=== PATIENT | female | born 1950 | race Caucasian/White ===

== ENCOUNTER 2024-05-22 08:20 | Outpatient (OUT) | payer MEDICARE, OTHER, SELFPAY ==
[2024-05-22 08:54] LABS: Basophils Absolute Auto 0.1 10^3/uL (0.0-0.1); Basophils Percent Auto 1.2 % (0.2-2.0); Eosinophils Absolute Auto 0.3 10^3/uL (0.0-0.7); Eosinophils Percent Auto 3.5 % (0.9-7.0); Hematocrit 37.9 % (36.0-48.0); Hemoglobin 12.6 g/dL (12.0-16.0); Immature Granulocytes Abs Auto 0.03 10^3/uL (0.00-0.03); Immature Granulocytes Pct Auto 0.3 % (0.0-0.5); Lymphocytes Absolute Auto 2.6 10^3/uL (1.2-3.8); Lymphocytes Percent Auto 30.2 % (20.5-60.0); Mean Corpuscular HGB Conc 33.2 g/dL (29.9-35.2); Mean Corpuscular Hemoglobin 30.5 pg (26.7-34.0); Mean Corpuscular Volume 91.8 fL (81.0-99.0); Mean Platelet Volume 9.9 fL (9.5-13.5); Monocytes Absolute Auto 0.7 10^3/uL (0.3-0.8); Monocytes Percent Auto 8.5 % (1.7-12.0); Neutrophils Absolute Auto 4.8 10^3/uL (1.4-6.5); Neutrophils Percent Auto 56.3 % (43.0-75.0); Platelet Count 380 10^3/uL (150-450); Red Blood Count 4.13 10^6/uL (4.20-5.40); Red Cell Distribution Width 12.8 % (11.0-15.0); White Blood Count 8.6 10^3/uL (4.0-11.0)
--- NOTE | 2024-05-22 08:59 | XR_ITS ---
The [address] [address] Patient Name: JEROD CONCEPCION MRN: [id number] date: 1950 Sex: F Assigned Patient Location: LAB Current Patient Location: CARD Accession/Order Number: [id number] Exam Date: 05/22/2024 09:05 Report Date: 05/23/2024 10:26 At the request of: LAUREN AYOUB Procedure: XR chest 2V PROCEDURE: XR chest 2V DATE: 05/22/2024 8:05 AM CDT COMPARISONS: None. CLINICAL INDICATION: 73 years Female Chronic Cough, Coronary Artery Disease FINDINGS: The cardiomediastinal silhouette and pulmonary vasculature are within normal limits. The lungs are clear. There is no evidence of pleural effusion or pneumothorax. XR/XR chest 2V IMPRESSION: Chest radiograph is within normal limits. Electronically authenticated by: WILLY HOUSE Date: 05/23/2024 10:26
[2024-05-22 09:39] LABS: Alanine Aminotransferase 20 U/L (14-59); Albumin Level 3.8 g/dL (3.4-5.0); Alkaline Phosphatase 109 U/L (46-116); Anion Gap 16.5; Aspartate Amino Transferase 15 U/L (15-37); BUN Creatinine Ratio 23.2; Bilirubin Total 0.7 mg/dL (0.2-1.0); Calcium 9.3 mg/dL (8.5-10.1); Carbon Dioxide 25.1 mmol/L (21.0-32.0); Chloride 101 mmol/L (98-107); Chol HDL Ratio 3.3; Cholesterol 187 mg/dL (<=200); Estimated GFR (African America 28 (>=60); Estimated GFR (Non-African Ame 23 (>=60); Globulin 3.7 g/dL; Glucose 198 mg/dL (74-106); HDL Cholesterol 57 mg/dL (40-60); Potassium 4.6 mmol/L (3.5-5.1); Sodium 138 mmol/L (136-145); Thyroid Stimulating Hormone 6.652 uIU/mL (0.358-3.740); Total Protein 7.5 g/dL (6.4-8.2); Triglycerides 366 mg/dL (<=150); VLDL CHOLESTEROL 73.2 mg/dL
[2024-05-22 10:03] LABS: Estimated Average Glucose 220 mg/dL; Glycohemoglobin A1C 9.3 % (4.5-6.2)
[2024-05-23 16:13] LABS: Microalbumin Urine Random 3.2 mg/dL (<=30.0)
== END 2024-05-22 08:21 | disposition home or self-care (01) ==
PROVIDERS: PCP Family Medicine; Visit Provider Family Medicine
DX: R05.3 Chronic cough (principal); E11.9 Type 2 diabetes mellitus without complications; I25.10 Atherosclerotic heart disease of native coronary artery without angina pectoris; D50.9 Iron deficiency anemia, unspecified
CPT/HCPCS: 36415; 71046; 80053; 80061; 82043; 83036; 84443; 85025

== ENCOUNTER 2024-05-23 07:53 | Outpatient (OUT) | payer MEDICARE, OTHER, SELFPAY ==
--- NOTE | 2024-05-23 07:57 | CA_ITS ---
Patient Name: JEROD CONCEPCION MR#: [id number] : 1950 Exam Date: 05/23/2024 Ordering Doctor: DR MASHA OBRIEN M.D. ECHOCARDIOGRAM REPORT PROCEDURE: CA ECHO DOPPLER COMPLETE INDICATIONS: PARSONS COMPARISON: None. DESCRIPTION: COMPLETE ECHOCARDIOGRAM Real-time transthoracic echocardiography with 2D, M-mode, spectral and color flow Doppler performed. QUALITY: Technical quality was good. LEFT VENTRICLE: Normal chamber size. Moderate concentric left ventricular hypertrophy. Global left ventricular systolic function is normal. LV EF: Estimated left ventricular ejection fraction is 60-65 % DIASTOLIC: Diastolic function is indeterminate. ATRIAL SEPTUM: LEFT ATRIUM: Mild chamber dilatation. RIGHT ATRIUM: Normal chamber size. RIGHT VENTRICLE: Normal chamber size. Normal right ventricular systolic function. TRICUSPID VALVE: Normal mobility and thickness. No stenosis with mild regurgitation. No evidence of pulmonary hypertension. RVSP 30 mmHg MITRAL VALVE: Anterior and posterior mitral valve leaflet prolapse. Mild mitral annular calcification. Moderate mitral regurgitation. AORTIC VALVE: Normal trileaflet appearance. No visible sclerosis. Normal leaflet mobility. No evidence of aortic valve stenosis. No aortic regurgitation. AORTIC ROOT: Normal diameter and appearance. PULMONIC VALVE: Normal thickness and mobility. No stenosis. Trivial regurgitation. PERICARDIUM: No evidence of pericardial effusion. IVC: Collapses with inspirations. Normal size PLEURA: CONCLUSION: 1. Moderate concentric hypertrophy with normal systolic function. Estimated LVEF is left ventricular 60 to 65%. 2. Normal right ventricular size and systolic function. 3. Mild left atrial dilatation. 4. No significant valvular dysfunction. 5. Normal right-sided pressures. 6. No pericardial effusion. Adult Echocardiography Procedure Report Left Ventricle LVEDD (3.7 - 5.6 cm): 3.49 cm LVESD (2.2 - 4.0 cm): 2.36 cm LVIVS thickness (0.6 - 1.2 cm): 1.17 cm LVPW thickness (0.5 - 1.0 cm): 1.38 cm e': 0.07 m/s E - e': 11.20 LVOT Max Gradient: 2.48 mm[Hg] LVOT Area (cm2): 0.79 m/s Peak Velocity (LVOT): 0.79 m/s Mean Velocity (LVOT): 0.61 m/s LVOT Diameter 1.94 cm Left Ventricular Ejection Fraction: 60-65 % Left Atrium LA Volume Index (2D A2C): 26.97 ml/m2 Left Atrium Systolic Dimension: 3.20 cm Mitral Valve MV E to A Ratio: 0.78 Mitral Valve A-Wave Peak Velocity: 1.04 m/s Mitral Valve E-Wave Peak Velocity: 0.81 m/s Right Ventricle RV Internal Diastolic Dimension: 3.05 cm Aorta AO Root Diam: 3.11 cm Ascending Ao Diam: 2.74 cm Aortic Valve AoV Area (Peak Jean): 2.02 cm2, 2.02 cm2 AoV Area (VTI): 1.28 cm2, 1.28 cm2 Peak Velocity(Antegrade Flow): 1.15 m/s Peak Gradient(Antegrade Flow): 5.30 mm[Hg] Mean Velocity(Antegrade Flow): 0.87 m/s Mean Gradient(Antegrade Flow): 3.29 mm[Hg] Velocity Time Integral: 28.56 cm Tricuspid Valve Peak Velocity (Regurgitant Flow): 2.59 m/s, 2.43 m/s, 2.54 m/s Pulmonic Valve Mean Gradient: 3.34 mm[Hg], 2.32 mm[Hg] Mean Velocity: 0.87 m/s, 0.69 m/s Peak Velocity: 1.36 m/s Peak Gradient: 8.20 mm[Hg], 6.73 mm[Hg] Right Atrium Right Atrium Systolic Pressure: 37.97 ml, 37.97 ml Dictated by: Dav Fagan M.D. on 05/23/2024 at 20:32 Approved by: Dav Fagan M.D. on 05/23/2024 at 20:36
--- OUTSIDE RECORDS SUMMARY | 2024-05-23 07:58 | XMS_ITS | CCD ---
Author Organization [facility] Care Team Providers Care Horseback Riding Instructor Name Role Phone ANA LAURA BROCK Referring Unavailable AYOUB, TANIA Primary Care Unavailable LONNY FELTON Attending Unavailable NARENDRA SANCHEZ Admitting Unavailable Ayoub, Tania Unavailable AYOUB, TANIA E Primary Care Unavailable DELFINO CARVAJAL Attending Unavailable DELFINO CARVAJAL Consulting Unavailable WEI, DELFINO Admitting Unavailable AYOUB, TANIA E Primary Care Unavailable STEPANIC, DR MILLAN Admitting Unavailable STEPANIC, DR MILLAN Attending Unavailable MISC, DR LYONS Consulting Unavailable AYOUB, TANIA E Primary Care Unavailable MISC, DR LYONS Admitting Unavailable MISC, DR LYONS Attending Unavailable AYOUB, TANIA E Primary Care Unavailable WEICHARDELFINO Admitting Unavailable WEIBETSYA Attending Unavailable AYOUB, TANIA E Primary Care Unavailable MISC, DR LYONS Admitting Unavailable MISC, DR LYONS Attending Unavailable MISC, DR LYONS Consulting Unavailable AYOUB, TANIA E Attending Unavailable AYOUB, TANIA E Consulting Unavailable AYOUB, TANIA E Primary Care Unavailable AYOUB, TANIA E Admitting Unavailable MASAH OBRIEN Attending Unavailable FREIDA GRIFFIN Attending Unavailable GIANNI BOYKIN Attending Unavailable Allergies Allergy Classification Reported Allergen(s) Allergy Type Date of Onset Reaction(s) Facility (8 sources) Penicillin Drug Allergy 02-01-20 20 Unknown [facility] Repository (8 sources) Ciprofloxacin Drug Allergy 05-19-20 24 Unknown, [facility] (5 sources) Eggs/Apples/Oats Drug allergy Unknown [facility] Other (3 sources) atorvastatin Drug Allergy Unknown [facility] Other (3 sources) Substance with penicillin structure and antibacterial mechanism of action (substance) Drug allergy Unknown [facility] Other (1 source) patient allergy list reviewed by nurse or physicia Propensity to adverse reactions 01-11-20 14 Comment:Done [facility] Other (3 sources) Eggs/Apples/Oats *DIETARY PRODUCTS/DIETARY MANAGEM Propensity to adverse reactions Unknown [facility] Other (1 source) Allergies Reconciled Propensity to adverse reactions Unknown [facility] Other (1 source) egg extract; Translations: [EGG] Drug Allergy 06-30-20 23 [facility] Repository (2 sources) Penicillins; Translations: [PENICILLINS] Propensity to adverse reactions to drug (disorder) 01-05-20 [facility] Repository (1 source) Eggs/Apples/Oats *DIETARY PROD Allergy to substance 05-12-20 [facility] Medications Current Medications Medication Drug Class(es) Dates Sig (Normalized) Sig (Original) aspirin 81 mg delayed release oral tablet (7 sources) Platelet Aggregation Inhibitor, Nonsteroidal Anti-inflammatory Drug take 1 tablet by mouth every twenty-four hours Aspirin 81 81 MG 1 tablet Orally Once a day Active azithromycin 250 mg oral tablet (4 sources) Macrolide Antimicrobial Start: 07-01-2023 Azithromycin 250 MG as directed Orally 2 tabs po today, then 1 tab daily x 4 more days for 5 Jun, Active Start: 01-04-2023 Azithromycin 2 50 MG as directed Orally daily for 5 days Dec, Active bumetanide 1 mg oral tablet (7 sources) Loop Diuretic take 1 tablet by mouth every twenty-four hours Bumetanide 1 MG 1 tablet Orally Once a day Active clopidogrel 75 mg oral tablet (7 sources) P2Y12 Platelet Inhibitor take 1 tablet by mouth every twenty-four hours Plavix 75 MG 1 tablet Orally Once a day Active famotidine 20 mg oral tablet (7 sources) Histamine-2 Receptor Antagonist take 1 tablet by mouth once daily at bedtime as needed Famotidine 20 mg TAKE 1 TABLET BY MOUTH ONCE DAILY AT BEDTIME NEEDED for 30 Active FreeStyle Sheree 14 Day [place] - (7 sources) FreeStyle Sheree 14 Day [place] - as directed for 30 days Active FreeStyle Sheree 14 Day [place] - as directed Active FreeStyle Sheree 14 Day Senso r - (7 sources) FreeStyle Sheree 14 Day Sensor - USE DIRECTED EVERY 14 DAYS for 308 Active FreeStyle Sheree 14 Day Sensor - as directed for 14 days Active FreeStyle Sheree 14 Day Sensor - as directed Active glipiZIDE er 5 mg 24 hr extended release oral tablet (9 sources) Sulfonylurea Start: 05-12-2024 End: 05-12-2024 take 5 mg by mouth once daily Glipizide Active 5 MG PO Daily May 12, 2024 12:48pm take 1 tablet by mouth once starla y glipiZIDE ER 5 mg TAKE 1 TABLET BY MOUTH DAILY Active take 1 tablet by elyssa th every twenty-four hours glipiZIDE 5 MG 1 tablet Orally daily for 90 days Active linagliptin 5 mg oral tablet (10 sources) Dipeptidyl Peptidase 4 Inhibitor Start: 05-12-2024 take 1 tablet by mouth once daily Linagliptin (Tradjenta) 5 mg tablet Active 5 MG PO Daily May 12, 2024 12:00am Start: 02-10-2024 End: 05-11-2024 take 1 tablet by mouth once daily Linagliptin (Tradjenta) 5 mg tablet Discontinued 0 .ROUTE .COMPLEX February 10, 2024 12:59pm May 11, 2024 8:28am TAKE 1 TABLET BY MOUTH DAILY Start: 02-09-2024 End: 02-10-2024 take 5 mg by mouth once daily Linagliptin Discontinued 5 MG PO Daily February 09, 2024 12:00am February 10, 2024 12:59pm take 1 tablet by elyssa th once daily Tradjenta 5 mg TAKE 1 TABLET BY MOUTH DAILY for 90 Active lisinopril 10 mg oral tablet (7 sources) Angiotensin Converting Enzyme Inhibitor take 1 tablet by mouth every twenty-four hours Lisinopril 10 MG 1 tablet Orally Once a day Active magnesium citrate 100 mg oral tablet (7 sources) Magnesium Citrat e 100 MG as directed Orally Active Magnesium Citrat e 100 MG as directed Orally Active metFORMIN hydrochloride 850 mg oral tablet (10 sources) Biguanide Start: 02-10-2024 End: 05-11-2024 take 1 tablet by mouth once daily Metformin Active 0 .ROUTE .COMPLEX May 11, 2024 8:28am TAKE 1 TABLET BY MOUTH DAILY Start: 02-09-2024 End: 02-10-2024 take 850 mg by mouth once daily Metformin Discontinued 850 MG PO Daily February 09, 2024 12:00am February 10, 2024 12:59pm metFORMIN HCl 85 0 mg TAKE 1 TABLET BY MOUTH DAILY Orally Once a day for 90 days Active 24 hr metoprolol succinate 50 mg extended release oral tablet (9 sources) beta-Adrenergic Latrell take 1 tablet by mouth every twenty-four hours Toprol XL 50 MG 1 tablet Orally Once a day Active take 1 tablet by elyssa th every twenty-four hours Metoprolol Tartrate 100 MG 1 tablet once a day Active potassium chloride 10 meq extended release oral tablet (7 sources) take 1 tablet by mouth every twelve hours Potassium Chloride ER 10 MEQ 1 tablet with food Orally Twice a day Active rOPINIRole 2 mg oral tablet (10 sources) Nonergot Dopamine Agonist Start: 05-19-2024 take 2 mg by mouth once daily at bedtime Ropinirole Active 2 MG PO Daily at bedtime May 19, 2024 11:37am Start: 05-11-2024 End: 05-12-2024 take 1 tablet by mouth at bedtime Ropinirole Discontinued 0 .ROUTE .COMPLEX May 11, 2024 8:28am May 12, 2024 11:14am TAKE 1 TABLET BY MOUTH AT BEDTIME Start: 05-11-2024 End: 05-19-2024 take 1 mg by mouth once daily at bedtime Ropinirole Discontinued 1 MG PO Daily at bedtime May 11, 2024 12:00am May 19, 2024 11:37am take 1 tablet by elyssa th at bedtime rOPINIRole HCl 1 mg TAKE 1 TABLET BY MOUTH AT BEDTIME for 90 Active Problems Active Problems Problem Classification Problem Date Documented Date Episodic/Chronic Congestive heart failure; nonhypertensive (8 sources) Chronic systolic (congestive) heart failure; Translations: [Heart failure] Onset: 01-04-2023 Chronic Coronary atherosclerosis and other heart disease (10 sources) 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; Translations: [Atherosclerosis of coronary artery without angina pectoris] Onset: 02-12-2020 Chronic Deficiency and other anemia (2 sources) Iron deficiency anemia; Translations: [Iron deficiency anemia, unspecified] 05-19-2024 Episodic Deficiency and other anemia (1 source) Iron deficiency anemia, unspecified; Translations: [Iron deficiency anemia, unspecified] 05-19-2024 Episodic Diabetes mellitus with complications (12 sources) Type 2 diabetes mellitus with hyperglycemia; Translations: [Hyperglycemia due to type 2 diabetes mellitus] Onset: 12-07-2013 Chronic Diabetes mellitus without complication (5 sources) Type 2 diabetes mellitus without complication; Translations: [Type 2 diabetes mellitus without complications] Onset: 12-07-2013 Chronic Heart valve disorders (1 source) Nonrheumatic mitral (valve) insufficiency; Translations: [NONRHEUMATIC MITRAL INSUFFICIENCY] Onset: 01-16-2023 Chronic Other ear and sense organ disorders (2 sources) Hearing loss of right ear; Translations: [Unspecified hearing loss, right ear] Chronic Other ear and sense organ disorders (1 source) Unspecified hearing loss, right ear Chronic Other hereditary and degenerative nervous system conditions (1 source) Restless legs; Translations: [Restless legs syndrome] Chronic Other lower respiratory disease (2 sources) Other forms of dyspnea; Translations: [Other forms of dyspnea] Onset: 05-15-2024 Episodic Other lower respiratory disease (2 sources) Chronic cough; Translations: [Chronic cough] 05-19-2024 Episodic Other nervous system disorders (1 source) Carpal tunnel syndrome; Translations: [Carpal tunnel syndrome, right upper limb] Chronic Other non-traumatic joint disorders (1 source) Pain in right knee Episodic Other nutritional; endocrine; and metabolic disorders (1 source) Simple obesity ; Translations: [Other obesity due to excess calories] Onset: 12-30-2016 Chronic Other nutritional; endocrine; and metabolic disorders (1 source) Body mass index 30+ - obesity; Translations: [Body mass index 30.0-30.9, adult] Onset: 12-30-2016 Chronic Other nutritional; endocrine; and metabolic disorders (1 source) Body mass index 25-29 - overweight; Translations: [Body mass index (BMI) 29.0-29.9, adult] Episodic Other upper respiratory infections (2 sources) Chronic sinusitis; Translations: [Chronic sinusitis, unspecified] Onset: 10-01-2016 Chronic Other upper respiratory infections (3 sources) Acute maxillary sinusitis; Translations: [Acute maxillary sinusitis, unspecified] Onset: 04-10-2015 Episodic Unclassified (1 source) Other ventricular tachycardia; Translations: [Other ventricular tachycardia] Onset: 06-30-2023 Past or Other Problems Problem Classification Problem Date Documented Da te Episodic/Chronic Bacterial infection; unspecified site (1 source) Bacterial infectious disease; Translations: [Bacterial infection, unspecified, in conditions classified elsewhere and of unspecified site] Onset: 12-30-2016 Episodic Residual codes; unclassified (1 source) Family history of breast cancer; Translations: [Family history of malignant neoplasm of breast] Onset: 01-10-2014 Episodic Unclassified (1 source) Other ventricular tachycardia; Translations: [Other ventricular tachycardia] Onset: 06-30-2023 Results Test Name Value Interpretation Reference Range Facility Office Visiton 05-15-2024 Follow-up visit [id number] Gabbi Austin 1950 F Date Provider Department Center 05/15/2024 Jhonatan-MASHA OBRIEN CARD [facility] Family History Problem Relation Age of Onset Mitral valve prolapse Mother Family Status - Relation Status Age at Mother Level of Service:84279 [place] OFFICE/OUTPATIENT ESTABLISHED MOD MDM 30 MIN Normal [facility] Office Visiton 12-01-2023 Follow-up visit [id number] aGbbi Austin 1950 F Date Provider Department Center 12/01/2023 Chica6-FREIDA GRIFFIN CARD [facility] Family History Problem Relation Age of Onset Mitral valve prolapse Mother Family Status - Relation Status Age at Mother Level of Service:87771 [place] OFFICE/OUTPATIENT ESTABLISHED MOD MDM 30 MIN Normal [facility] Office Visiton 06-30-2023 Follow-up visit [id number] Gabbi Austin 1950 F Date Provider Department Center 06/30/2023 Darline-GIANNI BOYKIN CARD [facility] Family History Problem Relation Age of Onset Mitral valve prolapse Mother Family Status - Relation Status Age at Mother Level of Service:07812 [place] OFFICE/OUTPATIENT ESTABLISHED MOD MDM 30-39 MIN Reason for Visit and Comments: Follow-up [614006] - 6 month Normal [facility] ECHOCARDIO M/2D COMPLETEon 0 01-12-2023 ECHOCARDIO M/2D COMPLETE Patient: GABBI AUSTIN Exam Date: 01/12/2023 : 1950 Gender:F Ordering : MRS. MILIAN CURTISDAIANAGONZÁLEZ DEXIGRAPH OPERATOR Admission #: [id number] Family : Order #: [id number] CLICK HERE TO VIEW EXAM ECHOCARDIOGRAM REPORT PROCEDURE: CARDIO PULMONARY ECHOCARDIO M/2D COMP INDICATIONS: Chronic systolic heart failure COMPARISON: None. DESCRIPTION: COMPLETE ECHOCARDIOGRAM Real-time transthoracic echocardiography with 2D, M-mode, spectral and color flow Doppler performed. QUALITY: Technical quality was good. LEFT VENTRICLE: Normal chamber size. Moderate concentric left ventricular hypertrophy. Global left ventricular systolic function is normal. LV EF: Visual estimation of left ventricular ejection fraction is 60%. DIASTOLIC: Grade I diastolic dysfunction. ATRIAL SEPTUM: LEFT ATRIUM: Mildly dilated. RIGHT ATRIUM: Normal chamber size. RIGHT VENTRICLE: Normal chamber size. Normal right ventricular systolic function. TRICUSPID VALVE: Normal mobility and thickness. No stenosis with trivial regurgitation. Mild pulmonary hypertension. RVSP 44 mmHg MITRAL VALVE: Normal mobility and thickness. No mitral valve prolapse. No evidence of mitral valve stenosis. There is no mitral annular calcification. Mild to moderate mitral regurgitation. AORTIC VALVE: Normal trileaflet appearance. Thickened aortic valve. Normal leaflet mobility. No evidence of aortic valve stenosis. No aortic regurgitation. AORTIC ROOT: Normal diameter and appearance. PULMONIC VALVE: Normal thickness and mobility. No stenosis. Trivial regurgitation. PERICARDIUM: No evidence of pericardial effusion. IVC: Collapses with inspirations. Normal size. PLEURA: CONCLUSION: 1. Moderate concentric left ventricular hypertrophy with normal systolic function. LVEF is 60%. 2. Normal right ventricular size and systolic function. 3. Mild diastolic dysfunction. 4. Mild to moderate mitral regurgitation. 5. Mildly elevated right-sided pressures. Adult Echocardiography Procedure Report Left Ventricle LVEDD (3.7 - 5.6 cm): 4.08 cm LVESD (2.2 - 4.0 cm): 2.68 cm LVIVS thickness (0.6 - 1.2 cm): 1.44 cm LVPW thickness (0.5 - 1.0 cm): 1.34 cm e': 0.10 m/s E - e': 8.72 LVOT Max Gradient: 2.26 mm[Hg] Peak Velocity (LVOT): 0.75 m/s Mean Velocity (LVOT): 0.53 m/s LVOT Diameter 1.92 cm Left Ventricular Ejection Fraction: 60% Left Atrium LA Volume Index (2D A2C): 51.76 ml, 51.76 ml Left Atrium Systolic Dimension: 3.18 cm Mitral Valve MV E to A Ratio: 0.78 Mitral Valve A-Wave Peak Velocity: 1.11 m/s Mitral Valve E-Wave Peak Velocity: 0.86 m/s Right Ventricle RV Internal Diastolic Dimension: 2.80 cm Aorta AO Root Diam: 3.04 cm Ascending Ao Diam: 2.93 cm Aortic Valve AoV Area (Peak Jean): 2.07 cm2, 2.07 cm2 AoV Area (VTI): 1.96 cm2, 1.96 cm2 Peak Velocity(Antegrade Flow): 1.05 m/s, 1.05 m/s Peak Gradient(Antegrade Flow): 4.39 mm[Hg], 4.39 mm[Hg] Mean Velocity(Antegrade Flow): 0.78 m/s, 0.78 m/s Mean Gradient(Antegrade Flow): 2.72 mm[Hg], 2.72 mm[Hg] Velocity Time Integral: 26.59 cm, 26.59 cm Tricuspid Valve Peak Velocity (Regurgitant Flow): 1.96 m/s, 1.55 m/s, 3.20 m/s Pulmonic Valve Mean Gradient: 3.22 mm[Hg], 2.09 mm[Hg] Mean Velocity: 0.84 m/s, 0.69 m/s Peak Velocity: 1.34 m/s, 1.09 m/s Peak Gradient: 7.18 mm[Hg], 4.74 mm[Hg] Right Atrium Right Atrium Systolic Pressure: 21.79 ml, 21.79 ml Dictated by: Dav Fagan M.D. on 01/14/2023 at 18:06 Approved by: Dav Fagan M.D. on 01/14/2023 at 18:11 Normal [facility] CBC AUTO DIFFon 01-08-2023 BASO # 0.1 103/ul Normal 0.0-0.1 [facility] Comment on above: Performed By: #### C BC #### [facility] [address] [place] [address] Dr. Jassi Howard Basophils/100 WBC (Bld) 1.2 % Normal 0.2-2.0 [facility] Comment on above: Performed By: #### C BC #### [facility] [address] [place] [address] Dr. Jassi Howard EO # 0.5 103/ul Normal 0.0-0.7 [facility] Comment on above: Performed By: #### C BC #### [facility] [address] [place] [address] Dr. Jassi Howard Eosinophils/100 WBC (Bld) 5.7 % Normal 0.9-7.0 [facility] Comment on above: Performed By: #### C BC #### [facility] [address] [place] [address] Dr. Jassi oHward Erythrocyte distribution width (RBC) [Ratio] 12.7 % Normal 11.0-15.0 [facility] Comment on above: Performed By: #### C BC #### [facility] [address] [place] [address] Dr. Jassi Howard Hematocrit (Bld) [Volume fraction] 34.8 % Critically low 36.0-48.0 [facility] Comment on above: Performed By: #### C BC #### [facility] [address] [place] [address] Dr. Jassi Howard Hemoglobin (Bld) [Mass/Vol] 11.4 g/dL Critically low 12.0-16.0 [facility] Comment on above: Performed By: #### C BC #### [facility] [address] [place] [address] Dr. Jassi Howard IG # 0.05 10e3/ul Critically high 0.00-0.03 [facility] Comment on above: Performed By: #### C BC #### [facility] [address] [place] [address] Dr. Jassi Howard IG % 0.6 % Critically high 0.0-0.5 [facility] Comment on above: Performed By: #### C BC #### [facility] [address] [place] [address] Dr. Jassi Howard LYMPH # 2.7 103/ul Normal 1.2-3.8 [facility] Comment on above: Performed By: #### C BC #### [facility] [address] [place] [address] Dr. Jassi Howard Lymphocytes/100 WBC (Bld) 29.5 % Normal 20.5-60.0 [facility] Comment on above: Performed By: #### C BC #### [facility] [address] [place] [address] Dr. Jassi Howard MANUAL DIFF REQ NO Normal [facility] Comment on above: Performed By: #### C BC #### [facility] [address] [place] [address] Dr. Jassi Howard MCH (RBC) [Entitic mass] 29.1 pg Normal 26.7-34.0 [facility] Comment on above: Performed By: #### C BC #### [facility] [address] [place] [address] Dr. Jassi Howard MCHC (RBC) [Mass/Vol] 32.8 g/dL Normal 29.9-35.2 [facility] Comment on above: Performed By: #### C BC #### [facility] [address] [place] [address] Dr. Jassi Howard MCV (RBC) [Entitic vol] 88.8 fL Normal 81.0-99.0 [facility] Comment on above: Performed By: #### C BC #### [facility] [address] [place] [address] Dr. Jassi Howard MONO # 0.7 103/ul Normal 0.3-0.8 [facility] Comment on above: Performed By: #### C BC #### [facility] [address] [place] [address] Dr. Jassi Howard Monocytes/100 WBC (Bld) 7.2 % Normal 1.7-12.0 [facility] Comment on above: Performed By: #### C BC #### [facility] [address] [place] [address] Dr. Jassi Howard NEUT # 5.0 103/ul Normal 1.4-6.5 [facility] Comment on above: Performed By: #### C BC #### [facility] [address] [place] [address] Dr. Jassi Howard Neutrophils/100 WBC (Bld) 55.8 % Normal 43.0-75.0 [facility] Comment on above: Performed By: #### C BC #### [facility] [address] [place] [address] Dr. Jassi Howard Platelet mean volume (Bld) [Entitic vol] 10.0 fL Normal 9.5-13.5 [facility] Comment on above: Performed By: #### C BC #### [facility] [address] [place] [address] Dr. Jassi Howard PLT 410 103/ul Normal 150-450 [facility] Comment on above: Performed By: #### C BC #### [facility] [address] [place] [address] Dr. Jassi Howard RBC 3.92 106/ul Critically low 4.20-5.40 [facility] Comment on above: Performed By: #### C BC #### [facility] [address] [place] [address] Dr. Jassi Howard WBC 9.0 103/ul Normal 4.0-11.0 [facility] Comment on above: Performed By: #### C BC #### [facility] [address] [place] [address] Dr. Jassi Howard LIPID PROFILEon 01-08-2023 CHOL-HDL RATIO NORM SEE BELOW Normal [facility] Comment on above: Result Comment: 3.3 - 4.4 LOW RISK 4.4 - 7.1 AVERAGE RISK 7.1 - 11.0 MODERATE RISK >11.0 HIGH RISK Performed By: #### C MP, LIPID #### [facility] [address] [place] [address] Dr. Jassi Howard Cholesterol [Mass/Vol] 162 mg/dL Normal <=200 [facility] Comment on above: Performed By: #### C MP, LIPID #### [facility] [address] [place] [address] Dr. Jassi Howard Cholesterol in HDL [Mass/Vol] 49 mg/dL Normal 40-60 [facility] Comment on above: Performed By: #### C MP, LIPID #### [facility] [address] [place], [place] [id number] Dr. Jassi Howard Cholesterol in LDL [Mass/Vol] 61.6 mg/dL Normal [facility] Comment on above: Performed By: #### C MP, LIPID #### [facility] [address] [place] [address] Dr. Jassi Howard Cholesterol.total/Ch olesterol in HDL [Mass ratio] 3.3 {ratio} Normal [facility] Comment on above: Performed By: #### C MP, LIPID #### [facility] [address] [place] [address] Dr. Jassi Howard HDL NORMAL > or = 60 mg/dl - LO W CARDIOVASCULAR RISK <40 mg/dl - HIGH CARDIOVASCULAR RISK Normal [facility] Comment on above: Performed By: #### C MP, LIPID #### [facility] [address] [place] [address] Dr. Jassi Howard LDL CALC NORMAL SEE BELOW Normal [facility] Comment on above: Result Comment: <100 mg/dl OPTIMAL 100 - 129 mg/dl NEAR OR ABOVE OPTIMAL 130 - 159 mg/dl BORDERLINE HIGH 160 - 189 mg/dl HIGH >190 mg/dl VERY HIGH Performed By: #### C MP, LIPID #### [facility] [address] [place] [address] Dr. Jassi Howard Triglyceride [Mass/Vol] 257 mg/dL Critically high <=150 [facility] Comment on above: Performed By: #### C MP, LIPID #### [facility] [address] [place] [address] Dr. Jassi Howard VLDL CALC 51.4 mg/dL Normal [facility] Comment on above: Performed By: #### C MP, LIPID #### [facility] [address] [address] [address] Jassi Howard PROF 14(COMP METB)on 023 Albumin [Mass/Vol] 3.6 g/dL Normal 3.4-5.0 [facility] Comment on above: Performed By: #### C MP, LIPID #### [facility] [address] [place] [address] Dr. Jassi Howard Albumin/Globulin [Mass ratio] 1.1 {ratio} Normal [facility] Comment on above: Performed By: #### C MP, LIPID #### [facility] [address] [place] [address] Dr. Jassi Howard ALP [Catalytic activity/Vol] 93 U/L Normal 46-116 [facility] Comment on above: Performed By: #### C MP, LIPID #### [facility] [address] [address] [address] Jassi Howard ALT [Catalytic activity/Vol] 14 U/L Normal 14-59 [facility] Comment on above: Performed By: #### C MP, LIPID #### [facility] [address] [address] [address] Jassi Howard Anion gap [Moles/Vol] 15.2 mmol/L Normal [facility] Comment on above: Performed By: #### C MP, LIPID #### [facility] [address] [place] [address] Dr. Jassi Howard AST [Catalytic activity/Vol] 10 U/L Critically low 15-37 [facility] Comment on above: Performed By: #### C MP, LIPID #### [facility] [address] [address] [address] Jassi Howard Bilirubin [Mass/Vol] 0.5 mg/dL Normal 0.2-1.0 [facility] Comment on above: Performed By: #### C MP, LIPID #### [facility] [address] [address] [address] Jassi Howard Calcium [Mass/Vol] 9.2 mg/dL Normal 8.5-10.1 [facility] Comment on above: Performed By: #### C MP, LIPID #### [facility] [address] [address] [address] Jassi Howard Chloride [Moles/Vol] 106 mmol/L Normal 98-107 [facility] Comment on above: Performed By: #### C MP, LIPID #### [facility] [address] [address] [address] Jassi Howard CO2 [Moles/Vol] 25.2 mmol/L Normal 21.0-32.0 [facility] Comment on above: Performed By: #### C MP, LIPID #### [facility] [address] [place] [address] Dr. Jassi Howard Creatinine [Mass/Vol] 1.36 mg/dL Critically high 0.55-1.02 [facility] Comment on above: Performed By: #### C MP, LIPID #### [facility] [address] [place] [address] Dr. Jassi Howard EGFR-AF [facility] LUCIAN 47 mL/min/1.73m2 Critically low >=60 [facility] Comment on above: Performed By: #### C MP, LIPID #### [facility] [address] [place] [address] Dr. Jassi Howard EGFR-NON AF [facility] LUCIAN 38 mL/min/1.73m2 Critically low >=60 [facility] Comment on above: Performed By: #### C MP, LIPID #### [facility] [address] [place] [address] Dr. Jassi Howard Globulin (S) [Mass/Vol] 3.3 g/dL Normal [facility] Comment on above: Performed By: #### C MP, LIPID #### [facility] [address] [place] [address] Dr. Jassi Howard Glucose [Mass/Vol] 162 mg/dL Critically high 74-106 [facility] Comment on above: Performed By: #### C MP, LIPID #### [facility] [address] [place] [address] Dr. Jassi Howard Potassium [Moles/Vol] 4.4 mmol/L Normal 3.5-5.1 [facility] Comment on above: Performed By: #### C MP, LIPID #### [facility] [address] [place] [address] Dr. Jassi Howard Protein [Mass/Vol] 6.9 g/dL Normal 6.4-8.2 [facility] Comment on above: Performed By: #### C MP, LIPID #### [facility] [address] [place] [address] Dr. Jassi Howard Sodium [Moles/Vol] 142 mmol/L Normal 136-145 [facility] Comment on above: Performed By: #### C MP, LIPID #### [facility] [address] [place], [place] [address] Dr. Jassi Howard Urea nitrogen [Mass/Vol] 27.0 mg/dL Critically high 7.0-18.0 [facility] Comment on above: Performed By: #### C MP, LIPID #### [facility] [address] [place], [place] [address] Dr. Jassi Howard Urea nitrogen/Creatinine [Mass ratio] 19.9 mg/mg Normal [facility] Comment on above: Performed By: #### C MP, LIPID #### [facility] [address] [place], [place] [address] Dr. Jassi Howard MRI Knee w/o Righton 023 MRI Knee w/o Right History: Knee pain. Internal derangement. Possible twisting injury. Technique: Multiplanar multisequence MRI of the knee was performed without contrast. Comparison: Radiograph since the knee 11/02/2022 Findings: Quadriceps and patellar tendons are intact. Small joint effusion. Anterior and posterior cruciate ligaments are intact. The medial collateral ligament, lateral collateral ligament, and popliteus are intact. Complete radial tear of the posterior horn/root of the lateral meniscus. Complex tear of the body of the medial meniscus. There are several tiny partial thickness cartilage defects of the weightbearing medial femoral condyle. Full-thickness cartilage loss of the medial two thirds of the medial patellar facet with a few tiny foci of subcortical bone marrow edema. Popliteal fossa structures are intact. Thin Bonner 6 measures approximately 6 in meters in craniocaudal length. Heterogenous hypointense T1/slightly hyperintense T2 signal is present along the posterior margin of the posterior medial femoral condyle is nonspecific. This area of signal abnormality measures approximately 1.5 cm in AP dimension by 2.5 cm in transverse dimension by 3 cm in craniocaudal dimension. IMPRESSION: Complete radial tear of the posterior horn/root of the lateral meniscus. Complex tear of the body of the medial meniscus. Area of signal nonspecific abnormality along the posterior margin of the posterior medial femoral condyle may represent localized nodular synovitis/pigmented villonodular synovitis or area of synovial chondromatosis with other etiologies such as gout and amyloidosis felt less likely. Report reported and signed by Terry Sims on 12/05/2022 1151 Normal [facility] CBC AUTO DIFFon 02-26-2022 BASO # 0.1 103/ul Normal 0.0-0.1 [facility] Comment on above: Performed By: #### C BC #### [facility] [id number] Jassi Howard Basophils/100 WBC (Bld) 0.9 % Normal 0.2-2.0 [facility] Comment on above: Performed By: #### C BC #### [facility] [address] [address] [address] Jassi Howard EO # 0.4 103/ul Normal 0.0-0.7 [facility] Comment on above: Performed By: #### C BC #### [facility] [address] [address] [address] Jassi Howard Eosinophils/100 WBC (Bld) 6.4 % Normal 0.9-7.0 [facility] Comment on above: Performed By: #### C BC #### [facility] [address] [address] [address] Jassi Howard Erythrocyte distribution width (RBC) [Ratio] 12.8 % Normal 11.0-15.0 [facility] Comment on above: Performed By: #### C BC #### [facility] [address] [address] [address] Jassi Howard Hematocrit (Bld) [Volume fraction] 38.8 % Normal 36.0-48.0 [facility] Comment on above: Performed By: #### C BC #### [facility] [id number] Jassi Howard Hemoglobin (Bld) [Mass/Vol] 12.3 g/dL Normal 12.0-16.0 [facility] Comment on above: Performed By: #### C BC #### [facility] [address] [address] [address] Jassi Howard IG # 0.03 10e3/ul Normal 0.00-0.03 [facility] Comment on above: Performed By: #### C BC #### [facility] [address] [place] [address] Dr. Jassi Howard IG % 0.4 % Normal 0.0-0.5 [facility] Comment on above: Performed By: #### C BC #### [facility] [address] [place] [address] Dr. Jassi Howard LYMPH # 1.8 103/ul Normal 1.2-3.8 [facility] Comment on above: Performed By: #### C BC #### [facility] [address] [place] [address] Dr. Jassi Howard Lymphocytes/100 WBC (Bld) 26.2 % Normal 20.5-60.0 [facility] Comment on above: Performed By: #### C BC #### [facility] [address] [place] [address] Dr. Jassi Howard MANUAL DIFF REQ NO Normal [facility] Comment on above: Performed By: #### C BC #### [facility] [address] [place] [address] Dr. Jassi Howard MCH (RBC) [Entitic mass] 28.6 pg Normal 26.7-34.0 [facility] Comment on above: Performed By: #### C BC #### [facility] [address] [place] [address] Dr. Jassi Howard MCHC (RBC) [Mass/Vol] 31.7 g/dL Normal 29.9-35.2 [facility] Comment on above: Performed By: #### C BC #### [facility] [address] [place] [address] Dr. Jassi Howard MCV (RBC) [Entitic vol] 90.2 fL Normal 81.0-99.0 [facility] Comment on above: Performed By: #### C BC #### [facility] [address] [place] [address] Dr. Jassi Howard MONO # 0.6 103/ul Normal 0.3-0.8 [facility] Comment on above: Performed By: #### C BC #### [facility] [address] [place] [address] Dr. Jassi Howard Monocytes/100 WBC (Bld) 9.0 % Normal 1.7-12.0 [facility] Comment on above: Performed By: #### C BC #### [facility] [address] [place] [address] Dr. Jassi Howard NEUT # 4.0 103/ul Normal 1.4-6.5 [facility] Comment on above: Performed By: #### C BC #### [facility] [address] [place] [address] Dr. Jassi Howard Neutrophils/100 WBC (Bld) 57.1 % Normal 43.0-75.0 [facility] Comment on above: Performed By: #### C BC #### [facility] [address] [place] [address] Dr. Jassi Howard Platelet mean volume (Bld) [Entitic vol] 10.3 fL Normal 9.5-13.5 [facility] Comment on above: Performed By: #### C BC #### [facility] [address] [place] [address] Dr. Jassi Howard PLT 372 103/ul Normal 150-450 [facility] Comment on above: Performed By: #### C BC #### [facility] [address] [place] [address] Dr. Jassi Howard RBC 4.30 106/ul Normal 4.20-5.40 [facility] Comment on above: Performed By: #### C BC #### [facility] [address] [place] [address] Dr. Jassi Howard WBC 6.9 103/ul Normal 4.0-11.0 [facility] Comment on above: Performed By: #### C BC #### [facility] [address] [place] [address] Dr. Jassi Howard GLYCOHEMOGLOBIN A1Con 2021 ADA RECOMMENDATION SEE BELOW Normal [facility] Comment on above: Result Comment: ADA RECOMMENDED LIMIT 4.0 - 6.0 ADA THERAPEUTIC TARGET < 7.0 ACTION SUGGESTED > 7.0 Performed By: #### A 1C #### [facility] [address] [address] [address] Jassi Howard Glucose [Mass/Vol] 186 mg/dL Normal [facility] Comment on above: Performed By: #### A 1C #### [facility] [address] [address] [address] Jassi Howard HbA1c (Bld) [Mass fraction] 8.1 % Critically high 4.5-6.2 [facility] Comment on above: Performed By: #### A 1C #### [facility] [address] [address] [address] Jassi Howard LIPID PROFILEon 02-26-2022 CHOL-HDL RATIO NORM SEE BELOW Normal [facility] Comment on above: Result Comment: 3.3 - 4.4 LOW RISK 4.4 - 7.1 AVERAGE RISK 7.1 - 11.0 MODERATE RISK >11.0 HIGH RISK Performed By: #### L IPID, CMP #### [facility] [address] [place] [address] Dr. Jassi Howard Cholesterol [Mass/Vol] 136 mg/dL Normal <=200 [facility] Comment on above: Performed By: #### L IPID, CMP #### [facility] [address] [place] [address] Dr. Jassi Howard Cholesterol in HDL [Mass/Vol] 47 mg/dL Normal 40-60 [facility] Comment on above: Performed By: #### L IPID, CMP #### [facility] [address] [place] [address] Dr. Jassi Howard Cholesterol in LDL [Mass/Vol] 45.0 mg/dL Normal [facility] Comment on above: Performed By: #### L IPID, CMP #### [facility] [address] [place] [address] Dr. Jassi Howard Cholesterol.total/Ch olesterol in HDL [Mass ratio] 2.9 {ratio} Normal [facility] Comment on above: Performed By: #### L IPID, CMP #### [facility] [address] [place] [address] Dr. Jassi Howard HDL NORMAL > or = 60 mg/dl - LO W CARDIOVASCULAR RISK <40 mg/dl - HIGH CARDIOVASCULAR RISK Normal [facility] Comment on above: Performed By: #### L IPID, CMP #### [facility] [address] [address] [address] Jassi Howard LDL CALC NORMAL SEE BELOW Normal [facility] Comment on above: Result Comment: <100 mg/dl OPTIMAL 100 - 129 mg/dl NEAR OR ABOVE OPTIMAL 130 - 159 mg/dl BORDERLINE HIGH 160 - 189 mg/dl HIGH >190 mg/dl VERY HIGH Performed By: #### L IPID, CMP #### [facility] [address] [address] [address] Jassi Howard Triglyceride [Mass/Vol] 220 mg/dL Critically high <=150 [facility] Comment on above: Performed By: #### L IPID, CMP #### [facility] [address] [address] [address] Jassi Howard VLDL CALC 44.0 mg/dL Normal [facility] Comment on above: Performed By: #### L IPID, CMP #### [facility] [address] [address] [address] Jassi Howard MICROALBUMIN, RAND URon 02-08 mALB 6.5 mg/L Normal <=30.0 [facility] Comment on above: Performed By: #### M ALBR #### [facility] [address] [address] [address] Jassi Howard PROF 14(COMP METB)on 022 Albumin [Mass/Vol] 3.7 g/dL Normal 3.4-5.0 [facility] Comment on above: Performed By: #### L IPID, CMP #### [facility] [address] [place] [address] Dr. Jassi Howard Albumin/Globulin [Mass ratio] 0.9 {ratio} Normal [facility] Comment on above: Performed By: #### L IPID, CMP #### [facility] [address] [address] [address] Jassi Howard ALP [Catalytic activity/Vol] 115 U/L Normal 46-116 [facility] Comment on above: Performed By: #### L IPID, CMP #### [facility] [address] [place] [address] Dr. Jassi Howard ALT [Catalytic activity/Vol] 17 U/L Normal 14-59 [facility] Comment on above: Performed By: #### L IPID, CMP #### [facility] [address] [place] [address] Dr. Jassi Howard Anion gap [Moles/Vol] 13.2 mmol/L Normal [facility] Comment on above: Performed By: #### L IPID, CMP #### [facility] [address] [place] [address] Dr. Jassi Howard AST [Catalytic activity/Vol] 12 U/L Critically low 15-37 [facility] Comment on above: Performed By: #### L IPID, CMP #### [facility] [address] [place] [address] Dr. Jassi Howard Bilirubin [Mass/Vol] 0.6 mg/dL Normal 0.2-1.0 [facility] Comment on above: Performed By: #### L IPID, CMP #### [facility] [address] [place] [address] Dr. Jassi Howard Calcium [Mass/Vol] 9.4 mg/dL Normal 8.5-10.1 [facility] Comment on above: Performed By: #### L IPID, CMP #### [facility] [address] [place] [address] Dr. Jassi Howard Chloride [Moles/Vol] 101 mmol/L Normal 98-107 [facility] Comment on above: Performed By: #### L IPID, CMP #### [facility] [address] [place] [address] Dr. Jassi Howard CO2 [Moles/Vol] 27.2 mmol/L Normal 21.0-32.0 [facility] Comment on above: Performed By: #### L IPID, CMP #### [facility] [address] [place] [address] Dr. Jassi Howard Creatinine [Mass/Vol] 1.47 mg/dL Critically high 0.55-1.02 [facility] Comment on above: Performed By: #### L IPID, CMP #### [facility] [address] [address] [address] Jassi Howard EGFR-AF [facility] LUCIAN 43 mL/min/1.73m2 Critically low >=60 [facility] Comment on above: Performed By: #### L IPID, CMP #### [facility] [address] [address] [address] Jassi Howard EGFR-NON AF [facility] LUCIAN 35 mL/min/1.73m2 Critically low >=60 [facility] Comment on above: Performed By: #### L IPID, CMP #### [facility] [address] [place] [address] Dr. Jassi Howard Globulin (S) [Mass/Vol] 3.9 g/dL Normal [facility] Comment on above: Performed By: #### L IPID, CMP #### [facility] [address] [place] [address] Dr. Jassi Howard Glucose [Mass/Vol] 178 mg/dL Critically high 74-106 [facility] Comment on above: Performed By: #### L IPID, CMP #### [facility] [address] [place] [address] Dr. Jassi Howard Potassium [Moles/Vol] 4.4 mmol/L Normal 3.5-5.1 [facility] Comment on above: Performed By: #### L IPID, CMP #### [facility] [address] [place] [address] Dr. Jassi Howard Protein [Mass/Vol] 7.6 g/dL Normal 6.4-8.2 [facility] Comment on above: Performed By: #### L IPID, CMP #### [facility] [address] [place] [address] Dr. Jassi Howard Sodium [Moles/Vol] 137 mmol/L Normal 136-145 [facility] Comment on above: Performed By: #### L IPID, CMP #### [facility] [address] [place], [place] [address] Dr. Jassi Howard Urea nitrogen [Mass/Vol] 26.0 mg/dL Critically high 7.0-18.0 [facility] Comment on above: Performed By: #### L IPID, CMP #### [facility] [address] [place], [place] [address] Dr. Jassi Howard Urea nitrogen/Creatinine [Mass ratio] 17.7 mg/mg Normal [facility] Comment on above: Performed By: #### L IPID, CMP #### [facility] [address] [place], [place] [address] Dr. Jassi Howard Cardiovascular Lab Reporton 02-12-2020 Cardiovascular Lab Report [facility] #: [id number] Physician: Ra Tariq Abd Department of MD [facility] Medicine Service Date: 02/12/2020 Division of Birthdate: 1950 Cardiology Room #: [facility] Cardiovascular Services [address] [address] Cardiovascular Laboratory Report SERVICE ORDER EXPEDITER: Anthony Chambers MD, deputy register of deeds. INDICATION: This is a 69-year-old female with past medical history of diabetes and dyslipidemia, who presented recently to [facility] with complaints of shortness of breath for 1 week. The patient had echocardiogram, showed ejection fraction of 25%. She also was found to have hypoxic respiratory failure, which required high-flow nasal cannula. There was an initial concern for apical thrombus and the patient was placed on anticoagulation; however, this was not confirmed by followup echocardiogram. Contrast and anticoagulation were discontinued. The patient has been ruled out for COVID-19. She is brought today for cardiac catheterization lab for bilateral heart catheterization. PROCEDURE IN DETAIL: Informed consent was obtained from the patient after explaining the benefits and risks of the procedure, which included, but not limited to , myocardial infarction, stroke, aortic dissection, infection, bleeding, contrast allergy, temporary or permanent hemodialysis, temporary or permanent pacemaker, and cardiac tamponade. The patient was also notified that a human resources district manager will be assisting during the course of the procedure. Next, the patient was brought to the cardiac catheterization suite. Her bilateral groins as well as the left wrist was prepped and draped in the usual sterile fashion. The right side of the neck was well prepped and draped as well. Then, she had normal Santos's test on the left side. A time-out was obtained to verify the patient as well as the time and site of the procedure. We used Versed and fentanyl for sedation. Using the ultrasound guidance, we visualized the right internal jugular vein. Then, we proceeded by using 10 mL of lidocaine to anesthetize the area over the right internal jugular vein. Using modified Seldinger technique, we obtained an access into the right internal jugular vein using the micropuncture kit. Then, we exchanged using the 0.035 exchange wire and we put 6-Bolivian x 11 cm Glidesheath into the right anterior jugular vein and advanced it. That was followed by advancing the Weinberg catheter under fluoroscopic guidance into the wedge position and we calculated the pulmonary capillary wedge pressure, right atrial pressure, right ventricular pressure, and pulmonary artery pressure. We also obtained a blood sample from the pulmonary artery to calculate the cardiac output and cardiac index by Oscar. After we finalized right heart catheterization, we moved to the left side and started left heart catheterization. We gave 1 mL of lidocaine to anesthetize the area over the left wrist. We were unsuccessful in obtaining an access through the left radial artery, probably due to spasm. After multiple unsuccessful attempts, we decided to abort the left radial access and switch to the left groin access. We used fluoroscopy to identify bony landmarks and landing zone. Then, using the micropuncture kit, we obtained an access into the left common femoral artery and the left femoral angiogram showed good localization of the stick. That was followed by using JL4 and JR4 5-Bolivian catheters and we performed selective bilateral coronary angiography. After reviewing the images, we decided that the patient has high-grade stenosis of the mid left anterior descending artery and therefore, we consulted our interventional team who took over. When I finished the diagnostic part, the patient was well sedated and hemodynamically stable. Please refer to Dr. Cao's dictation for further details about the intervention. RIGHT HEART CATHETERIZATION FINDINGS: Pulmonary capillary wedge pressure 3 mmHg, pulmonary artery pressure 22/4 with mean PA pressure of 11 mmHg, right ventricular pressure 29/0, right atrial pressure 0 mmHg. Aortic pressure 136/65 with AO2 sat of 95% and PaO2 sat 56%. Cardiac output is 4.23 L/minute with cardiac index of 2.43 L/minute per meter squared. Pulmonary vascular resistance 151 dynes. LEFT HEART CATHETERIZATION FINDINGS: 1. Left main coronary artery. Small to moderate size vessel arising from the left coronary cusp giving rise to the left anterior descending artery and left circumflex artery. There was no evidence of atherosclerotic disease in the left main artery. 2. Left anterior descending artery. Moderate size vessel that gave rise to small 1st, 2nd, and 3rd diagonal branches. There was 80% stenosis in the mid left anterior descending artery after the 2nd diagonal branch. 3. Left circumflex artery. Moderate size vessel that gives rise to 1st, 2nd, and 3rd small obtuse marginal branches. There was no evidence of significant vascular disease in the left circumflex artery or its branches. 4. Right coronary artery. Large voluminous dominant vessel giving rise to the right PDA and right PLV branch. There was mild atherosclerotic disease of the right coronary artery. CONCLUSIONS AND RECOMMENDATIONS: After reviewing the angiographic findings on consultation with our interventional team, we concluded that the patient has high-grade stenosis of the mid left anterior descending artery in the range of 80% to 90%. Therefore, a decision was made to proceed with PCI of the left anterior descending artery. Please refer to Dr. Cao's dictation for further details about the intervention. The patient will need to be on dual antiplatelet therapy as well as statins, beta blockers, LETTY inhibitors, and spironolactone as tolerated. Based on right heart cath findings she seems to be volume depleted, therofre, recommend to hold oral diuretics for now. She is currently wearing a LifeVest. She will need followup echocardiogram to reassess her ejection fraction in the future. She will also need a referral for cardiac rehabilitation. She will follow up in the Cardiology Clinic in 2 3 weeks. Electronically Signed by: Ra Fine MD 02/13/2020 01:14 P Ra Fine MD Date Dict: 02/12/2020/05:22 P/Ra Fine MD Date Trans: 02/12/2020 06:06 P/kelsey [id number] Normal [facility] Cardiovascular Lab Report [facility] Patient Name: Gabbi [facility] David MR #: [id number] Physician: Emir Cao, Department of M.D. Medicine Service Date: 02/12/2020 Division of Birthdate: 1950 Cardiology Room #: [facility] Cardiovascular Services [place] [address] Cardiovascular Laboratory Report CLINICAL PRESENTATION: The patient is a 69-year-old female with past medical history significant for type 2 diabetes mellitus and recently diagnosed acute systolic congestive heart failure with EF of 25%. She was recently hospitalized at [facility] [facility] She now returns for cardiac catheterization. Please see the separate report by Dr. Fine for details of diagnostic coronary angiogram. In summary, there was a mid LAD 80% stenosis and I was consulted for further treatment. We proceeded with PCI of the mid LAD. FINAL IMPRESSION: Successful PCI of the mid LAD with a Synergy 2.75 x 16 mm drug-eluting stent, which was post-dilated with an Nubleer Media Odon 3.0 x 8 mm noncompliant balloon. PLAN: 1. Optimal medical therapy for CAD and systolic CHF. 2. Aspirin 81 mg daily long-term. 3. Plavix 75 mg daily for 6-12 months. 4. High-intensity statin therapy. 5. High optimal medical therapy for systolic congestive heart failure. The patient is on metoprolol-XL and Entresto. 6. Consider addition of spironolactone in the outpatient setting. 7. Consider addition of SGLT2 inhibitor such as Jardiance (empagliflozin) given the strong heart failure benefit noted with this class of diabetic drugs. PROCEDURES: PCI LAD, conscious sedation 170 minutes. INDICATION: Acute systolic congestive heart failure. DESCRIPTION OF PROCEDURE: Please see separate report by Dr. Fine for details of the diagnostic coronary angiogram. In summary, there was an 80% mid LAD stenosis and I agreed to proceed with PCI. Heparin anticoagulation was administered for this procedure. The ACT was maintained greater than 200 seconds. A Cordis 5-Bolivian XB 3.0 LAD was engaged to the left main coronary artery. A Runthrough wire was manipulated to the distal LAD beyond the area of stenosis. The lesion was predilated with an Emerge 2.0 x 12 mm balloon at 10 atmospheres. Next, a Synergy 2.75 x 16 mm drug-eluting stent was deployed in the mid LAD at 12 atmospheres. Next, the stent was postdilated with an NC Quantum Odon 3.0 x 8 mm noncompliant balloon at 16 to 18 atmospheres throughout the stented segments. At this point, the procedure was finished and the final result was very good. Intracoronary nitroglycerin was administered. The final angiograms were performed. There was 0% residual stenosis of the LAD and normal MACO-3 flow throughout the LAD and its branches. At this point, all catheters and wires removed from the body. The left femoral sheath was removed. An Angio-Seal closure device was used to obtain hemostasis. There were no apparent complications. TOTAL CONSCIOUS SEDATION TIME: 170 minutes. TOTAL CONTRAST FOR BOTH THE DIAGNOSTIC AND INTERVENTIONAL PROCEDURES: 130 mL. TOTAL FLUOROSCOPY TIME: 22 minutes and 2 seconds, 1.2 Gy. FINDINGS: LAD: The LAD is a large vessel and gives rise to multiple diagonal branches. At the beginning of the procedure, there is a mid LAD 80% discrete stenosis right after the origin of the 3rd diagonal branch. At the end of stent procedure, there was 0% residual stenosis and normal MACO-3 flow throughout the LAD and its branches. The left main is patent. The circumflex is patent. The RCA has only 30% stenosis in its mid segment. Electronically Signed by: Emir Cao M.D. 02/21/2020 06:45 P Emir Cao M.D. Date Dict: 02/12/2020/11:34 A/Emir Cao M.D. Date Trans: 02/12/2020 12:40 P/kelsey [id number] cc: Ra Fine MD [address] [place] [address]. Mailstop 2577 [facility] [address] Tania Ayoub M.D. [address] [place] [address] [place] [facility] *SARS-CoV-2 COVID-19on 02-06 [id number] Not Detected Normal Not Detected [facility] Comment on above: Order Comment: No: D o not add to previous draw Performed By: #### 5 0608 #### [facility] [address] [place] [address], [place] BASIC METABOLIC PANELon 04-2 Calcium [Mass/Vol] 9.7 mg/dL Normal 8.6-10.3 [facility] Comment on above: Order Comment: No: D o not add to previous draw Performed By: #### 3 5199, 42850 #### [facility] [address] [place] [address], [place] Chloride [Moles/Vol] 95 mmol/L Low 98-107 [facility] Comment on above: Order Comment: No: D o not add to previous draw Performed By: #### 3 5199, 74442 #### [facility] [address] [place] [address], [place] CO2 [Moles/Vol] 27 mmol/L Normal 21-31 [facility] Comment on above: Order Comment: No: D o not add to previous draw Performed By: #### 3 5199, 53366 #### [facility] [address] [place] [address], [place] Creatinine [Mass/Vol] 0.91 mg/dL Normal 0.60-1.20 [facility] Comment on above: Order Comment: No: D o not add to previous draw Performed By: #### 3 5199, 98252 #### [facility] [address] [place] [address], [place] GFR/1.73 sq M predicted among blacks MDRD (S/P/Bld) [Vol rate/Area] mL/min/{1.73_m2} Normal >60 [facility] Comment on above: Order Comment: No: D o not add to previous draw Performed By: #### 3 5199, 93741 #### [facility] [address] [place] [address], [facility] GFR/1.73 sq M predicted among non-blacks MDRD (S/P/Bld) [Vol rate/Area] mL/min/{1.73_m2} Normal >60 [facility] Comment on above: Order Comment: No: D o not add to previous draw Performed By: #### 3 5199, 26431 #### [facility] [address] [place] [address], [place] Glucose [Mass/Vol] 220 mg/dL High 70-100 [facility] Comment on above: Order Comment: No: D o not add to previous draw Performed By: #### 3 5199, 84388 #### [facility] [address] [place] [address], [place] Potassium [Moles/Vol] 3.9 mmol/L Normal 3.5-5.1 [facility] Comment on above: Order Comment: No: D o not add to previous draw Performed By: #### 3 5199, 54512 #### [facility] [address] [place] [address], [place] Sodium [Moles/Vol] 133 mmol/L Low 136-145 [facility] Comment on above: Order Comment: No: D o not add to previous draw Performed By: #### 3 5199, 91035 #### [facility] [address] [place] [address], [place] Urea nitrogen [Mass/Vol] 29 mg/dL High 7-25 [facility] Comment on above: Order Comment: No: D o not add to previous draw Performed By: #### 3 5199, 93164 #### [facility] [address] [place] [address], [place] CBC COMPLETE BLOOD COUNTon 0 4- Erythrocyte distribution width (RBC) [Ratio] 16.5 % High 11.5-15.0 [facility] Comment on above: Order Comment: No: D o not add to previous draw Performed By: #### 3 5199, 41152 #### [facility] [address] [place] [address], [facility] Hematocrit (Bld) [Volume fraction] 35.5 % Low 36.0-45.0 [facility] Comment on above: Order Comment: No: D o not add to previous draw Performed By: #### 3 5199, 15204 #### [facility] [address] [place] [address], [facility] Hemoglobin (Bld) [Mass/Vol] 10.3 g/dL Low 12.0-15.0 [facility] Comment on above: Order Comment: No: D o not add to previous draw Performed By: #### 3 5199, 36156 #### [facility] [address] [place] [address], [facility] MCH (RBC) [Entitic mass] 20.5 pg Low 27.0-33.0 [facility] Comment on above: Order Comment: No: D o not add to previous draw Performed By: #### 3 5199, 35124 #### [facility] [address] [facility] [place] [address], [facility] MCHC (RBC) [Mass/Vol] 29.0 g/dL Low 32.0-35.0 [facility] Comment on above: Order Comment: No: D o not add to previous draw Performed By: #### 3 5199, 71798 #### [facility] [address] [place] [id number], [facility] MCV (RBC) [Entitic vol] 70.6 fL Low 82.0-98.0 [facility] Comment on above: Order Comment: No: D o not add to previous draw Performed By: #### 3 5199, 14577 #### [facility] [address] [place] [id number], [facility] Nucleated RBC/100 WBC (Bld) [Ratio] 0 % Normal 0-0 [facility] Comment on above: Order Comment: No: D o not add to previous draw Performed By: #### 3 5200, 42255 #### [facility] [address] [place] [address], [facility] PLAT CNT 564 10*3/uL High 150-400 [facility] Comment on above: Order Comment: No: D o not add to previous draw Performed By: #### 3 5200, 14925 #### [facility] [address] [place] [address], [facility] RBC (Bld) [#/Vol] 5.03 10*6/uL High 3.80-5.00 The [facility] Comment on above: Order Comment: No: D o not add to previous draw Performed By: #### 3 0, 11155 #### [facility] [address] [place] [address], [facility] WBC (Bld) [#/Vol] 16.42 10*3/uL High 4.00-10.60 [facility] Comment on above: Order Comment: No: D o not add to previous draw Performed By: #### 3 0, 84395 #### [facility] [address] [place] [address], [facility] MAGNESIUM BLOODon 02-07-2020 Magnesium [Mass/Vol] 1.8 mg/dL Low 1.9-2.7 [facility] Comment on above: Performed By: #### 5 0608 #### [facility] [address] PROCALCITONINon 02-07-2020 PROCALCITONIN 0.14 ng/mL High 0.00-0.10 [facility] Comment on above: Order Comment: No: D o not add to previous draw Result Comment: Susp ected Lower Respiratory Tract Infection: 0.1-0.25ng/mL- Low likelihood for bacterial infection;Antibiotics discouraged.* >0.25ng/mL- Increased likelihood bacterial infection;Antibiotics encouraged. Suspected Sepsis: Strongly consider initiating antibiotics in all unstable patients. 0.1-0.5ng/mL- Low likelihood for sepsis; Antibiotics discouraged.* >0.5ng/mL- Increased likelihood sepsis; Antibiotics encouraged. >2.0ng/mL- High risk of sepsis/septic shock; Antibiotics strongly encouraged. *Recommend retesting PCT within 6-12hours if clinically indicated and initial PCT<0.5ng/mL Performed By: #### 5 0608 #### [facility] [address] PROTHROMBIN TIMEon 0 INR Coag (PPP) [Relative time] 1.01 {INR} Normal 0.91-1.16 [facility] Comment on above: Order Comment: No: D o not add to previous draw Result Comment: ACCC P RECOMMENDED INR FOR WARFARIN THERAPY ------- ------- CONDITION INR PROPHYLAXIS OF VENOUS THROMBOSIS 2-3 (HIGH-RISK SURGERY) TREATMENT OF VENOUS THROMBOSIS 2-3 TREATMENT OF PULMONARY EMBOLISM 2-3 PREVENTION OF SYSTEMIC EMBOLISM: 2-3 ACUTE MYOCARDIAL INFARCTION TISSUE HEART VALVES VALVULAR HEART DISEASE ATRIAL FIBRILLATION RECURRENT SYSTEMIC EMBOLISM MECHANICAL HEART VALVE 2.5-3.5 FROM: ORAL ANTICOAGULANTS. MECHANISM OF ACTION, CLINICAL EFFECTIVENESS, AND OPTIMAL THERAPEUTIC RANGE. CHEST 1995;108:231S-246S. Performed By: #### 5 0608 #### [facility] 3000 [facility]. [address] PT Coag (PPP) [Time] 13.3 s Normal 12.3-14.8 [facility] Comment on above: Order Comment: No: D o not add to previous draw Result Comment: ALL RESULTS MUST BE INTERPRETED WITH RESPECT TO BLOOD DRAWING ARTIFACT OR DILUTION ERROR OF ANTICOAGULANT AT THE TIME OF SAMPLING. Performed By: #### 5 0608 #### [facility] [address] UFH HEPARIN ASSAYon 02-07-20 20 UNFRACTIONATED HEPARIN >1.00 Critically high 0.30-0.70 [facility] Comment on above: Result Comment: Delphos roxaban and Apixaban will interfere with the anti Xa assay used to monitor UFH and LMWH. Results called. Accurately read back by Sangeetha Villareal RN at 1026 Performed By: #### 5 0608 #### [facility] [address] APTTon 02-06-2020 aPTT Coag (Bld) [Time] 66.0 s High 25.0-35.0 [facility] Comment on above: Order Comment: No: D o not add to previous draw Result Comment: ALL RESULTS MUST BE INTERPRETED WITH RESPECT TO BLOOD DRAWING ARTIFACT OR DILUTION ERROR OF ANTICOAGULANT AT THE TIME OF SAMPLING. THE APTT SHOULD NOT BE USED TO MONITOR UNFRACTIONATED HEPARIN THERAPY, THIS LABORATORY NO LONGER HAS AN ESTABLISHED THERAPEUTIC RANGE BASED ON THE APTT. IT IS RECOMMENDED THAT THE UFH - HEPARIN ASSAY (ANTI-XA ACTIVITY) BE USED FOR THIS PURPOSE. CLINICAL SIGNIFICANCE OF THE PTT RESULT IS QUESTIONABLE IN THE PRESENCE OF HEPARIN. Performed By: #### 3 5200, 61251 #### [facility] [address] [place] [address], [place] BASIC METABOLIC PANELon 04-2 Calcium [Mass/Vol] 9.3 mg/dL Normal 8.6-10.3 [facility] Comment on above: Order Comment: No: D o not add to previous draw Performed By: #### 3 5199, 96807 #### [facility] [address] [place] [address], [place] Chloride [Moles/Vol] 94 mmol/L Low 98-107 [facility] Comment on above: Order Comment: No: D o not add to previous draw Performed By: #### 3 5199, 72390 #### [facility] [address] [place] [address], [place] CO2 [Moles/Vol] 27 mmol/L Normal 21-31 [facility] Comment on above: Order Comment: No: D o not add to previous draw Performed By: #### 3 5199, 68138 #### [facility] [address] [place] [address], [place] Creatinine [Mass/Vol] 0.89 mg/dL Normal 0.60-1.20 [facility] Comment on above: Order Comment: No: D o not add to previous draw Performed By: #### 3 5199, 87176 #### [facility] [address] [place] [address], [place] GFR/1.73 sq M predicted among blacks MDRD (S/P/Bld) [Vol rate/Area] mL/min/{1.73_m2} Normal >60 [facility] Comment on above: Order Comment: No: D o not add to previous draw Performed By: #### 3 5199, 83891 #### [facility] [address] [place] [address], [place] GFR/1.73 sq M predicted among non-blacks MDRD (S/P/Bld) [Vol rate/Area] mL/min/{1.73_m2} Normal >60 [facility] Comment on above: Order Comment: No: D o not add to previous draw Performed By: #### 3 5199, 11405 #### [facility] [address] [facility] [place] [place] [address], [facility] Glucose [Mass/Vol] 191 mg/dL High 70-100 [facility] Comment on above: Order Comment: No: D o not add to previous draw Performed By: #### 3 5199, 94629 #### [facility] [address] [place] [address], [facility] Potassium [Moles/Vol] 3.6 mmol/L Normal 3.5-5.1 [facility] Comment on above: Order Comment: No: D o not add to previous draw Performed By: #### 3 5199, 08990 #### [facility] [address] [facility] [place] [address], [facility] Sodium [Moles/Vol] 132 mmol/L Low 136-145 [facility] Comment on above: Order Comment: No: D o not add to previous draw Performed By: #### 3 5199, 24173 #### [facility] [address] [facility] [place] [address], [facility] Urea nitrogen [Mass/Vol] 25 mg/dL Normal 7-25 [facility] Comment on above: Order Comment: No: D o not add to previous draw Performed By: #### 3 5199, 60315 #### [facility] [address] [facility] [place] [address], [facility] CBC W/DIFFon 02-06-2020 ABS BASOPHILS 0.1 10*3/uL Normal 0.0-0.2 [facility] Comment on above: Order Comment: No: D o not add to previous draw Performed By: #### 3 5199, 49092 #### [facility] [address] [place] [id number], [facility] ABS IMM GRANS 0.2 10*3/uL Normal 0.0-0.2 [facility] Comment on above: Order Comment: No: D o not add to previous draw Performed By: #### 3 5199, 79192 #### [facility] [address] [place] [address], [place] ABS NEUTROPHILS 8.9 10*3/uL High 1.6-7.6 [facility] Comment on above: Order Comment: No: D o not add to previous draw Performed By: #### 3 5199, 22898 #### [facility] [address] [place] [address], [place] Basophils/100 WBC (Bld) 0.8 % Normal 0.0-1.0 [facility] Comment on above: Order Comment: No: D o not add to previous draw Performed By: #### 3 5199, 70528 #### [facility] [address] [place] [address], [place] Eosinophils (Bld) [#/Vol] 0.4 10*3/uL Normal 0.0-0.5 [facility] Comment on above: Order Comment: No: D o not add to previous draw Performed By: #### 3 5199, 47346 #### [facility] [address] [place] [address], [place] Eosinophils/100 WBC (Bld) 2.6 % Normal 0.0-6.0 [facility] Comment on above: Order Comment: No: D o not add to previous draw Performed By: #### 3 5199, 53525 #### [facility] [address] [place] [address], [place] Erythrocyte distribution width (RBC) [Ratio] 16.3 % High 11.5-15.0 [facility] Comment on above: Order Comment: No: D o not add to previous draw Performed By: #### 3 5199, 34085 #### [facility] [address] [place] [address], [place] Hematocrit (Bld) [Volume fraction] 32.8 % Low 36.0-45.0 [facility] Comment on above: Order Comment: No: D o not add to previous draw Performed By: #### 3 5199, 39641 #### [facility] [address] [place] [address], [facility] Hemoglobin (Bld) [Mass/Vol] 9.6 g/dL Low 12.0-15.0 [facility] Comment on above: Order Comment: No: D o not add to previous draw Performed By: #### 3 5199, 65663 #### [facility] [address] [place] [address], [facility] IMMATURE GRANS 1.1 % High 0.0-1.0 [facility] Comment on above: Order Comment: No: D o not add to previous draw Performed By: #### 3 5199, 21848 #### [facility] [address] [facility] [place] [place] [address], [facility] Lymphocytes (Bld) [#/Vol] 3.3 10*3/uL Normal 1.2-4.0 [facility] Comment on above: Order Comment: No: D o not add to previous draw Performed By: #### 3 5199, 16035 #### [facility] [address] [facility] [place] [address], [facility] Lymphocytes/100 WBC (Bld) 23.2 % Normal 20.0-45.0 [facility] Comment on above: Order Comment: No: D o not add to previous draw Performed By: #### 3 5199, 17624 #### [facility] [address] [place] [id number], [facility] MCH (RBC) [Entitic mass] 20.6 pg Low 27.0-33.0 [facility] Comment on above: Order Comment: No: D o not add to previous draw Performed By: #### 3 5199, 64256 #### [facility] [address] [place] [address], [facility] MCHC (RBC) [Mass/Vol] 29.3 g/dL Low 32.0-35.0 [facility] Comment on above: Order Comment: No: D o not add to previous draw Performed By: #### 3 5199, 42095 #### [facility] [address] [place] [address], [facility] MCV (RBC) [Entitic vol] 70.4 fL Low 82.0-98.0 [facility] Comment on above: Order Comment: No: D o not add to previous draw Performed By: #### 3 5199, 67259 #### [facility] [address] [facility] [place] [address], [facility] Monocytes (Bld) [#/Vol] 1.4 10*3/uL High 0.1-1.0 [facility] Comment on above: Order Comment: No: D o not add to previous draw Performed By: #### 3 5199, 79529 #### [facility] [address] [facility] [place] [id number], [facility] MONOS 9.7 % Normal 5.0-12.0 [facility] Comment on above: Order Comment: No: D o not add to previous draw Performed By: #### 3 5199, 43493 #### [facility] [address] [place] [id number], [facility] Neutrophils/100 WBC (Bld) 62.6 % Normal 40.0-72.0 [facility] Comment on above: Order Comment: No: D o not add to previous draw Performed By: #### 3 5199, 03256 #### [facility] [address] [facility] [place] [id number], [place] Nucleated RBC/100 WBC (Bld) [Ratio] 0 % Normal 0-0 [facility] Comment on above: Order Comment: No: D o not add to previous draw Performed By: #### 3 5199, 31345 #### [facility] PLAT CNT 486 10*3/uL High 150-400 [facility] Comment on above: Order Comment: No: D o not add to previous draw Performed By: #### 3 5200, 455[address] #### [place] [address], [facility] RBC (Bld) [#/Vol] 4.66 10*6/uL Normal 3.80-5.00 [facility] Comment on above: Order Comment: No: D o not add to previous draw Performed By: #### 3 0, 76996 #### [place] [address], [facility] WBC (Bld) [#/Vol] 14.19 10*3/uL High 4.00-10.60 [facility] Comment on above: Order Comment: No: D o not add to previous draw Performed By: #### 3 5199, 62653 #### [address] PORTABLE CHEST 1 VIEWon 01-10 PORTABLE CHEST 1 VIEW [facility] Department of Radiology [address] [place], [place] [id number] Patient Name: GABBI AUSTIN : 1950 Sex: F Age: Race: White Pt. Location: [id number] Patient Status: I Ordered Date: 02/06/2020 9:55:00 AM Completed Date: 02/06/2020 02:22 PM Requesting Provider: CARINE GURROLA Attending Provider: ANGELA BRAY Report Copy To: Signs & Symptoms: Elevated WBC History: Comments: evaluate for Aspiration Exam: PORTABLE CHEST 1 VIEW PORTABLE CHEST 1 VIEW 02/06/2020 2:22 PM CLINICAL INDICATIONS: Elevated WBC fever, aspiration TECHNOLOGIST COMMENTS: Elevated WBC QUESTION FOR THE RADIOLOGIST: evaluate for Aspiration PROTOCOL: AP(PA) view was obtained. COMPARISON: 02/03/2020 FINDINGS: Decreased small left and right pleural effusions with persistent albeit decreasing bilateral lower lung atelectasis versus pneumonia. IMPRESSION: Improving appearance of the chest with decreasing bilateral pleural effusions and lower lung atelectasis versus pneumonia. Electronically signed: Alie Soriano. Transcribed by: [id number], User Resident: Electronically Signed by: ALIE SORIANO @ 02/06/2020 02:27 PM Normal [facility] Comment on above: Order Comment: No: D o not add to previous draw PROTHROMBIN TIMEon 0 INR Coag (PPP) [Relative time] 0.98 {INR} Normal 0.91-1.16 [facility] Comment on above: Order Comment: No: D o not add to previous draw Result Comment: ACCC P RECOMMENDED INR FOR WARFARIN THERAPY ------- ------- CONDITION INR PROPHYLAXIS OF VENOUS THROMBOSIS 2-3 (HIGH-RISK SURGERY) TREATMENT OF VENOUS THROMBOSIS 2-3 TREATMENT OF PULMONARY EMBOLISM 2-3 PREVENTION OF SYSTEMIC EMBOLISM: 2-3 ACUTE MYOCARDIAL INFARCTION TISSUE HEART VALVES VALVULAR HEART DISEASE ATRIAL FIBRILLATION RECURRENT SYSTEMIC EMBOLISM MECHANICAL HEART VALVE 2.5-3.5 FROM: ORAL ANTICOAGULANTS. MECHANISM OF ACTION, CLINICAL EFFECTIVENESS, AND OPTIMAL THERAPEUTIC RANGE. CHEST 1995;108:231S-246S. Performed By: #### 3 5199, 12250 #### [facility] [address] PT Coag (PPP) [Time] 13.0 s Normal 12.3-14.8 [facility] Comment on above: Order Comment: No: D o not add to previous draw Result Comment: ALL RESULTS MUST BE INTERPRETED WITH RESPECT TO BLOOD DRAWING ARTIFACT OR DILUTION ERROR OF ANTICOAGULANT AT THE TIME OF SAMPLING. Performed By: #### 3 5199, 09106 #### [facility] [address] [facility] [address] UFH HEPARIN ASSAYon 02-06-20 20 UNFRACTIONATED HEPARIN 0.84 IU/mL High 0.30-0.70 [facility] Comment on above: Order Comment: No: D o not add to previous draw Result Comment: Delphos roxaban and Apixaban will interfere with the anti Xa assay used to monitor UFH and LMWH. Performed By: #### 3 5199, 25138 #### [facility] [address] [facility] [address] UNFRACTIONATED HEPARIN 0.70 IU/mL Normal 0.30-0.70 [facility] Comment on above: Result Comment: Malena roxaban and Apixaban will interfere with the anti Xa assay used to monitor UFH and LMWH. Performed By: #### 3 5199, 55856 #### [facility] [address] UNFRACTIONATED HEPARIN 0.25 IU/mL Low 0.30-0.70 [facility] Comment on above: Order Comment: No: D o not add to previous draw Result Comment: Delphos roxaban and Apixaban will interfere with the anti Xa assay used to monitor UFH and LMWH. Performed By: #### 3 5199, 00039 #### [facility] [address] [place] [address], [facility] BASIC METABOLIC PANELon 04- Calcium [Mass/Vol] 9.5 mg/dL Normal 8.6-10.3 [facility] Comment on above: Order Comment: No: D o not add to previous draw Performed By: #### 3 5199, 77174 #### [facility] [address] [place] [address], [place] Chloride [Moles/Vol] 95 mmol/L Low 98-107 [facility] Comment on above: Order Comment: No: D o not add to previous draw Performed By: #### 3 5199, 13506 #### [facility] [address] [place] [address], [place] CO2 [Moles/Vol] 27 mmol/L Normal 21-31 [facility] Comment on above: Order Comment: No: D o not add to previous draw Performed By: #### 3 5199, 47217 #### [facility] [address] [place] [address], [place] Creatinine [Mass/Vol] 0.96 mg/dL Normal 0.60-1.20 [facility] Comment on above: Order Comment: No: D o not add to previous draw Performed By: #### 3 5199, 16014 #### [facility] [address] [place] [address], [place] GFR/1.73 sq M predicted among blacks MDRD (S/P/Bld) [Vol rate/Area] mL/min/{1.73_m2} Normal >60 [facility] Comment on above: Order Comment: No: D o not add to previous draw Performed By: #### 3 5199, 37402 #### [facility] [address] [place] [address], [place] GFR/1.73 sq M predicted among non-blacks MDRD (S/P/Bld) [Vol rate/Area] 58 ml/min/1.73sq m Abnormal >60 [facility] Comment on above: Order Comment: No: D o not add to previous draw Performed By: #### 3 5199, 87838 #### [facility] [address] [place] [address], [facility] Glucose [Mass/Vol] 176 mg/dL High 70-100 [facility] Comment on above: Order Comment: No: D o not add to previous draw Performed By: #### 3 5199, 31233 #### [facility] [address] [place] [address], [facility] Potassium [Moles/Vol] 3.8 mmol/L Normal 3.5-5.1 [facility] Comment on above: Order Comment: No: D o not add to previous draw Performed By: #### 3 5199, 87449 #### [facility] [address] [facility] [place] [address], [facility] Sodium [Moles/Vol] 133 mmol/L Low 136-145 [facility] Comment on above: Order Comment: No: D o not add to previous draw Performed By: #### 3 5199, 02857 #### [facility] [address] [facility] [place] [address], [facility] Urea nitrogen [Mass/Vol] 26 mg/dL High 7-25 [facility] Comment on above: Order Comment: No: D o not add to previous draw Performed By: #### 3 5199, 72604 #### [facility] [address] [facility] [place] [address], [facility] CBC W/DIFFon 02-05-2020 ABS BASOPHILS 0.1 10*3/uL Normal 0.0-0.2 [facility] Comment on above: Order Comment: No: D o not add to previous draw Performed By: #### 3 5199, 59447 #### [facility] [address] [place] [address], [facility] ABS IMM GRANS 0.1 10*3/uL Normal 0.0-0.2 [facility] Comment on above: Order Comment: No: D o not add to previous draw Performed By: #### 3 5199, 08416 #### [facility] [address] [place] [address], [facility] ABS NEUTROPHILS 9.1 10*3/uL High 1.6-7.6 [facility] Comment on above: Order Comment: No: D o not add to previous draw Performed By: #### 3 5199, 20056 #### [facility] [address] [place] [address], [facility] Basophils/100 WBC (Bld) 0.9 % Normal 0.0-1.0 [facility] Comment on above: Order Comment: No: D o not add to previous draw Performed By: #### 3 5199, 44157 #### [facility] [address] [place] [address], [place] Eosinophils (Bld) [#/Vol] 0.4 10*3/uL Normal 0.0-0.5 [facility] Comment on above: Order Comment: No: D o not add to previous draw Performed By: #### 3 5199, 85650 #### [facility] [address] [place] [address], [facility] Eosinophils/100 WBC (Bld) 2.6 % Normal 0.0-6.0 [facility] Comment on above: Order Comment: No: D o not add to previous draw Performed By: #### 3 5199, 74757 #### [facility] [address] [place] [id number], [place] Erythrocyte distribution width (RBC) [Ratio] 16.1 % High 11.5-15.0 [facility] Comment on above: Order Comment: No: D o not add to previous draw Performed By: #### 3 5199, 71280 #### [facility] [address] Hematocrit (Bld) [Volume fraction] 31.9 % Low 36.0-45.0 [facility] Comment on above: Order Comment: No: D o not add to previous draw Performed By: #### 3 5199, 22797 #### [facility] [address] [place] [id number], [facility] Hemoglobin (Bld) [Mass/Vol] 9.6 g/dL Low 12.0-15.0 [facility] Comment on above: Order Comment: No: D o not add to previous draw Performed By: #### 3 5199, 61983 #### [facility] [address] [place] [address], [facility] IMMATURE GRANS 0.8 % Normal 0.0-1.0 [facility] Comment on above: Order Comment: No: D o not add to previous draw Performed By: #### 3 5199, 07468 #### [facility] [address] [place] [address], [facility] Lymphocytes (Bld) [#/Vol] 3.8 10*3/uL Normal 1.2-4.0 [facility] Comment on above: Order Comment: No: D o not add to previous draw Performed By: #### 3 5199, 24343 #### [facility] [address] [place] [address], [facility] Lymphocytes/100 WBC (Bld) 25.8 % Normal 20.0-45.0 [facility] Comment on above: Order Comment: No: D o not add to previous draw Performed By: #### 3 5199, 43668 #### [facility] [address] [place] [id number], [place] MCH (RBC) [Entitic mass] 20.9 pg Low 27.0-33.0 [facility] Comment on above: Order Comment: No: D o not add to previous draw Performed By: #### 3 5199, 29227 #### [facility] [address] [place] [address], [facility] MCHC (RBC) [Mass/Vol] 30.1 g/dL Low 32.0-35.0 [facility] Comment on above: Order Comment: No: D o not add to previous draw Performed By: #### 3 5199, 20643 #### [facility] [address] [place] [id number], [facility] MCV (RBC) [Entitic vol] 69.5 fL Low 82.0-98.0 [facility] Comment on above: Order Comment: No: D o not add to previous draw Performed By: #### 3 5199, 06570 #### [facility] [address] [facility] [place] [address], [facility] Monocytes (Bld) [#/Vol] 1.3 10*3/uL High 0.1-1.0 [facility] Comment on above: Order Comment: No: D o not add to previous draw Performed By: #### 3 5199, 88210 #### [facility] [address] [facility] [place] [address], [facility] MONOS 8.5 % Normal 5.0-12.0 [facility] Comment on above: Order Comment: No: D o not add to previous draw Performed By: #### 3 5199, 23826 #### [facility] [address] [facility] [place] [address], [facility] Neutrophils/100 WBC (Bld) 61.4 % Normal 40.0-72.0 [facility] Comment on above: Order Comment: No: D o not add to previous draw Performed By: #### 3 5199, 22842 #### [facility] [address] [facility] [place] [address], [facility] Nucleated RBC/100 WBC (Bld) [Ratio] 0 % Normal 0-0 [facility] Comment on above: Order Comment: No: D o not add to previous draw Performed By: #### 3 5199, 68365 #### [facility] [address] [place] [address], [facility] PLAT CNT 528 10*3/uL High 150-400 [facility] Comment on above: Order Comment: No: D o not add to previous draw Performed By: #### 3 5199, 33407 #### [facility] [address] [place] [address], [facility] RBC (Bld) [#/Vol] 4.59 10*6/uL Normal 3.80-5.00 [facility] Comment on above: Order Comment: No: D o not add to previous draw Performed By: #### 3 5199, 92941 #### [facility] [address] [place] [address], [facility] WBC (Bld) [#/Vol] 14.79 10*3/uL High 4.00-10.60 [facility] Comment on above: Order Comment: No: D o not add to previous draw Performed By: #### 3 5199, 26201 #### [facility] [address] [place] [address], [facility] MAGNESIUM BLOODon 02-05-2020 Magnesium [Mass/Vol] 2.0 mg/dL Normal 1.9-2.7 [facility] Comment on above: Order Comment: No: D o not add to previous draw Performed By: #### 3 5199, 66741 #### [facility] [address] UFH HEPARIN ASSAYon 02-05-20 20 UNFRACTIONATED HEPARIN 0.28 IU/mL Low 0.30-0.70 [facility] Comment on above: Order Comment: No: D o not add to previous draw Result Comment: Malena roxaban and Apixaban will interfere with the anti Xa assay used to monitor UFH and LMWH. Performed By: #### 3 5199, 29078 #### [facility] [address] [place] [address], [facility] UNFRACTIONATED HEPARIN 0.45 IU/mL Normal 0.30-0.70 [facility] Comment on above: Result Comment: Malena roxaban and Apixaban will interfere with the anti Xa assay used to monitor UFH and LMWH. Performed By: #### 3 5200, 91392 #### [facility] [address] [facility] [address] *SARS-CoV-2 COVID-19on 02-03 [id number] Not Detected Normal Not Detected [facility] Comment on above: Order Comment: No: D o not add to previous draw Performed By: #### 3 0, 65374 #### [facility] [address] [facility] [address] ANAon 02-04-2020 Nuclear Ab IF (S) [Titer] <1:40 Normal <1:40,1:40 [facility] Comment on above: Order Comment: No: D o not add to previous draw Performed By: #### 3 0, 22805 #### [facility] [address] [facility] [address] BASIC METABOLIC PANELon 01-10 Calcium [Mass/Vol] 9.6 mg/dL Normal 8.6-10.3 [facility] Comment on above: Order Comment: No: D o not add to previous draw Performed By: #### 1 0054 #### [facility] [address] [facility] [place] [address], [facility] Chloride [Moles/Vol] 93 mmol/L Low 98-107 [facility] Comment on above: Order Comment: No: D o not add to previous draw Performed By: #### 1 0054 #### [facility] [address] [facility] [place] [address], [facility] CO2 [Moles/Vol] 28 mmol/L Normal 21-31 [facility] Comment on above: Order Comment: No: D o not add to previous draw Performed By: #### 1 0054 #### [facility] [address] [place] [address], [place] Creatinine [Mass/Vol] 1.00 mg/dL Normal 0.60-1.20 [facility] Comment on above: Order Comment: No: D o not add to previous draw Performed By: #### 1 0054 #### [facility] [address] [place] [address], [place] GFR/1.73 sq M predicted among blacks MDRD (S/P/Bld) [Vol rate/Area] mL/min/{1.73_m2} Normal >60 [facility] Comment on above: Order Comment: No: D o not add to previous draw Performed By: #### 1 0054 #### [facility] [address] [place] [address], [place] GFR/1.73 sq M predicted among non-blacks MDRD (S/P/Bld) [Vol rate/Area] 56 ml/min/1.73sq m Abnormal >60 [facility] Comment on above: Order Comment: No: D o not add to previous draw Performed By: #### 1 0054 #### [facility] [address] [place] [address], [place] Glucose [Mass/Vol] 169 mg/dL High 70-100 [facility] Comment on above: Order Comment: No: D o not add to previous draw Performed By: #### 1 0054 #### [facility] [address] [place] [address], [place] Potassium [Moles/Vol] 3.6 mmol/L Normal 3.5-5.1 [facility] Comment on above: Order Comment: No: D o not add to previous draw Performed By: #### 1 0054 #### [facility] [address] [place] [address], [place] Sodium [Moles/Vol] 133 mmol/L Low 136-145 [facility] Comment on above: Order Comment: No: D o not add to previous draw Performed By: #### 1 0054 #### [facility] [address] [place] [address], [facility] Urea nitrogen [Mass/Vol] 24 mg/dL Normal 7-25 [facility] Comment on above: Order Comment: No: D o not add to previous draw Performed By: #### 1 0054 #### [facility] [address] [facility] [address] C REACTIVE PROTEINon 020 CRP [Mass/Vol] 71.2 mg/L High 0.0-7.0 [facility] Comment on above: Order Comment: No: D o not add to previous draw Performed By: #### 3 5200, 40520 #### [facility] [address] [facility]. [address] CBC W/DIFFon 02-04-2020 ABS BASOPHILS 0.1 10*3/uL Normal 0.0-0.2 [facility] Comment on above: Order Comment: No: D o not add to previous draw Performed By: #### 5 7307, 14595 #### [facility] [address] [facility] [place] [place] [address], [facility] ABS IMM GRANS 0.1 10*3/uL Normal 0.0-0.2 [facility] Comment on above: Order Comment: No: D o not add to previous draw Performed By: #### 5 7361, 15420 #### [facility] [address] [place] [address], [facility] ABS NEUTROPHILS 9.0 10*3/uL High 1.6-7.6 [facility] Comment on above: Order Comment: No: D o not add to previous draw Performed By: #### 5 7313, 86516 #### [facility] [address] [place] [address], [facility] Basophils/100 WBC (Bld) 0.7 % Normal 0.0-1.0 [facility] Comment on above: Order Comment: No: D o not add to previous draw Performed By: #### 5 7306, 35493 #### [facility] [address] [place] [address], [facility] Eosinophils (Bld) [#/Vol] 0.2 10*3/uL Normal 0.0-0.5 [facility] Comment on above: Order Comment: No: D o not add to previous draw Performed By: #### 5 7306, 94846 #### [facility] [address] [place] [address], [facility] Eosinophils/100 WBC (Bld) 1.3 % Normal 0.0-6.0 [facility] Comment on above: Order Comment: No: D o not add to previous draw Performed By: #### 5 7306, 66452 #### [facility] [address] [place] [address], [facility] Erythrocyte distribution width (RBC) [Ratio] 16.5 % High 11.5-15.0 [facility] Comment on above: Order Comment: No: D o not add to previous draw Performed By: #### 5 7306, 42855 #### [facility] [address] [place] [address], [facility] Hematocrit (Bld) [Volume fraction] 32.0 % Low 36.0-45.0 [facility] Comment on above: Order Comment: No: D o not add to previous draw Performed By: #### 5 7306, 65700 #### [facility] [address] [place] [address], [facility] Hemoglobin (Bld) [Mass/Vol] 9.5 g/dL Low 12.0-15.0 [facility] Comment on above: Order Comment: No: D o not add to previous draw Performed By: #### 5 7306, 38885 #### [facility] [address] [place] [address], [facility] IMMATURE GRANS 0.6 % Normal 0.0-1.0 [facility] Comment on above: Order Comment: No: D o not add to previous draw Performed By: #### 5 7307, 98016 #### [facility] [address] [place] [address], [facility] Lymphocytes (Bld) [#/Vol] 3.5 10*3/uL Normal 1.2-4.0 [facility] Comment on above: Order Comment: No: D o not add to previous draw Performed By: #### 5 7306, 14391 #### [facility] [address] [place] [address], [facility] Lymphocytes/100 WBC (Bld) 24.1 % Normal 20.0-45.0 [facility] Comment on above: Order Comment: No: D o not add to previous draw Performed By: #### 5 7306, 03726 #### [facility] [address] [place] [address], [facility] MCH (RBC) [Entitic mass] 20.7 pg Low 27.0-33.0 [facility] Comment on above: Order Comment: No: D o not add to previous draw Performed By: #### 5 7306, 48030 #### [facility] [address] [place] [address], [facility] MCHC (RBC) [Mass/Vol] 29.7 g/dL Low 32.0-35.0 [facility] Comment on above: Order Comment: No: D o not add to previous draw Performed By: #### 5 7307, 95229 #### [facility] [address] [facility] [place] [address], [facility] MCV (RBC) [Entitic vol] 69.6 fL Low 82.0-98.0 [facility] Comment on above: Order Comment: No: D o not add to previous draw Performed By: #### 5 73, 82741 #### [facility] [address] [place] [address], [facility] Monocytes (Bld) [#/Vol] 1.5 10*3/uL High 0.1-1.0 [facility] Comment on above: Order Comment: No: D o not add to previous draw Performed By: #### 5 7307, 28210 #### [facility] [address] [place] [address], [place] MONOS 10.3 % Normal 5.0-12.0 [facility] Comment on above: Order Comment: No: D o not add to previous draw Performed By: #### 5 73, 14227 #### [facility] [address] [place] [id number], [facility] Neutrophils/100 WBC (Bld) 63.0 % Normal 40.0-72.0 [facility] Comment on above: Order Comment: No: D o not add to previous draw Performed By: #### 5 73, 36245 #### [facility] [address] [place] [address], [facility] Nucleated RBC/100 WBC (Bld) [Ratio] 0 % Normal 0-0 [facility] Comment on above: Order Comment: No: D o not add to previous draw Performed By: #### 5 7307, 90643 #### [facility] [address] [place] [id number], [place] PLAT CNT 528 10*3/uL High 150-400 [facility] Comment on above: Order Comment: No: D o not add to previous draw Performed By: #### 5 73, 77899 #### [facility] [address] [place] [address], [facility] RBC (Bld) [#/Vol] 4.60 10*6/uL Normal 3.80-5.00 [facility] Comment on above: Order Comment: No: D o not add to previous draw Performed By: #### 5 73, 13996 #### [facility] [address] [place] [address], [facility] WBC (Bld) [#/Vol] 14.35 10*3/uL High 4.00-10.60 [facility] Comment on above: Order Comment: No: D o not add to previous draw Performed By: #### 5 7307, 70646 #### [facility] [address] [place] [address], [facility] CPKon 02-04-2020 CK [Catalytic activity/Vol] 151 U/L Normal 30-223 [facility] Comment on above: Order Comment: No: D o not add to previous draw Performed By: #### 1 0054 #### [facility] [address] D DIMER TESTon 02-04-2020 D-DIMER TEST 1.08 mcg/mL FEU High 0.01-0.49 [facility] Comment on above: Order Comment: No: D o not add to previous draw Result Comment: D-Di aftab values of less than 0.50 ug/ml (FEU) are considered to be a negative predictor of thrombosis. However, the D-Dimer result should be used in conjunction with pretest probability and should not be used alone to diagnose a thrombotic event. Performed By: #### 1 0054 #### [facility] [address] [facility] [place] [place] [address], [facility] FERRITINon 02-04-2020 Ferritin [Mass/Vol] 24 ng/mL Normal 11-307 [facility] Comment on above: Performed By: #### 1 0054 #### [facility] [address] [facility] [place] [address], [facility] LDH BLOODon 02-04-2020 LDH 183 Units/L Normal 140-271 [facility] Comment on above: Performed By: #### 1 0054 #### [facility] [address] [place] [address], [facility] LIVER BATTERYon 02-04-2020 Albumin [Mass/Vol] 3.9 g/dL Normal 3.5-5.7 [facility] Comment on above: Performed By: #### 1 0054 #### [facility] [address] [place] [address], [facility] ALKALINE PHOSPH 135 IU/L High 34-104 [facility] Comment on above: Performed By: #### 1 0054 #### [facility] [address] [place] [address], [facility] ALT [Catalytic activity/Vol] 34 U/L Normal 7-52 [facility] Comment on above: Performed By: #### 1 0054 #### [facility] [address] [place] [address], [facility] AST [Catalytic activity/Vol] 40 U/L High 13-39 [facility] Comment on above: Performed By: #### 1 0054 #### [facility] [address] [place] [address], [place] Bilirubin [Mass/Vol] 0.7 mg/dL Normal 0.3-1.0 [facility] Comment on above: Performed By: #### 1 0054 #### [facility] [address] [place] [address], [facility] Bilirubin.direct [Mass/Vol] 0.1 mg/dL Normal 0.0-0.2 [facility] Comment on above: Performed By: #### 1 0054 #### [facility] [address] [place] [address], [place] Protein [Mass/Vol] 7.5 g/dL Normal 6.0-8.3 [facility] Comment on above: Performed By: #### 1 0054 #### [facility] [address] [place] [address], [place] MAGNESIUM BLOODon 02-04-2020 Magnesium [Mass/Vol] 2.3 mg/dL Normal 1.9-2.7 [facility] Comment on above: Order Comment: No: D o not add to previous draw Performed By: #### 1 0054 #### [facility] [address] [place] [address], [facility] PHOSPHORUS BLOODon 0 Phosphate [Mass/Vol] 4.5 mg/dL Normal 2.5-5.0 [facility] Comment on above: Order Comment: No: D o not add to previous draw Performed By: #### 1 0054 #### [facility] [address] [place] [address], [facility] TSH3on 02-04-2020 TSH 3RD GENERATION 4.50 uIU/mL Normal 0.34-5.60 [facility] Comment on above: Order Comment: No: D o not add to previous draw Performed By: #### 1 0054 #### [facility] [address] UFH HEPARIN ASSAYon 02-04-20 20 UNFRACTIONATED HEPARIN 0.18 IU/mL Low 0.30-0.70 [facility] Comment on above: Result Comment: Delphos roxaban and Apixaban will interfere with the anti Xa assay used to monitor UFH and LMWH. Performed By: #### 3 8990, 30286 #### [facility] [address] UNFRACTIONATED HEPARIN 0.25 IU/mL Low 0.30-0.70 [facility] Comment on above: Result Comment: Malena roxaban and Apixaban will interfere with the anti Xa assay used to monitor UFH and LMWH. Performed By: #### 3 3470, 11177 #### [facility] [address] [facility] [address] UNFRACTIONATED HEPARIN 0.25 IU/mL Low 0.30-0.70 [facility] Comment on above: Result Comment: Malena roxaban and Apixaban will interfere with the anti Xa assay used to monitor UFH and LMWH. Performed By: #### 1 0054 #### [facility] [address] UNFRACTIONATED HEPARIN 0.35 IU/mL Normal 0.30-0.70 [facility] Comment on above: Result Comment: Delphos roxaban and Apixaban will interfere with the anti Xa assay used to monitor UFH and LMWH. Performed By: #### 5 7307, 33694 #### [facility] [address] APTTon 02-03-2020 aPTT Coag (Bld) [Time] 33.3 s Normal 25.0-35.0 [facility] Comment on above: Order Comment: No: D o not add to previous draw Result Comment: ALL RESULTS MUST BE INTERPRETED WITH RESPECT TO BLOOD DRAWING ARTIFACT OR DILUTION ERROR OF ANTICOAGULANT AT THE TIME OF SAMPLING. THE APTT SHOULD NOT BE USED TO MONITOR UNFRACTIONATED HEPARIN THERAPY, THIS LABORATORY NO LONGER HAS AN ESTABLISHED THERAPEUTIC RANGE BASED ON THE APTT. IT IS RECOMMENDED THAT THE UFH - HEPARIN ASSAY (ANTI-XA ACTIVITY) BE USED FOR THIS PURPOSE. Performed By: #### 5 7307, 37696 #### [facility] [address] [facility] [address] BASIC METABOLIC PANELon 01-10 Calcium [Mass/Vol] 9.7 mg/dL Normal 8.6-10.3 [facility] Comment on above: Order Comment: No: D o not add to previous draw Performed By: #### 0 0071, 96097, 99736, 24573, 97198 #### [facility] [address] [place] [address], [facility] Chloride [Moles/Vol] 93 mmol/L Low 98-107 [facility] Comment on above: Order Comment: No: D o not add to previous draw Performed By: #### 0 0071, 23809, 94556, 16665, 95554 #### [facility] [address] [place] [address], [facility] CO2 [Moles/Vol] 26 mmol/L Normal 21-31 [facility] Comment on above: Order Comment: No: D o not add to previous draw Performed By: #### 0 0071, 66215, 74583, 23865, 23192 #### [facility] [address] [place] [address], [place] Creatinine [Mass/Vol] 1.19 mg/dL Normal 0.60-1.20 [facility] Comment on above: Order Comment: No: D o not add to previous draw Performed By: #### 0 0071, 65793, 62620, 88383, 94186 #### [facility] [address] [place] [address], [facility] GFR/1.73 sq M predicted among blacks MDRD (S/P/Bld) [Vol rate/Area] 55 ml/min/1.73sq m Abnormal >60 [facility] Comment on above: Order Comment: No: D o not add to previous draw Performed By: #### 0 0071, 34143, 10347, 68142, 36080 #### [facility] [address] [place] [address], [facility] GFR/1.73 sq M predicted among non-blacks MDRD (S/P/Bld) [Vol rate/Area] 45 ml/min/1.73sq m Abnormal >60 [facility] Comment on above: Order Comment: No: D o not add to previous draw Performed By: #### 0 0071, 66331, 24850, 55279, 61177 #### [facility] [address] [place] [address], [place] Glucose [Mass/Vol] 181 mg/dL High 70-100 [facility] Comment on above: Order Comment: No: D o not add to previous draw Performed By: #### 0 0071, 28534, 56031, 28821, 74136 #### [facility] [address] [place] [address], [place] Potassium [Moles/Vol] 3.5 mmol/L Normal 3.5-5.1 [facility] Comment on above: Order Comment: No: D o not add to previous draw Performed By: #### 0 0071, 34923, 52666, 89315, 95467 #### [facility] [address] [place] [address], [place] Sodium [Moles/Vol] 132 mmol/L Low 136-145 [facility] Comment on above: Order Comment: No: D o not add to previous draw Performed By: #### 0 0071, 22847, 55666, 61741, 38144 #### [facility] [address] [place] [address], [place] Urea nitrogen [Mass/Vol] 23 mg/dL Normal 7-25 [facility] Comment on above: Order Comment: No: D o not add to previous draw Performed By: #### 0 0071, 71779, 42519, 58123, 67498 #### [facility] [address] [place] [address], [place] Calcium [Mass/Vol] 9.4 mg/dL Normal 8.6-10.3 [facility] Comment on above: Order Comment: No: D o not add to previous draw Performed By: #### 3 5199, 13849 #### [facility] [address] [place] [address], [place] Chloride [Moles/Vol] 95 mmol/L Low 98-107 [facility] Comment on above: Order Comment: No: D o not add to previous draw Performed By: #### 3 5199, 95493 #### [facility] [address] [place] [address], [place] CO2 [Moles/Vol] 23 mmol/L Normal 21-31 [facility] Comment on above: Order Comment: No: D o not add to previous draw Performed By: #### 3 5199, 28892 #### [facility] [address] [place] [address], [place] Creatinine [Mass/Vol] 1.18 mg/dL Normal 0.60-1.20 [facility] Comment on above: Order Comment: No: D o not add to previous draw Performed By: #### 3 5199, 35515 #### [facility] [address] [place] [address], [place] GFR/1.73 sq M predicted among blacks MDRD (S/P/Bld) [Vol rate/Area] 56 ml/min/1.73sq m Abnormal >60 [facility] Comment on above: Order Comment: No: D o not add to previous draw Performed By: #### 3 5199, 42445 #### [facility] [address] [place] [address], [place] GFR/1.73 sq M predicted among non-blacks MDRD (S/P/Bld) [Vol rate/Area] 46 ml/min/1.73sq m Abnormal >60 [facility] Comment on above: Order Comment: No: D o not add to previous draw Performed By: #### 3 5199, 44267 #### [facility] [address] [place] [address], [place] Glucose [Mass/Vol] 217 mg/dL High 70-100 [facility] Comment on above: Order Comment: No: D o not add to previous draw Performed By: #### 3 5199, 08090 #### [facility] [address] [place] [address], [place] Potassium [Moles/Vol] 3.5 mmol/L Normal 3.5-5.1 [facility] Comment on above: Order Comment: No: D o not add to previous draw Performed By: #### 3 5199, 18845 #### [facility] [address] [place] [address], [place] Sodium [Moles/Vol] 133 mmol/L Low 136-145 [facility] Comment on above: Order Comment: No: D o not add to previous draw Performed By: #### 3 5200, 93392 #### [facility] [address] [place] [id number], [facility] Urea nitrogen [Mass/Vol] 21 mg/dL Normal 7-25 [facility] Comment on above: Order Comment: No: D o not add to previous draw Performed By: #### 3 5200, 36527 #### [facility] [address] [place] [id number], [facility] CBC COMPLETE BLOOD COUNTon 02-03-2020 Erythrocyte distribution width (RBC) [Ratio] 16.6 % High 11.5-15.0 [facility] Comment on above: Order Comment: No: D o not add to previous draw Performed By: #### 5 0608 #### [facility] [address] [place] [id number], [facility] Hematocrit (Bld) [Volume fraction] 31.2 % Low 36.0-45.0 [facility] Comment on above: Order Comment: No: D o not add to previous draw Performed By: #### 5 0608 #### [facility] [address] [place] [id number], [facility] Hemoglobin (Bld) [Mass/Vol] 9.6 g/dL Low 12.0-15.0 [facility] Comment on above: Order Comment: No: D o not add to previous draw Performed By: #### 5 0608 #### [facility] [address] [place] [id number], [facility] MCH (RBC) [Entitic mass] 20.9 pg Low 27.0-33.0 [facility] Comment on above: Order Comment: No: D o not add to previous draw Performed By: #### 5 0608 #### [facility] [address] MCHC (RBC) [Mass/Vol] 30.8 g/dL Low 32.0-35.0 [facility] Comment on above: Order Comment: No: D o not add to previous draw Performed By: #### 5 0608 #### [facility] [address] [place] [address], [facility] MCV (RBC) [Entitic vol] 68.0 fL Low 82.0-98.0 [facility] Comment on above: Order Comment: No: D o not add to previous draw Performed By: #### 5 0608 #### [facility] [address] [place] [address], [facility] Nucleated RBC/100 WBC (Bld) [Ratio] 0 % Normal 0-0 [facility] Comment on above: Order Comment: No: D o not add to previous draw Performed By: #### 5 0608 #### [facility] [address] [place] [address], [facility] PLAT CNT 580 10*3/uL High 150-400 [facility] Comment on above: Order Comment: No: D o not add to previous draw Performed By: #### 5 0608 #### [facility] [address] [place] [address], [facility] RBC (Bld) [#/Vol] 4.59 10*6/uL Normal 3.80-5.00 [facility] Comment on above: Order Comment: No: D o not add to previous draw Performed By: #### 5 0608 #### [facility] [address] [place] [address], [facility] WBC (Bld) [#/Vol] 20.18 10*3/uL High 4.00-10.60 [facility] Comment on above: Order Comment: No: D o not add to previous draw Performed By: #### 5 0608 #### [facility] [address] CBC W/DIFFon 02-03-2020 ABS BASOPHILS 0.1 10*3/uL Normal 0.0-0.2 [facility] Comment on above: Order Comment: No: D o not add to previous draw Performed By: #### 5 0103 #### [facility] [address] [place] [address], [facility] ABS IMM GRANS 0.1 10*3/uL Normal 0.0-0.2 [facility] Comment on above: Order Comment: No: D o not add to previous draw Performed By: #### 5 0103 #### [facility] [address] [place] [address], [facility] ABS NEUTROPHILS 13.1 10*3/uL High 1.6-7.6 [facility] Comment on above: Order Comment: No: D o not add to previous draw Performed By: #### 5 0103 #### [facility] [address] [place] [address], [facility] ANISO MODERATE Normal [facility] Comment on above: Order Comment: No: D o not add to previous draw Performed By: #### 5 0103 #### [facility] [address] [place] [address], [facility] Basophils/100 WBC (Bld) 0.3 % Normal 0.0-1.0 [facility] Comment on above: Order Comment: No: D o not add to previous draw Performed By: #### 5 0103 #### [facility] [address] [place] [id number], [facility] Eosinophils (Bld) [#/Vol] 0.0 10*3/uL Normal 0.0-0.5 [facility] Comment on above: Order Comment: No: D o not add to previous draw Performed By: #### 5 0103 #### [facility] [address] [place] [id number], [facility] Eosinophils/100 WBC (Bld) 0.2 % Normal 0.0-6.0 [facility] Comment on above: Order Comment: No: D o not add to previous draw Performed By: #### 5 0103 #### [facility] [address] [place] [address], [facility] Erythrocyte distribution width (RBC) [Ratio] 16.6 % High 11.5-15.0 [facility] Comment on above: Order Comment: No: D o not add to previous draw Performed By: #### 5 0103 #### [facility] [address] [place] [id number], [facility] Hematocrit (Bld) [Volume fraction] 30.7 % Low 36.0-45.0 [facility] Comment on above: Order Comment: No: D o not add to previous draw Performed By: #### 5 0103 #### [facility] [address] [place] [id number], [facility] Hemoglobin (Bld) [Mass/Vol] 9.2 g/dL Low 12.0-15.0 [facility] Comment on above: Order Comment: No: D o not add to previous draw Performed By: #### 5 0103 #### [facility] [address] [place] [address], [facility] IMMATURE GRANS 0.6 % Normal 0.0-1.0 [facility] Comment on above: Order Comment: No: D o not add to previous draw Performed By: #### 5 0103 #### [facility] [address] [place] [address], [facility] Lymphocytes (Bld) [#/Vol] 2.3 10*3/uL Normal 1.2-4.0 [facility] Comment on above: Order Comment: No: D o not add to previous draw Performed By: #### 5 0103 #### [facility] [address] [place] [id number], [facility] Lymphocytes/100 WBC (Bld) 13.5 % Low 20.0-45.0 [facility] Comment on above: Order Comment: No: D o not add to previous draw Performed By: #### 5 0103 #### [facility] [address] [facility] [place] [address], [facility] MCH (RBC) [Entitic mass] 20.6 pg Low 27.0-33.0 [facility] Comment on above: Order Comment: No: D o not add to previous draw Performed By: #### 5 0103 #### [facility] [address] [facility] [place] [address], [facility] MCHC (RBC) [Mass/Vol] 30.0 g/dL Low 32.0-35.0 [facility] Comment on above: Order Comment: No: D o not add to previous draw Performed By: #### 5 0103 #### [facility] [address] [facility] [place] [address], [facility] MCV (RBC) [Entitic vol] 68.7 fL Low 82.0-98.0 [facility] Comment on above: Order Comment: No: D o not add to previous draw Performed By: #### 5 0103 #### [facility] [address] [facility] [place] [address], [facility] MICRO MARKED Normal [facility] Comment on above: Order Comment: No: D o not add to previous draw Performed By: #### 5 0103 #### [facility] [address] [facility] [place] [address], [facility] Monocytes (Bld) [#/Vol] 1.7 10*3/uL High 0.1-1.0 [facility] Comment on above: Order Comment: No: D o not add to previous draw Performed By: #### 5 0103 #### [facility] [address] [place] [address], [facility] MONOS 9.7 % Normal 5.0-12.0 [facility] Comment on above: Order Comment: No: D o not add to previous draw Performed By: #### 5 0103 #### [facility] [address] [place] [address], [facility] Neutrophils/100 WBC (Bld) 75.7 % High 40.0-72.0 [facility] Comment on above: Order Comment: No: D o not add to previous draw Performed By: #### 5 0103 #### [facility] [address] [place] [address], [place] Nucleated RBC/100 WBC (Bld) [Ratio] 0 % Normal 0-0 [facility] Comment on above: Order Comment: No: D o not add to previous draw Performed By: #### 5 0103 #### [facility] [address] [place] [address], [place] PLAT CNT 535 10*3/uL High 150-400 [facility] Comment on above: Order Comment: No: D o not add to previous draw Performed By: #### 5 0103 #### [facility] [address] [facility] [place] [address], [place] RBC (Bld) [#/Vol] 4.47 10*6/uL Normal 3.80-5.00 The [facility] Comment on above: Order Comment: No: D o not add to previous draw Performed By: #### 5 0103 #### [facility] [address] [facility] [place] [address], [place] WBC (Bld) [#/Vol] 17.37 10*3/uL High 4.00-10.60 [facility] Comment on above: Order Comment: No: D o not add to previous draw Performed By: #### 5 0103 #### [facility] [address] [place] [address], [place] CTA CHESTon 02-03-2020 CTA CHEST [facility] Department of Radiology [address] [place] [address] [id number] Patient Name: GABBI AUSTIN : 1950 Sex: F Age: Race: White Pt. Location: [id number] Patient Status: I Ordered Date: 02/03/2020 12:20:00 PM Completed Date: 02/03/2020 01:57 PM Requesting Provider: JÚNIOR LANGE Attending Provider: JÚNIOR LANGE Report Copy To: Signs & Symptoms: Shortness of Breath History: See Comments Comments: Pulmonary Embolism, hypoxia, tachy, elevated d dimer Exam: CTA CHEST CTA CHEST 02/03/2020 1:58 PM SIGNS AND SYMPTOMS: Shortness of Breath; d dimer 1.25 pt states she is very sob but it is impoving somewhat on high flow o2; Pulmonary Embolism, hypoxia, tachy, elevated d dimer CONTRAST: Contrast: OMNIPAQUE 350 (LOCM), 100 milliliter, Intravenous TECHNIQUE: Multidetector CT angiography axial slices of the chest were obtained with IV contrast. Multiplanar reformats, MIP, and volume rendered 3-D images were generated on a separate workstation and reviewed to further define anatomy and possible pathology. Appropriate CT dose lowering techniques were utilized. COMPARISON: Chest x-ray earlier today. FINDINGS: No central, lobar, or segmental pulmonary arterial filling defect. Subsegmental evaluation compromised by motion artifact, contrast bolus timing, and small caliber vessels. Heart size within normal limits. No pericardial effusion or thickening. Visualized abdominal aorta with mild atherosclerotic calcification without aneurysm. Pulmonary trunk and arteries are within normal limits. Numerous mediastinal lymph nodes largest measuring up to 1.1 cm. No perihilar lymphadenopathy. Noncontrast view of the abdominal viscera without acute process. Bilateral pleural effusions, left more than right with compressive atelectasis in addition to consolidation in the lower lobes. Mosaic attenuation in both lungs, can be seen with air trapping or small vascular disease. Bilateral upper lobe with groundglass opacifications and nodular opacifications measuring up to 5 mm as well as subpleural nodularity measuring up to 8 mm. No acute osseous abnormality. Degenerative changes noted in the thoracic spine. IMPRESSION: * No central or lobar pulmonary embolism. * Bilateral pleural effusions, left more than right with compressive atelectasis in addition to consolidation in the lower lobes. There is associated mosaic attenuation in both lungs as well as bilateral upper lobes with groundglass opacifications and nodular opacifications. In combination with mediastinal lymphadenopathy, findings concerning for multifocal pneumonia including atypical and viral etiology. Imaging findings would be atypical for Covid19 pneumonia. Approved by:Tonio Landaverde02/03/2020 2:10 PM. I, Solo Bonner,have reviewed the images and reports Electronically signed: Solo Bonner. Transcribed by: [email or web address], User Resident: TONIO HIGH Electronically Signed by: SOLO BONNER @ 02/03/2020 03:10 PM I personally read this/these film(s) with this resident Normal [facility] Comment on above: Order Comment: No: D o not add to previous draw D DIMER TESTon 02-03-2020 D-DIMER TEST 1.25 mcg/mL FEU High 0.01-0.49 The [facility] Comment on above: Result Comment: D-Di aftab values of less than 0.50 ug/ml (FEU) are considered to be a negative predictor of thrombosis. However, the D-Dimer result should be used in conjunction with pretest probability and should not be used alone to diagnose a thrombotic event. Performed By: #### 5 7314, 77688 #### [facility] [address] HEMOGLOBIN A1Con 02-03-2020 HbA1c (Bld) [Mass fraction] 177 mg/dL High 70-126 [facility] Comment on above: Order Comment: No: D o not add to previous draw Performed By: #### 5 7307, 06126 #### [facility] [address] [place] [address], [facility] HbA1c (Bld) [Mass fraction] 7.8 % High 4.0-6.0 [facility] Comment on above: Order Comment: No: D o not add to previous draw Performed By: #### 5 7307, 03962 #### [facility] [address] [place] [address], [facility] LACTATE BLOODon 02-03-2020 Lactate [Moles/Vol] 1.6 mmol/L Normal 0.5-2.2 The [facility] Comment on above: Order Comment: No: D o not add to previous draw Performed By: #### 1 0054 #### [facility] [address] LIPID PROFILEon 02-03-2020 Cholesterol [Mass/Vol] 206 mg/dL High 120-200 [facility] Comment on above: Result Comment: CHOL ESTEROL REFERENCE RANGE: 20 YEARS AND OLDER CARDIOVASCULAR RISK Less than 200 mg/dl Low Risk 200 to 239 mg/dl Borderline Risk 240 mg/dl and greater High Risk Performed By: #### 5 7307, 53325 #### [facility] [address] [facility] [address] Cholesterol in HDL [Mass/Vol] 55 mg/dL Normal 23-92 [facility] Comment on above: Result Comment: Slig ht variation in normal range could be due to gender and/or age. HDL CHOLESTEROL REFERENCE RANGE: 20 years and older Cardiovascular Risk > or =60 mg/dL Desirable 40 TO 59 mg/dL Low Risk <40 mg/dL High Risk Performed By: #### 5 7307, 38183 #### [facility] [address] [facility] [place] [address], [facility] Cholesterol in LDL [Mass/Vol] 93 mg/dL Normal 0-130 [facility] Comment on above: Result Comment: LDL IS A CALCULATION LDL IS ONLY VALID IF THE TRIG IS LESS THAN 400. Performed By: #### 5 7307, 50092 #### [facility] [address] [place] [address], [facility] Cholesterol.total/Ch olesterol in HDL [Mass ratio] 3.7 {ratio} Normal 0.0-4.5 [facility] Comment on above: Performed By: #### 5 7307, 08272 #### [facility] [address] [place] [address], [facility] NON-HDL CHOLESTEROL 151 mg/dL Normal [facility] Comment on above: Performed By: #### 5 7307, 76200 #### [facility] [address] Triglyceride [Mass/Vol] 292 mg/dL High 40-149 [facility] Comment on above: Result Comment: TRIG LYCERIDE REFERENCE RANGE: 20 YEARS AND OLDER CARDIOVASCULAR RISK LESS THAN 150 mg/dl LOW RISK 150 TO 199 mg/dl BORDERLINE RISK 200 mg/dl AND GREATER HIGH RISK Performed By: #### 5 7307, 47045 #### [facility] [address] VLDL CHOL 58 mg/dL High 0-40 [facility] Comment on above: Performed By: #### 5 7307, 24982 #### [facility] [address] [facility] [address] MAGNESIUM BLOODon 02-03-2020 Magnesium [Mass/Vol] 1.7 mg/dL Low 1.9-2.7 [facility] Comment on above: Order Comment: No: D o not add to previous draw Performed By: #### 0 0071, 47632, 92109, 89055, 24152 #### [facility] [address] [place] [address], [facility] PHOSPHORUS BLOODon 0 Phosphate [Mass/Vol] 5.4 mg/dL High 2.5-5.0 [facility] Comment on above: Order Comment: No: D o not add to previous draw Performed By: #### 0 0071, 76859, 34982, 30814, 35785 #### [place] [address], [facility] PORTABLE CHEST 1 VIEWon 01-10 PORTABLE CHEST 1 VIEW [facility] Department of Radiology [address] [place] [id number] Patient Name: GABBI AUSTIN : 1950 Sex: F Age: Race: White Pt. Location: [address] [place] [address] Patient Status: I Ordered Date: 02/03/2020 10:20:00 AM Completed Date: 02/03/2020 11:15 AM Requesting Provider: REHAN HORNE Attending Provider: JÚNIOR LANGE Report Copy To: Signs & Symptoms: O2 Desaturation History: Comments: evaluate for CHF Exam: PORTABLE CHEST 1 VIEW PORTABLE CHEST 1 VIEW 02/03/2020 11:15 AM CLINICAL INDICATIONS: O2 Desaturation TECHNOLOGIST COMMENTS: shortness of breath QUESTION FOR THE RADIOLOGIST: evaluate for CHF PROTOCOL: AP(PA) view was obtained. COMPARISON: None FINDINGS: Mediastinal silhouette unremarkable. Cardiac silhouette within normal limits accounting for magnification from imaging technique. Bilateral effusions, left more than right with compressive atelectasis. Opacification in the lower lobes. IMPRESSION: * Left greater than right lower lobe opacification consistent with combination of effusion and compressive atelectasis. Cannot exclude developing pneumonia in the opacified region. Approved by:Tonio Landaverde02/03/2020 11:27 AM. I, Solo Bonner,have reviewed the images and reports Electronically signed: Solo Bonner. Transcribed by: [email or web address], User Resident: TONIO HIGH Electronically Signed by: SOLO BONNER @ 02/03/2020 11:44 AM I personally read this/these film(s) with this resident Normal [facility] Comment on above: Order Comment: No: D o not add to previous draw PROTHROMBIN TIMEon 0 INR Coag (PPP) [Relative time] 1.06 {INR} Normal 0.91-1.16 [facility] Comment on above: Order Comment: No: D o not add to previous draw Result Comment: ACCC P RECOMMENDED INR FOR WARFARIN THERAPY ------- ------- CONDITION INR PROPHYLAXIS OF VENOUS THROMBOSIS 2-3 (HIGH-RISK SURGERY) TREATMENT OF VENOUS THROMBOSIS 2-3 TREATMENT OF PULMONARY EMBOLISM 2-3 PREVENTION OF SYSTEMIC EMBOLISM: 2-3 ACUTE MYOCARDIAL INFARCTION TISSUE HEART VALVES VALVULAR HEART DISEASE ATRIAL FIBRILLATION RECURRENT SYSTEMIC EMBOLISM MECHANICAL HEART VALVE 2.5-3.5 FROM: ORAL ANTICOAGULANTS. MECHANISM OF ACTION, CLINICAL EFFECTIVENESS, AND OPTIMAL THERAPEUTIC RANGE. CHEST 1995;108:231S-246S. Performed By: #### 5 [id number], [id number] #### [facility] [address] PT Coag (PPP) [Time] 13.8 s Normal 12.3-14.8 [facility] Comment on above: Order Comment: No: D o not add to previous draw Result Comment: ALL RESULTS MUST BE INTERPRETED WITH RESPECT TO BLOOD DRAWING ARTIFACT OR DILUTION ERROR OF ANTICOAGULANT AT THE TIME OF SAMPLING. Performed By: #### 5 [id number], [id number] #### [facility] [address] [place] [address], [facility] TROPONIN-Ion 02-03-2020 Troponin I.cardiac [Mass/Vol] 0.05 ng/mL High 0.00-0.04 [facility] Comment on above: Order Comment: No: D o not add to previous draw Result Comment: REFE RENCE RANGES: 0.00 - 0.04 ng/ml NORMAL 0.05 - 0.50 ng/ml INDETERMINATE > 0.50 ng/ml CONSISTENT WITH AN M.I. Performed By: #### 5 [id number], [id number] #### [facility] [address] Troponin I.cardiac [Mass/Vol] 0.06 ng/mL High 0.00-0.04 [facility] Comment on above: Order Comment: No: D o not add to previous draw Result Comment: REFE RENCE RANGES: 0.00 - 0.04 ng/ml NORMAL 0.05 - 0.50 ng/ml INDETERMINATE > 0.50 ng/ml CONSISTENT WITH AN M.I. Performed By: #### 5 [id number], [id number] #### [facility] [address] [place] [address], [facility] Troponin I.cardiac [Mass/Vol] 0.08 ng/mL High 0.00-0.04 [facility] Comment on above: Order Comment: No: D o not add to previous draw Result Comment: REFE RENCE RANGES: 0.00 - 0.04 ng/ml NORMAL 0.05 - 0.50 ng/ml INDETERMINATE > 0.50 ng/ml CONSISTENT WITH AN M.I. Performed By: #### 3 [id number], [id number] #### [facility] [address] UFH HEPARIN ASSAYon 02-03-20 20 UNFRACTIONATED HEPARIN 0.47 IU/mL Normal 0.30-0.70 [facility] Comment on above: Result Comment: Delphos roxaban and Apixaban will interfere with the anti Xa assay used to monitor UFH and LMWH. Performed By: #### 5 [id number], [id number] #### [facility] [address] Vital Signs Date Time Vital Sign Value Performing Clinician Facility 05-19-2024 10:55-0400 Body height 149.86 cm [facility] 05-19-2024 10:55-0400 Body mass index (BMI) [Ratio] 29.9 kg/m2 [facility] 05-19-2024 10:55-0400 Body weight 67.13 kg [facility] 05-19-2024 10:55-0400 Diastolic blood pressure 73 mm[Hg] [facility] 05-19-2024 10:55-0400 Heart rate 84 /min [facility] 05-19-2024 10:55-0400 Systolic blood pressure 109 mm[Hg] [facility] 07-01-2023 13:45-0400 Body height 149.86 cm Tania Ayoub Other [facility] Other 07-01-2023 13:45-0400 Body mass index (BMI) [Ratio] 31.5 kg/m2 Tania Ayoub Other [facility] Other 07-01-2023 13:45-0400 Body temperature 97.6 [degF] Tania Ayoub Other [facility] Other 07-01-2023 13:45-0400 Body weight 70.76 kg Tania Ayoub Other [facility] Other 07-01-2023 13:45-0400 Diastolic blood pressure 64 mm[Hg] Tania Ayoub Other [facility] Other 07-01-2023 13:45-0400 Systolic blood pressure 112 mm[Hg] Tania Ayoub Other [facility] Other 10-19-2022 11:45-0500 Body height 149.86 cm Tania Ayoub Other [facility] Other 10-19-2022 11:45-0500 Body mass index (BMI) [Ratio] 30.9 kg/m2 Tania Ayoub Other [facility] Other 10-19-2022 11:45-0500 Body weight 69.4 kg Tania Ayoub Other [facility] Other 10-19-2022 11:45-0500 Diastolic blood pressure 64 mm[Hg] Tania Ayoub Other [facility] Other 10-19-2022 11:45-0500 Systolic blood pressure 140 mm[Hg] Tania Ayoub Other [facility] Other Encounters Encounter Date Encounter Type Care Provider Facility Start: 05-19-2024 End: 05-19-2024 ambulatory [facility] Work Phone: Start: 05-19-2024 End: 05-19-2024 Patient encounter procedure [facility] Work Phone: Start: 05-15-2024 End: 05-15-2024 ambulatory AB [facility] Start: 12-01-2023 End: 12-01-2023 ambulatory FREIDA [facility] Start: 11-10-2023 End: 11-10-2023 ambulatory Tania Ayoub Other [facility] Other Start: 11-10-2023 Telephone encounter Tania Ayoub [facility] Start: 07-01-2023 End: 07-01-2023 ambulatory Tania Ayoub Other [facility] Other Start: 07-01-2023 Office outpatient vi sit 15 minutes Tania Ayoub [facility] Start: 06-30-2023 End: 06-30-2023 ambulatory GIANNI LUCRETIA [facility] Start: 05-19-2023 End: 05-19-2023 ambulatory Tania Ayoub Other [facility] Other Start: 05-19-2023 Telephone encounter Tania Ayoub [facility] Start: 02-19-2023 End: 02-19-2023 ambulatory Tania Ayoub Other [facility] Other Start: 02-19-2023 Telephone encounter Tania Ayoub [facility] Start: 02-18-2023 End: 02-18-2023 ambulatory Tania Ayoub Other [facility] Other Start: 02-18-2023 Telephone encounter Tania Ayoub [facility] Start: 01-15-2023 Encounter for other preprocedural examination DR DOCTOR BURROUGHS [facility] Start: 01-12-2023 End: 01-13-2023 ambulatory TANIA AYOUB Facility:[facility] Start: 01-08-2023 End: 01-09-[address] DOCTOR BURROUGHS Facility:[facility] Start: 01-08-2023 End: 01-09-2023 Encounter for other preprocedural examination DR DOCTOR BURROUGHS Facility:[facility] Start: 10-28-2022 End: 10-28-2022 ambulatory Tania Ayoub Other [facility] Other Start: 10-28-2022 Encounter by estella Ayoub [facility] Start: 10-19-2022 End: 10-19-2022 ambulatory Tania Ayoub Other [facility] Other Start: 10-19-2022 Office outpatient vi sit 15 minutes Tania Ayoub [facility] Start: 04-03-2022 ambulatory TANIA AYOUB Facility :[facility] Start: 02-26-2022 End: 02-27-2022 ambulatory TANIA AYOUB Facility:[facility] Start: 02-02-2020 End: 02-07-2020 Evaluation and management of inpatient ANA LAURA HOY Facility:[facility] Start: 11-30-2019 Adult health examination Charlee Ayoub Other [facility] Other Procedures Date Procedure Procedure Detail Performing Clinician Start: 07-25-2015 Screening for malign ant neoplasm of breast Tania Ayoub Other Plan of Treatment Date Care Activity Detail Author Comprehensive metabo lic 2000 panel - Serum or Plasma [facility] enter Microalbumin [Mass/volume] in Urine [facility] XR Chest 2 Views [facility] Immunizations Immunization Date Immunization Notes Care Provider Fa cility 08-13-2022 COVID-19 Pfizer (Pediatric) Tania Ayoub Other [facility] 08-12-2022 influenza virus vaccine, split virus (incl. purified surface antigen) Tania Ayoub Other [facility] Other 08-12-2022 influenza virus vaccine, unspecified formulation [facility] 09-25-2021 COVID-19 Vaccine Pfi zer - Documentation Purposes Only Tania Ayoub Other [facility] 09-25-2021 influenza virus vaccine, split virus (incl. purified surface antigen) Tania Ayoub Other [facility] Other 09-25-2021 influenza virus vaccine, unspecified formulation [facility] 08-08-2020 influenza virus vaccine, split virus (incl. purified surface antigen) Tania Ayoub Other [facility] Other 08-08-2020 influenza virus vaccine, unspecified formulation [facility] 08-08-2020 pneumococcal conjuga te vaccine, 13 valent Tania Ayoub Other [facility] 05-12-2020 zoster vaccine, live Tania Ayoub Other [facility] Payers Date Payer Category Payer Medicare [id number] 1957 Self-pay 1957 Unknown [id number] 1950 Unknown [id number] 2.16.8 [id number] 1950 Unknown [id number] 2.16.84 [id number] 1950 Unknown [id number] 2.16.84 [id number] 1950 Unknown [id number] 2.16.84 [id number] 1950 Unknown [id number] 2.16.84 [id number] 1950 Unknown [id number] 2.16.84 [id number] 1950 Unknown [id number] 2.16.84 [id number] Unknown Regular Insurance [id number] Social History Date Type Detail Facility Unknown if ever smoked [facility] Other Sex Assigned At Sex Assigned At Bir th [facility] Other Start: 1950 Sex Assigned At Female F [facility] Clinical Notes 10-19-2022 to 05-15-2024 Note Date & Type Note Facility 05-15-2024 Note [facility] Cardiology Clinic Note Chief Complaint: Patient here for 6 mo follow up CAD, chronic systolic heart failure, and hypertension. C/o worsening PARSONS. Denies chest pain and palpitations. Wonders if she has pneumonia, and sees Dr. Ayoub this Wednesday for wellness visit. No recent labs/imaging. HPI: Gabbi Austin is a 73 y.o. female with past medical history of CAD s/p PCI to LAD 02/2020, ICM HFrEF 30%, with subsequent MUGA scan showing LVEF 58% in 04/2020. She had event monitor 06/2023 and states it was not reviewed with her - monitor was done due to previous Holter monitor showing concerns of NSVT; at that time her beta-latrell was increased and then monitor was placed, and no more recurring NSVT. patient no longer has any palpitations. UPDATE 05/15/2024 Doing okay overall; she is however concerned about worsening shortness of breath. This has been worsening over the past several months. She denies chest pain. She states that her symptoms prior to stent placement was leg swelling . She denies orthopnea or paroxysmal internal dyspnea. She denies lower extremity edema. Cardiology ROS: Review of Systems Cardiovascular: Positive for dyspnea on exertion (worsening). Respiratory: Positive for cough and sputum production. Musculoskeletal: Positive for joint pain. Neurological: Positive for headaches and light-headedness (upon standing up too quickly). All other systems reviewed and are negative. Past Medical History She has a past medical history of CHF (congestive heart failure) (CMS/HCC), Coronary artery disease, Diabetes mellitus (CMS/HCC), and RLS (restless legs syndrome). Surgical History She has a past surgical history that includes CTA Chest W IV Contrast (02/03/2020) and Cardiac catheterization. Social History She reports that she has never smoked. She has never used smokeless tobacco. She reports that she does not currently use alcohol. No history on file for drug use. Family History Family History Problem Relation Name Age of Onset Mitral valve prolapse Mother Allergies Egg and Penicillins Medications Current Outpatient Medications: aspirin 81 mg chewable tablet, Chew 1 tablet (81 mg) once daily as directed., Disp: 90 tablet, Rfl: 3 atorvastatin (Lipitor) 40 mg tablet, Take 1 tablet (40 mg) by mouth at bedtime., Disp: 90 tablet, Rfl: 3 bumetanide (Bumex) 1 mg tablet, Take 1 tablet (1 mg) by mouth once daily as directed., Disp: 90 tablet, Rfl: 3 clopidogrel (Plavix) 75 mg tablet, Take 1 tablet (75 mg) by mouth once daily as directed., Disp: 90 tablet, Rfl: 3 ferrous sulfate 325 (65 Fe) MG tablet, in the morning., Disp: , Rfl: glipiZIDE XL (Glucotrol XL) 5 mg 24 hr tablet, Take 5 mg by mouth in the morning., Disp: , Rfl: linaGLIPtin (Tradjenta) 5 mg tablet, Tradjenta 5 mg tablet TAKE 1 TABLET BY MOUTH ONCE DAILY, Disp: , Rfl: lisinopril 10 mg tablet, Take 1 tablet (10 mg) by mouth once daily as directed., Disp: 90 tablet, Rfl: 3 metFORMIN (Glucophage) 850 mg tablet, metformin 850 mg tablet TAKE 1 TABLET BY MOUTH DAILY, Disp: , Rfl: metoprolol succinate XL (Toprol-XL) 100 mg 24 hr tablet, Take 1 tablet (100 mg) by mouth once daily as directed. Do not crush or chew., Disp: 90 tablet, Rfl: 3 potassium chloride CR (Klor-Con) 10 mEq ER tablet, potassium chloride ER 10 mEq tablet,extended release TAKE 1 TABLET BY MOUTH EVERY DAY, Disp: 90 tablet, Rfl: 3 rOPINIRole (Requip) 1 mg tablet, ropinirole 1 mg tablet TAKE 1 TABLET BY MOUTH AT BEDTIME, Disp: , Rfl: Last Recorded Vitals BP 114/66 (BP Location: Right arm, Patient Position: Sitting) Pulse 87 Ht 1.549 m (5' 1 ) Wt 66.7 kg (147 lb) SpO2 96% BMI 27.78 kg/m??? Physical Examination: GENERAL: alert and oriented x3, well developed, in no acute distress. HEAD: atraumatic, normocephalic. EYES: YANA, EOMI. NECK: trachea midline, no JVD present, no carotid bruits present. CARDIAC: S1, S2 present. RRR. No murmur, rubs, or gallops. RESPIRATORY: CTAB, no increased effort of breathing, no rales, rhonchi, or wheezing. ABDOMEN: soft, nontender, nondistended. EXTREMITIES: no lower extremity edema, peripheral pulses are 2+ bilaterally. No rash/skin discoloration present. NEURO: strength/sensation equal and symmetric in bilateral upper and lower extremities. PSYCH: appropriate mood, affect, and judgement. Labs: 01/08/23 CBC stable BUN 27, CR 1.36, K+ 4.4- stable renal function Liver function normal Chol 162, HDL 49, Trig 257, LDL 61.6- well controlled lipid level EKG: No results found for this or any previous visit (from the past 4464 hour(s)). Echo: TTE 01/12/23 RVSP =44 MUGA scan 04/10/2020: EF 58% Stress test: Coronary angiogram: Cath 02/2020 FINAL IMPRESSION: Successful PCI of the mid LAD with a Synergy 2.75 x 16 mm drug-eluting stent, which was post-dilated with an NC Quantum Odon 3.0 x 8 mm noncompliant balloon. Diagnostic Imagin01/04/23 Holter santiago (more content not included)... [facility] 12-01-2023 Note [facility] Consult Note Reason for visit: follow up, 6 month HPI: Gabbi Austin is a 73 y.o. year old with past medical history of CAD s/p PCI to LAD 02/2020, ICM HFrEF 30%, with subsequent MUGA scan showing LVEF 58% in 04/2020. she is here for 6-month follow-up She had event monitor 06/2023 and states it was not reviewed with her monitor was done due to previous Holter monitor showing concerns of NSVT; at that time her beta-latrell was increased and then monitor was placed, and no more recurring NSVT. patient no longer has any palpitations. she denies any recent chest pain, shortness of breath, palpitations, lightness, dizziness PMH: Past Medical History: Diagnosis Date CHF (congestive heart failure) ([facility]/HCC) Coronary artery disease Diabetes mellitus ([facility]) RLS (restless legs syndrome) PSH: Past Surgical History: Procedure Laterality Date CARDIAC CATHETERIZATION CTA CHEST W AND/OR WO IV CONTRAST 02/03/2020 CT CHEST ANGIOGRAM W AND/OR WO IV CONTRAST PERALTA CONVERSION SH: Social Determinants of Health Tobacco Use: Low Risk (01/04/2023) Patient History Smoking Tobacco Use: Never Smokeless Tobacco Use: Never Passive Exposure: Not on file Alcohol Use: Not on file Financial Resource Strain: Not on file Food Insecurity: Not on file Transportation Needs: Not on file Physical Activity: Not on file Stress: Not on file Social Connections: Not on file Intimate Partner Violence: Not on file Depression: Not on file Housing Stability: Not on file Utilities: Not on file Allergies: Allergies Allergen Reactions Egg Hives Penicillins Hives and Unknown Weight: 68.9kg Visit Vitals BP 106/67 (BP Location: Right arm, Patient Position: Sitting) Pulse 88 Ht 1.549 m (5' 1 ) Wt 68.9 kg (152 lb) SpO2 100% BMI 28.72 kg/m??? Smoking Status Never BSA 1.72 m??? Meds: Current Outpatient Medications on File Prior to Visit Medication Sig Dispense Refill aspirin 81 mg chewable tablet Chew 1 tablet (81 mg) once daily as directed. 90 tablet 3 bumetanide (Bumex) 1 mg tablet Take 1 tablet (1 mg) by mouth once daily as directed. 90 tablet 3 clopidogrel (Plavix) 75 mg tablet Take 1 tablet (75 mg) by mouth once daily as directed. 90 tablet 3 glipiZIDE XL (Glucotrol XL) 5 mg 24 hr tablet Take 5 mg by mouth in the morning. linaGLIPtin (Tradjenta) 5 mg tablet Tradjenta 5 mg tablet TAKE 1 TABLET BY MOUTH ONCE DAILY lisinopril 10 mg tablet Take 1 tablet (10 mg) by mouth once daily as directed. 90 tablet 3 metFORMIN (Glucophage) 850 mg tablet metformin 850 mg tablet TAKE 1 TABLET BY MOUTH DAILY metoprolol succinate XL (Toprol-XL) 100 mg 24 hr tablet Take 1 tablet (100 mg) by mouth in the morning. Do not crush or chew. 90 tablet 3 potassium chloride CR (Klor-Con) 10 mEq ER tablet potassium chloride ER 10 mEq tablet,extended release TAKE 1 TABLET BY MOUTH EVERY DAY 90 tablet 3 rOPINIRole (Requip) 1 mg tablet ropinirole 1 mg tablet TAKE 1 TABLET BY MOUTH AT BEDTIME [DISCONTINUED] atorvastatin (Lipitor) 40 mg tablet Take 1 tablet (40 mg) by mouth in the morning. 90 tablet 3 ferrous sulfate 325 (65 Fe) MG tablet in the morning. No current facility-administered medications on file prior to visit. ROS: Cardio Basic Cardiovascular Symptoms: no lightheadedness, no leg edema, no syncope, no orthopnea, no PND, no claudication, Constitutional Constitutional: no fever, no night sweats, no significant weight gain, no significant weight loss, no exercise intolerance Eyes Eyes: no dry eyes, no irritation, no vision change ENMT Ears: no difficulty hearing, no ear pain Nose: no frequent nosebleeds, Mouth/Throat: no sore throat, no bleeding gums, no snoring, no dry mouth, no mouth ulcers, no oral abnormalities, no teeth problems Respiratory Respiratory: no cough, no wheezing, no coughing up blood, no sleep apnea Musculoskeletal Musculoskeletal: no muscle aches, no muscle weakness, joint pain+, no back pain, no swelling in the extremities Integumentary Skin no rash, no ulcer, no varicosities, no discoloration, no pruritus Neurologic Neurologic: no loss of consciousness, no weakness, no numbness, no seizures, no dizziness, no headaches Psychiatric Psych: no depression, feeling safe in relationship, no alcohol abuse, Hematologic/Lymphatic Hematologic/Lymphatic no swollen glands, no bruising Physical Exam: Constitutional General Appearance: well-nourished, well-developed, appears stated age Level of Distress: comfortable Psychiatric Mental Status: alert, normal affect Orientation: oriented to time, place, and person Insight: good judgement Eyes Lids and Conjunctivae: non-injected, no xanthelasma ENMT Ears: no lesions on external ear Nose: no lesions on external nose Oropharynx: no cyanosis, no pallor Neck Neck: supple, trachea midline Carotid Arteries: bilateral normal upstroke, no bruits Jugular Veins: normal j (more content not included)... [facility] 12-01-2023 Note Patient here for 6 m o follow up CAD, chronic systolic heart failure, and NSVT. She wore event monitor in Jun 2023 after her last apt. Denies chest pain and palpitations. Gets SOB w/ exertion, which she says is no different than usual for her. No recent labs/testing. Review of Systems Cardiovascular: Positive for dyspnea on exertion. Musculoskeletal: Positive for joint pain. Neurological: Positive for headaches and light-headedness (upon standing up too quickly). All other systems reviewed and are negative. [facility] 11-10-2023 Evaluation note Encounter Date Diagnosis Assessment Notes Oct, Controlled type 2 diabetes mellitus with hyperglycemia, without long-term current use of insulin (ICD-10 - E11.65) [facility] Other 09-21-2023 Evaluation note* Encounter Date Diagnosis Assessment Notes Treatment Notes Treatment Clinical Notes Jun, Acute recurrent maxillary sinusitis (ICD-10 - J01.01) Sinus infections can be triggered by a secondary infection from a viral URI or even seasonal allergies. Take medications as directed. Use saline nasal spray prior to presciption nasal spray. Take medications as directed, and complete all doses of medication even if you start to feel better. Patient advised to follow up with PCP if symptoms persist or worsen. Patient verbalized understanding and agreement with treatment plan. Jun, Hearing loss of right ear, unspecified hearing loss type (ICD-10 - H91.91) Offered immediate referral to ENT. Pt would like to take the antibiotic first and monitor her symptoms and call if ENT/audiology appt is necessary. Jun, Controlled type 2 diabetes mellitus with hyperglycemia, without long-term current use of insulin (ICD-10 - E11.65) Patients A1C is well controlled at this time. Educated patient on the importance of meal content and meal timing. Patient is to have a snack at bedtime to avoid Hypoglycemic episodes. Increase daily exercise routine and watch diet. Continue with above medication and we will continue to monitor every 3 months. [facility] Other 09-20-2023 NoteIncreased toprol to 100 mg daily for noted NSVT on holter. 30 day event monitor to assess for PVC burden and reoccurance of VT Holter reviewed with Dr Hills and no futher testing or invasive testing required being that pt without any concerning symptomsUnTrumbull [facility]09-20-2023 NoteContinue lipitorUnTrumbull Memorial Hospital 06-30-2023 NoteHTN currently well controlled 128/66 Continue all medsUniversMer[facility]09-20-2023 NoteNYHC II Continue GDMT- ASA, lipitor, toprol, lisinopril and Bumex-Diuretic therapy Monitor daily weights, I&O, fluid restriction 1.5-2L/day, renal function and electrolyteUnTrumbull Memorial Hospital09-20-2023 NoteCoronary artery disease is stable Continue GDMT- ASA, lipitor, plavix, toprol continue risk factor modifications- heart healthy diet, regular exercise as tolerated and continue all medications.[facility] 06-30-2023 NoteUTP CARDIOLOGY PROGRESS NOTE HPI: Gabbi Austin is a 72 y.o. female here for history of CAD s/p PCI to LAD 02/2020, ICM HFrEF 30%, with subsequent MUGA scan showing LVEF 58% in 04/2020. HPI Review of Systems Constitutional: Negative. Respiratory: Negative. Cardiovascular: Negative. Neurological: Negative. All other systems reviewed and are negative. Visit Vitals BP 128/66 (BP Location: Right arm, Patient Position: Sitting) Pulse 83 Wt 68.9 kg (152 lb) SpO2 98% BMI 28.72 kg/m??? Smoking Status Never BSA 1.72 m??? Allergies Allergen Reactions Egg Hives Penicillins Hives and Unknown Medications: Current Outpatient Medications on File Prior to Visit Medication Sig Dispense Refill aspirin 81 mg chewable tablet Chew 1 tablet (81 mg) once daily as directed. 90 tablet 3 atorvastatin (Lipitor) 40 mg tablet Take 1 tablet (40 mg) by mouth in the morning. 90 tablet 3 bumetanide (Bumex) 1 mg tablet Take 1 tablet (1 mg) by mouth once daily as directed. 90 tablet 3 clopidogrel (Plavix) 75 mg tablet Take 1 tablet (75 mg) by mouth once daily as directed. 90 tablet 3 ferrous sulfate 325 (65 Fe) MG tablet in the morning. glipiZIDE XL (Glucotrol XL) 5 mg 24 hr tablet Take 5 mg by mouth in the morning. linaGLIPtin (Tradjenta) 5 mg tablet Tradjenta 5 mg tablet TAKE 1 TABLET BY MOUTH ONCE DAILY lisinopril 10 mg tablet Take 1 tablet (10 mg) by mouth once daily as directed. 90 tablet 3 metFORMIN (Glucophage) 850 mg tablet metformin 850 mg tablet TAKE 1 TABLET BY MOUTH DAILY potassium chloride CR (Klor-Con) 10 mEq ER tablet potassium chloride ER 10 mEq tablet,extended release TAKE 1 TABLET BY MOUTH EVERY DAY 90 tablet 3 rOPINIRole (Requip) 1 mg tablet ropinirole 1 mg tablet TAKE 1 TABLET BY MOUTH AT BEDTIME [DISCONTINUED] metoprolol succinate XL (Toprol-XL) 50 mg 24 hr tablet TAKE 1 & 1/2 (ONE AND ONE-HALF) TABLETS BY MOUTH DAILY 135 tablet 3 No current facility-administered medications on file prior to visit. Physical Exam: Constitutional: Appearance: Normal appearance. Without apparent distress HENT: Head: Normocephalic and atraumatic. Nose: Nose normal. Mouth/Throat: Mouth: Mucous membranes are moist. Eyes: Extraocular Movements: Extraocular movements intact. Conjunctiva/sclera: Conjunctivae normal. Neck: Vascular: No JVD. Cardiovascular: Rate and Rhythm: Normal rate and regular rhythm. Pulses: Dorsalis pedis pulses are 3 on the right side and 3on the left side. Posterior tibial pulses are 3 on the right side and 3 on the left side. Heart sounds: Normal heart sounds, S1 normal and S2 normal. Pulmonary: Effort: Pulmonary effort is normal. Breath sounds: Normal breath sounds. Abdominal: General: Bowel sounds are normal. Palpations: Abdomen is soft. Musculoskeletal: General: Normal range of motion. Cervical back: Normal range of motion. Right lower leg: No edema. Left lower leg: No edema. Skin: General: Skin is warm and dry. Capillary Refill: Capillary refill takes less than 2 seconds. Neurological: General: No focal deficit present. Mental Status: She is alert and oriented to person, place, and time. Psychiatric: Mood and Affect: Mood normal. Behavior: Behavior normal. Thought Content: Thought content normal. Judgment: Judgment normal. Labs: 01/08/23 CBC stable BUN 27, CR 1.36, K+ 4.4- stable renal function Liver function normal Chol 162, HDL 49, Trig 257, LDL 61.6- well controlled lipid level Last lab values have been reviewed CV Testing: TTE 01/12/23 RVSP =44 01/04/23 Holter monitor Carotid US 12/12/2021: 0-49% flow stenosis in the internal carotid arteries MUGA scan 04/10/2020: EF 58% ECHO (03/19/2020) Left Ventricle: The left ventricle is normal size. Global left ventricular systolic function is mildly reduced. The EF is 30 % visually. Left ventricular wall thickness is normal. Regional wall motion abnormalities (see diagram). Grade 1, mild diastolic dysfunction (abnormal relaxation). Right Ventricle: The right ventricle is normal in size. Normal right ventricular systolic function. Doppler studies suggest normal right sided pressures. Left Atrium: The left atrium is normal in size. Mitral Valve: There is nonspecific thickening of the mitral valve leaflet. Aortic Valve: Focal aortic cusp thickening is noted. Pericardium: No pericardial effusion. Overall Conclusions: No significant valvular abnormalities Cath 02/2020 FINAL IMPRESSION: Successful PCI of the mid LAD with a Synergy 2.75 x 16 mm drug-eluting stent, which was post-dilated with an [employer] Quantum Odon 3.0 x 8 mm noncompliant balloon. No echocardiogram results found for the past 12 months Assessment/Plan: Coronary atherosclerosis Coronary artery disease is stable Continue GDMT- ASA, lipitor, plavix, toprol continue risk factor modifications- heart healthy diet, regular exercise as tolerated and continue all medications. Chr (more content not included)...[facility]01-09-2023 Evaluation note* Encounter Date Diagnosis Assessment Notes Treatment Notes Treatment Clinical Notes Oct, Posterior right knee pain (ICD-10 - M25.561) [facility] Other Evaluation noteNo InformationNort [place]tar Other Evaluation note* Diagnosis Onset Date Resolution Status CAD (coronary artery disease) acute Chronic cough acute Iron deficiency anemia acute Type II diabetes mellitus [facility] Work Phone: Hisqrpm general Narrative - Reported* Type Description Date Medical History stenosis of left anterior descen ding artery Medical History type 2 diabetes Medical History CHF Medical History iron deficiency anemia Medical History secondary restless leg syndrome Medical History right carpal tunnel syndrome Surgical History PCI of mid LAD- drug eluting [facility] Dr. Cao Surgical History left rotator cuff repair 2010 Surgical History left carpal tunnel release 2004 Surgical History tonsillectomy Surgical History section [facility] Other Hiswjdc general Narrative - Reported* Type Description Date Medical History stenosis of left anterior descen ding artery Medical History type 2 diabetes Medical History CHF Medical History iron deficiency anemia Medical History secondary restless leg syndrome Medical History right carpal tunnel syndrome Medical History Controlled type 2 di abetes mellitus with hyperglycemia, without long-term current use of insulin Surgical History PCI of mid LAD- drug eluting [facility] Dr. Cao Surgical History left rotator cuff repair 2010 Surgical History left carpal tunnel release 2004 Surgical History tonsillectomy Surgical History section Hospitalization History SEE SURGICAL HX [facility] Other Hisaomm general Narrative - Reported* Type Description Date Medical History stenosis of left anterior descen ding artery Medical History type 2 diabetes Medical History CHF Medical History iron deficiency anemia Medical History secondary restless leg syndrome Medical History right carpal tunnel syndrome Medical History Controlled type 2 di abetes mellitus with hyperglycemia, without long-term current use of insulin Surgical History PCI of mid LAD- drug eluting [facility] Dr. Cao Surgical History left rotator cuff repair 2010 Surgical History left carpal tunnel release 2004 Surgical History tonsillectomy Surgical History section Surgical History Right knee surgery 02/2023 Surgical History Right CTR 02/2022 Hospitalization History SEE SURGICAL HX [facility] Other Summary Purpose Family History Relationship Condition Age at Onset Recorded Date/T marya father Heart disease Unknown Unknown mother Unknown Advance Directives Advance Directive Response Recorded Date/ Time Advance Directives No May 19 10:49am Hospital Course Note MR#: [id number] [facility] Pt. Name: Gabbi Austin Admitted: 02/02/2020 Discharged: 02/07/2020 Date of : 1950 Physician: Lonny Felton MD DISCHARGE SUMMARY PRINCIPAL DISCHARGE DIAGNOSIS: Acute heart failure with reduced ejection fraction (25%). SECONDARY DISCHARGE DIAGNOSES: 1. Pneumonia/sinusitis. 2. Suboptimally controlled type 2 diabetes. 3. Restless legs syndrome. HOSPITAL COURSE: The patient is a 69-year-old woman, who was transferred from outside facility with complaints of shortness of breath over the last week. The patient denies any fever, but was having some sinus congestion. The patient had been prescribed a Z-Rush by her primary care physician without significant improvement. The patient related she was having occasional productive cough with green-colored phlegm and related an episode of substernal chest pressure. The patient was evaluated in the emergency room and was found to have acute hypoxic respiratory failure, requiring high-fl (more content not included)... Reason for Referral Reason 11/02/22 Dr. Nuvia hanna at [facility] ([facility]) Diagnosis 1 Posterior right knee pain (M25.561) Referral Organization [facility] yovana Referring Provider First Name Tania Referring Provider Last Name Natalya Referring Provider Specialty [facility] Referred Organization [facility] Referred Provider Dav García Jr Referred Address ,[place], [place],[address] Referred Provider Specialty Orthopedic S urgery Referral Priority Routine Referral Appointment Date 2022-11-02 General Notes Neida Knapp 11:27:26 AM >received today, notes locked, referral faxed P2P Neida Knapp 10/26/2022 07:58:56 AM >faxed first attempt letter Neida Knapp 10/29/2022 02:25:20 PM >received fax with appt date Neida Knapp 11/03/2022 02:20:29 PM >faxed first request for consult notes Neida Knapp 11/10/2022 04:29:28 PM >faxed second request for consult notes Neida Knapp 11/16/2022 12:37:24 PM >received notes from DEXIGRAPH OPERATOR Christinao Luevano Clinical Notes Bryan: P: [id number] F: [id number] Chief Complaint and Reason for Visit Chief Complaint Wellness Reason for Visit CAD (coronary artery disease) Chronic cough Iron deficiency anemia Type II diabetes mellitus Additional Source Comments INFORMATION SOURCE (unrecogn ized section and content) DATE CREATED AUTHOR 05/02/2020 [facility] DATE CREATED AUTHOR AUTHOR'S ORGANIZ ATION 12/06/2022 [facility] dical Specialist DATE CREATED AUTHOR AUTHOR'S ORGANIZ ATION 01/16/2023 [facility] pital DATE CREATED AUTHOR AUTHOR'S ORGANIZ ATION 05/17/2024 [facility] REASON FOR VISIT (unrecogniz ed section and content) Wants a referralmedicationRE FILLmessagerefillStuffy Nose, Congestionrefills Care Teams (unrecognized sec tion and content) Team Status: Active Member Role Status Dates Tania Ayoub MD Primary Care Provider Active Team Status: Inactive Member Role Status Dates Tania Ayoub MD Primary Care Provide r, Attending Provider Active Start: May 19, 2024 End: May 19, 2024 Goals (unrecognized section and content) Goals may be documented in a n alternate section FOR RECORDS PERTAINING TO PATIENTS WHO ARE OR HAVE BEEN ENROLLED IN A CHEMICAL DEPENDENCY/SUBSTANCEABUSE PROGRAM, SOME INFORMATION MAY BE OMITTED. This clinical summary was aggregated from multiple sources. Caution should be exercised in using it in the provision of clinical care. This summary normalizes information from multiple sources, and as a consequence, information in this document may materially change the coding, format and clinical context of patient data. In addition, data may be omitted in some cases. CLINICAL DECISIONS SHOULD BE BASED ON THE PRIMARY CLINICAL RECORDS. [employer] provides no warranty or guarantee of the accuracy or completeness of information in this document.
== END 2024-05-23 07:54 | disposition home or self-care (01) ==
LOC: CARD 07:54
PROVIDERS: PCP Family Medicine; Visit Provider Internal Medicine Interventional Cardiology
DX: R06.09 Other forms of dyspnea (principal)
CPT/HCPCS: 93306

== ENCOUNTER 2024-05-29 08:39 | Outpatient (OUT) | payer MEDICARE, OTHER, SELFPAY ==
--- NOTE | 2024-05-29 | NM_ITS ---
Patient Name: JEROD CONCEPCION MR#: [id number] : 1950 Exam Date: 05/29/2024 Ordering Doctor: DR MASHA OBRIEN M.D. RADIOLOGY REPORT PROCEDURE: NM URIAH PERF SPECT REST STR COMPARISON: None. INDICATIONS: other forms of dyspnea, or shortness of breath on exertion TECHNIQUE: Exam Description: Stress/Rest one day protocol gated SPECT Rest Imagin.7 mCi Tc-99m Cardiolite IV on 05/29/2024 Stress Imaging 30.5 mCi Tc-99m Cardiolite IV on 05/29/2024 Exercise Protocol: 0.4 mg Lexiscan given IV Heart Rate (bpm): Rest: 71 Max: 101 PMHR: 67 Blood Pressure: Rest: 112/60 Max: 120/72 Symptoms: Rest and peak stress ECG findings were pending and the exercise portion of the study was pending per attending physician Dr. LAMBERT . For more details please see separate cardiac stress test report. FINDINGS: QUALITY OF STUDY: Good. PERFUSION DEFECT: None. LOCATION: N/A SIZE: N/A. SEVERITY: N/A. TYPE: N/A. WALL MOTION: Normal. LV SIZE: Normal. 45 mL. TID / TCD: None; 1.0 LVEF: Normal. Calculated EF 95%. SUMMARY: Myocardial perfusion imaging study is NORMAL. CONCLUSION: 1. Normal myocardial profusion scan 2. Pending exercise test Dictated by: Yanick King MD on 05/30/2024 at 12:11 Approved by: Yanick King MD on 05/30/2024 at 12:12
--- NOTE | 2024-05-29 | PCN_ITS ---
CARDIAC STRESS TEST Requesting Physician: Procedure Date: 05/29/2024 LEXISCAN NUCLEAR STRESS TEST INDICATION: Dyspnea on exertion. Patient?s baseline heart rate 71 beats per minute and blood pressure 112/60 mm/Hg. Lexiscan 0.4 mg IV was injected and the patient was monitored. Max heart rate during stress test was 101 beats per minute, representing 67% of age predicted maximum heart rate, and max blood pressure 120/72 mm/Hg. Patient did not have any chest pain or any other symptoms during the test. Baseline EKG showed normal sinus rhythm, heart rate 71 beats per minute, normal EKG. There were no significant T or ST changes during the stress test. Atypical T-wave changes noted in leads 3 and AVF. CONCLUSION: 1. Negative EKG Lexiscan stress test. 2. Nuclear images will be reported separately. [facility]
[2024-05-29] MEDS: REGADENOSON 0.4 MG/5 ML SYRINGE IV (10:25)
--- NOTE | 2024-05-29 10:40 | PC.NURSE ---
Nursing Note Cardiac Stress Test Reviewed: Medication, allergies and patient history reviewed. Stress Test: [ x] Patient tolerated stress test well. [ ] Patient unable to tolerate walking on treadmill. Switched to Lexiscan stress test. [x ] No chest pain noted per patient [ ] Chest pain that resolved prior to leaving stress lab. [x ] No dyspnea noted. [ ] Dyspnea that resolved prior to leaving stress lab. [ x] Patient left stress lab asymptomatic and hemodynamically stable. [ ] Patient taken to the Emergency Room due to non-resolving symptoms following stress test. [ ] Patient achieved target heart rate. [ ] Patient unable to achieve target heart rate. [ ] Aminophylline administered as reversal agent to Lexiscan (Regadenoson). [ ] Nitro administered. Nursing Comments:Pt had lexiscan test done. Tolerated well with no chest pain or dyspnea. Pt had no symptoms at end of stress test and was taken to cafeteria for breakfast following test.
== END 2024-05-29 08:40 | disposition home or self-care (01) ==
LOC: NM 08:40
PROVIDERS: PCP Family Medicine; Visit Provider Internal Medicine Interventional Cardiology
DX: R06.09 Other forms of dyspnea (principal)
CPT/HCPCS: 78452; 93017; A9500; J2785

== ENCOUNTER 2024-06-19 08:50 | Outpatient (OUT) | payer MEDICARE, OTHER, SELFPAY ==
--- OUTSIDE RECORDS SUMMARY | 2024-06-19 09:14 | XMS_ITS | CCD ---
Author Organization [facility] Care Team Providers Care Cross Tie Maker Name Role Phone ANA LAURA BROCK Referring [...] Care Unavailable AYOUB, TANIA E Admitting Unavailable MASHA OBRIEN Attending Unavailable FREIDA GRIFFIN Attending Unavailable GIANNI BOYKIN Attending Unavailable Allergies Allergy Classification Reported Allergen(s) Allergy Type Date of Onset Reaction(s) Facility (8 sources) Penicillin Drug Allergy 02-01-20 20 Unknown [facility]ository (9 sources) Ciprofloxacin Drug Allergy 05-19-20 24 Unknown, [facility] (5 sources) Eggs/Apples/Oats Drug allergy Unknown [facility] Other (3 sources) atorvastatin Drug Allergy Unknown [facility] Other (3 sources) Substance with penicillin structure and antibacterial mechanism of action (substance) Drug allergy Unknown [facility] Other (1 source) patient allergy list reviewed by nurse or physicia Propensity to adverse reactions 01-11-20 14 Comment:Done [facility] Other (3 sources) Eggs/Apples/Oats *DIETARY PRODUCTS/DIETARY MANAGEM Propensity to adverse reactions Unknown [facility] Other (1 source) Allergies Reconciled Propensity to adverse reactions Unknown [facility] Other (3 sources) Penicillins; Translations: [PENICILLINS] Allergy to substance 01-05-20 [facility] (2 sources) Eggs/Apples/Oats *DIETARY PROD Allergy to substance 05-12-20 [facility] (1 source) egg extract; Translations: [EGG] Drug Allergy 06-30-20 [facility] Repository Medications Current Medications Medication Drug Class(es) Dates Sig (Normalized) Sig (Original) aspirin 81 mg delayed release oral tablet (8 sources) Platelet Aggregation Inhibitor, Nonsteroidal Anti-inflammatory Drug Start: 06-15-2024 take 81 mg by mouth once daily Aspirin Active 81 MG PO Daily June 15, 2024 12:00am take 1 tablet by elyssa th every twenty-four hours Aspirin 81 81 MG 1 tablet Orally Once a day Active azithromycin 250 mg oral tablet (4 sources) Macrolide Antimicrobial Start: 07-01-2023 Azithromycin 250 MG as directed Orally 2 tabs po today, then 1 tab daily x 4 more days for 5 Jun, Active Start: 01-04-2023 Azithromycin 2 50 MG as directed Orally daily for 5 days Dec, Active Berberine Chloride (1 source) Start: 06-15-2024 take 1000 mg by mouth once daily Berberine Chloride Active 1000 MG PO Daily June 15, 2024 12:00am bumetanide 1 mg oral tablet (8 sources) Loop Diuretic Start: 06-15-2024 take 1 mg by mouth once daily Bumetanide Active 1 MG PO Daily June 15, 2024 12:00am take 1 tablet by elyssa th every twenty-four hours Bumetanide 1 MG 1 tablet Orally Once a day Active clopidogrel 75 mg oral tablet (8 sources) P2Y12 Platelet Inhibitor Start: 06-15-2024 take 75 mg by mouth once daily Clopidogrel Active 75 MG PO Daily June 15, 2024 12:00am take 1 tablet by elyssa th every twenty-four hours Plavix 75 MG 1 tablet Orally Once a day Active famotidine 20 mg oral tablet (7 sources) Histamine-2 Receptor Antagonist take 1 tablet by mouth once daily at bedtime as needed Famotidine 20 mg TAKE 1 TABLET BY MOUTH ONCE DAILY AT BEDTIME NEEDED for 30 Active fluticasone propionate 0.05 mg/actuat metered dose nasal spray (1 source) Corticosteroid Start: 06-15-20 take 1 spray(s) nasal route once daily Fluticasone Propionate Active 1 SPRAY INTRANASAL Daily June 15, 2024 12:00am administer into each nostril FreeStyle Sheree 14 Day [place] - (7 sources) FreeStyle Sheree 14 Day [place] - as directed for 30 days Active FreeStyle Sheree 14 Day [place] - as directed Active FreeStyle Sheree 14 Day Senso r - (7 sources) FreeStyle Sheree 14 Day Sensor - USE DIRECTED EVERY 14 DAYS for 308 Active FreeStyle Sheree 14 Day Sensor - as directed for 14 days Active FreeStyle Sheree 14 Day Sensor - as directed Active glipiZIDE er 5 mg 24 hr extended release oral tablet (11 sources) Sulfonylurea Start: 05-12-2024 End: 05-12-2024 take 5 mg by mouth once daily Glipizide Active 5 MG PO Daily May 12, 2024 12:48pm take 1 tablet by mouth once starla y glipiZIDE ER 5 mg TAKE 1 TABLET BY MOUTH DAILY Active take 1 tablet by elyssa th every twenty-four hours glipiZIDE 5 MG 1 tablet Orally daily for 90 days Active latanoprost 0.05 mg/ml ophthalmic solution (1 source) Prostaglandin Analog Start: 06-15-2024 take 1 drop(s) into the eye(s) once daily Latanoprost Active 1 DROPS EYE-BOTH Daily June 15, 2024 12:00am linagliptin 5 mg oral tablet (13 sources) Dipeptidyl Peptidase 4 Inhibitor Start: 05-12-2024 [...] 90 Active lisinopril 10 mg oral tablet (8 sources) Angiotensin Converting Enzyme Inhibitor Start: 06-15-2024 take 10 mg by mouth once daily Lisinopril Active 10 MG PO Daily June 15, 2024 12:00am take 1 tablet by elyssa th every twenty-four hours Lisinopril 10 MG 1 tablet Orally Once a day Active magnesium citrate 100 mg ora l tablet (7 sources) Magnesium Citrat e 100 MG as directed Orally Active Magnesium Citrat e 100 MG as directed Orally Active metFORMIN hydrochloride 850 mg oral tablet (13 sources) Biguanide Start: 02-10-2024 End: 05-11-2024 take [...] MG 1 tablet once a day Active Eaxkggtj-Dgf-Nfsrjgw-K-Herb2 89 (Alive Women's 50 Plus Ultra) 800 mcg DFE- 150 mcg tablet (1 source) Start: 06-15-2024 take 1 tablet by mouth once Zqpomkrt-Jzt-Vfknihu-K-Qvnf670 (Alive Women's 50 Plus Ultra) 800 mcg DFE- 150 mcg tablet Active TAB PO June 15, 2024 12:00am Omeprazole Magnesium (Prilos ec Otc) 20 mg tablet,delayed release (DR/EC) (1 source) Start: 06-15-2024 take 1 tablet by mouth once daily Omeprazole Magnesium (Prilosec Otc) 20 mg tablet,delayed release (DR/EC) Active 20 MG PO Daily June 15, 2024 12:00am Potassium Chloride (8 sources) Start: 06-15-2024 Potassium Chloride Active ME Q PO June 15, 2024 12:00am take 1 tablet by elyssa th every twelve hours Potassium Chloride ER 10 MEQ 1 tablet wi th food Orally Twice a day Active rOPINIRole 1 mg oral tablet (14 sources) Nonergot Dopamine Agonist Start: 06-15-2024 take 1 mg by mouth once daily Ropinirole Active 1 MG PO Daily June 15, 2024 12:00am Start: 05-19-2024 End: 06-15-2024 take 2 mg by mouth once daily at bedtime Ropinirole Discontinued 2 MG PO Daily at bedtime May 19, 2024 11:37am June 15, 2024 1:53pm Start: 05-11-2024 End: 05-12-2024 take 1 tablet [...] BY MOUTH AT BEDTIME for 90 Active Vitamins A,C,F-Gygb-Imgwpe (Preservision Areds) 4,296 mcg-226 mg-90 mg capsule (1 source) Start: 06-15-2024 take 1 capsule by mouth twice daily Vitamins A,C,G-Jdxb-Qqrcix (Preservision Areds) 4,296 mcg-226 mg-90 mg capsule Active 1 CAP PO Twice daily June 15, 2024 12:00am Problems Active Problems Problem Classification Problem Date Documented Date Episodic/Chronic Chronic kidney disease (2 sources) Chronic kidney disease; Translations: [Chronic kidney disease, unspecified] 06-15-2024 Chronic Congestive heart failure; nonhypertensive (8 sources) Chronic systolic (congestive) heart failure; Translations: [Heart failure] Onset: 3 Chronic Coronary atherosclerosis and other heart disease (13 sources) Atherosclerotic heart disease of [place] coronary artery without angina pectoris; Translations: [Atherosclerosis of coronary artery without angina pectoris] Onset: 0 05-19-2024 Chronic Deficiency and other anemia (3 sources) Iron deficiency anemia; Translations: [Iron deficiency anemia, unspecified] 05-19-2024 Episodic Deficiency and other anemia (2 sources) Iron deficiency anemia, unspecified; Translations: [Iron deficiency anemia, unspecified] 05-19-2024 Episodic Diabetes mellitus with complications (14 sources) Type 2 diabetes mellitus with hyperglycemia; Translations: [Hyperglycemia due to type 2 diabetes mellitus] Onset: 4 Chronic Diabetes mellitus without complication (7 sources) Type 2 diabetes mellitus without complication; Translations: [Type 2 diabetes mellitus without complications] Onset: 4 05-19-2024 Chronic Heart valve disorders (1 source) Nonrheumatic mitral (valve) insufficiency; Translations: [NONRHEUMATIC MITRAL INSUFFICIENCY] Onset: 3 Chronic Hypertension with complications and secondary hypertension (2 sources) Chronic kidney disease due to hypertension; Translations: [Hypertensive chronic kidney disease with stage 1 through stage 4 chronic kidney disease, or unspecified chronic kidney disease] 06-15-2024 Chronic Other diseases of kidney and ureters (1 source) Secondary hyperparathyroidism; Translations: [Secondary hyperparathyroidism of renal origin] 06-15-2024 Chronic Other diseases of kidney and ureters (1 source) Secondary hyperparathyroidism of renal origin; Translations: [Secondary hyperparathyroidism (of renal origin)] 06-15-2024 Chronic Other ear and sense organ disorders (2 sources) Hearing loss of right ear; Translations: [Unspecified hearing loss, right ear] Chronic Other ear and sense organ disorders (1 source) Unspecified hearing loss, right ear Chronic Other hereditary and degenerative nervous system conditions (2 sources) Restless legs; Translations: [Restless legs syndrome] 05-19-2024 Chronic Other hereditary and degenerative nervous system conditions (1 source) Restless legs syndrome; Translations: [Restless legs syndrome (RLS)] 05-19-2024 Chronic Other lower respiratory disease (4 sources) Chronic cough; Translations: [Chronic cough] 05-19-2024 Episodic Other lower respiratory disease (2 sources) Other forms of dyspnea; Translations: [Other forms of dyspnea] Onset: 4 Episodic Other nervous system disorders (1 source) Carpal tunnel syndrome; Translations: [Carpal tunnel syndrome, right upper limb] Chronic Other non-traumatic joint disorders (1 source) Pain in right knee Episodic Other nutritional; endocrine; and metabolic disorders (1 source) Simple obesity ; Translations: [Other obesity due to excess calories] Onset: 7 Chronic Other nutritional; endocrine; and metabolic disorders (1 source) Body mass index 30+ - obesity; Translations: [Body mass index 30.0-30.9, adult] Onset: 7 Chronic Other nutritional; endocrine; and metabolic disorders (1 source) Body mass index 25-29 - overweight; Translations: [Body mass index (BMI) 29.0-29.9, adult] Episodic Other upper respiratory infections (2 sources) Chronic sinusitis; Translations: [Chronic sinusitis, unspecified] Onset: 6 Chronic Other upper respiratory infections (3 sources) Acute maxillary sinusitis; Translations: [Acute maxillary sinusitis, unspecified] Onset: 5 Episodic Unclassified (1 source) Other ventricular tachycardia; Translations: [Other ventricular tachycardia] Onset: 3 Past or Other Problems Problem Classification Problem [...] Test Name Value Interpretation Reference Range Facility 36on 05-31-2024 36 I just scanned in patient's recent stress test. She had echo and labs last week too. Thanks. [facility] Basophils Auto (Bld) [#/Vol] on 05-22-2024 Basophils (Bld) [#/Vol] 0.1 10 3/uL 0.0-0.1 [facility] Basophils/100 WBC Auto (Bld) on 05-22-2024 Basophils/100 WBC (Bld) 1.2 % 0.2-2.0 [facility] Cholesterol in LDL Calc [Mas s/Vol]on 05-22-2024 Cholesterol in LDL [Mass/Vol] 57.0 mg/dL [facility] Comment on above: <100 mg/dl [id number] 0-129 mg/dl NEAR OR ABOVE [id number] mg/dl BORDERLINE [id number] mg/dl HIGH>190 mg/dl VERY HIGH Cholesterol in VLDL Calc [Ma ss/Vol]on 05-22-2024 Cholesterol in VLDL [Mass/Vol] 73.2 mg/dL [facility] Eosinophils/100 WBC Auto (Bl d)on 05-22-2024 Eosinophils/100 WBC (Bld) 3.5 % 0.9-7.0 [facility] Erythrocyte distribution wid th Auto (RBC) [Ratio]on 05-22-2024 Erythrocyte distribution width (RBC) [Ratio] 12.8 % 11.0-15.0 [facility] Estimated glomerular filtrat ion rate (GFR) non- Americanon 05-22-2024 GFR/1.73 sq M.predicted among non-blacks MDRD (S/P/Bld) [Vol rate/Area] 23 mL/min/{1.73_m2} Low >=60 [facility] Globulin Calc (S) [Mass/Vol] on 05-22-2024 Globulin (S) [Mass/Vol] 3.7 g/dL [facility] Glucose mean value [Mass/vol ume] in Blood Estimated from glycated hemoglobinon 05-22-2024 Average glucose Estimated from glycated hemoglobin (Bld) [Mass/Vol] 220 mg/dL [facility] Hematocrit Auto (Bld) [Volum e fraction]on 05-22-2024 Hematocrit (Bld) [Volume fraction] 37.9 % 36.0-48.0 [facility] Hemoglobin [Mass/volume] in Bloodon 05-22-2024 Hemoglobin (Bld) [Mass/Vol] 12.6 g/dL 12.0-16.0 [facility] Laboratory - Chemistry and C hemistry - challengeon 05-22-2024 Albumin [Mass/Vol] 3.8 g/dL 3.4-5.0 [facility] ALP [Catalytic activity/Vol] 109 U/L 46-116 [facility] ALT [Catalytic activity/Vol] 20 U/L 14-59 [facility] AST [Catalytic activity/Vol] 15 U/L 15-37 [facility] Bilirubin [Mass/Vol] 0.7 mg/dL 0.2-1.0 [facility] Calcium [Mass/Vol] 9.3 mg/dL 8.5-10.1 [facility] Chloride [Moles/Vol] 101 mmol/L 98-107 [facility] Cholesterol [Mass/Vol] 187 mg/dL <=200 [facility] Cholesterol in HDL [Mass/Vol] 57 mg/dL 40-60 [facility] Comment on above: > or =60 mg/dl - LOW CARDIOVASCULAR RISK<40 mg/dl - HIGH CARDIOVASCULAR RISK CO2 [Moles/Vol] 25.1 mmol/L 21.0-32.0 [facility] Creatinine [Mass/Vol] 2.11 mg/dL High 0.55-1.02 [facility] GFR/1.73 sq M.predicted MDRD (S/P/Bld) [Vol rate/Area] 28 mL/min/{1.73_m2} Low >=60 [facility] Glucose [Mass/Vol] 198 mg/dL High 74-106 [facility] Potassium [Moles/Vol] 4.6 mmol/L 3.5-5.1 [facility] Protein [Mass/Vol] 7.5 g/dL 6.4-8.2 [facility] Sodium [Moles/Vol] 138 mmol/L 136-145 [facility] Triglyceride [Mass/Vol] 366 mg/dL High <=150 [facility] TSH Qn 6.652 m[IU]/L High 0.358-3.740 [facility] Urea nitrogen [Mass/Vol] 49.0 mg/dL High 7.0-18.0 [facility] Urea nitrogen/Creatinine [Mass ratio] 23.2 mg/mg [facility] Laboratory - Hematology and Cell countson 05-22-2024 HbA1c (Bld) [Mass fraction] 9.3 % High 4.5-6.2 [facility] Comment on above: ADA RECOMMENDED LIMI T 4.0 - 6.0ADA THERAPEUTIC TARGET < 7.0ACTION SUGGESTED> 7.0 Immature granulocytes/100 WBC (Bld) 0.3 % 0.0-0.5 [facility] Leukocytes [#/volume] correc bebe for nucleated erythrocytes in Blood by Automated counon 05-22-2024 WBC corrected for nucl RBC Auto (Bld) [#/Vol] 8.6 10 3/uL 4.0-11.0 [facility] Lymphocytes Auto (Bld) [#/Vo l]on 05-22-2024 Lymphocytes (Bld) [#/Vol] 2.6 10 3/uL 1.2-3.8 [facility] Lymphocytes/100 WBC Auto (Bl d)on 05-22-2024 Lymphocytes/100 WBC (Bld) 30.2 % 20.5-60.0 [facility] MCH Auto (RBC) [Entitic mass ]on 05-22-2024 MCH (RBC) [Entitic mass] 30.5 pg 26.7-34.0 [facility] MCHC Auto (RBC) [Mass/Vol]on 05-22-2024 MCHC (RBC) [Mass/Vol] 33.2 g/dL 29.9-35.2 [facility] MCV Auto (RBC) [Entitic vol] on 05-22-2024 MCV (RBC) [Entitic vol] 91.8 fL 81.0-99.0 [facility] Microalbumin [Mass/volume] i n Urineon 05-22-2024 Albumin DL <= 20 mg/L (U) [Mass/Vol] 3.2 mg/dL <=30.0 [facility] Monocytes Auto (Bld) [#/Vol] on 05-22-2024 Monocytes (Bld) [#/Vol] 0.7 10 3/uL 0.3-0.8 [facility] Monocytes/100 WBC Auto (Bld) on 08-12-2024 Monocytes/100 WBC (Bld) 8.5 % 1.7-12.0 [facility] Neutrophils Auto (Bld) [#/Vo l]on 05-22-2024 Neutrophils (Bld) [#/Vol] 4.8 10 3/uL 1.4-6.5 [facility] Neutrophils/100 WBC Auto (Bl d)on 05-22-2024 Neutrophils/100 WBC (Bld) 56.3 % 43.0-75.0 [facility] No Panel Informationon 05-22 Eosinophils # (Auto) 0.3 10 3/uL 0.0-0.7 [facility] Immature Granulocyte # (Auto) 0.03 10 3/uL 0.00-0.03 [facility] Platelet mean volume Auto (B ld) [Entitic vol]on 05-22-2024 Platelet mean volume (Bld) [Entitic vol] 9.9 fL 9.5-13.5 [facility] Platelets Auto (Bld) [#/Vol] on 05-22-2024 Platelets (Bld) [#/Vol] 380 10 3/uL 150-450 [facility] RBC Auto (Bld) [#/Vol]on RBC (Bld) [#/Vol] 4.13 10 6/uL Low 4.20-5.40 [facility] Serum or plasma albumin/glob ulin mass ratioon 05-22-2024 Albumin/Globulin [Mass ratio] 1.0 {ratio} [facility] Serum or plasma anion gap de terminationon 05-22-2024 Anion gap [Moles/Vol] 16.5 mmol/L [facility] Serum or plasma total choles terol/high density lipoprotein (HDL) cholesterol mass cristhian 05-22-2024 Cholesterol.total/Ch olesterol in HDL [Mass ratio] 3.3 {ratio} [facility] Comment on above: 3.3 - 4.4 LOW RISK4. 4 - 7.1 AVERAGE RISK7.1 - 11.0 MODERATE RISK>11.0 HIGH RISK Office Visiton 05-15-2024 Follow-up visit [id number] Gabbi Austin 1950 F Date Provider Department Center 05/15/2024 271-MASHA OBRIEN CARD [facility] Family History Problem Relation Age of Onset Mitral valve prolapse Mother Family Status - Relation Status Age at Mother Level of Service:05471 DE OFFICE/OUTPATIENT ESTABLISHED MOD MDM 30 MIN Normal [facility] Office Visiton 12-01-2023 Follow-up visit [id number] Gabbi Austin 1950 F Date Provider Department Center 12/01/2023 1596-ELIAS FREIDA CARD [facility] Family History Problem Relation Age of Onset Mitral valve prolapse Mother Family Status - Relation Status Age at Mother Level of Service:06504 DE OFFICE/OUTPATIENT ESTABLISHED MOD MDM 30 MIN Normal [facility] Office Visiton 06-30-2023 Follow-up visit [id number] Gabbi Austin 1950 F Date Provider Department Center 06/30/2023 Darline-GIANNI BOYKIN CARD [facility] Family History Problem Relation Age of Onset Mitral valve prolapse Mother Family Status - Relation Status Age at Mother Level of Service:29426 DE OFFICE/OUTPATIENT ESTABLISHED MOD MDM 30-39 MIN Reason for Visit and Comments: Follow-up [459795] - 6 month Normal [facility] ECHOCARDIO M/2D COMPLETEon 0 01-12-2023 ECHOCARDIO M/2D COMPLETE Patient: GABBI AUSTIN Exam Date: 01/12/2023 : 1950 Gender:F Ordering : [employer] Admission #: [id number] Family : Order #: [id number] CLICK HERE TO VIEW EXAM ECHOCARDIOGRAM REPORT [...] M.D. on 01/14/2023 at 18:11 Normal [facility] CBC AUTO DIFFon 01-08-2023 BASO # 0.1 103/ul Normal 0.0-0.1 [facility] Comment on above: Performed By: #### C BC #### [facility] [address] [address] [address] Jassi Howard Basophils/100 WBC (Bld) 1.2 % Normal 0.2-2.0 [facility] Comment on above: Performed By: #### C BC #### [facility] [address] [address] [address] Jassi Howard EO # 0.5 103/ul Normal 0.0-0.7 [facility] Comment on above: Performed By: #### C BC #### [facility] [address] [address] [address] Jassi Howard Eosinophils/100 WBC (Bld) 5.7 % Normal 0.9-7.0 [facility] Comment on above: Performed By: #### C BC #### [facility] [address] [address] [address] Jassi Howard Erythrocyte distribution width (RBC) [Ratio] 12.7 % Normal 11.0-15.0 [facility] Comment on above: Performed By: #### C BC #### [facility] [address] [address] [address] Jassi Howard Hematocrit (Bld) [Volume fraction] 34.8 % Critically low 36.0-48.0 [facility] Comment on above: Performed By: #### C BC #### [facility] [address] [address] [address] Jassi Howard Hemoglobin (Bld) [Mass/Vol] 11.4 g/dL Critically low 12.0-16.0 [facility] Comment on above: Performed By: #### C BC #### [facility] [address] [place] [address] Dr. Jassi Howard IG # 0.05 10e3/ul Critically high 0.00-0.03 [facility] Comment on above: Performed By: #### C BC #### [facility] [address] [place] [address] Dr. Jassi Howard IG % 0.6 % Critically high 0.0-0.5 [facility] Comment on above: Performed By: #### C BC #### [facility] [address] [address] [address] Jassi Howard LYMPH # 2.7 103/ul Normal 1.2-3.8 [facility] Comment on above: Performed By: #### C BC #### [facility] [address] [place] [address] Dr. Jassi Howard Lymphocytes/100 WBC (Bld) 29.5 % Normal 20.5-60.0 [facility] Comment on above: Performed By: #### C BC #### [facility] [address] [place] [address] Dr. Jassi Howard MANUAL DIFF REQ NO Normal [facility] Comment on above: Performed By: #### C BC #### [facility] [address] [place] [address] Dr. Jassi Howard MCH (RBC) [Entitic mass] 29.1 pg Normal 26.7-34.0 [facility] Comment on above: Performed By: #### C BC #### [facility] [address] [address] [address] Jassi Howard MCHC (RBC) [Mass/Vol] 32.8 g/dL Normal 29.9-35.2 [facility] Comment on above: Performed By: #### C BC #### [facility] [address] [address] [address] Jassi Howard MCV (RBC) [Entitic vol] 88.8 fL Normal 81.0-99.0 [facility] Comment on above: Performed By: #### C BC #### [facility] [address] [place] [address] Dr. Jassi Howard MONO # 0.7 103/ul Normal 0.3-0.8 [facility] Comment on above: Performed By: #### C BC #### [facility] [address] [place] [address] Dr. Jassi Howard Monocytes/100 WBC (Bld) 7.2 % Normal 1.7-12.0 [facility] Comment on above: Performed By: #### C BC #### [facility] [address] [place] [address] Dr. Jassi Howard NEUT # 5.0 103/ul Normal 1.4-6.5 [facility] Comment on above: Performed By: #### C BC #### [facility] [address] [place] [address] Dr. Jassi Howard Neutrophils/100 WBC (Bld) 55.8 % Normal 43.0-75.0 [facility] Comment on above: Performed By: #### C BC #### [facility] [address] [place] [address] Dr. Jassi Howard Platelet mean volume (Bld) [Entitic vol] 10.0 fL Normal 9.5-13.5 [facility] Comment on above: Performed By: #### C BC #### [facility] [address] [place] [address] Dr. Jassi Howard PLT 410 103/ul Normal 150-450 [facility] Comment on above: Performed By: #### C BC #### [facility] [address] [address] [address] Jassi Howard RBC 3.92 106/ul Critically low 4.20-5.40 [facility] Comment on above: Performed By: #### C BC #### [facility] [address] [address] [address] Jassi Howard WBC 9.0 103/ul Normal 4.0-11.0 [facility] Comment on above: Performed By: #### C BC #### [facility] [address] [address] [address] Jassi Howard LIPID PROFILEon 01-08-2023 CHOL-HDL RATIO NORM SEE BELOW Normal [facility] Comment on above: Result Comment: 3.3 - 4.4 LOW RISK 4.4 - 7.1 AVERAGE RISK 7.1 - 11.0 MODERATE RISK >11.0 HIGH RISK Performed By: #### C MP, LIPID #### [facility] [address] [place] [address] Dr. Jassi Howard Cholesterol [Mass/Vol] 162 mg/dL Normal <=200 [facility] Comment on above: Performed By: #### C MP, LIPID #### [facility] [address] [place] [address] Dr. Jassi Howard Cholesterol in HDL [Mass/Vol] 49 mg/dL Normal 40-60 [facility] Comment on above: Performed By: #### C MP, LIPID #### [facility] [address] [address] [address] Jassi Howard Cholesterol in LDL [Mass/Vol] 61.6 mg/dL Normal [facility] Comment on above: Performed By: #### C MP, LIPID #### [facility] [address] [address] [address] Jassi Howard Cholesterol.total/Ch olesterol in HDL [Mass ratio] 3.3 {ratio} Normal [facility] Comment on above: Performed By: #### C MP, LIPID #### [facility] [address] [address] [address] Jassi Howard HDL NORMAL > or = 60 mg/dl - LO W CARDIOVASCULAR RISK <40 mg/dl - HIGH CARDIOVASCULAR RISK Normal [facility] Comment on above: Performed By: #### C MP, LIPID #### [facility] [address] [address] [address] Jassi Howard LDL CALC NORMAL SEE BELOW Normal [facility] Comment on above: Result Comment: <100 mg/dl OPTIMAL 100 - 129 mg/dl NEAR OR ABOVE OPTIMAL 130 - 159 mg/dl BORDERLINE HIGH 160 - 189 mg/dl HIGH >190 mg/dl VERY HIGH Performed By: #### C MP, LIPID #### [facility] [address] [address] [address] Jassi Howard Triglyceride [Mass/Vol] 257 mg/dL Critically high <=150 [facility] Comment on above: Performed By: #### C MP, LIPID #### [facility] [address] [address] [address] Jassi Howard VLDL CALC 51.4 mg/dL Normal [facility] Comment on above: Performed By: #### C MP, LIPID #### [facility] [address] [address] [address] Jassi Howard PROF 14(COMP METB)on 023 Albumin [Mass/Vol] 3.6 g/dL Normal 3.4-5.0 [facility] Comment on above: Performed By: #### C MP, LIPID #### [facility] [address] [address] [address] Jassi Howadr Albumin/Globulin [Mass ratio] 1.1 {ratio} Normal [facility] Comment on above: Performed By: #### C MP, LIPID #### [facility] [address] [address] [address] Jassi Howard ALP [Catalytic activity/Vol] 93 U/L Normal 46-116 [facility] Comment on above: Performed By: #### C MP, LIPID #### [facility] [address] [address] [address] Jassi Howard ALT [Catalytic activity/Vol] 14 U/L Normal 14-59 [facility] Comment on above: Performed By: #### C MP, LIPID #### [facility] [address] [address] [address] Jassi Howard Anion gap [Moles/Vol] 15.2 mmol/L Normal [facility] Comment on above: Performed By: #### C MP, LIPID #### [facility] [address] [address] [address] Jassi Howard AST [Catalytic activity/Vol] 10 U/L Critically low 15-37 [facility] Comment on above: Performed By: #### C MP, LIPID #### [facility] [address] [address] [address] Jassi Howard Bilirubin [Mass/Vol] 0.5 mg/dL Normal 0.2-1.0 [facility] Comment on above: Performed By: #### C MP, LIPID #### [facility] [address] [place] [address] Dr. Jassi Howard Calcium [Mass/Vol] 9.2 mg/dL Normal 8.5-10.1 [facility] Comment on above: Performed By: #### C MP, LIPID #### [facility] [address] [address] [address] Jassi Howard Chloride [Moles/Vol] 106 mmol/L Normal 98-107 [facility] Comment on above: Performed By: #### C MP, LIPID #### [facility] [address] [address] [address] Jassi Howard CO2 [Moles/Vol] 25.2 mmol/L Normal 21.0-32.0 [facility] [place] Comment on above: Performed By: #### C MP, LIPID #### [facility] [address] [address] [address] Jassi Howard Creatinine [Mass/Vol] 1.36 mg/dL Critically high 0.55-1.02 [facility] Comment on above: Performed By: #### C MP, LIPID #### [facility] [address] [address] [address] Jassi Howard EGFR-AF MALDIVIAN 47 mL/min/1.73m2 Critically low >=60 [facility] Comment on above: Performed By: #### C MP, LIPID #### [facility] [address] [address] [address] Jassi Howard EGFR-NON AF MALDIVIAN 38 mL/min/1.73m2 Critically low >=60 [facility] Comment on above: Performed By: #### C MP, LIPID #### [facility] [address] [address] [address] Jassi Howard Globulin (S) [Mass/Vol] 3.3 g/dL Normal [facility] Comment on above: Performed By: #### C MP, LIPID #### [facility] [address] [address] [address] Jassi Howard Glucose [Mass/Vol] 162 mg/dL Critically high 74-106 [facility] Comment on above: Performed By: #### C MP, LIPID #### [facility] [address] [address] [address] Jassi Howard Potassium [Moles/Vol] 4.4 mmol/L Normal 3.5-5.1 [facility] Comment on above: Performed By: #### C MP, LIPID #### [facility] [address] [address] [address] Jassi Howard Protein [Mass/Vol] 6.9 g/dL Normal 6.4-8.2 [facility] Comment on above: Performed By: #### C MP, LIPID #### [facility] [address] [address] [address] Jassi Howard Sodium [Moles/Vol] 142 mmol/L Normal 136-145 [facility] Comment on above: Performed By: #### C MP, LIPID #### [facility] [address] [address] [address] Jassi Howard Urea nitrogen [Mass/Vol] 27.0 mg/dL Critically high 7.0-18.0 [facility] Comment on above: Performed By: #### C MP, LIPID #### [facility] [address] [address] [address] Jassi Howard Urea nitrogen/Creatinine [Mass ratio] 19.9 mg/mg Normal [facility] Comment on above: Performed By: #### C MP, LIPID #### [facility] [address], [place] [address] Dr. Jassi Howard MRI Knee w/o Righton [...] by Terry Sims on 12/05/2022 1151 Normal [facility] [employer] CBC AUTO DIFFon 02-26-2022 BASO # 0.1 103/ul Normal 0.0-0.1 [facility] Comment on above: Performed By: #### C BC #### [facility] [address], [place] [address] Dr. Jassi Howard Basophils/100 WBC (Bld) 0.9 % Normal 0.2-2.0 [facility] Comment on above: Performed By: #### C BC #### [facility] [address] [place] [address] Dr. Jassi Howard EO # 0.4 103/ul Normal 0.0-0.7 [facility] Comment on above: Performed By: #### C BC #### [facility] [address] [place] [address] Dr. Jassi Howard Eosinophils/100 WBC (Bld) 6.4 % Normal 0.9-7.0 [facility] Comment on above: Performed By: #### C BC #### [facility] [address] [place] [address] Dr. Jassi Howard Erythrocyte distribution width (RBC) [Ratio] 12.8 % Normal 11.0-15.0 [facility] Comment on above: Performed By: #### C BC #### [facility] [address] [place] [address] Dr. Jassi Howard Hematocrit (Bld) [Volume fraction] 38.8 % Normal 36.0-48.0 [facility] Comment on above: Performed By: #### C BC #### [facility] [address] [place] [address] Dr. Jassi Howard Hemoglobin (Bld) [Mass/Vol] 12.3 g/dL Normal 12.0-16.0 [facility] Comment on above: Performed By: #### C BC #### [facility] [address] [place] [address] Dr. Jassi Howard IG # 0.03 10e3/ul Normal 0.00-0.03 [facility] Comment on above: Performed By: #### C BC #### [facility] [address] [place] [address] Dr. Jassi Howard IG % 0.4 % Normal 0.0-0.5 [facility] Comment on above: Performed By: #### C BC #### [facility] [address] [place] [address] Dr. Jassi Howard LYMPH # 1.8 103/ul Normal 1.2-3.8 [facility] Comment on above: Performed By: #### C BC #### [facility] [address] [place] [address] Dr. Jassi Howard Lymphocytes/100 WBC (Bld) 26.2 % Normal 20.5-60.0 [facility] Comment on above: Performed By: #### C BC #### [facility] [address] [place] [address] Dr. Jassi Howard MANUAL DIFF REQ NO Normal [facility] Comment on above: Performed By: #### C BC #### [facility] [address] [place] [address] Dr. Jassi Howard MCH (RBC) [Entitic mass] 28.6 pg Normal 26.7-34.0 [facility] Comment on above: Performed By: #### C BC #### [facility] [address] [place] [address] Dr. Jassi Howard MCHC (RBC) [Mass/Vol] 31.7 g/dL Normal 29.9-35.2 [facility] Comment on above: Performed By: #### C BC #### [facility] [address] [place] [address] Dr. Jassi Howard MCV (RBC) [Entitic vol] 90.2 fL Normal 81.0-99.0 [facility] Comment on above: Performed By: #### C BC #### [facility] [address] [place] [address] Dr. Jassi Howard MONO # 0.6 103/ul Normal 0.3-0.8 [facility] Comment on above: Performed By: #### C BC #### [facility] [address] [place] [address] Dr. Jassi Howard Monocytes/100 WBC (Bld) 9.0 % Normal 1.7-12.0 [facility] Comment on above: Performed By: #### C BC #### [facility] [address] [place] [address] Dr. Jassi Howard NEUT # 4.0 103/ul Normal 1.4-6.5 [facility] Comment on above: Performed By: #### C BC #### [facility] [address] [place] [address] Dr. Jassi Howard Neutrophils/100 WBC (Bld) 57.1 % Normal 43.0-75.0 [facility] Comment on above: Performed By: #### C BC #### [facility] [address] [place] [address] Dr. Jassi Howard Platelet mean volume (Bld) [Entitic vol] 10.3 fL Normal 9.5-13.5 [facility] Comment on above: Performed By: #### C BC #### [facility] [address] [place] [address] Dr. Jassi Howard PLT 372 103/ul Normal 150-450 [facility] Comment on above: Performed By: #### C BC #### [facility] [address] [place] [address] Dr. Jassi Howard RBC 4.30 106/ul Normal 4.20-5.40 [facility] Comment on above: Performed By: #### C BC #### [facility] [address] [place] [address] Dr. Jassi Howard WBC 6.9 103/ul Normal 4.0-11.0 [facility] Comment on above: Performed By: #### C BC #### [facility] [address] [place] [address] Dr. Jassi Howard GLYCOHEMOGLOBIN A1Con 2021 ADA RECOMMENDATION SEE BELOW Normal [facility] Comment on above: Result Comment: ADA RECOMMENDED LIMIT 4.0 - 6.0 ADA THERAPEUTIC TARGET < 7.0 ACTION SUGGESTED > 7.0 Performed By: #### A 1C #### [facility] [address] [place] [address] Dr. Jassi Howard Glucose [Mass/Vol] 186 mg/dL Normal [facility] Comment on above: Performed By: #### A 1C #### [facility] [address] [place] [address] Dr. Jassi Howard HbA1c (Bld) [Mass fraction] 8.1 % Critically high 4.5-6.2 [facility] Comment on above: Performed By: #### A 1C #### [facility] [address] [place] [address] Dr. Jassi Howard LIPID PROFILEon 02-26-2022 CHOL-HDL RATIO NORM SEE BELOW Normal [facility] Comment on above: Result Comment: 3.3 - 4.4 LOW RISK 4.4 - 7.1 AVERAGE RISK 7.1 - 11.0 MODERATE RISK >11.0 HIGH RISK Performed By: #### L IPID, CMP #### [facility] [address] [address] [address] Jassi Howard Cholesterol [Mass/Vol] 136 mg/dL Normal <=200 [facility] Comment on above: Performed By: #### L IPID, CMP #### [facility] [address] [address] [address] Jassi Howard Cholesterol in HDL [Mass/Vol] 47 mg/dL Normal 40-60 [facility] Comment on above: Performed By: #### L IPID, CMP #### [facility] [address] [address] [address] Jassi Howard Cholesterol in LDL [Mass/Vol] 45.0 mg/dL Normal [facility] Comment on above: Performed By: #### L IPID, CMP #### [facility] [address] [address] [address] Jassi Howard Cholesterol.total/Ch olesterol in HDL [Mass ratio] 2.9 {ratio} Normal [facility] Comment on above: Performed By: #### L IPID, CMP #### [facility] [address] [address] [address] Jassi Howard HDL NORMAL > or = 60 mg/dl - LO W CARDIOVASCULAR RISK <40 mg/dl - HIGH CARDIOVASCULAR RISK Normal [facility] Comment on above: Performed By: #### L IPID, CMP #### [facility] [address] [address] [address] Jassi Howard LDL CALC NORMAL SEE BELOW Normal [facility] Comment on above: Result Comment: <100 mg/dl OPTIMAL 100 - 129 mg/dl NEAR OR ABOVE OPTIMAL 130 - 159 mg/dl BORDERLINE HIGH 160 - 189 mg/dl HIGH >190 mg/dl VERY HIGH Performed By: #### L IPID, CMP #### [facility] [address] [address] [address] Jassi Howard Triglyceride [Mass/Vol] 220 mg/dL Critically high <=150 [facility] Comment on above: Performed By: #### L IPID, CMP #### [facility] [address] [place] [address] Dr. Jassi Howard VLDL CALC 44.0 mg/dL Normal [facility] Comment on above: Performed By: #### L IPID, CMP #### [facility] [address] [address] [address] Jassi Howard MICROALBUMIN, RAND URon 05- mALB 6.5 mg/L Normal <=30.0 [facility] Comment on above: Performed By: #### M ALBR #### [facility] [address] [place] [address] Dr. Jassi Howard PROF 14(COMP METB)on 022 Albumin [Mass/Vol] 3.7 g/dL Normal 3.4-5.0 [facility] Comment on above: Performed By: #### L IPID, CMP #### [facility] [address] [place] [address] Dr. Jassi Howard Albumin/Globulin [Mass ratio] 0.9 {ratio} Normal [facility] Comment on above: Performed By: #### L IPID, CMP #### [facility] [address] [place] [address] Dr. Jassi Howard ALP [Catalytic activity/Vol] 115 U/L Normal 46-116 [facility] Comment on above: Performed By: #### L IPID, CMP #### [facility] [address] [place] [address] Dr. Jassi Howard ALT [Catalytic activity/Vol] 17 U/L Normal 14-59 [facility] Comment on above: Performed By: #### L IPID, CMP #### [facility] [address] [place] [address] Dr. Jassi Howard Anion gap [Moles/Vol] 13.2 mmol/L Normal [facility] Comment on above: Performed By: #### L IPID, CMP #### [facility] [address] [address] [address] Jassi Howard AST [Catalytic activity/Vol] 12 U/L Critically low 15-37 [facility] Comment on above: Performed By: #### L IPID, CMP #### [facility] [address] [address] [address] Jassi Howard Bilirubin [Mass/Vol] 0.6 mg/dL Normal 0.2-1.0 [facility] Comment on above: Performed By: #### L IPID, CMP #### [facility] [address] [address] [address] Jassi Howard Calcium [Mass/Vol] 9.4 mg/dL Normal 8.5-10.1 [facility] Comment on above: Performed By: #### L IPID, CMP #### [facility] [address] [address] [address] Jassi Howard Chloride [Moles/Vol] 101 mmol/L Normal 98-107 [facility] Comment on above: Performed By: #### L IPID, CMP #### [facility] [address] [address] [address] Jassi Howard CO2 [Moles/Vol] 27.2 mmol/L Normal 21.0-32.0 [facility] Comment on above: Performed By: #### L IPID, CMP #### [facility] [address] [address] [address] Jassi Howard Creatinine [Mass/Vol] 1.47 mg/dL Critically high 0.55-1.02 [facility] Comment on above: Performed By: #### L IPID, CMP #### [facility] [address] [address] [address] Jassi Howard EGFR-AF MALDIVIAN 43 mL/min/1.73m2 Critically low >=60 [facility] Comment on above: Performed By: #### L IPID, CMP #### [facility] [address] [address] [address] Jassi Howard EGFR-NON AF MALDIVIAN 35 mL/min/1.73m2 Critically low >=60 [facility] Comment on above: Performed By: #### L IPID, CMP #### [facility] [address] [place] [address] Dr. Jassi Howard Globulin (S) [Mass/Vol] 3.9 g/dL Normal [facility] Comment on above: Performed By: #### L IPID, CMP #### [facility] [address] [place] [address] Dr. Jassi Howard Glucose [Mass/Vol] 178 mg/dL Critically high 74-106 [facility] Comment on above: Performed By: #### L IPID, CMP #### [facility] [address] [place] [address] Dr. Jassi Howard Potassium [Moles/Vol] 4.4 mmol/L Normal 3.5-5.1 [facility] Comment on above: Performed By: #### L IPID, CMP #### [facility] [address] [place] [address] Dr. Jassi Howard Protein [Mass/Vol] 7.6 g/dL Normal 6.4-8.2 [facility] Comment on above: Performed By: #### L IPID, CMP #### [facility] [address] [place] [address] Dr. Jassi Howard Sodium [Moles/Vol] 137 mmol/L Normal 136-145 [facility] Comment on above: Performed By: #### L IPID, CMP #### [facility] [address] [place] [address] Dr. Jassi Howard Urea nitrogen [Mass/Vol] 26.0 mg/dL Critically high 7.0-18.0 [facility] Comment on above: Performed By: #### L IPID, CMP #### [facility] [address] [place] [address] Dr. Jassi Howard Urea nitrogen/Creatinine [Mass ratio] 17.7 mg/mg Normal [facility] Comment on above: Performed By: #### L IPID, CMP #### [facility] [address] [place] [address] Dr. Jassi Howard Cardiovascular Lab Reporton 02-12-2020 Cardiovascular Lab Report [facility] Patient Name: Gabbi Austin [facility] MR #: [id number] Physician: Ra Tariq Abd Department of MD [place] Medicine Service Date: 02/12/2020 Division of Birthdate: 1950 Cardiology Room #: [facility] Cardiovascular Services [facility] [address] [facility]. [place] [id number] Cardiovascular Laboratory Report SCHEDULING AGENT: Anthony Chambers MD, electric plater. INDICATION: This is a 69-year-old female with past medical history of diabetes and dyslipidemia, who presented recently to [facility] with complaints of shortness of breath for [...] The patient was also notified that a diesel engine specialist will be assisting during the course of [...] the 0.035 exchange wire and we put 6-Indonesian x 11 cm Glidesheath into the right [...] was followed by using JL4 and JR4 5-Indonesian catheters and we performed selective bilateral coronary [...] Fine MD Date Trans: 02/12/2020 06:06 P/kelsey [id number] Normal [facility] Cardiovascular Lab Report [facility] Patient Name: Norman [facility] MR #: [id number] Physician: Emir Cao, Department of M.D. Medicine Service Date: 02/12/2020 Division of Birthdate: 1950 Cardiology Room #: [facility] Cardiovascular Services [place] [address] Cardiovascular Laboratory Report CLINICAL PRESENTATION: The patient is a 69-year-old female with past medical history significant for type 2 diabetes mellitus and recently diagnosed acute systolic congestive heart failure with EF of 25%. She was recently hospitalized at the [facility]. She now returns for cardiac catheterization. Please [...] which was post-dilated with an NC Quantum Lester 3.0 x 8 mm noncompliant balloon. PLAN: [...] maintained greater than 200 seconds. A Cordis 5-Indonesian XB 3.0 LAD was engaged to the [...] stent was postdilated with an NC Quantum Lester 3.0 x 8 mm noncompliant balloon at [...] A/Emir Cao M.D. Date Trans: 02/12/2020 12:40 P/mmo [id number] cc: Ra Fine MD [address] [place] [address] Tania Ayoub M.D. [address] [place] [id number] Normal [facility] *SARS-CoV-2 COVID-19on 02-06 [id number] Not Detected Normal Not Detected [facility] Comment on above: Order Comment: No: D o not add to previous draw Performed By: #### 5 [id number] #### [facility] [address] BASIC METABOLIC PANELon 01-10 Calcium [Mass/Vol] 9.7 mg/dL Normal 8.6-10.3 [facility] Comment on above: Order Comment: No: D o not add to previous draw Performed By: #### 3 [id number], [id number] #### [facility] [address] [place] [address], [place] Chloride [Moles/Vol] 95 mmol/L Low 98-107 [facility] Comment on above: Order Comment: No: D o not add to previous draw Performed By: #### 3 [id number], [id number] #### [facility] [address] [place] [address], [place] CO2 [Moles/Vol] 27 mmol/L Normal 21-31 [facility] Comment on above: Order Comment: No: D o not add to previous draw Performed By: #### 3 5199, [id number] #### [facility] [address] [place] [address], [place] Creatinine [Mass/Vol] 0.91 mg/dL Normal 0.60-1.20 [facility] Comment on above: Order Comment: No: D o not add to previous draw Performed By: #### 3 [id number], [id number] #### [facility] [address] [place] [address], [place] GFR/1.73 sq M predicted among blacks MDRD (S/P/Bld) [Vol rate/Area] mL/min/{1.73_m2} Normal >60 [facility] Comment on above: Order Comment: No: D o not add to previous draw Performed By: #### 3 5199, [id number] #### [facility] [address] [place] [address], [place] GFR/1.73 sq M predicted among non-blacks MDRD (S/P/Bld) [Vol rate/Area] mL/min/{1.73_m2} Normal >60 [facility] Comment on above: Order Comment: No: D o not add to previous draw Performed By: #### 3 5199, 06800 #### [facility] [address] [place] [address], [place] Glucose [Mass/Vol] 220 mg/dL High 70-100 [facility] Comment on above: Order Comment: No: D o not add to previous draw Performed By: #### 3 5199, 07702 #### [facility] [address] [place] [address], [place] Potassium [Moles/Vol] 3.9 mmol/L Normal 3.5-5.1 [facility] Comment on above: Order Comment: No: D o not add to previous draw Performed By: #### 3 5199, 67572 #### [facility] [address] [place] [address], [place] Sodium [Moles/Vol] 133 mmol/L Low 136-145 [facility] Comment on above: Order Comment: No: D o not add to previous draw Performed By: #### 3 5199, 58187 #### [facility] [address] [place] [address], [place] Urea nitrogen [Mass/Vol] 29 mg/dL High 7-25 [facility] Comment on above: Order Comment: No: D o not add to previous draw Performed By: #### 3 5199, 47237 #### [facility] [address] [place] [address], [facility] CBC COMPLETE BLOOD COUNTon - Erythrocyte distribution width (RBC) [Ratio] 16.5 % High 11.5-15.0 [facility] Comment on above: Order Comment: No: D o not add to previous draw Performed By: #### 3 5199, 47427 #### [facility] [address] [place] [address], [place] Hematocrit (Bld) [Volume fraction] 35.5 % Low 36.0-45.0 [facility] Comment on above: Order Comment: No: D o not add to previous draw Performed By: #### 3 5199, 65293 #### [facility] [address] [place] [address], [place] Hemoglobin (Bld) [Mass/Vol] 10.3 g/dL Low 12.0-15.[address] [facility] Comment on above: Order Comment: No: D o not add to previous draw Performed By: #### 3 5199, 69352 #### [facility] [address] [facility] [place] [address], [facility] MCH (RBC) [Entitic mass] 20.5 pg Low 27.0-33.0 [facility] Comment on above: Order Comment: No: D o not add to previous draw Performed By: #### 3 5199, 37694 #### [facility] [address] [place] [address], [facility] MCHC (RBC) [Mass/Vol] 29.0 g/dL Low 32.0-35.0 [facility] Comment on above: Order Comment: No: D o not add to previous draw Performed By: #### 3 5199, 63846 #### [facility] [address] [facility] [place] [address], [facility] MCV (RBC) [Entitic vol] 70.6 fL Low 82.0-98.0 [facility] Comment on above: Order Comment: No: D o not add to previous draw Performed By: #### 3 5199, 95050 #### [facility] [address] [facility] [place] [address], [facility] Nucleated RBC/100 WBC (Bld) [Ratio] 0 % Normal 0-0 [facility] Comment on above: Order Comment: No: D o not add to previous draw Performed By: #### 3 5199, 20785 #### [facility] [address] [facility] [place] [address], [facility] PLAT CNT 564 10*3/uL High 150-400 [facility] Comment on above: Order Comment: No: D o not add to previous draw Performed By: #### 3 5199, 69914 #### [facility] [address] [place] [address], [facility] RBC (Bld) [#/Vol] 5.03 10*6/uL High 3.80-5.00 [facility] Comment on above: Order Comment: No: D o not add to previous draw Performed By: #### 3 5200, 43485 #### [facility] [address] WBC (Bld) [#/Vol] 16.42 10*3/uL High 4.00-10.60 [facility] Comment on above: Order Comment: No: D o not add to previous draw Performed By: #### 3 5200, 38701 #### [facility] [address] MAGNESIUM BLOODon 02-07-2020 Magnesium [Mass/Vol] 1.8 mg/dL Low 1.9-2.7 [facility] Comment on above: Performed By: #### 5 0608 #### [facility] [address] PROCALCITONINon 02-07-2020 PROCALCITONIN 0.14 ng/mL High 0.00-0.10 [facility] Comment on above: Order Comment: No: D [...] PCT<0.5ng/mL Performed By: #### 5 0608 #### [facility] [address] [facility] PROTHROMBIN TIMEon 0 INR Coag (PPP) [Relative time] 1.01 {INR} Normal 0.91-1.16 [facility] Comment on above: Order Comment: No: [...] 1995;108:231S-246S. Performed By: #### 5 0608 #### [facility] [address] [facility] [address], [facility] PT Coag (PPP) [Time] 13.3 s Normal 12.3-14.8 [facility] Comment on above: Order Comment: No: D o not add to previous draw Result Comment: ALL RESULTS MUST BE INTERPRETED WITH RESPECT TO BLOOD DRAWING ARTIFACT OR DILUTION ERROR OF ANTICOAGULANT AT THE TIME OF SAMPLING. Performed By: #### 5 0608 #### [facility] [address] [facility]. [address] UFH HEPARIN ASSAYon 02-07-20 20 UNFRACTIONATED HEPARIN >1.00 Critically high 0.30-0.70 [facility] Comment on above: Result Comment: Malena roxaban and Apixaban will interfere with the anti Xa assay used to monitor UFH and LMWH. Results called. Accurately read back by Sangeetha Villareal RN at 1026 Performed By: #### 5 0608 #### [facility] [address] [facility]. [address] APTTon 02-06-2020 aPTT Coag (Bld) [Time] 66.0 s High 25.0-35.0 [facility] Comment on above: Order Comment: No: [...] PRESENCE OF HEPARIN. Performed By: #### 3 5199, 22900 #### [facility] [address] [facility]. [address] BASIC METABOLIC PANELon 01-10 Calcium [Mass/Vol] 9.3 mg/dL Normal 8.6-10.3 [facility] Comment on above: Order Comment: No: D o not add to previous draw Performed By: #### 3 5199, 31087 #### [facility] [address] [facility]. [address] Chloride [Moles/Vol] 94 mmol/L Low 98-107 [facility] Comment on above: Order Comment: No: D o not add to previous draw Performed By: #### 3 5199, 15285 #### [facility] [address] [place] [address], [place] CO2 [Moles/Vol] 27 mmol/L Normal 21-31 [facility] Comment on above: Order Comment: No: D o not add to previous draw Performed By: #### 3 5199, 04541 #### [facility] [address] [place] [address], [place] Creatinine [Mass/Vol] 0.89 mg/dL Normal 0.60-1.20 [facility] Comment on above: Order Comment: No: D o not add to previous draw Performed By: #### 3 5199, 68400 #### [facility] [address] [place] [address], [place] GFR/1.73 sq M predicted among blacks MDRD (S/P/Bld) [Vol rate/Area] mL/min/{1.73_m2} Normal >60 [facility] Comment on above: Order Comment: No: D o not add to previous draw Performed By: #### 3 5199, 19552 #### [facility] [address] [place] [address], [place] GFR/1.73 sq M predicted among non-blacks MDRD (S/P/Bld) [Vol rate/Area] mL/min/{1.73_m2} Normal >60 [facility] Comment on above: Order Comment: No: D o not add to previous draw Performed By: #### 3 5199, 86921 #### [facility] [address] [place] [address], [place] Glucose [Mass/Vol] 191 mg/dL High 70-100 [facility] Comment on above: Order Comment: No: D o not add to previous draw Performed By: #### 3 5199, 64661 #### [facility] [address] [place] [address], [place] Potassium [Moles/Vol] 3.6 mmol/L Normal 3.5-5.1 [facility] Comment on above: Order Comment: No: D o not add to previous draw Performed By: #### 3 5199, 46885 #### [facility] [address] [place] [address], [facility] Sodium [Moles/Vol] 132 mmol/L Low 136-145 [facility] Comment on above: Order Comment: No: D o not add to previous draw Performed By: #### 3 5199, 34540 #### [facility] [address] [facility] [address] Urea nitrogen [Mass/Vol] 25 mg/dL Normal 7-25 [facility] Comment on above: Order Comment: No: D o not add to previous draw Performed By: #### 3 5199, 37429 #### [facility] [address] [facility] [place] [address], [facility] CBC W/DIFFon 02-06-2020 ABS BASOPHILS 0.1 10*3/uL Normal 0.0-0.2 [facility] Comment on above: Order Comment: No: D o not add to previous draw Performed By: #### 3 5199, 41268 #### [facility] [address] [facility] [place] [address], [facility] ABS IMM GRANS 0.2 10*3/uL Normal 0.0-0.2 [facility] Comment on above: Order Comment: No: D o not add to previous draw Performed By: #### 3 5199, 82904 #### [facility] [address] [facility] [place] [address], [facility] ABS NEUTROPHILS 8.9 10*3/uL High 1.6-7.6 [facility] Comment on above: Order Comment: No: D o not add to previous draw Performed By: #### 3 5199, 29086 #### [facility] [address] [place] [address], [facility] Basophils/100 WBC (Bld) 0.8 % Normal 0.0-1.0 [facility] Comment on above: Order Comment: No: D o not add to previous draw Performed By: #### 3 5199, 94783 #### [facility] [address] [place] [address], [facility] Eosinophils (Bld) [#/Vol] 0.4 10*3/uL Normal 0.0-0.5 [facility] Comment on above: Order Comment: No: D o not add to previous draw Performed By: #### 3 5199, 81689 #### [facility] [address] [place] [address], [facility] Eosinophils/100 WBC (Bld) 2.6 % Normal 0.0-6.0 [facility] Comment on above: Order Comment: No: D o not add to previous draw Performed By: #### 3 5199, 78739 #### [facility] [address] [place] [address], [facility] Erythrocyte distribution width (RBC) [Ratio] 16.3 % High 11.5-15.0 [facility] Comment on above: Order Comment: No: D o not add to previous draw Performed By: #### 3 5199, 13940 #### [facility] [address] [place] [address], [facility] Hematocrit (Bld) [Volume fraction] 32.8 % Low 36.0-45.0 [facility] Comment on above: Order Comment: No: D o not add to previous draw Performed By: #### 3 5199, 32805 #### [facility] [address] [place] [id number], [facility] Hemoglobin (Bld) [Mass/Vol] 9.6 g/dL Low 12.0-15.0 [facility] Comment on above: Order Comment: No: D o not add to previous draw Performed By: #### 3 5199, 36520 #### [facility] [address] [place] [address], [facility] IMMATURE GRANS 1.1 % High 0.0-1.0 [facility] Comment on above: Order Comment: No: D o not add to previous draw Performed By: #### 3 5199, 07119 #### [facility] [address] [place] [address], [facility] Lymphocytes (Bld) [#/Vol] 3.3 10*3/uL Normal 1.2-4.0 [facility] Comment on above: Order Comment: No: D o not add to previous draw Performed By: #### 3 5199, 13352 #### [facility] [address] [place] [address], [facility] Lymphocytes/100 WBC (Bld) 23.2 % Normal 20.0-45.0 [facility] Comment on above: Order Comment: No: D o not add to previous draw Performed By: #### 3 5199, 13719 #### [facility] [address] [place] [address], [facility] MCH (RBC) [Entitic mass] 20.6 pg Low 27.0-33.0 [facility] Comment on above: Order Comment: No: D o not add to previous draw Performed By: #### 3 5199, 57291 #### [facility] [address] [place] [address], [facility] MCHC (RBC) [Mass/Vol] 29.3 g/dL Low 32.0-35.0 [facility] Comment on above: Order Comment: No: D o not add to previous draw Performed By: #### 3 5199, 54026 #### [facility] [address] [place] [address], [facility] MCV (RBC) [Entitic vol] 70.4 fL Low 82.0-98.0 [facility] Comment on above: Order Comment: No: D o not add to previous draw Performed By: #### 3 5199, 09358 #### [facility] [address] [place] [address], [facility] Monocytes (Bld) [#/Vol] 1.4 10*3/uL High 0.1-1.0 [facility] Comment on above: Order Comment: No: D o not add to previous draw Performed By: #### 3 5199, 96235 #### [facility] [address] [place] [address], [place] MONOS 9.7 % Normal 5.0-12.0 [facility] Comment on above: Order Comment: No: D o not add to previous draw Performed By: #### 3 5199, 50401 #### [facility] [address] [place] [address], [place] Neutrophils/100 WBC (Bld) 62.6 % Normal 40.0-72.0 [facility] Comment on above: Order Comment: No: D o not add to previous draw Performed By: #### 3 5199, 39107 #### [facility] [address] [place] [address], [place] Nucleated RBC/100 WBC (Bld) [Ratio] 0 % Normal 0-0 [facility] Comment on above: Order Comment: No: D o not add to previous draw Performed By: #### 3 5199, 78334 #### [facility] [address] [place] [address], [place] PLAT CNT 486 10*3/uL High 150-400 [facility] Comment on above: Order Comment: No: D o not add to previous draw Performed By: #### 3 5199, 52934 #### [facility] [address] [place] [address], [place] RBC (Bld) [#/Vol] 4.66 10*6/uL Normal 3.80-5.00 [facility] Comment on above: Order Comment: No: D o not add to previous draw Performed By: #### 3 5199, 03885 #### [address] [address], [facility] WBC (Bld) [#/Vol] 14.19 10*3/uL High 4.00-10.60 [facility] Comment on above: Order Comment: No: D o not add to previous draw Performed By: #### 3 5200, 99672 #### [facility] [address] [place], [place] [id number] [place] [address] PORTABLE CHEST 1 VIEWon 01-10 PORTABLE CHEST 1 VIEW [facility] Department of Radiology [address] [place] [id number] Patient Name: GABBI AUSTIN : 1950 Sex: F Age: Race: White Pt. Location: [id number] Patient Status: I Ordered Date: 02/06/2020 9:55:00 [...] pneumonia. Electronically signed: Alie Soriano. Transcribed by: [email or web address], User Resident: Electronically Signed by: ALIE SORIANO @ 02/06/2020 02:27 PM Normal [facility] Comment on above: Order Comment: No: D o not add to previous draw PROTHROMBIN TIMEon 0 INR Coag (PPP) [Relative time] 0.98 {INR} Normal 0.91-1.16 [facility] Comment on above: Order [...] RANGE. CHEST 1995;108:231S-246S. Performed By: #### 3 9380 [id number] #### [facility] [address] [facility] [address] PT Coag (PPP) [Time] 13.0 s Normal 12.3-14.8 [facility] Comment on above: Order Comment: No: D o not add to previous draw Result Comment: ALL RESULTS MUST BE INTERPRETED WITH RESPECT TO BLOOD DRAWING ARTIFACT OR DILUTION ERROR OF ANTICOAGULANT AT THE TIME OF SAMPLING. Performed By: #### 3 5199, 15404 #### [facility] [address] UFH HEPARIN ASSAYon 02-06-20 20 UNFRACTIONATED HEPARIN 0.84 IU/mL High 0.30-0.70 [facility] Comment on above: Order Comment: No: D o not add to previous draw Result Comment: Malena roxaban and Apixaban will interfere with the anti Xa assay used to monitor UFH and LMWH. Performed By: #### 3 5199, 93375 #### [facility] [address] UNFRACTIONATED HEPARIN 0.70 IU/mL Normal 0.30-0.70 [facility] Comment on above: Result Comment: Malena roxaban and Apixaban will interfere with the anti Xa assay used to monitor UFH and LMWH. Performed By: #### 3 5199, 57159 #### [facility] [address] [facility]. [address] UNFRACTIONATED HEPARIN 0.25 IU/mL Low 0.30-0.70 [facility] Comment on above: Order Comment: No: D o not add to previous draw Result Comment: Brisbin roxaban and Apixaban will interfere with the anti Xa assay used to monitor UFH and LMWH. Performed By: #### 3 5199, 00225 #### [facility] [address] [facility]. [address] BASIC METABOLIC PANELon 01-10 Calcium [Mass/Vol] 9.5 mg/dL Normal 8.6-10.3 [facility] Comment on above: Order Comment: No: D o not add to previous draw Performed By: #### 3 5199, 09662 #### [facility] [address] [facility] [address], [facility] Chloride [Moles/Vol] 95 mmol/L Low 98-107 [facility] Comment on above: Order Comment: No: D o not add to previous draw Performed By: #### 3 5199, 05246 #### [facility] [address] [place] [address], [place] CO2 [Moles/Vol] 27 mmol/L Normal 21-31 [facility] Comment on above: Order Comment: No: D o not add to previous draw Performed By: #### 3 5199, 87035 #### [facility] [address] [place] [address], [place] Creatinine [Mass/Vol] 0.96 mg/dL Normal 0.60-1.20 [facility] Comment on above: Order Comment: No: D o not add to previous draw Performed By: #### 3 5199, 28181 #### [facility] [address] [place] [address], [place] GFR/1.73 sq M predicted among blacks MDRD (S/P/Bld) [Vol rate/Area] mL/min/{1.73_m2} Normal >60 [facility] Comment on above: Order Comment: No: D o not add to previous draw Performed By: #### 3 5199, 37870 #### [facility] [address] [place] [address], [place] GFR/1.73 sq M predicted among non-blacks MDRD (S/P/Bld) [Vol rate/Area] 58 ml/min/1.73sq m Abnormal >60 [facility] Comment on above: Order Comment: No: D o not add to previous draw Performed By: #### 3 5199, 23316 #### [facility] [address] [place] [address], [place] Glucose [Mass/Vol] 176 mg/dL High 70-100 [facility] Comment on above: Order Comment: No: D o not add to previous draw Performed By: #### 3 5199, 72366 #### [facility] [address] [place] [address], [place] Potassium [Moles/Vol] 3.8 mmol/L Normal 3.5-5.1 [facility] Comment on above: Order Comment: No: D o not add to previous draw Performed By: #### 3 5199, 66008 #### [facility] [address] Sodium [Moles/Vol] 133 mmol/L Low 136-145 [facility] Comment on above: Order Comment: No: D o not add to previous draw Performed By: #### 3 5199, 52571 #### [facility] [address] [facility]. [address] Urea nitrogen [Mass/Vol] 26 mg/dL High 7-25 [facility] Comment on above: Order Comment: No: D o not add to previous draw Performed By: #### 3 5199, 57103 #### [facility] [address] [facility]. [address] CBC W/DIFFon 02-05-2020 ABS BASOPHILS 0.1 10*3/uL Normal 0.0-0.2 [facility] Comment on above: Order Comment: No: D o not add to previous draw Performed By: #### 3 5199, 41122 #### [facility] [address] [facility]. [address] ABS IMM GRANS 0.1 10*3/uL Normal 0.0-0.2 [facility] Comment on above: Order Comment: No: D o not add to previous draw Performed By: #### 3 5199, 52755 #### [facility] [address] [facility]. [address] ABS NEUTROPHILS 9.1 10*3/uL High 1.6-7.6 [facility] Comment on above: Order Comment: No: D o not add to previous draw Performed By: #### 3 5199, 27303 #### [facility] [address] [facility] [place] [address], [facility] Basophils/100 WBC (Bld) 0.9 % Normal 0.0-1.0 [facility] Comment on above: Order Comment: No: D o not add to previous draw Performed By: #### 3 5199, 14680 #### [facility] [address] [place] [address], [facility] Eosinophils (Bld) [#/Vol] 0.4 10*3/uL Normal 0.0-0.5 [facility] Comment on above: Order Comment: No: D o not add to previous draw Performed By: #### 3 5199, 53153 #### [facility] [address] [place] [id number], [facility] Eosinophils/100 WBC (Bld) 2.6 % Normal 0.0-6.0 [facility] Comment on above: Order Comment: No: D o not add to previous draw Performed By: #### 3 5199, 79640 #### [facility] [address] [place] [address], [facility] Erythrocyte distribution width (RBC) [Ratio] 16.1 % High 11.5-15.0 [facility] Comment on above: Order Comment: No: D o not add to previous draw Performed By: #### 3 5199, 10959 #### [facility] [address] [place] [id number], [facility] Hematocrit (Bld) [Volume fraction] 31.9 % Low 36.0-45.0 [facility] Comment on above: Order Comment: No: D o not add to previous draw Performed By: #### 3 5199, 16856 #### [facility] [address] [place] [id number], [facility] Hemoglobin (Bld) [Mass/Vol] 9.6 g/dL Low 12.0-15.0 [facility] Comment on above: Order Comment: No: D o not add to previous draw Performed By: #### 3 5199, 04739 #### [facility] [address] [place] [address], [facility] IMMATURE GRANS 0.8 % Normal 0.0-1.0 [facility] Comment on above: Order Comment: No: D o not add to previous draw Performed By: #### 3 5199, 04107 #### [facility] [address] [facility] [address], [facility] Lymphocytes (Bld) [#/Vol] 3.8 10*3/uL Normal 1.2-4.0 [facility] Comment on above: Order Comment: No: D o not add to previous draw Performed By: #### 3 5199, 10541 #### [facility] [address] [facility] [place] [address], [facility] Lymphocytes/100 WBC (Bld) 25.8 % Normal 20.0-45.0 [facility] Comment on above: Order Comment: No: D o not add to previous draw Performed By: #### 3 5199, 68363 #### [facility] [address] [facility] [place] [address], [facility] MCH (RBC) [Entitic mass] 20.9 pg Low 27.0-33.0 [facility] Comment on above: Order Comment: No: D o not add to previous draw Performed By: #### 3 5199, 16802 #### [facility] [address] [facility] [place] [id number], [facility] MCHC (RBC) [Mass/Vol] 30.1 g/dL Low 32.0-35.0 [facility] [facility] Comment on above: Order Comment: No: D o not add to previous draw Performed By: #### 3 5199, 30159 #### [facility] [address] [place] [id number], [facility] MCV (RBC) [Entitic vol] 69.5 fL Low 82.0-98.0 [facility] Comment on above: Order Comment: No: D o not add to previous draw Performed By: #### 3 5199, 79816 #### [facility] [address] [place] [address], [facility] Monocytes (Bld) [#/Vol] 1.3 10*3/uL High 0.1-1.0 [facility] Comment on above: Order Comment: No: D o not add to previous draw Performed By: #### 3 5199, 21489 #### [facility] [address] [place] [address], [facility] MONOS 8.5 % Normal 5.0-12.0 [facility] Comment on above: Order Comment: No: D o not add to previous draw Performed By: #### 3 5199, 79358 #### [facility] [address] [place] [address], [facility] Neutrophils/100 WBC (Bld) 61.4 % Normal 40.0-72.0 [facility] Comment on above: Order Comment: No: D o not add to previous draw Performed By: #### 3 5199, 25124 #### [facility] [address] [place] [address], [facility] Nucleated RBC/100 WBC (Bld) [Ratio] 0 % Normal 0-0 [facility] Comment on above: Order Comment: No: D o not add to previous draw Performed By: #### 3 5199, 29230 #### [facility] [address] [place] [address], [facility] PLAT CNT 528 10*3/uL High 150-400 The [facility] Comment on above: Order Comment: No: D o not add to previous draw Performed By: #### 3 5199, 08813 #### [facility] [address] [place] [id number], [facility] RBC (Bld) [#/Vol] 4.59 10*6/uL Normal 3.80-5.00 The [facility] Comment on above: Order Comment: No: D o not add to previous draw Performed By: #### 3 0, 42502 #### [facility] [address] WBC (Bld) [#/Vol] 14.79 10*3/uL High 4.00-10.60 [facility] Comment on above: Order Comment: No: D o not add to previous draw Performed By: #### 3 5200, 85505 #### [facility] [address] MAGNESIUM BLOODon 02-05-2020 Magnesium [Mass/Vol] 2.0 mg/dL Normal 1.9-2.7 [facility] Comment on above: Order Comment: No: D o not add to previous draw Performed By: #### 3 5199, 95801 #### [facility] [address] UFH HEPARIN ASSAYon 02-05-20 20 UNFRACTIONATED HEPARIN 0.28 IU/mL Low 0.30-0.70 [facility] Comment on above: Order Comment: No: D o not add to previous draw Result Comment: Brisbin roxaban and Apixaban will interfere with the anti Xa assay used to monitor UFH and LMWH. Performed By: #### 3 0, 14191 #### [facility] [address] [facility] [address] UNFRACTIONATED HEPARIN 0.45 IU/mL Normal 0.30-0.70 [facility] Comment on above: Result Comment: Malena roxaban and Apixaban will interfere with the anti Xa assay used to monitor UFH and LMWH. Performed By: #### 3 5200, 15823 #### [facility] [address] [facility] [address] *SARS-CoV-2 COVID-19on 02-03 [id number] Not Detected Normal Not Detected [facility] Comment on above: Order Comment: No: D o not add to previous draw Performed By: #### 3 5200, 14397 #### [facility] [address] [place] [id number], [facility] ANAon 02-04-2020 Nuclear Ab IF (S) [Titer] <1:40 Normal <1:40,1:40 [facility] Comment on above: Order Comment: No: D o not add to previous draw Performed By: #### 3 0, 87050 #### [facility] [address] [place] [address], [facility] BASIC METABOLIC PANELon 01-10 Calcium [Mass/Vol] 9.6 mg/dL Normal 8.6-10.3 [facility] Comment on above: Order Comment: No: D o not add to previous draw Performed By: #### 1 0054 #### [facility] [address] [place] [id number], [facility] Chloride [Moles/Vol] 93 mmol/L Low 98-107 [facility] Comment on above: Order Comment: No: D o not add to previous draw Performed By: #### 1 0054 #### [facility] [address] [place] [id number], [facility] CO2 [Moles/Vol] 28 mmol/L Normal 21-31 The [facility] Comment on above: Order Comment: No: D o not add to previous draw Performed By: #### 1 0054 #### [facility] [address] [place] [id number], [facility] Creatinine [Mass/Vol] 1.00 mg/dL Normal 0.60-1.20 [facility] Comment on above: Order Comment: No: D o not add to previous draw Performed By: #### 1 0054 #### [facility] [address] [place] [id number], [facility] GFR/1.73 sq M predicted among blacks MDRD (S/P/Bld) [Vol rate/Area] mL/min/{1.73_m2} Normal >60 [facility] Comment on above: Order Comment: No: D o not add to previous draw Performed By: #### 1 0054 #### [facility] [address] [place] [address], [place] GFR/1.73 sq M predicted among non-blacks MDRD (S/P/Bld) [Vol rate/Area] 56 ml/min/1.73sq m Abnormal >60 [facility] Comment on above: Order Comment: No: D o not add to previous draw Performed By: #### 1 0054 #### [facility] [address] [place] [address], [place] Glucose [Mass/Vol] 169 mg/dL High 70-100 The [facility] Comment on above: Order Comment: No: D o not add to previous draw Performed By: #### 1 0054 #### [facility] [address] [place] [address], [place] Potassium [Moles/Vol] 3.6 mmol/L Normal 3.5-5.1 [facility] Comment on above: Order Comment: No: D o not add to previous draw Performed By: #### 1 0054 #### [facility] [address] [place] [address], [place] Sodium [Moles/Vol] 133 mmol/L Low 136-145 [facility] Comment on above: Order Comment: No: D o not add to previous draw Performed By: #### 1 0054 #### [facility] [address] [place] [address], [place] Urea nitrogen [Mass/Vol] 24 mg/dL Normal 7-25 [facility] Comment on above: Order Comment: No: D o not add to previous draw Performed By: #### 1 0054 #### [facility] [address] [place] [address], [place] C REACTIVE PROTEINon 020 CRP [Mass/Vol] 71.2 mg/L High 0.0-7.0 [facility] Comment on above: Order Comment: No: D o not add to previous draw Performed By: #### 3 5200, 03609 #### [facility] [address] [facility]. [address] CBC W/DIFFon 02-04-2020 ABS BASOPHILS 0.1 10*3/uL Normal 0.0-0.2 [facility] Comment on above: Order Comment: No: D o not add to previous draw Performed By: #### 5 7307, 40308 #### [facility] [address] ABS IMM GRANS 0.1 10*3/uL Normal 0.0-0.2 [facility] Comment on above: Order Comment: No: D o not add to previous draw Performed By: #### 5 7307, 76143 #### [facility] [address] [facility]. [address] ABS NEUTROPHILS 9.0 10*3/uL High 1.6-7.6 The [facility] Comment on above: Order Comment: No: D o not add to previous draw Performed By: #### 5 7307, 44631 #### [facility] [address] Basophils/100 WBC (Bld) 0.7 % Normal 0.0-1.0 [facility] Comment on above: Order Comment: No: D o not add to previous draw Performed By: #### 5 7307, 60885 #### [facility] [address] [place] [address], [facility] Eosinophils (Bld) [#/Vol] 0.2 10*3/uL Normal 0.0-0.5 [facility] Comment on above: Order Comment: No: D o not add to previous draw Performed By: #### 5 7307, 97996 #### [facility] [address] [facility] [place] [address], [facility] Eosinophils/100 WBC (Bld) 1.3 % Normal 0.0-6.0 [facility] Comment on above: Order Comment: No: D o not add to previous draw Performed By: #### 5 73, 00627 #### [facility] [address] [place] [address], [facility] Erythrocyte distribution width (RBC) [Ratio] 16.5 % High 11.5-15.0 [facility] Comment on above: Order Comment: No: D o not add to previous draw Performed By: #### 5 7307, 19427 #### [facility] [address] [facility] [place] [address], [facility] Hematocrit (Bld) [Volume fraction] 32.0 % Low 36.0-45.0 [facility] Comment on above: Order Comment: No: D o not add to previous draw Performed By: #### 5 7306, 34336 #### [facility] [address] [place] [address], [facility] Hemoglobin (Bld) [Mass/Vol] 9.5 g/dL Low 12.0-15.0 [facility] Comment on above: Order Comment: No: D o not add to previous draw Performed By: #### 5 73, 55914 #### [facility] [address] [facility] [place] [address], [facility] IMMATURE GRANS 0.6 % Normal 0.0-1.0 [facility] Comment on above: Order Comment: No: D o not add to previous draw Performed By: #### 5 7307, 39006 #### [facility] [address] [facility] [place] [address], [facility] Lymphocytes (Bld) [#/Vol] 3.5 10*3/uL Normal 1.2-4.0 [facility] Comment on above: Order Comment: No: D o not add to previous draw Performed By: #### 5 73, 93395 #### [facility] [address] [place] [address], [facility] Lymphocytes/100 WBC (Bld) 24.1 % Normal 20.0-45.0 [facility] Comment on above: Order Comment: No: D o not add to previous draw Performed By: #### 5 7306, 29147 #### [facility] [address] [place] [address], [facility] MCH (RBC) [Entitic mass] 20.7 pg Low 27.0-33.0 [facility] Comment on above: Order Comment: No: D o not add to previous draw Performed By: #### 5 7306, 92208 #### [facility] [address] [place] [address], [facility] MCHC (RBC) [Mass/Vol] 29.7 g/dL Low 32.0-35.0 [facility] Comment on above: Order Comment: No: D o not add to previous draw Performed By: #### 5 7306, 87528 #### [facility] [address] [facility] [place] [address], [facility] MCV (RBC) [Entitic vol] 69.6 fL Low 82.0-98.0 [facility] Comment on above: Order Comment: No: D o not add to previous draw Performed By: #### 5 7306, 39856 #### [facility] [address] [facility] [place] [address], [facility] Monocytes (Bld) [#/Vol] 1.5 10*3/uL High 0.1-1.0 [facility] Comment on above: Order Comment: No: D o not add to previous draw Performed By: #### 5 7307, 37882 #### [facility] [address] [place] [id number], [facility] MONOS 10.3 % Normal 5.0-12.0 [facility] Comment on above: Order Comment: No: D o not add to previous draw Performed By: #### 5 7307, 09167 #### [facility] [address] [place] [id number], [facility] Neutrophils/100 WBC (Bld) 63.0 % Normal 40.0-72.0 [facility] Comment on above: Order Comment: No: D o not add to previous draw Performed By: #### 5 7307, 60576 #### [facility] [address] [place] [address], [facility] Nucleated RBC/100 WBC (Bld) [Ratio] 0 % Normal 0-0 [facility] Comment on above: Order Comment: No: D o not add to previous draw Performed By: #### 5 7307, 75302 #### [facility] [address] [place] [id number], [facility] PLAT CNT 528 10*3/uL High 150-400 [facility] Comment on above: Order Comment: No: D o not add to previous draw Performed By: #### 5 7307, 40168 #### [facility] [address] [place] [address], [facility] RBC (Bld) [#/Vol] 4.60 10*6/uL Normal 3.80-5.00 The [facility] Comment on above: Order Comment: No: D o not add to previous draw Performed By: #### 5 7307, 00307 #### [facility] [address] [place] [id number], [facility] WBC (Bld) [#/Vol] 14.35 10*3/uL High 4.00-10.60 [facility] Comment on above: Order Comment: No: D o not add to previous draw Performed By: #### 5 7307, 20647 #### [facility] [address] [place] [address], [facility] CPKon 02-04-2020 CK [Catalytic activity/Vol] 151 U/L Normal 30-223 [facility] Comment on above: Order Comment: No: D o not add to previous draw Performed By: #### 1 0054 #### [facility] [address] [facility] [address] D DIMER TESTon 02-04-2020 D-DIMER TEST 1.08 mcg/mL FEU High 0.01-0.49 [facility] Comment on above: Order Comment: No: D o not add to previous draw Result Comment: D-Di aftab values of less than 0.50 ug/ml (FEU) are considered to be a negative predictor of thrombosis. However, the D-Dimer result should be used in conjunction with pretest probability and should not be used alone to diagnose a thrombotic event. Performed By: #### 1 0054 #### [facility] [address] [facility] [place] [address], [facility] FERRITINon 02-04-2020 Ferritin [Mass/Vol] 24 ng/mL Normal 11-307 [facility] Comment on above: Performed By: #### 1 0054 #### [facility] [address] [facility] [address], [facility] LDH BLOODon 02-04-2020 LDH 183 Units/L Normal 140-271 [facility] Comment on above: Performed By: #### 1 0054 #### [facility] [address] [facility] [address], [facility] LIVER BATTERYon 02-04-2020 Albumin [Mass/Vol] 3.9 g/dL Normal 3.5-5.7 [facility] Comment on above: Performed By: #### 1 0054 #### [facility] [address] [facility] [place] [address], [facility] ALKALINE PHOSPH 135 IU/L High 34-104 [facility] Comment on above: Performed By: #### 1 0054 #### [facility] [address] [place] [address], [facility] ALT [Catalytic activity/Vol] 34 U/L Normal 7-52 [facility] Comment on above: Performed By: #### 1 0054 #### [facility] [address] [place] [address], [facility] AST [Catalytic activity/Vol] 40 U/L High 13-39 [facility] Comment on above: Performed By: #### 1 0054 #### [facility] [address] [place] [address], [facility] Bilirubin [Mass/Vol] 0.7 mg/dL Normal 0.3-1.0 [facility] Comment on above: Performed By: #### 1 0054 #### [facility] [address] [place] [address], [facility] Bilirubin.direct [Mass/Vol] 0.1 mg/dL Normal 0.0-0.2 [facility] Comment on above: Performed By: #### 1 0054 #### [facility] [address] [place] [address], [facility] Protein [Mass/Vol] 7.5 g/dL Normal 6.0-8.3 [facility] Comment on above: Performed By: #### 1 0054 #### [facility] [address] [place] [address], [facility] MAGNESIUM BLOODon 02-04-2020 Magnesium [Mass/Vol] 2.3 mg/dL Normal 1.9-2.7 [facility] Comment on above: Order Comment: No: D o not add to previous draw Performed By: #### 1 0054 #### [facility] [address] [place] [address], [facility] PHOSPHORUS BLOODon 0 Phosphate [Mass/Vol] 4.5 mg/dL Normal 2.5-5.0 [facility] Comment on above: Order Comment: No: D o not add to previous draw Performed By: #### 1 0054 #### [facility] [address] TSH3on 02-04-2020 TSH 3RD GENERATION 4.50 uIU/mL Normal 0.34-5.60 [facility] Comment on above: Order Comment: No: D o not add to previous draw Performed By: #### 1 0054 #### [facility] [address] [place] [address], [facility] UFH HEPARIN ASSAYon 02-04-20 20 UNFRACTIONATED HEPARIN 0.18 IU/mL Low 0.30-0.70 [facility] Comment on above: Result Comment: Malena roxaban and Apixaban will interfere with the anti Xa assay used to monitor UFH and LMWH. Performed By: #### 3 5200, 99038 #### [facility] [address] [facility]. [address] UNFRACTIONATED HEPARIN 0.25 IU/mL Low 0.30-0.70 [facility] Comment on above: Result Comment: Malena roxaban and Apixaban will interfere with the anti Xa assay used to monitor UFH and LMWH. Performed By: #### 3 5200, 91322 #### [facility] [address] [facility] [place] [address], [facility] UNFRACTIONATED HEPARIN 0.25 IU/mL Low 0.30-0.70 [facility] Comment on above: Result Comment: Malena roxaban and Apixaban will interfere with the anti Xa assay used to monitor UFH and LMWH. Performed By: #### 1 0054 #### [facility] [address] [facility] [place] [address], [facility] UNFRACTIONATED HEPARIN 0.35 IU/mL Normal 0.30-0.70 [facility] Comment on above: Result Comment: Brisbin roxaban and Apixaban will interfere with the anti Xa assay used to monitor UFH and LMWH. Performed By: #### 5 7307, 91100 #### [facility] [address] [place] [address], [facility] APTTon 02-03-2020 aPTT Coag (Bld) [Time] 33.3 s Normal 25.0-35.0 [facility] Comment on above: Order [...] THIS PURPOSE. Performed By: #### 5 7307, 89851 #### [facility] [address] [place] [address], [facility] BASIC METABOLIC PANELon 04- Calcium [Mass/Vol] 9.7 mg/dL Normal 8.6-10.3 [facility] Comment on above: Order Comment: No: D o not add to previous draw Performed By: #### 0 0071, 83954, 33105, 11065, 52192 #### [facility] [address] [place] [address], [facility] Chloride [Moles/Vol] 93 mmol/L Low 98-107 [facility] Comment on above: Order Comment: No: D o not add to previous draw Performed By: #### 0 0071, 29411, 42940, 88245, 26854 #### [facility] [address] [place] [address], [facility] CO2 [Moles/Vol] 26 mmol/L Normal 21-31 [facility] Comment on above: Order Comment: No: D o not add to previous draw Performed By: #### 0 0071, 74829, 03100, 74474, 47052 #### [facility] [address] [place] [address], [facility] Creatinine [Mass/Vol] 1.19 mg/dL Normal 0.60-1.20 [facility] Comment on above: Order Comment: No: D o not add to previous draw Performed By: #### 0 0071, 28836, 97888, 93453, 32104 #### [facility] [address] [place] [address], [place] GFR/1.73 sq M predicted among blacks MDRD (S/P/Bld) [Vol rate/Area] 55 ml/min/1.73sq m Abnormal >60 [facility] Comment on above: Order Comment: No: D o not add to previous draw Performed By: #### 0 0071, 78001, 63971, 34738, 46955 #### [facility] [address] [place] [address], [facility] GFR/1.73 sq M predicted among non-blacks MDRD (S/P/Bld) [Vol rate/Area] 45 ml/min/1.73sq m Abnormal >60 [facility] Comment on above: Order Comment: No: D o not add to previous draw Performed By: #### 0 0071, 61144, 10312, 62723, 85676 #### [facility] [address] [place] [address], [place] Glucose [Mass/Vol] 181 mg/dL High 70-100 [facility] Comment on above: Order Comment: No: D o not add to previous draw Performed By: #### 0 0071, 53253, 70993, 85992, 54520 #### [facility] [address] [place] [address], [place] Potassium [Moles/Vol] 3.5 mmol/L Normal 3.5-5.1 [facility] Comment on above: Order Comment: No: D o not add to previous draw Performed By: #### 0 0071, 20971, 20679, 29393, 23269 #### [facility] [address] [place] [address], [place] Sodium [Moles/Vol] 132 mmol/L Low 136-145 [facility] Comment on above: Order Comment: No: D o not add to previous draw Performed By: #### 0 0071, 91952, 87475, 03978, 01103 #### [facility] [address] [place] [address], [place] Urea nitrogen [Mass/Vol] 23 mg/dL Normal 7-25 [facility] Comment on above: Order Comment: No: D o not add to previous draw Performed By: #### 0 0071, 73556, 58551, 24581, 23475 #### [facility] [address] [place] [address], [place] Calcium [Mass/Vol] 9.4 mg/dL Normal 8.6-10.3 [facility] Comment on above: Order Comment: No: D o not add to previous draw Performed By: #### 3 5199, 16066 #### [facility] [address] [place] [address], [place] Chloride [Moles/Vol] 95 mmol/L Low 98-107 [facility] Comment on above: Order Comment: No: D o not add to previous draw Performed By: #### 3 5199, 66631 #### [facility] [address] [place] [address], [place] CO2 [Moles/Vol] 23 mmol/L Normal 21-31 [facility] Comment on above: Order Comment: No: D o not add to previous draw Performed By: #### 3 5199, 99831 #### [facility] [address] [place] [address], [place] Creatinine [Mass/Vol] 1.18 mg/dL Normal 0.60-1.20 [facility] Comment on above: Order Comment: No: D o not add to previous draw Performed By: #### 3 5199, 86338 #### [facility] [address] [place] [address], [place] GFR/1.73 sq M predicted among blacks MDRD (S/P/Bld) [Vol rate/Area] 56 ml/min/1.73sq m Abnormal >60 [facility] Comment on above: Order Comment: No: D o not add to previous draw Performed By: #### 3 5199, 47344 #### [facility] [address] [place] [address], [place] GFR/1.73 sq M predicted among non-blacks MDRD (S/P/Bld) [Vol rate/Area] 46 ml/min/1.73sq m Abnormal >60 [facility] Comment on above: Order Comment: No: D o not add to previous draw Performed By: #### 3 5199, 08963 #### [facility] [address] [place] [address], [place] Glucose [Mass/Vol] 217 mg/dL High 70-100 [facility] Comment on above: Order Comment: No: D o not add to previous draw Performed By: #### 3 5199, 57185 #### [facility] [address] [place] [address], [place] Potassium [Moles/Vol] 3.5 mmol/L Normal 3.5-5.1 [facility] Comment on above: Order Comment: No: D o not add to previous draw Performed By: #### 3 5199, [id number] #### [facility] [address] [place] [address], [place] Sodium [Moles/Vol] 133 mmol/L Low 136-145 [facility] Comment on above: Order Comment: No: D o not add to previous draw Performed By: #### 3 5199, 91641 #### [facility] [address] [place] [address], [place] Urea nitrogen [Mass/Vol] 21 mg/dL Normal 7-25 [facility] Comment on above: Order Comment: No: D o not add to previous draw Performed By: #### 3 5199, 07266 #### [facility] [address] CBC COMPLETE BLOOD COUNTon 02-03-2020 Erythrocyte distribution width (RBC) [Ratio] 16.6 % High 11.5-15.0 [facility] Comment on above: Order Comment: No: D o not add to previous draw Performed By: #### 5 0608 #### [facility] [address] [place] [address], [facility] Hematocrit (Bld) [Volume fraction] 31.2 % Low 36.0-45.0 [facility] Comment on above: Order Comment: No: D o not add to previous draw Performed By: #### 5 0608 #### [facility] [address] Hemoglobin (Bld) [Mass/Vol] 9.6 g/dL Low 12.0-15.0 [facility] Comment on above: Order Comment: No: D o not add to previous draw Performed By: #### 5 0608 #### [facility] [address] MCH (RBC) [Entitic mass] 20.9 pg Low 27.0-33.0 [facility] Comment on above: Order Comment: No: D o not add to previous draw Performed By: #### 5 0608 #### [facility] [address] MCHC (RBC) [Mass/Vol] 30.8 g/dL Low 32.0-35.0 [facility] Comment on above: Order Comment: No: D o not add to previous draw Performed By: #### 5 0608 #### [facility] [address] [place] [address], [facility] MCV (RBC) [Entitic vol] 68.0 fL Low 82.0-98.0 [facility] Comment on above: Order Comment: No: D o not add to previous draw Performed By: #### 5 0608 #### [facility] [address] [facility] [address], [facility] Nucleated RBC/100 WBC (Bld) [Ratio] 0 % Normal 0-0 [facility] Comment on above: Order Comment: No: D o not add to previous draw Performed By: #### 5 0608 #### [facility] [address] [place] [address], [facility] PLAT CNT 580 10*3/uL High 150-400 The [facility] Comment on above: Order Comment: No: D o not add to previous draw Performed By: #### 5 0608 #### [facility] [address] [place] [address], [facility] RBC (Bld) [#/Vol] 4.59 10*6/uL Normal 3.80-5.00 The [facility] Comment on above: Order Comment: No: D o not add to previous draw Performed By: #### 5 0608 #### [facility] [address] [facility] [place] [address], [facility] WBC (Bld) [#/Vol] 20.18 10*3/uL High 4.00-10.60 [facility] Comment on above: Order Comment: No: D o not add to previous draw Performed By: #### 5 0608 #### [facility] [address] [facility]. [address] CBC W/DIFFon 02-03-2020 ABS BASOPHILS 0.1 10*3/uL Normal 0.0-0.2 [facility] Comment on above: Order Comment: No: D o not add to previous draw Performed By: #### 5 0103 #### [facility] [address] [facility] [place] [address], [facility] ABS IMM GRANS 0.1 10*3/uL Normal 0.0-0.2 [facility] Comment on above: Order Comment: No: D o not add to previous draw Performed By: #### 5 0103 #### [facility] [address] [place] [address], [facility] ABS NEUTROPHILS 13.1 10*3/uL High 1.6-7.6 The [facility] Comment on above: Order Comment: No: D o not add to previous draw Performed By: #### 5 0103 #### [facility] [address] [place] [address], [facility] ANISO MODERATE Normal [facility] Comment on above: Order Comment: No: D o not add to previous draw Performed By: #### 5 0103 #### [facility] [address] [place] [id number], [facility] Basophils/100 WBC (Bld) 0.3 % Normal 0.0-1.0 [facility] Comment on above: Order Comment: No: D o not add to previous draw Performed By: #### 5 0103 #### [facility] [address] [place] [id number], [facility] Eosinophils (Bld) [#/Vol] 0.0 10*3/uL Normal 0.0-0.5 [facility] Comment on above: Order Comment: No: D o not add to previous draw Performed By: #### 5 0103 #### [facility] [address] [place] [address], [facility] Eosinophils/100 WBC (Bld) 0.2 % Normal 0.0-6.0 [facility] Comment on above: Order Comment: No: D o not add to previous draw Performed By: #### 5 0103 #### [facility] [address] [place] [address], [facility] Erythrocyte distribution width (RBC) [Ratio] 16.6 % High 11.5-15.0 [facility] Comment on above: Order Comment: No: D o not add to previous draw Performed By: #### 5 0103 #### [facility] [address] Hematocrit (Bld) [Volume fraction] 30.7 % Low 36.0-45.0 [facility] Comment on above: Order Comment: No: D o not add to previous draw Performed By: #### 5 0103 #### [facility] [address] [place] [id number], [facility] Hemoglobin (Bld) [Mass/Vol] 9.2 g/dL Low 12.0-15.0 [facility] Comment on above: Order Comment: No: D o not add to previous draw Performed By: #### 5 0103 #### [facility] [address] [place] [address], [facility] IMMATURE GRANS 0.6 % Normal 0.0-1.0 [facility] Comment on above: Order Comment: No: D o not add to previous draw Performed By: #### 5 0103 #### [facility] [address] [facility] [place] [address], [facility] Lymphocytes (Bld) [#/Vol] 2.3 10*3/uL Normal 1.2-4.0 [facility] Comment on above: Order Comment: No: D o not add to previous draw Performed By: #### 5 0103 #### [facility] [address] [facility] [address], [facility] Lymphocytes/100 WBC (Bld) 13.5 % Low 20.0-45.0 [facility] Comment on above: Order Comment: No: D o not add to previous draw Performed By: #### 5 0103 #### [facility] [address] [place] [address], [facility] MCH (RBC) [Entitic mass] 20.6 pg Low 27.0-33.0 [facility] Comment on above: Order Comment: No: D o not add to previous draw Performed By: #### 5 0103 #### [facility] [address] [place] [address], [facility] MCHC (RBC) [Mass/Vol] 30.0 g/dL Low 32.0-35.0 [facility] Comment on above: Order Comment: No: D o not add to previous draw Performed By: #### 5 0103 #### [facility] [address] [place] [id number], [facility] MCV (RBC) [Entitic vol] 68.7 fL Low 82.0-98.0 [facility] Comment on above: Order Comment: No: D o not add to previous draw Performed By: #### 5 0103 #### [facility] [address] [place] [address], [facility] MICRO MARKED Normal [facility] Comment on above: Order Comment: No: D o not add to previous draw Performed By: #### 5 0103 #### [facility] [address] [place] [address], [facility] Monocytes (Bld) [#/Vol] 1.7 10*3/uL High 0.1-1.0 [facility] Comment on above: Order Comment: No: D o not add to previous draw Performed By: #### 5 0103 #### [facility] [address] [place] [id number], [facility] MONOS 9.7 % Normal 5.0-12.0 [facility] Comment on above: Order Comment: No: D o not add to previous draw Performed By: #### 5 0103 #### [facility] [address] [place] [id number], [facility] Neutrophils/100 WBC (Bld) 75.7 % High 40.0-72.0 [facility] Comment on above: Order Comment: No: D o not add to previous draw Performed By: #### 5 0103 #### [facility] [address] [place] [id number], [facility] Nucleated RBC/100 WBC (Bld) [Ratio] 0 % Normal 0-0 [facility] Comment on above: Order Comment: No: D o not add to previous draw Performed By: #### 5 0103 #### [facility] [address] [place] [address], [facility] PLAT CNT 535 10*3/uL High 150-400 [facility] Comment on above: Order Comment: No: D o not add to previous draw Performed By: #### 5 0103 #### [facility] [address] [place] [address], [facility] RBC (Bld) [#/Vol] 4.47 10*6/uL Normal 3.80-5.00 [facility] Comment on above: Order Comment: No: D o not add to previous draw Performed By: #### 5 0103 #### [facility] [address] [place] [address], [facility] WBC (Bld) [#/Vol] 17.37 10*3/uL High 4.00-10.60 [facility] Comment on above: Order Comment: No: D o not add to previous draw Performed By: #### 5 0103 #### [facility] [address] [facility] [address], [facility] CTA CHESTon 02-03-2020 CTA CHEST [facility] Department of Radiology [address] [place] [id number] Patient Name: GABBI AUSTIN : 1950 Sex: F Age: Race: White Pt. Location: [address] [place] [address] Patient Status: I Ordered Date: 02/03/2020 12:20:00 [...] be atypical for Covid19 pneumonia. Approved by:Tonio Rubalcavaon02/03/2020 2:10 PM. I, Solo Bonner,have reviewed the images and reports Electronically signed: Solo Bonner. Transcribed by: [email or web address], User Resident: TONIO RUBALCAVA Electronically Signed by: SOLO BONNER @ 02/03/2020 03:10 PM I personally read this/these film(s) with this resident Normal The [facility] Comment on above: Order Comment: No: D o not add to previous draw D DIMER TESTon 02-03-2020 D-DIMER TEST 1.25 mcg/mL FEU High 0.01-0.49 [facility] Comment on above: Result Comment: D-Di aftab values of less than 0.50 ug/ml (FEU) are considered to be a negative predictor of thrombosis. However, the D-Dimer result should be used in conjunction with pretest probability and should not be used alone to diagnose a thrombotic event. Performed By: #### 5 7307, 55064 #### [facility] [address] [facility]. [address] HEMOGLOBIN A1Con 02-03-2020 HbA1c (Bld) [Mass fraction] 177 mg/dL High 70-126 [facility] Comment on above: Order Comment: No: D o not add to previous draw Performed By: #### 5 7307, 01542 #### [facility] [address] [facility]. [address] HbA1c (Bld) [Mass fraction] 7.8 % High 4.0-6.0 [facility] Comment on above: Order Comment: No: D o not add to previous draw Performed By: #### 5 7307, 33156 #### [facility] [address] [facility] [address] LACTATE BLOODon 02-03-2020 Lactate [Moles/Vol] 1.6 mmol/L Normal 0.5-2.2 [facility] Comment on above: Order Comment: No: D o not add to previous draw Performed By: #### 1 0054 #### [facility] [address] [place] [address], [facility] LIPID PROFILEon 02-03-2020 Cholesterol [Mass/Vol] 206 mg/dL High 120-200 [facility] Comment on above: Result Comment: CHOL ESTEROL REFERENCE RANGE: 20 YEARS AND OLDER CARDIOVASCULAR RISK Less than 200 mg/dl Low Risk 200 to 239 mg/dl Borderline Risk 240 mg/dl and greater High Risk Performed By: #### 5 7307, 47307 #### [facility] [address] [facility] [place] [address], [facility] Cholesterol in HDL [Mass/Vol] 55 mg/dL Normal 23-92 [facility] Comment on above: Result Comment: Slig ht variation in normal range could be due to gender and/or age. HDL CHOLESTEROL REFERENCE RANGE: 20 years and older Cardiovascular Risk > or =60 mg/dL Desirable 40 TO 59 mg/dL Low Risk <40 mg/dL High Risk Performed By: #### 5 7307, 52857 #### [facility] [address] [facility] [place] [address], [facility] Cholesterol in LDL [Mass/Vol] 93 mg/dL Normal 0-130 [facility] Comment on above: Result Comment: LDL IS A CALCULATION LDL IS ONLY VALID IF THE TRIG IS LESS THAN 400. Performed By: #### 5 7307, 15034 #### [facility] [address] [facility] [place] [address], [facility] Cholesterol.total/Ch olesterol in HDL [Mass ratio] 3.7 {ratio} Normal 0.0-4.5 [facility] Comment on above: Performed By: #### 5 7307, 82819 #### [facility] [address] [place] [address], [facility] NON-HDL CHOLESTEROL 151 mg/dL Normal [facility] Comment on above: Performed By: #### 5 7307, 87458 #### [facility] [address] [facility]. [address] Triglyceride [Mass/Vol] 292 mg/dL High 40-149 [facility] Comment on above: Result Comment: TRIG LYCERIDE REFERENCE RANGE: 20 YEARS AND OLDER CARDIOVASCULAR RISK LESS THAN 150 mg/dl LOW RISK 150 TO 199 mg/dl BORDERLINE RISK 200 mg/dl AND GREATER HIGH RISK Performed By: #### 5 7307, 64920 #### [facility] [address] VLDL CHOL 58 mg/dL High 0-40 [facility] Comment on above: Performed By: #### 5 7307, 78880 #### [facility] [address] MAGNESIUM BLOODon 02-03-2020 Magnesium [Mass/Vol] 1.7 mg/dL Low 1.9-2.7 [facility] Comment on above: Order Comment: No: D o not add to previous draw Performed By: #### 0 0071, 94669, 79701, 71362, 27747 #### [facility] [address] [place] [address], [facility] PHOSPHORUS BLOODon 0 Phosphate [Mass/Vol] 5.4 mg/dL High 2.5-5.0 [facility] Comment on above: Order Comment: No: D o not add to previous draw Performed By: #### 0 0071, 35742, 24319, 11325, 63597 #### [facility] [address] [place] [address], [facility] PORTABLE CHEST 1 VIEWon 01-10 PORTABLE CHEST 1 VIEW [facility] Department of Radiology [address] [place] [id number] Patient Name: GABBI AUSTIN : 1950 Sex: F Age: Race: White Pt. Location: [id number] Patient Status: I Ordered Date: 02/03/2020 10:20:00 [...] reports Electronically signed: Solo Bonner. Transcribed by: [email or web address], User Resident: TONIO RUBALCAVA Electronically Signed by: SOLO BONNER @ 02/03/2020 11:44 AM I personally read this/these film(s) with this resident Normal The [facility] Comment on above: Order Comment: No: D o not add to previous draw PROTHROMBIN TIMEon 0 INR Coag (PPP) [Relative time] 1.06 {INR} Normal 0.91-1.16 [facility] Comment on above: Order Comment: No: [...] CHEST 1995;[id number]. Performed By: #### 5 7307, 88883 #### [facility] [address] [facility]. [address] PT Coag (PPP) [Time] 13.8 s Normal 12.3-14.8 [facility] Comment on above: Order Comment: No: D o not add to previous draw Result Comment: ALL RESULTS MUST BE INTERPRETED WITH RESPECT TO BLOOD DRAWING ARTIFACT OR DILUTION ERROR OF ANTICOAGULANT AT THE TIME OF SAMPLING. Performed By: #### 5 7307, 98177 #### [facility] [address] TROPONIN-Ion 02-03-2020 Troponin I.cardiac [Mass/Vol] 0.05 ng/mL High 0.00-0.04 [facility] Comment on above: Order Comment: No: D o not add to previous draw Result Comment: REFE RENCE RANGES: 0.00 - 0.04 ng/ml NORMAL 0.05 - 0.50 ng/ml INDETERMINATE > 0.50 ng/ml CONSISTENT WITH AN M.I. Performed By: #### 5 7307, 08168 #### [facility] [address] [facility]. [address] Troponin I.cardiac [Mass/Vol] 0.06 ng/mL High 0.00-0.04 [facility] Comment on above: Order Comment: No: D o not add to previous draw Result Comment: REFE RENCE RANGES: 0.00 - 0.04 ng/ml NORMAL 0.05 - 0.50 ng/ml INDETERMINATE > 0.50 ng/ml CONSISTENT WITH AN M.I. Performed By: #### 5 7307, 89065 #### [facility] [address] [facility] [place] [address], [facility] Troponin I.cardiac [Mass/Vol] 0.08 ng/mL High 0.00-0.04 [facility] Comment on above: Order Comment: No: D o not add to previous draw Result Comment: REFE RENCE RANGES: 0.00 - 0.04 ng/ml NORMAL 0.05 - 0.50 ng/ml INDETERMINATE > 0.50 ng/ml CONSISTENT WITH AN M.I. Performed By: #### 3 5200, 89677 #### [facility] [address] UFH HEPARIN ASSAYon 02-03-20 20 UNFRACTIONATED HEPARIN 0.47 IU/mL Normal 0.30-0.70 [facility] Comment on above: Result Comment: Brisbin roxaban and Apixaban will interfere with the anti Xa assay used to monitor UFH and LMWH. Performed By: #### 5 7307, 76833 #### [facility] [address] Vital Signs Date Time Vital Sign Value Performing Clinician Facility 06-15-2024 13:45-0400 Body height 154.94 cm [facility] 06-15-2024 13:45-0400 Body mass index (BMI) [Ratio] 27.3 kg/m2 [facility] 06-15-2024 13:45-0400 Body weight 65.77 kg [facility] 06-15-2024 13:45-040 Diastolic blood pressure 62 mm[Hg] [facility] 06-15-2024 13:45-0400 Heart rate 84 /min [facility] 06-15-2024 13:45-0400 Respiratory rate 18 /min [facility] 06-15-2024 13:45-0400 Systolic blood pressure 100 mm[Hg] [facility] 05-19-2024 10:55-0400 Body height 149.86 cm [facility] 05-19-2024 10:55-0400 Body mass index (BMI) [Ratio] 29.9 kg/m2 [facility] 05-19-2024 10:55-0400 Body weight 67.13 kg [facility] 05-19-2024 10:55-0400 Diastolic blood pressure 73 mm[Hg] [facility] 05-19-2024 10:55-0400 Heart rate 84 /min [facility] 05-19-2024 10:55-0400 Systolic blood pressure 109 mm[Hg] [facility] 07-01-2023 13:45-0400 Body height 149.86 cm Tania Ayoub Other [facility] Other 07-01-2023 13:45-0400 Body mass index (BMI) [Ratio] 31.5 kg/m2 Tania Ayoub Other [facility] Other 07-01-2023 13:45-0400 Body temperature 97.6 [degF] Tania Ayoub Other [facility] Other 07-01-2023 13:45-0400 Body weight 70.76 kg Tania Ayoub Other [facility] Other 07-01-2023 13:45-0400 Diastolic blood pressure 64 mm[Hg] Tania Ayoub Other [facility] Other 07-01-2023 13:45-0400 Systolic blood pressure 112 mm[Hg] Tania Ayoub Other [facility] Other 10-19-2022 11:45-0500 Body height 149.86 cm Tania Ayoub Other [facility] Other 10-19-2022 11:45-0500 Body mass index (BMI) [Ratio] 30.9 kg/m2 Tania Ayoub Other [facility] Other 10-19-2022 11:45-0500 Body weight 69.4 kg Tania Ayoub Other [facility] Other 10-19-2022 11:45-0500 Diastolic blood pressure 64 mm[Hg] Tania Ayoub Other [facility] Other 10-19-2022 11:45-0500 Systolic blood pressure 140 mm[Hg] Tania Ayoub Other [facility] Other Encounters Encounter Date Encounter Type Care Provider Facility Start: 06-15-2024 End: 06-15-2024 ambulatory [facility] Work Phone: Start: 06-15-2024 End: 06-15-2024 Patient encounter procedure [facility] Nephrology Adriana Work Phone: Start: 05-22-2024 Non-patient / Non-visit [facility] [employer] Work Phone: Start: 05-19-2024 End: 05-19-2024 ambulatory [facility] Work Phone: Start: 05-19-2024 End: 05-19-2024 Patient encounter procedure [facility] Work Phone: Start: 05-15-2024 End: 05-15-2024 ambulatory [facility] Start: 12-01-2023 End: 02-21-2024 ambulatory FREIDA BARAZI [facility] Start: 11-10-2023 End: 11-10-2023 ambulatory Tania Ayoub Other [facility] Other Start: 11-10-2023 Telephone encounter [facility]ania [facility] Start: 07-01-2023 End: 07-01-2023 ambulatory Tania Ayoub Other [facility] Other Start: 07-01-2023 Office outpatient vi sit 15 minutes Tania Ayoub [facility] Start: 06-30-2023 End: 06-30-2023 ambulatory GIANNI LUCRETIA [facility] Start: 05-19-2023 End: 05-19-2023 ambulatory Tania Ayoub Other [facility] Other Start: 05-19-2023 Telephone encounter Tania [facility] Start: 02-19-2023 End: 02-19-2023 ambulatory Tania Mega Other [facility] Other Start: 02-19-2023 Telephone encounter Tania [facility] Start: 02-18-2023 End: 02-18-2023 ambulatory Tania Ayoub Other [facility] Other Start: 02-18-2023 Telephone encounter Tania Ayoub [facility] Start: 01-15-2023 Encounter for other preprocedural examination DR DOCTOR BURROUGHS [facility] Start: 01-12-2023 End: 01-13-2023 ambulatory TANIA AYOUB Facility:[facility] Start: 01-08-2023 End: 01-09-[address] DOCTOR BURROUGHS Facility:[facility] Start: 01-08-2023 End: 01-09-2023 Encounter for other preprocedural examination DR DOCTOR BURROUGHS Facility:[facility] Start: 10-28-2022 End: 10-28-2022 ambulatory Tania Ayoub Other [facility] Other Start: 10-28-2022 Encounter by compute r link Tania Ayoub [facility] Start: 10-19-2022 End: 10-19-2022 ambulatory Tania Ayoub Other [facility] Other Start: 10-19-2022 Office outpatient vi sit 15 minutes Tania Ayoub [facility] Start: 04-03-2022 ambulatory TANIA Cristina MEGA Facility :[facility] Start: 02-26-2022 End: 02-27-2022 ambulatory TANIA Cristina MEGA Facility: Start: 02-02-2020 End: 02-07-2020 Evaluation and management of inpatient ANA LAURA BROCK Facility:[facility] Start: 11-30-2019 Adult health examination Charlee Ayoub Other [facility] Other Procedures Date Procedure Procedure Detail Performing Clinician Start: 07-25-2015 Screening for malign ant neoplasm of breast Tania Ayoub Other Plan of Treatment Date Care Activity Detail Author Comprehensive metabo lic 1999 panel - Serum or Plasma [facility] enter Microalbumin [Mass/volume] in Urine [facility] Renal function 1999 panel - Serum or Plasma [facility] enter US Kidney - bilateral [facility] XR Chest 2 Views [facility] Immunizations Immunization Date Immunization Notes Care Provider Fa cility 08-13-2022 COVID-19 Pfizer (Pediatric) Tania Ayoub Other [facility] 08-12-2022 influenza virus vaccine, split virus (incl. purified surface antigen) Tania Ayoub Other [facility] Other 08-12-2022 influenza virus vaccine, unspecified formulation [facility] 09-25-2021 COVID-19 Vaccine Pfi zer - Documentation Purposes Only Tania Ayoub Other [facility] 09-25-2021 influenza virus vaccine, split virus (incl. purified surface antigen) Tania Ayoub Other [facility] Other 09-25-2021 influenza virus vaccine, unspecified formulation [facility] 08-08-2020 influenza virus vaccine, split virus (incl. purified surface antigen) Tania Ayoub Other [facility] Other 08-08-2020 influenza virus vaccine, unspecified formulation [facility] 08-08-2020 pneumococcal conjuga te vaccine, 13 valent Tania Ayoub Other [facility] 05-12-2020 zoster vaccine, live Tania Mega Other [facility] Payers Date Payer Category Payer Medicare [id number] 1959 Self-pay 1959 Unknown [id number] 1952 Unknown [id number] 2.16.8 [id number] 1952 Unknown [id number] 2.16.84 [id number] 1952 Unknown [id number] 2.16.84 [id number] 1952 Unknown [id number] 2.16.84 [id number] 1952 Unknown [id number] 2.16.84 [id number] 1952 Unknown [id number] 2.16.84 [id number] 1952 Unknown [id number] 2.16.84 [id number] Unknown Regular Insurance [id number] Social History Date Type Detail Facility Unknown if ever smoked [facility] Other Sex Assigned At Sex Assigned At Bir th [facility] Other Start: 1950 Sex Assigned At Female F [facility] Start: 06-15-2024 Tobacco smoking status NHIS Never smoked tobacco (finding) [facility] Clinical Notes 10-19-2022 to 05-15-2024 Note Date & Type Note Facility 05-15-2024 Note [facility] Cardiology Clinic Note Chief Complaint: Patient [...] drug-eluting stent, which was post-dilated with an Kijubi Lester 3.0 x 8 mm noncompliant balloon. Diagnostic Imagin01/04/23 Holter santiago (more content not included)... [facility] 12-01-2023 Note OR Electrophysiology Consult Note Reason for visit: follow [...] History: Diagnosis Date CHF (congestive heart failure) (CMS/HCC) Coronary artery disease Diabetes mellitus (CMS/HCC) RLS (restless legs syndrome) PSH: Past Surgical [...] Veins: normal j (more content not included)... [facility] 12-01-2023 Note Patient here for 6 m [...] All other systems reviewed and are negative. [facility] 11-10-2023 Evaluation note Encounter Date Diagnosis Assessment Notes Oct, Controlled type 2 diabetes mellitus with hyperglycemia, without long-term current use of insulin (ICD-10 - E11.65) [facility] Other 09-21-2023 Evaluation note* Encounter Date Diagnosis [...] will continue to monitor every 3 months. [facility] Other 09-20-2023 NoteIncreased toprol to 100 mg daily for noted NSVT on holter. 30 day event monitor to assess for PVC burden and reoccurance of VT Holter reviewed with Dr Hills and no futher testing or invasive testing required being that pt without any concerning symptomsUnWooster [facility]09-20-2023 NoteContinue lipitorUnWooster Community Hospital 06-30-2023 NoteHTN currently well controlled 128/66 Continue all [facility]sUnivers[facility]-20-2023 NoteNYHC II Continue GDMT- ASA, lipitor, toprol, lisinopril and Bumex-Diuretic therapy Monitor daily weights, I&O, fluid restriction 1.5-2L/day, renal function and electrolyteUnWooster Community Hospital09-20-2023 NoteCoronary artery disease is stable Continue GDMT- ASA, lipitor, plavix, toprol continue risk factor modifications- heart healthy diet, regular exercise as tolerated and continue all medications.[facility] 06-30-2023 NoteUTP CARDIOLOGY PROGRESS NOTE HPI: Gabbi [...] drug-eluting stent, which was post-dilated with an Kijubi Lester 3.0 x 8 mm noncompliant balloon. No echocardiogram results found for the past 12 months Assessment/Plan: Coronary atherosclerosis Coronary artery disease is stable Continue GDMT- ASA, lipitor, plavix, toprol continue risk factor modifications- heart healthy diet, regular exercise as tolerated and continue all medications. Chr (more content not included)...[facility]01-09-2023 Evaluation note* Encounter Date Diagnosis Assessment Notes Treatment Notes Treatment Clinical Notes Oct, Posterior right knee pain (ICD-10 - M25.561) [facility] Other Evaluation noteNo InformationNortEncompass Health [facility] Other Evaluation note* Diagnosis Onset Date Resolution Status CAD (coronary artery disease) acute Chronic cough acute Iron deficiency anemia acute Type II diabetes mellitus [facility] Work Phone: Evaluation note* Diagnosis Onset Date Resolution Status CAD (coronary artery disease) acute Chronic cough acute Iron deficiency anemia acute Medicare annual wellness visit, subsequent acute RLS (restless legs syndrome) acute Type II diabetes mellitus [facility] CAD (coronary artery disease) acute CKD (chronic kidney disease) acute [id number] acute Secondary hyperparathyroidism acute Type 2 diabetes mellitus wit h diabetic chronic kidney disease acute [facility] Work Phone: History general Narrative - Reported* Type Description Date Medical History stenosis of left anterior descen ding artery Medical History type 2 diabetes Medical History CHF Medical History iron deficiency anemia Medical History secondary restless leg syndrome Medical History right carpal tunnel syndrome Surgical History PCI of mid LAD- drug eluting [facility] ent [facility] Dr. Cao Surgical History left rotator cuff repair 2010 Surgical History left carpal tunnel release 2004 Surgical History tonsillectomy Surgical History section [facility] Other History general Narrative - Reported* Type Description Date [...] History PCI of mid LAD- drug eluting [facility] Dr. Cao Surgical History left rotator cuff repair 2010 Surgical History left carpal tunnel release 2004 Surgical History tonsillectomy Surgical History section Hospitalization History SEE SURGICAL HX [facility] Other History general Narrative - Reported* Type Description Date [...] History PCI of mid LAD- drug eluting [facility] Dr. Cao Surgical History left rotator cuff repair 2010 Surgical History left carpal tunnel release 2004 Surgical History tonsillectomy Surgical History section Surgical History Right knee surgery 02/2023 Surgical History Right CTR 02/2022 Hospitalization History SEE SURGICAL HX [facility] Other Summary Purpose Family History Relationship Condition Age at Onset Recorded Date/T marya father Heart disease Unknown Unknown mother Unknown Relationship Condition Age at Onset Recorded Date/T marya father Unknown Heart disease Unknown Status post three ve ssel coronary artery bypass Unknown mother Unknown Advance Directives Advance Directive Response Recorded Date/ Time Advance Directives No May 19 10:49am Hospital Course Note MR#: [id number] I [facility] Pt. Name: Gabbi Austin Admitted: 02/02/2020 Discharged: [...] Referral Reason 11/02/22 Dr. Nuvia hanna at [place] office ([facility]) Diagnosis 1 Posterior right knee pain (M25.561) Referral Organization [facility] yovana Referring Provider First Name Tania Referring Provider Last Name Mega Referring Provider Specialty [facility] Referred Organization [facility] Referred Provider Dav García Jr Referred Address ,[place], [place],[address] Referred Provider Specialty Orthopedic S urgery Referral [...] Knapp 11/16/2022 12:37:24 PM >received notes from [employer] Christiano Luevano Clinical Notes Bryan: P: [phone] F: [id number] Chief Complaint and Reason for Visit Chief Complaint Wellness Reason for Visit CAD (coronary artery disease) Chronic cough Iron deficiency anemia Type II diabetes mellitus Chief Complaint Wellness RENAL CKD 4 Reason for Visit CAD (coronary artery disease) Chronic cough Iron deficiency anemia Medicare annual wellness visit, subsequent RLS (restless legs syndrome) Type II diabetes mellitus CAD (coronary artery disease) CKD (chronic kidney disease) [id number] Secondary hyperparathyroidism Type 2 diabetes mellitus with diabetic chronic kidney disease Additional Source Comments INFORMATION SOURCE (unrecogn ized section and content) DATE CREATED AUTHOR 05/02/2020 [facility] DATE CREATED AUTHOR AUTHOR'S ORGANIZ ATION 12/06/2022 [facility] DATE CREATED AUTHOR AUTHOR'S ORGANIZ ATION 01/16/2023 [facility] DATE CREATED AUTHOR AUTHOR'S ORGANIZ ATION 06/02/2024 [facility] REASON FOR VISIT (unrecogniz ed section and content) Wants a referralmedicationRE FILLmessagerefillStuffy Nose, Congestionrefills Care Teams (unrecognized sec tion and content) Team Status: Active Member Role Status Dates Tania Ayoub MD Primary Care Provider Active Team Status: Inactive Member Role Status Dates Tania Ayoub MD Primary Care Provide r, Attending Provider Active Start: May 19, 2024 End: May 19, 2024 Team Status: Active Member Role Status Dates Tania Ayoub MD Primary Care Provide r, Attending Provider Active Start: May 22, 2024 Team Status: Inactive Member Role Status Dates Tania Ayoub MD Primary Care Provider Active Start: June 15, 2024 End: June 15, 2024 Tricia White MD Attending Provider Active Start : June 15, 2024 End: June 15, 2024 Goals (unrecognized section and content) Goals [...] BE BASED ON THE PRIMARY CLINICAL RECORDS. [facility]. provides no warranty or guarantee of the accuracy or completeness of information in this document.
[2024-06-19 09:21] LABS: Hematocrit 36.7 % (36.0-48.0); Hemoglobin 12.2 g/dL (12.0-16.0); Mean Corpuscular HGB Conc 33.2 g/dL (29.9-35.2); Mean Corpuscular Hemoglobin 30.8 pg (26.7-34.0); Mean Corpuscular Volume 92.7 fL (81.0-99.0); Mean Platelet Volume 10.2 fL (9.5-13.5); Platelet Count 356 10^3/uL (150-450); Red Blood Count 3.96 10^6/uL (4.20-5.40); Red Cell Distribution Width 13.2 % (11.0-15.0); White Blood Count 8.9 10^3/uL (4.0-11.0)
[2024-06-19 10:09] LABS: Albumin Level 3.6 g/dL (3.4-5.0); Anion Gap 12.6; BUN Creatinine Ratio 22.3; Calcium 9.3 mg/dL (8.5-10.1); Carbon Dioxide 27.7 mmol/L (21.0-32.0); Chloride 99 mmol/L (98-107); Estimated GFR (African America 35 (>=60); Estimated GFR (Non-African Ame 29 (>=60); Glucose 207 mg/dL (74-106); Potassium 4.3 mmol/L (3.5-5.1); Sodium 135 mmol/L (136-145); Uric Acid 6.6 mg/dL (2.6-6.0)
[2024-06-19 13:08] LABS: Bilirubin Urine NEGATIVE (NEGATIVE); Blood Urine NEGATIVE (NEGATIVE); Clarity Urine CLEAR (CLEAR); Color Urine LT. YELLOW (YELLOW); Glucose Urine UA 250 mg/dL (NEGATIVE); Ketones Urine NEGATIVE (NEGATIVE); Leukocyte Esterase Urine SMALL (NEGATIVE); Nitrite Urine NEGATIVE (NEGATIVE); Protein Urine NEGATIVE (NEG/TRACE); Urobilinogen Urine 0.2 EU/dL (0.2-1.0)
[2024-06-19 13:12] LABS: Protein Creatinine Ratio Urine 0.35; Total Protein Urine Random 26.7 mg/dL (<=11.9)
[2024-06-19 13:17] LABS: Bacteria Urine SMALL #/HPF (NONE SEEN); Mucus Urine TRACE (NONE SEEN); RBC Urine NONE SEEN #/HPF (0-2); Squamous Epithelial Cell Urine FEW #/LPF (NONE/RARE)
[2024-06-20 11:09] LABS: PTH, Intact 43 pg/mL (15-65)
== END 2024-06-19 08:51 | disposition home or self-care (01) ==
LOC: LAB 08:52
PROVIDERS: PCP Family Medicine; Visit Provider Internal Medicine
DX: E11.22 Type 2 diabetes mellitus with diabetic chronic kidney disease (principal); N18.9 Chronic kidney disease, unspecified; I12.9 Hypertensive chronic kidney disease with stage 1 through stage 4 chronic kidney disease, or unspecified chronic kidney disease; I25.10 Atherosclerotic heart disease of native coronary artery without angina pectoris; N25.81 Secondary hyperparathyroidism of renal origin
CPT/HCPCS: 36415; 80069; 81001; 82306; 82570; 83735; 83970; 84156; 84550; 85027

== ENCOUNTER 2024-12-26 08:42 | Outpatient (OUT) | payer MEDICARE, OTHER, SELFPAY ==
--- OUTSIDE RECORDS SUMMARY | 2024-12-26 08:53 | XMS_ITS | CCD ---
Author Organization [facility] Care Team Providers Care Culinary Manager Name Role Phone ANA LAURA BROCK Referring Unavailable LAUREN AYOUB Primary Care Unavailable LONNY FELTON Attending Unavailable NARENDRA SANCHEZ Admitting Unavailable Lauren Ayoub Unavailable LAUREN AYOUB Primary Care Unavailable DELFINO CARVAJAL Attending Unavailable DELFINO CARVAJAL Consulting Unavailable DELFINO CARVAJAL Admitting Unavailable LAUREN AYOUB Primary Care Unavailable GANESH, DR MILLAN Admitting Unavailable STEPANIC, DR MILLAN Attending Unavailable MISC, DR LYONS Consulting Unavailable LAUREN AYOUB Primary Care Unavailable MISC, DR LYONS Admitting Unavailable MISC, DR LYONS Attending Unavailable LAUREN AYOUB Primary Care Unavailable DELFINO CARVAJAL Admitting Unavailable DELFINO CARVAJAL Attending Unavailable LAUREN AYOUB Primary Care Unavailable MISC, DR LYONS Admitting Unavailable MISC, DR LYONS Attending Unavailable MISC, DR LYONS Consulting Unavailable LAUREN AYOUB Attending Unavailable LAUREN AYOUB Consulting Unavailable LAUREN AYOUB E Primary Care Unavailable LAUREN AYOUB Admitting Unavailable MASHA OBRIEN Attending Unavailable FREIDA GRIFFIN Attending Unavailable GIANNI BOYKIN Attending Unavailable MD Lauren Ayoub Primary Care Provider MD Tricia White Attending Provider Lauren Ayoub Primary Care Unavailable Tricia White Attending Unavailable Tricia White Admitting Unavailable Lauren Ayoub MD Primary Care Provider [phone] Adina Hummel DO Unavailable ADINA HUMMEL Attending Unavailable ADINA HUMMEL Attending Unavailable ADINA HUMMEL Attending Unavailable Allergies Allergy Classification Reported Allergen(s) Allergy Type Date of Onset Reaction(s) Facility (8 sources) Penicillin Drug Allergy 02-01-20 20 Unknown [facility] (10 sources) Ciprofloxacin Drug Allergy 05-19-20 24 Unknown, [facility] (5 sources) Eggs/Apples/Oats Drug allergy Unknown [employer] Other (3 sources) atorvastatin Drug Allergy Unknown [employer] Other (3 sources) Substance with penicillin structure and antibacterial mechanism of action (substance) Drug allergy Unknown [employer] Other (1 source) patient allergy list reviewed by nurse or physicia Propensity to adverse reactions 01-11-20 Comment:Done [employer] Other (3 sources) Eggs/Apples/Oats *DIETARY PRODUCTS/DIETARY MANAGEM Propensity to adverse reactions Unknown [employer] Other (1 source) Allergies Reconciled Propensity to adverse reactions Unknown [employer] Other (10 sources) Penicillins; Translations: [PENICILLINS] Allergy to substance 01-05-20 [facility] (3 sources) Eggs/Apples/Oats *DIETARY PROD Allergy to substance 05-12-20 [facility] (1 source) egg extract; Translations: [EGG] Drug Allergy 06-30-20 [facility] Medications Current Medications Medication Drug Class(es) Dates Sig (Normalized) Sig (Original) aspirin 81 mg delayed release oral tablet (15 sources) Platelet Aggregation Inhibitor, Nonsteroidal Anti-inflammatory Drug Start: 06-15-2024 aspirin 81 MG EC tablet Daily 06/15/2024 Active take 1 tablet by elyssa th every twenty-four hours Aspirin 81 81 MG 1 tablet Orally Once a day Active atorvastatin (7 sources) HMG-CoA Reductase Inhibitor Start: 06-15-2024 take 1 mg by mouth once daily Atorvastatin Active MG PO Daily June 15, 2024 12:00am Start: 02-11-2024 End: 02-10-2025 take 1 tablet by mouth at bedtime atorvastatin (Lipitor) 40 MG tablet Take 40 mg by mouth at bedtime 02/11/2024 02/10/2025 Active azithromycin 250 mg oral tablet (4 sources) Macrolide Antimicrobial Start: 07-01-2023 Azithromycin 250 MG as directed Orally 2 tabs po today, then 1 tab daily x 4 more days for 5 Jun, Active Start: 01-04-2023 Azithromycin 2 50 MG as directed Orally daily for 5 days Dec, Active Barberry-Oreg Grape-Goldenseal (Berberine Complex) 200-200-50 MG capsule (6 sources) Barberry-Oreg Grape-Goldenseal (Berberine Complex) 200-200-50 MG capsule 1 (one) time each day at the same time Active Berberine Chloride (2 sources) Start: 06-15-2024 take 1000 mg by mouth once daily Berberine Chloride Active 1000 MG PO Daily June 15, 2024 12:00am biotin 10 mg oral tablet (6 sources) biotin 03581 MCG tablet Take by mouth Active Blood Glucose Monitoring Suppl (One Jackson) w/Device kit (4 sources) Start: 09-22-2024 Blood Glucose Monitoring Suppl (One Jackson) w/Device kit Indications: Type 2 diabetes mellitus with stage 4 chronic kidney disease, with long-term current use of insulin ([facility]) Testing bg levels once a day 1 kit 09/22/2024 Active Start: 09-21-2024 Blood Glucose Monitoring Suppl (One Jackson) w/Device kit Indications: Type 2 diabetes mellitus with stage 4 chronic kidney disease, with long-term current use of insulin ([facility]) Fsbs daily 1 kit 09/21/2024 Active bumetanide 1 mg oral tablet (15 sources) Loop Diuretic Start: 02-11-2024 bumetanide (Bu hans) 1 MG tablet Daily 02/11/2024 Active take 1 tablet by elyssa th every twenty-four hours Bumetanide 1 MG 1 tablet Orally Once a day Active clopidogrel 75 mg oral tablet (15 sources) P2Y12 Platelet Inhibitor Start: 02-11-2024 clopidogrel (Plavix) 75 MG tablet Daily 02/11/2024 Active take 1 tablet by elyssa th every twenty-four hours Plavix 75 MG 1 tablet Orally Once a day Active Continuous Glucose Sensor (FreeStyle Haider 3 Plus Sensor) [facility] (6 sources) Start: 12-19-2024 End: 12-19-2025 Continuous Glucose Sensor (FreeStyle Haider 3 Plus Sensor) [facility] Indications: Type 2 diabetes mellitus with stage 4 chronic kidney disease, with long-term current use of insulin ([facility]) 1 each Every 15 Days 6 each 3 12/19/2024 12/19/2025 Active Start: 11-17-2024 End: 12-19-2024 Continuous Glucose Sensor (F reeStyle Haider 3 Plus Sensor) [facility] Indications: Type 2 diabetes mellitus with stage 4 chronic kidney disease, with long-term current use of insulin ([facility]) 1 each See administration instructions 6 each 3 11/17/2024 12/19/2024 Discontinued (Reorder) Start: 09-21-2024 Continuous Glu cose Sensor (FreeStyle Haider 3 Plus Sensor) [facility] Indications: Type 2 diabetes mellitus with stage 4 chronic kidney disease, with long-term current use of insulin ([facility]) 1 each See administration instructions 6 each 3 09/21/2024 Active famotidine 20 mg oral tablet (7 sources) Histamine-2 Receptor Antagonist take 1 tablet by mouth once daily at bedtime as needed Famotidine 20 mg TAKE 1 TABLET BY MOUTH ONCE DAILY AT BEDTIME NEEDED for 30 Active ferrous sulfate 325 mg oral tablet (6 sources) ferrous sulfate 325 (65 Fe) MG tablet Daily Active fluticasone propionate 0.05 mg/actuat metered dose nasal spray (8 sources) Corticosteroid Start: 06-15-20 fluticasone (Flonase) 50 MCG/ACT nasal spray Daily 06/15/2024 Active Start: 06-15-2024 take 1 spray(s) nasa l route once daily Fluticasone Propionate Active 1 SPRAY INTRANASAL Daily June 15, 2024 12:00am administer into each nostril FreeStyle Haider 14 Day Reade r - (7 sources) FreeStyle Haider 14 Day [place] - as directed for 30 days Active FreeStyle Haider 14 Day [place] - as directed Active FreeStyle Haider 14 Day Senso r - (7 sources) FreeStyle Haider 14 Day Sensor - USE DIRECTED EVERY 14 DAYS for 308 Active FreeStyle Haider 14 Day Sensor - as directed for 14 days Active FreeStyle Haider 14 Day Sensor - as directed Active glipiZIDE er 5 mg 24 hr extended release oral tablet (15 sources) Sulfonylurea Start: 05-12-2024 End: 05-12-2024 glipiZIDE XL (Glucotrol XL) 5 MG 24 hr tablet Daily 05/12/2024 Active take 1 tablet by mouth once starla y glipiZIDE ER 5 mg TAKE 1 TABLET BY MOUTH DAILY Active take 1 tablet by elyssa th every twenty-four hours glipiZIDE 5 MG 1 tablet Orally daily for 90 days Active ibuprofen 200 mg oral tablet (6 sources) Nonsteroidal Anti-inflammatory Drug ibuprofen (Advil) 200 MG tablet every 8 (eight) hours Active latanoprost 0.05 mg/ml ophthalmic solution (4 sources) Prostaglandin Analog Start: 06-15-20 take 1 drop(s) into the eye(s) once daily Latanoprost Active 1 DROPS EYE-BOTH Daily June 15, 2024 12:00am Start: 02-09-2024 End: 07-18-2024 take 1 drop(s) into the eye(s) once daily latanoprost (Xalatan) 0.005 % ophthalmic solution instill 1 (ONE) DROP IN BOTH EYES EVERY NIGHT 02/09/2024 07/18/2024 Discontinued linagliptin 5 mg oral tablet (18 sources) Dipeptidyl Peptidase 4 Inhibitor Start: 02-10-2024 End: 05-11-2024 take 1 tablet by mouth once daily Linagliptin (Tradjenta) 5 mg tablet Discontinued 0 .ROUTE .COMPLEX February 10, 2024 12:59pm May 11, 2024 8:28am TAKE 1 TABLET BY MOUTH DAILY Start: 02-09-2024 End: 07-18-2024 take 1 tablet by mouth once daily Linagliptin (Tradjenta) 5 mg tablet Active 5 MG PO Daily May 12, 2024 12:00am lisinopril 10 mg oral tablet (15 sources) Angiotensin Converting Enzyme Inhibitor Start: 02-11-2024 lisinopril 10 MG tablet Daily 02/11/2024 Active take 1 tablet by elyssa th every twenty-four hours Lisinopril 10 MG 1 tablet Orally Once a day Active lysine 500 mg oral capsule (6 sources) L-Lysine 500 MG capsule Take by mouth Active Magnesium (6 sources) magnesium 250 MG tablet 1 (one) time each day at the same time Active magnesium citrate 100 mg ora l tablet (7 sources) Magnesium Citrat e 100 MG as directed Orally Active Magnesium Citrat e 100 MG as directed Orally Active melatonin 10 mg oral capsule (6 sources) Melatonin 10 MG capsule Take by mouth Active Metoprolol (16 sources) beta-Adrenergic [place] Start: 06-15-2024 Metoprolol Succinate Active MG PO June 15, 2024 12:00am metoprolol succi marquise XL (Toprol-XL) 100 MG 24 hr tablet Active take 1 tablet by elyssa th every twenty-four hours Toprol XL 50 MG 1 tablet Orally Once a d ay Active take 1 tablet by elyssa th every twenty-four hours Metoprolol Tartrate 100 MG 1 tablet once a day Active Multiple Vitamins-Minerals (PRESERVISION AREDS PO) (6 sources) Multiple Vitamins-Minerals (PRESERVISION AREDS PO) Take by mouth Active Tfbanxye-Yjf-Cmpahbd-K-He [id number] (Alive Women's 50 Plus Ultra) 800 mcg DFE- 150 mcg tablet (2 sources) Start: take 1 tablet by mouth once Fniftkos-Abe-Jzaayul-K-H [id number] (Alive Women's 50 Plus Ultra) 800 mcg DFE- 150 mcg tablet Active TAB PO June 15, 2024 12:00am omeprazole 2.5 mg granules for oral suspension (6 sources) Proton Pump Inhibitor Omeprazole Magnesium (PriLOSEC) 2.5 MG pack 1 capsule Active Omeprazole Magnesium (Prilosec Otc) 20 mg tablet,delayed release (DR/EC) (2 sources) Start: take 1 tablet by mouth once daily Omeprazole Magnesium (Prilosec Otc) 20 mg tablet,delayed release (DR/EC) Active 20 MG PO Daily June 15, 2024 12:00am Potassium Chloride (15 sources) Start: Potassium Chloride Active MEQ PO June 15, 2024 12:00am potassium chlori de ER (Micro-K) 10 MEQ ER capsule 1 (one) time each day at the same time Active take 1 tablet by elyssa th every twelve hours Potassium Chloride ER 10 MEQ 1 tablet wi th food Orally Twice a day Active rOPINIRole 1 mg oral tablet (20 sources) Nonergot Dopamine Agonist Start: 06-15-2024 take 1 mg by mouth once daily Ropinirole Active 1 MG PO Daily June 15, 2024 12:00am Start: 05-19-2024 End: 06-15-2024 take 1 tablet by mouth at bedtime rOPINIRole (Requip) 2 MG tablet Take 2 mg by mouth at bedtime 05/19/2024 Active Start: 05-11-2024 End: 05-12-2024 take 1 tablet by mouth at bedtime Ropinirole Discontinued 0 .ROUTE .COMPLEX 90 May 11, 2024 8:28am May 12, 2024 [...] BY MOUTH AT BEDTIME for 90 Active Semaglutide (2 sources) Start: 06-19-2024 Semaglutide (O zempic) 0.25 mg or 0.5 mg (2 mg/3 mL) pen injector Active 0.25 MG SUBCUT every week June 19, 2024 3:05pm for 4 weeks Start: 06-15-2024 End: 06-19-2024 Semaglutide (Ozempic) 0.25 m g or 0.5 mg (2 mg/3 mL) pen injector Discontinued 0.25 MG SUBCUT every week June 15, 2024 12:00am June 19, 2024 3:05pm for 4 weeks Semaglutide,0.25 or 0.5MG/DO S, 2 MG/3ML solution pen-injector (12 sources) Start: 12-19-2024 End: 12-19-2025 Semaglutide,0.25 or 0.5MG/DO S, 2 MG/3ML solution pen-injector Indications: Type 2 diabetes mellitus with stage 4 chronic kidney disease, with long-term current use of insulin ([facility]) Inject 0.5 mg under the skin 1 (one) time per week 9 mL 3 12/19/2024 12/19/2025 Active Start: 09-21-2024 End: 12-19-2024 Semaglutide,0.25 or 0.5MG/DO S, 2 MG/3ML solution pen-injector Indications: Type 2 diabetes mellitus with stage 4 chronic kidney disease, with long-term current use of insulin (CMS/HCC) Inject 0.5 mg under the skin 1 (one) time per week 3 mL 3 09/21/2024 12/19/2024 Discontinued (Reorder) Start: 09-21-2024 Semaglutide,0. 25 or 0.5MG/DOS, 2 MG/3ML solution pen-injector Indications: Type 2 diabetes mellitus with stage 4 chronic kidney disease, with long-term current use of insulin (CMS/HCC) Inject 0.5 mg under the skin 1 (one) time per week 3 mL 3 09/21/2024 Active Start: 07-18-2024 End: 09-21-2024 Semaglutide,0.25 or 0.5MG/DO S, 2 MG/3ML solution pen-injector Indications: Type 2 diabetes mellitus with stage 4 chronic kidney disease, with long-term current use of insulin (CMS/HCC) Inject 0.5 mg under the skin 1 (one) time per week 3 mL 3 07/18/2024 09/21/2024 Discontinued (Reorder) Start: 07-18-2024 Semaglutide,0. 25 or 0.5MG/DOS, 2 MG/3ML solution pen-injector Indications: Type 2 diabetes mellitus with stage 4 chronic kidney disease, with long-term current use of insulin (CMS/HCC) Inject 0.5 mg under the skin 1 (one) time per week 3 mL 3 07/18/2024 Active Start: 06-19-2024 End: 07-18-2024 Semaglutide,0.25 or 0.5MG/DO S, 2 MG/3ML solution pen-injector 0.25 mg 06/19/2024 07/18/2024 Discontinued (Reorder) vitamin b12 1 mg oral tablet (6 sources) Vitamin B12 take 5 tablets by mouth once daily cyanocobalamin (Vitamin B-12) 1000 MCG tablet Take 5,000 mcg by mouth Daily Active Vitamins A,C,K-Srwe-Bcyhsp (Preservision Areds) 4,296 mcg-226 mg-90 mg capsule (2 sources) Start: 06-15-2024 take 1 capsule by mouth twice daily Vitamins A,C,H-Ysyo-Rwamng (Preservision Areds) 4,296 mcg-226 mg-90 mg capsule Active 1 CAP PO Twice daily June 15, 2024 12:00am Completed/Discontinued Medications Medication Drug Class(es) Dates Sig (Normalized) Sig (Original) Continuous Glucose Sensor (FreeStyle Haider 14 Day Sensor) misc (4 sources) Start: 07-19-2024 End: 09-21-2024 inject 1 dose by subcutaneous injection once Continuous Glucose Sensor (FreeStyle Haider 14 Day Sensor) mis Indications: Type 2 diabetes mellitus with stage 4 chronic kidney disease, with long-term current use of insulin ([facility]) Inject 1 each under the skin every 14 (fourteen) days 6 each 1 07/19/2024 09/21/2024 Discontinued Start: 06-30-2024 Continuous Glu cose Sensor (FreeStyle Haider 14 Day Sensor) [facility] USE DIRECTED to test BLOOD SUGAR EVERY 14 days 06/30/2024 Active metFORMIN hydrochloride 850 mg oral tablet (18 sources) Biguanide Start: 02-10-2024 End: 06-15-2024 take 1 tablet by mouth once daily Metformin Discontinued 0 .ROUTE .COMPLEX 90 May 11, 2024 8:28am June 15, 2024 10:13pm TAKE 1 TABLET BY MOUTH DAILY Start: 02-09-2024 End: 07-18-2024 take 850 mg by mouth once daily Metformin Discontinued 850 MG PO Daily February 09, 2024 12:00am February 10, 2024 12:59pm Problems Active Problems Problem Classification Problem Date Documented Date Episodic/Chronic Chronic kidney disease (5 sources) Chronic kidney disease; Translations: [Chronic kidney disease, unspecified] Onset: 4 06-15-2024 Chronic Congestive heart failure; nonhypertensive (8 sources) Chronic systolic (congestive) heart failure; Translations: [Heart failure] Onset: 3 Chronic Coronary atherosclerosis and other heart disease (17 sources) Atherosclerotic heart disease of [place] coronary artery without angina pectoris; Translations: [Atherosclerosis of coronary artery without angina pectoris] Onset: 0 05-19-2024 Chronic Deficiency and other anemia (3 sources) Iron deficiency anemia, unspecified; Translations: [Iron deficiency anemia, unspecified] 05-19-2024 Episodic Diabetes mellitus with complications (20 sources) Type 2 diabetes mellitus with hyperglycemia; Translations: [Hyperglycemia due to type 2 diabetes mellitus] Onset: 4 Chronic Diabetes mellitus without complication (13 sources) Type 2 diabetes mellitus without complication; Translations: [Type 2 diabetes mellitus without complications] Onset: 4 05-19-2024 Chronic Disorders of lipid metabolism (8 sources) Hyperlipidemia; Translations: [Hyperlipidemia, unspecified] Onset: 4 06-18-2024 Chronic Heart valve disorders (1 source) Nonrheumatic mitral (valve) insufficiency; Translations: [NONRHEUMATIC MITRAL INSUFFICIENCY] Onset: 3 Chronic Hypertension with complications and secondary hypertension (5 sources) Chronic kidney disease due to hypertension; Translations: [Hypertensive chronic kidney disease with stage 1 through stage 4 chronic kidney disease, or unspecified chronic kidney disease] Onset: 4 06-15-2024 Chronic Other diseases of kidney and ureters (8 sources) Secondary hyperparathyroidism; Translations: [Secondary hyperparathyroidism of renal origin] Onset: 4 06-15-2024 Chronic Other diseases of kidney and ureters (3 sources) Secondary hyperparathyroidism of renal origin; Translations: [Secondary hyperparathyroidism (of renal origin)] Onset: 4 06-15-2024 Chronic Other ear and sense organ disorders (2 sources) Hearing loss of right ear; Translations: [Unspecified hearing loss, right ear] Chronic Other ear and sense organ disorders (1 source) Unspecified hearing loss, right ear Chronic Other hereditary and degenerative nervous system conditions (3 sources) Restless legs; Translations: [Restless legs syndrome] 05-19-2024 Chronic Other hereditary and degenerative nervous system conditions (2 sources) Restless legs syndrome; Translations: [Restless legs syndrome (RLS)] 05-19-2024 Chronic Other lower respiratory disease (6 sources) Chronic cough; Translations: [Chronic cough] 05-19-2024 [...] and of unspecified site] Onset: 12-30-2016 Episodic Deficiency and other anemia (10 sources) Iron deficiency anemia; Translations: [Iron deficiency anemia, unspecified] Onset: 07-18-2024 05-19-2024 Episodic Residual codes; unclassified (1 source) Family history of breast cancer; Translations: [Family history of malignant neoplasm of breast] Onset: 01-10-2014 Episodic Unclassified (1 source) Other ventricular tachycardia; Translations: [Other ventricular tachycardia] Onset: 06-30-2023 Results Test Name Value Interpretation Reference Range Facility HbA1c (Bld) [Mass fraction]o n 12-19-2024 Interpretation and review of laboratory results Normal [facility] 12-19-2024 HbA1c (Bld) [Mass fraction] 6.5 % [facility] HbA1c (Bld) [Mass fraction]o n 09-21-2024 Interpretation and review of laboratory results Abnormal [facility] 09-21-2024 HbA1c (Bld) [Mass fraction] 8 % [facility] renal BIon 06-29-2024 US renal BI [facility] [place] [address] Ultrasound Report Signed Patient: Gabbi Austin MR#: [id number] 4 : 1950 Acct:[id number] Age/Sex: 73 / F ADM Date: 06/29/24 Loc: Room: Type: [facility] Attending Dr: Tricia White MD Ordering Provider: Tricia White MD Date of Service: 06/29/24 US/US renal BI: N18.9 - Chronic kidney disease, unspecified Copies to: Tricia White MD Bilateral Renal Ultrasound HISTORY: Chronic kidney disease COMPARISON: None RIGHT kidney measures 8.6 cm. LEFT kidney measures 2.0 cm. Hydronephrosis: None RENAL STONE: No shadowing renal calculus is seen. RENAL LESIONS: No renal lesion identified. URINARY BLADDER: Unremarkable REPRODUCTIVE STRUCTURES Not assessed US/US renal BI IMPRESSION : No hydronephrosis. Impression dictated by: Jose Nguyen M.D.06/29/2024 3:46 PM Dictation Location: [place] [address] Tech: Rosario Vance Transcribed By: [facility] 06/29/24 1546 Dictated By: Jose Nguyen DO 06/29/24 1545 Signed By: 06/29/24 1546 Normal [facility] Erythrocyte distribution wid th Auto (RBC) [Ratio]on 06-19-2024 Erythrocyte distribution width (RBC) [Ratio] 13.2 % 11.0-15.0 [facility] Estimated glomerular filtrat ion rate (GFR) non- Americanon 06-19-2024 GFR/1.73 sq M.predicted among non-blacks MDRD (S/P/Bld) [Vol rate/Area] 29 mL/min/{1.73_m2} Low >=60 [facility] Hematocrit Auto (Bld) [Volum e fraction]on 06-19-2024 Hematocrit (Bld) [Volume fraction] 36.7 % 36.0-48.0 [facility] Hemoglobin [Mass/volume] in Bloodon 06-19-2024 Hemoglobin (Bld) [Mass/Vol] 12.2 g/dL 12.0-16.0 [facility] Laboratory - Chemistry and C hemistry - challengeon 06-19-2024 Bilirubin Ql (U) Negative NEGATIVE [facility] Glucose (U) [Mass/Vol] 250 mg/dL Abnormal NEGATIVE [facility] Ketones Ql (U) Negative NEGATIVE [facility] pH (U) 6.0 [pH] 5.0-9.0 [facility] Specific gravity (U) [Rel density] 1.020 1.005-1.025 [facility] Urobilinogen Qn (U) 0.2 {David'U}/dL 0.2-1.0 [facility] Albumin [Mass/Vol] 3.6 g/dL 3.4-5.0 [facility] Calcium [Mass/Vol] 9.3 mg/dL 8.5-10.1 [facility] Chloride [Moles/Vol] 99 mmol/L 98-107 [facility] CO2 [Moles/Vol] 27.7 mmol/L 21.0-32.0 [facility] Creatinine [Mass/Vol] 1.75 mg/dL High 0.55-1.02 [facility] GFR/1.73 sq M.predicted MDRD (S/P/Bld) [Vol rate/Area] 35 mL/min/{1.73_m2} Low >=60 [facility] Glucose [Mass/Vol] 207 mg/dL High 74-106 [facility] Magnesium [Mass/Vol] 2.0 mg/dL 1.8-2.4 [facility] Potassium [Moles/Vol] 4.3 mmol/L 3.5-5.1 [facility] Sodium [Moles/Vol] 135 mmol/L Low 136-145 [facility] Urate [Mass/Vol] 6.6 mg/dL High 2.6-6.0 [facility] Urea nitrogen [Mass/Vol] 39.0 mg/dL High 7.0-18.0 [facility] Urea nitrogen/Creatinine [Mass ratio] 22.3 mg/mg [facility] Laboratory - Specimen inform ationon 06-19-2024 Appearance (U) CLEAR CLEAR [facility] Color (U) LT. YELLOW YELLOW [facility] Laboratory - Urinalysison Leukocyte esterase Test strip Ql (U) SMALL Abnormal NEGATIVE [facility] Mucus Ql (Urine sed) TRACE Abnormal NONE SEEN [facility] Nitrite Ql (U) Negative NEGATIVE [facility] Protein (U) [Mass/Vol] 26.7 mg/dL High <=11.9 [facility] Protein Ql (U) Negative NEG/TRACE [facility] Leukocytes [#/volume] correc bebe for nucleated erythrocytes in Blood by Automated counon 06-19-2024 WBC corrected for nucl RBC Auto (Bld) [#/Vol] 8.9 10 3/uL 4.0-11.0 [facility] MCH Auto (RBC) [Entitic mass ]on 06-19-2024 MCH (RBC) [Entitic mass] 30.8 pg 26.7-34.0 [facility] MCHC Auto (RBC) [Mass/Vol]on 06-19-2024 MCHC (RBC) [Mass/Vol] 33.2 g/dL 29.9-35.2 [facility] MCV Auto (RBC) [Entitic vol] on 06-19-2024 MCV (RBC) [Entitic vol] 92.7 fL 81.0-99.0 [facility] No Panel Informationon 06-19 Urine Bacteria SMALL #/HPF Abnormal NONE SEEN [facility] Urine Occult Blood Negative NEGATIVE [facility] Urine Random Creatinine 76.20 mg/dL 20.00-300.00 [facility] Urine RBC NONE SEEN #/HPF 0-2 [facility] Urine Squamous Epithelial Cells FEW #/LPF Abnormal NONE/RARE [facility] Urine WBC 5-10 #/HPF Abnormal NONE SEEN [facility] 25-Hydroxy Vitamin D Total 29.8 ng/mL [facility] Comment on above: <20 ng/mL Vit D defi cient20-<30 ng/mL Vit D [id number] ng/mL Vit D sufficient>100 ng/mL Potential Toxicity Parathyroid Hormone (Intact) 43 pg/mL 15-65 [facility] Comment on above: Performed at: [facility] [employer] [address] [id number] Director: Ruben Matute PhD, Phone: [phone] Phosphorus Level 4.0 mg/dL 2.6-4.7 [facility] Platelet mean volume Auto (B ld) [Entitic vol]on 06-19-2024 Platelet mean volume (Bld) [Entitic vol] 10.2 fL 9.5-13.5 [facility] Platelets Auto (Bld) [#/Vol] on 06-19-2024 Platelets (Bld) [#/Vol] 356 10 3/uL 150-450 [facility] RBC Auto (Bld) [#/Vol]on RBC (Bld) [#/Vol] 3.96 10 6/uL Low 4.20-5.40 [facility] Serum or plasma anion gap de terminationon 06-19-2024 Anion gap [Moles/Vol] 12.6 mmol/L [facility] Urine protein/creatinine rat ioon 06-19-2024 Protein/Creatinine (U) [Ratio] 0.35 [facility] 36on 05-31-2024 36 I just scanned in patient's recent stress test. She had echo and labs last week too. Thanks. Normal [facility] Basophils Auto (Bld) [#/Vol] on 05-22-2024 Basophils (Bld) [#/Vol] 0.1 10 3/uL 0.0-0.1 [facility] Basophils/100 WBC Auto (Bld) on 05-22-2024 Basophils/100 WBC (Bld) 1.2 % 0.2-2.0 [facility] Cholesterol in LDL Calc [Mas s/Vol]on 05-22-2024 Cholesterol in LDL [Mass/Vol] 57.0 mg/dL [facility] Comment on above: <100 mg/dl [id number] 0-129 mg/dl NEAR OR ABOVE [id number] mg/dl BORDERLINE [id number] mg/dl HIGH>190 mg/dl VERY HIGH Cholesterol in VLDL Calc [Ma ss/Vol]on 05-22-2024 Cholesterol in VLDL [Mass/Vol] 73.2 mg/dL [facility] Eosinophils/100 WBC Auto (Bl d)on 05-22-2024 Eosinophils/100 WBC (Bld) 3.5 % 0.9-7.0 [facility] Erythrocyte distribution wid th Auto (RBC) [Ratio]on 05-22-2024 Erythrocyte distribution width (RBC) [Ratio] 12.8 % 11.0-15.0 [facility] Estimated glomerular filtrat ion rate (GFR) non- Americanon 05-22-2024 GFR/1.73 sq M.predicted among non-blacks MDRD (S/P/Bld) [Vol rate/Area] 23 mL/min/{1.73_m2} Low >=60 [facility] Globulin Calc (S) [Mass/Vol] on 05-22-2024 Globulin (S) [Mass/Vol] 3.7 g/dL [facility] Glucose mean value [Mass/vol ume] in Blood Estimated from glycated hemoglobinon 05-22-2024 Average glucose Estimated from glycated hemoglobin (Bld) [Mass/Vol] 220 mg/dL [facility] Hematocrit Auto (Bld) [Volum e fraction]on 05-22-2024 Hematocrit (Bld) [Volume fraction] 37.9 % 36.0-48.0 [facility] Hemoglobin [Mass/volume] in Bloodon 05-22-2024 Hemoglobin (Bld) [Mass/Vol] 12.6 g/dL 12.0-16.0 [facility] Laboratory - Chemistry and C hemistry - challengeon 05-22-2024 Albumin [Mass/Vol] 3.8 g/dL 3.4-5.0 [facility] ALP [Catalytic activity/Vol] 109 U/L 46-116 [facility] ALT [Catalytic activity/Vol] 20 U/L 14-59 [facility] AST [Catalytic activity/Vol] 15 U/L 15-37 [facility] Bilirubin [Mass/Vol] 0.7 mg/dL 0.2-1.0 [facility] Calcium [Mass/Vol] 9.3 mg/dL 8.5-10.1 [facility] Chloride [Moles/Vol] 101 mmol/L 98-107 [facility] Cholesterol [Mass/Vol] 187 mg/dL <=200 [facility] Cholesterol in HDL [Mass/Vol] 57 mg/dL 40-60 [facility] Comment on above: > or =60 mg/dl - LOW CARDIOVASCULAR RISK<40 mg/dl - HIGH CARDIOVASCULAR RISK CO2 [Moles/Vol] 25.1 mmol/L 21.0-32.0 [facility] Creatinine [Mass/Vol] 2.11 mg/dL High 0.55-1.02 [facility] GFR/1.73 sq M.predicted MDRD (S/P/Bld) [Vol rate/Area] 28 mL/min/{1.73_m2} Low >=60 [facility] Glucose [Mass/Vol] 198 mg/dL High 74-106 [facility] Potassium [Moles/Vol] 4.6 mmol/L 3.5-5.1 [facility] Protein [Mass/Vol] 7.5 g/dL 6.4-8.2 [facility] Sodium [Moles/Vol] 138 mmol/L 136-145 [facility] Triglyceride [Mass/Vol] 366 mg/dL High <=150 [facility] TSH Qn 6.652 m[IU]/L High 0.358-3.740 [facility] Urea nitrogen [Mass/Vol] 49.0 mg/dL High 7.0-18.0 [facility] Urea nitrogen/Creatinine [Mass ratio] 23.2 mg/mg [facility] Laboratory - Hematology and Cell countson 05-22-2024 HbA1c (Bld) [Mass fraction] 9.3 % High 4.5-6.2 [facility] Comment on above: ADA RECOMMENDED LIMI T 4.0 - 6.0ADA THERAPEUTIC TARGET < 7.0ACTION SUGGESTED> 7.0 Immature granulocytes/100 WBC (Bld) 0.3 % 0.0-0.5 [facility] Leukocytes [#/volume] correc bebe for nucleated erythrocytes in Blood by Automated counon 05-22-2024 WBC corrected for nucl RBC Auto (Bld) [#/Vol] 8.6 10 3/uL 4.0-11.0 [facility] Lymphocytes Auto (Bld) [#/Vo l]on 05-22-2024 Lymphocytes (Bld) [#/Vol] 2.6 10 3/uL 1.2-3.8 [facility] Lymphocytes/100 WBC Auto (Bl d)on 05-22-2024 Lymphocytes/100 WBC (Bld) 30.2 % 20.5-60.0 [facility] MCH Auto (RBC) [Entitic mass ]on 05-22-2024 MCH (RBC) [Entitic mass] 30.5 pg 26.7-34.0 [facility] MCHC Auto (RBC) [Mass/Vol]on 05-22-2024 MCHC (RBC) [Mass/Vol] 33.2 g/dL 29.9-35.2 [facility] MCV Auto (RBC) [Entitic vol] on 05-22-2024 MCV (RBC) [Entitic vol] 91.8 fL 81.0-99.0 [facility] Microalbumin [Mass/volume] i n Urineon 05-22-2024 Albumin DL <= 20 mg/L (U) [Mass/Vol] 3.2 mg/dL <=30.0 [facility] Monocytes Auto (Bld) [#/Vol] on 05-22-2024 Monocytes (Bld) [#/Vol] 0.7 10 3/uL 0.3-0.8 [facility] Monocytes/100 WBC Auto (Bld) on 05-22-2024 Monocytes/100 WBC (Bld) 8.5 % 1.7-12.0 [facility] Neutrophils Auto (Bld) [#/Vo l]on 05-22-2024 Neutrophils (Bld) [#/Vol] 4.8 10 3/uL 1.4-6.5 [facility] Neutrophils/100 WBC Auto (Bl d)on 05-22-2024 Neutrophils/100 WBC (Bld) 56.3 % 43.0-75.0 [facility] No Panel Informationon 05-22 Eosinophils # (Auto) 0.3 10 3/uL 0.0-0.7 [facility] Immature Granulocyte # (Auto) 0.03 10 3/uL 0.00-0.03 [facility] Platelet mean volume Auto (B ld) [Entitic vol]on 05-22-2024 Platelet mean volume (Bld) [Entitic vol] 9.9 fL 9.5-13.5 [facility] Platelets Auto (Bld) [#/Vol] on 05-22-2024 Platelets (Bld) [#/Vol] 380 10 3/uL 150-450 [facility] RBC Auto (Bld) [#/Vol]on RBC (Bld) [#/Vol] 4.13 10 6/uL Low 4.20-5.40 [facility] Serum or plasma albumin/glob ulin mass ratioon 05-22-2024 Albumin/Globulin [Mass ratio] 1.0 {ratio} [facility] Serum or plasma anion gap de terminationon 05-22-2024 Anion gap [Moles/Vol] 16.5 mmol/L [facility] Serum or plasma total choles terol/high density lipoprotein (HDL) cholesterol mass cristhian 05-22-2024 Cholesterol.total/Ch olesterol in HDL [Mass ratio] 3.3 {ratio} [facility] Comment on above: 3.3 - 4.4 LOW RISK4. 4 - 7.1 AVERAGE RISK7.1 - 11.0 MODERATE RISK>11.0 HIGH RISK Office Visiton 05-15-2024 Follow-up visit [id number] Mariano Austindarcy Tariq 1950 F Date Provider Department Center 05/15/2024 271-MASHA OBRIEN CARD [facility] Family History Problem Relation Age of Onset Mitral valve prolapse Mother Family Status - Relation Status Age at Mother Level of Service:33117 SD OFFICE/OUTPATIENT ESTABLISHED MOD MDM 30 MIN Normal [facility] Office Visiton 12-01-2023 Follow-up visit [id number] Mariano Austindarcy Tariq 1950 F Date Provider Department Center 12/01/2023 1596-FREIDA GRIFFIN CARD [facility] Family History Problem Relation Age of Onset Mitral valve prolapse Mother Family Status - Relation Status Age at Mother Level of Service:54758 SD OFFICE/OUTPATIENT ESTABLISHED MOD MDM 30 MIN Normal [facility] Office Visiton 06-30-2023 Follow-up visit [id number] Mariano Austindarcy Tariq 1950 F Date Provider Department Center 06/30/2023 120-GIANNI BOYKIN BH CARD [facility] Family History Problem Relation Age of Onset Mitral valve prolapse Mother Family Status - Relation Status Age at Mother Level of Service:27135 SD OFFICE/OUTPATIENT ESTABLISHED MOD MDM 30-39 MIN Reason for Visit and Comments: Follow-up [572168] - 6 month Normal [facility] ECHOCARDIO M/2D COMPLETEon 0 01-12-2023 ECHOCARDIO M/2D COMPLETE Patient: GABBI AUSTIN Exam Date: 01/12/2023 : 1950 Gender:F Ordering : [employer] Admission #: [id number] Family : Order #: [id number] CLICK HERE TO VIEW EXAM ECHOCARDIOGRAM REPORT [...] M.D. on 01/14/2023 at 18:11 Normal [facility] CBC AUTO DIFFon 01-08-2023 BASO # 0.1 103/ul Normal 0.0-0.1 [facility] Comment on above: Performed By: #### C BC #### [facility] [address] [address] [address] Jassi Howard Basophils/100 WBC (Bld) 1.2 % Normal 0.2-2.0 [facility] Comment on above: Performed By: #### C BC #### [facility] [address] [address] [address] Jassi Howard EO # 0.5 103/ul Normal 0.0-0.7 [facility] Comment on above: Performed By: #### C BC #### [facility] [address] [address] [address] Jassi Howard Eosinophils/100 WBC (Bld) 5.7 % Normal 0.9-7.0 [facility] Comment on above: Performed By: #### C BC #### [facility] [address] [address] [address] Jassi Howard Erythrocyte distribution width (RBC) [Ratio] 12.7 % Normal 11.0-15.0 [facility] Comment on above: Performed By: #### C BC #### [facility] [address] [place] [address] Dr. Jassi Hwoard Hematocrit (Bld) [Volume fraction] 34.8 % Critically low 36.0-48.0 [facility] Comment on above: Performed By: #### C BC #### [facility] [address] [address] [address] Jassi Howard Hemoglobin (Bld) [Mass/Vol] 11.4 g/dL Critically low 12.0-16.0 [facility] Comment on above: Performed By: #### C BC #### [facility] [address] [address] [address] Jassi Howard IG # 0.05 10e3/ul Critically high 0.00-0.03 [facility] Comment on above: Performed By: #### C BC #### [facility] [address] [place] [address] Dr. Jassi Howard IG % 0.6 % Critically high 0.0-0.5 [facility] Comment on above: Performed By: #### C BC #### [facility] [address] [place] [address] Dr. Jassi Howard LYMPH # 2.7 103/ul Normal 1.2-3.8 [facility] Comment on above: Performed By: #### C BC #### [facility] [address] [place] [address] Dr. Jassi Howard Lymphocytes/100 WBC (Bld) 29.5 % Normal 20.5-60.0 [facility] Comment on above: Performed By: #### C BC #### [facility] [address] [place] [address] Dr. Jassi Howard MANUAL DIFF REQ NO Normal [facility] Comment on above: Performed By: #### C BC #### [facility] [address] [place] [address] Dr. Jassi Howard MCH (RBC) [Entitic mass] 29.1 pg Normal 26.7-34.0 [facility] Comment on above: Performed By: #### C BC #### [facility] [address] [place] [address] Dr. Jassi Howard MCHC (RBC) [Mass/Vol] 32.8 g/dL Normal 29.9-35.2 [facility] Comment on above: Performed By: #### C BC #### [facility] [address] [place] [address] Dr. Jassi Howard MCV (RBC) [Entitic vol] 88.8 fL Normal 81.0-99.0 [facility] Comment on above: Performed By: #### C BC #### [facility] [address] [place] [address] Dr. Jassi Howard MONO # 0.7 103/ul Normal 0.3-0.8 [facility] Comment on above: Performed By: #### C BC #### [facility] [address] [place], [place] [id number] Dr. Jassi Howard Monocytes/100 WBC (Bld) 7.2 % Normal 1.7-12.0 [facility] Comment on above: Performed By: #### C BC #### [facility] [address] [place] [address] Dr. Jassi Howard NEUT # 5.0 103/ul Normal 1.4-6.5 [facility] Comment on above: Performed By: #### C BC #### [facility] [address] [place] [address] Dr. Jassi Howard Neutrophils/100 WBC (Bld) 55.8 % Normal 43.0-75.0 [facility] Comment on above: Performed By: #### C BC #### [facility] [address] [place] [address] Dr. Jassi Howard Platelet mean volume (Bld) [Entitic vol] 10.0 fL Normal 9.5-13.5 [facility] Comment on above: Performed By: #### C BC #### [facility] [address] [place] [address] Dr. Jassi Howard PLT 410 103/ul Normal 150-450 [facility] Comment on above: Performed By: #### C BC #### [facility] [address] [place] [address] Dr. Jassi Howard RBC 3.92 106/ul Critically low 4.20-5.40 [facility] Comment on above: Performed By: #### C BC #### [facility] [address] [place] [address] Dr. Jassi Howard WBC 9.0 103/ul Normal 4.0-11.0 [facility] Comment on above: Performed By: #### C BC #### [facility] [address] [place] [address] Dr. Jassi Howard LIPID PROFILEon 01-08-2023 CHOL-HDL RATIO NORM SEE BELOW Normal [facility] Comment on above: Result Comment: 3.3 - 4.4 LOW RISK 4.4 - 7.1 AVERAGE RISK 7.1 - 11.0 MODERATE RISK >11.0 HIGH RISK Performed By: #### C MP, LIPID #### [facility] [address] [address] [address] Jassi Howard Cholesterol [Mass/Vol] 162 mg/dL Normal <=200 [facility] Comment on above: Performed By: #### C MP, LIPID #### [facility] [address] [address] [address] Jassi Howard Cholesterol in HDL [Mass/Vol] 49 mg/dL Normal 40-60 [facility] Comment on above: Performed By: #### C MP, LIPID #### [facility] [address] [address] [address] Jassi Howard Cholesterol in LDL [Mass/Vol] 61.6 mg/dL Normal [facility] Comment on above: Performed By: #### C MP, LIPID #### [facility] [address] [place] [address] Dr. Jassi Howard Cholesterol.total/Ch olesterol in HDL [Mass ratio] 3.3 {ratio} Normal [facility] Comment on above: Performed By: #### C MP, LIPID #### [facility] [address] [address] [address] Jassi Howard HDL NORMAL > or = 60 mg/dl - LO W CARDIOVASCULAR RISK <40 mg/dl - HIGH CARDIOVASCULAR RISK Normal [facility] Comment on above: Performed By: #### C MP, LIPID #### [facility] [address] [address] [address] Jassi Howard LDL CALC NORMAL SEE BELOW Normal [facility] Comment on above: Result Comment: <100 mg/dl OPTIMAL 100 - 129 mg/dl NEAR OR ABOVE OPTIMAL 130 - 159 mg/dl BORDERLINE HIGH 160 - 189 mg/dl HIGH >190 mg/dl VERY HIGH Performed By: #### C MP, LIPID #### [facility] [address] [address] [address] Jassi Howard Triglyceride [Mass/Vol] 257 mg/dL Critically high <=150 [facility] Comment on above: Performed By: #### C MP, LIPID #### [facility] [address] [address] [address] Jassi Howard VLDL CALC 51.4 mg/dL Normal [facility] Comment on above: Performed By: #### C MP, LIPID #### [facility] [address] [place] [address] Dr. Jassi Howard PROF 14(COMP METB)on 023 Albumin [Mass/Vol] 3.6 g/dL Normal 3.4-5.0 [facility] Comment on above: Performed By: #### C MP, LIPID #### [facility] [address] [place] [address] Dr. Jassi Howard Albumin/Globulin [Mass ratio] 1.1 {ratio} Normal [facility] Comment on above: Performed By: #### C MP, LIPID #### [facility] [address] [place] [address] Dr. Jassi Howard ALP [Catalytic activity/Vol] 93 U/L Normal 46-116 [facility] Comment on above: Performed By: #### C MP, LIPID #### [facility] [address] [place] [address] Dr. Jassi Howard ALT [Catalytic activity/Vol] 14 U/L Normal 14-59 [facility] Comment on above: Performed By: #### C MP, LIPID #### [facility] [address] [place] [address] Dr. Jassi Howard Anion gap [Moles/Vol] 15.2 mmol/L Normal [facility] Comment on above: Performed By: #### C MP, LIPID #### [facility] [address] [place] [address] Dr. Jassi Howard AST [Catalytic activity/Vol] 10 U/L Critically low 15-37 [facility] Comment on above: Performed By: #### C MP, LIPID #### [facility] [address] [place] [address] Dr. Jassi Howard Bilirubin [Mass/Vol] 0.5 mg/dL Normal 0.2-1.0 [facility] Comment on above: Performed By: #### C MP, LIPID #### [facility] [address] [place] [address] Dr. Jassi Howard Calcium [Mass/Vol] 9.2 mg/dL Normal 8.5-10.1 [facility] Comment on above: Performed By: #### C MP, LIPID #### [facility] [address] [place] [address] Dr. Jassi Howard Chloride [Moles/Vol] 106 mmol/L Normal 98-107 [facility] Comment on above: Performed By: #### C MP, LIPID #### [facility] [address] [place] [address] Dr. Jassi Howard CO2 [Moles/Vol] 25.2 mmol/L Normal 21.0-32.0 [facility] Comment on above: Performed By: #### C MP, LIPID #### [facility] [address] [place] [address] Dr. aJssi Howard Creatinine [Mass/Vol] 1.36 mg/dL Critically high 0.55-1.02 [facility] Comment on above: Performed By: #### C MP, LIPID #### [facility] [address] [place] [address] Dr. Jassi Howard EGFR-AF SLOVENIAN 47 mL/min/1.73m2 Critically low >=60 [facility] Comment on above: Performed By: #### C MP, LIPID #### [facility] [address] [place] [address] Dr. Jassi Howard EGFR-NON AF SLOVENIAN 38 mL/min/1.73m2 Critically low >=60 [facility] Comment on above: Performed By: #### C MP, LIPID #### [facility] [address] [place] [address] Dr. Jassi Howard Globulin (S) [Mass/Vol] 3.3 g/dL Normal [facility] Comment on above: Performed By: #### C MP, LIPID #### [facility] [address] [place] [address] Dr. Jassi Howard Glucose [Mass/Vol] 162 mg/dL Critically high 74-106 [facility] Comment on above: Performed By: #### C MP, LIPID #### [facility] [address] [place] [address] Dr. Jassi Howard Potassium [Moles/Vol] 4.4 mmol/L Normal 3.5-5.1 [facility] Comment on above: Performed By: #### C MP, LIPID #### [facility] [address] [address] [address] Jassi Howard Protein [Mass/Vol] 6.9 g/dL Normal 6.4-8.2 [facility] Comment on above: Performed By: #### C MP, LIPID #### [facility] [address] [address] [address] Jassi Howard Sodium [Moles/Vol] 142 mmol/L Normal 136-145 [facility] Comment on above: Performed By: #### C MP, LIPID #### [facility] [address] [address] [address] Jassi Howard Urea nitrogen [Mass/Vol] 27.0 mg/dL Critically high 7.0-18.0 [facility] Comment on above: Performed By: #### C MP, LIPID #### [facility] [address] [address] [address] Jassi Howard Urea nitrogen/Creatinine [Mass ratio] 19.9 mg/mg Normal [facility] Comment on above: Performed By: #### C MP, LIPID #### [facility] [address] [place] [address] Dr. Jassi Howard MRI Knee w/o Righton [...] by Terry Sims on 12/05/[address] [facility] [employer] CBC AUTO DIFFon 02-26-2022 BASO # 0.1 103/ul Normal 0.0-0.1 [facility] Comment on above: Performed By: #### C BC #### [facility] [address] [place] [address] Dr. Jassi Howard Basophils/100 WBC (Bld) 0.9 % Normal 0.2-2.0 [facility] Comment on above: Performed By: #### C BC #### [facility] [address] [place] [address] Dr. Jassi Howard EO # 0.4 103/ul Normal 0.0-0.7 [facility] Comment on above: Performed By: #### C BC #### [facility] [address] [place] [address] Dr. Jassi Howard Eosinophils/100 WBC (Bld) 6.4 % Normal 0.9-7.0 [facility] Comment on above: Performed By: #### C BC #### [facility] [address] [place] [address] Dr. Jassi Howard Erythrocyte distribution width (RBC) [Ratio] 12.8 % Normal 11.0-15.0 [facility] Comment on above: Performed By: #### C BC #### [facility] [address] [place] [address] Dr. Jassi Howard Hematocrit (Bld) [Volume fraction] 38.8 % Normal 36.0-48.0 [facility] Comment on above: Performed By: #### C BC #### [facility] [address] [place] [address] Dr. Jassi Howard Hemoglobin (Bld) [Mass/Vol] 12.3 g/dL Normal 12.0-16.0 [facility] Comment on above: Performed By: #### C BC #### [facility] [address] [place] [address] Dr. Jassi Howard IG # 0.03 10e3/ul Normal 0.00-0.03 [facility] Comment on above: Performed By: #### C BC #### [facility] [address] [place] [address] Dr. Jassi Howard IG % 0.4 % Normal 0.0-0.5 [facility] Comment on above: Performed By: #### C BC #### [facility] [address] [place] [address] Dr. Jassi Howard LYMPH # 1.8 103/ul Normal 1.2-3.8 [facility] Comment on above: Performed By: #### C BC #### [facility] [address] [place] [address] Dr. Jassi Howard Lymphocytes/100 WBC (Bld) 26.2 % Normal 20.5-60.0 [facility] Comment on above: Performed By: #### C BC #### [facility] [address] [place] [address] Dr. Jassi Howard MANUAL DIFF REQ NO Normal [facility] Comment on above: Performed By: #### C BC #### [facility] [address] [place] [address] Dr. Jassi Howard MCH (RBC) [Entitic mass] 28.6 pg Normal 26.7-34.0 [facility] Comment on above: Performed By: #### C BC #### [facility] [address] [place] [address] Dr. Jassi Howard MCHC (RBC) [Mass/Vol] 31.7 g/dL Normal 29.9-35.2 [facility] Comment on above: Performed By: #### C BC #### [facility] [address] [address] [address] Jassi Howard MCV (RBC) [Entitic vol] 90.2 fL Normal 81.0-99.0 [facility] Comment on above: Performed By: #### C BC #### [facility] [address] [address] [address] Jassi Howard MONO # 0.6 103/ul Normal 0.3-0.8 [facility] Comment on above: Performed By: #### C BC #### [facility] [address] [address] [address] Jassi Howard Monocytes/100 WBC (Bld) 9.0 % Normal 1.7-12.0 [facility] Comment on above: Performed By: #### C BC #### [facility] [address] [place] [address] Dr. Jassi Howard NEUT # 4.0 103/ul Normal 1.4-6.5 [facility] Comment on above: Performed By: #### C BC #### [facility] [address] [place] [address] Dr. Jassi Howard Neutrophils/100 WBC (Bld) 57.1 % Normal 43.0-75.0 [facility] Comment on above: Performed By: #### C BC #### [facility] [address] [address] [address] Jassi Howard Platelet mean volume (Bld) [Entitic vol] 10.3 fL Normal 9.5-13.5 [facility] Comment on above: Performed By: #### C BC #### [facility] [address] [address] [address] Jassi Howard PLT 372 103/ul Normal 150-450 [facility] Comment on above: Performed By: #### C BC #### [facility] [address] [address] [address] Jassi Howard RBC 4.30 106/ul Normal 4.20-5.40 [facility] Comment on above: Performed By: #### C BC #### [facility] [address] [address] [address] Jassi Howard WBC 6.9 103/ul Normal 4.0-11.0 [facility] Comment on above: Performed By: #### C BC #### [facility] [address] [address] [address] Jassi Howard GLYCOHEMOGLOBIN A1Con 2021 ADA RECOMMENDATION SEE BELOW Normal [facility] Comment on above: Result Comment: ADA RECOMMENDED LIMIT 4.0 - 6.0 ADA THERAPEUTIC TARGET < 7.0 ACTION SUGGESTED > 7.0 Performed By: #### A 1C #### [facility] [address] [address] [address] Jassi Howard Glucose [Mass/Vol] 186 mg/dL Normal [facility] Comment on above: Performed By: #### A 1C #### [facility] [address] [place] [address] Dr. Jassi Howard HbA1c (Bld) [Mass fraction] 8.1 % Critically high 4.5-6.2 [facility] Comment on above: Performed By: #### A 1C #### [facility] [address] [address] [address] Jassi Howard LIPID PROFILEon 02-26-2022 CHOL-HDL RATIO NORM SEE BELOW Normal [facility] Comment on above: Result Comment: 3.3 - 4.4 LOW RISK 4.4 - 7.1 AVERAGE RISK 7.1 - 11.0 MODERATE RISK >11.0 HIGH RISK Performed By: #### L IPID, CMP #### [facility] [address] [place] [address] Dr. Jassi Howard Cholesterol [Mass/Vol] 136 mg/dL Normal <=200 [facility] Comment on above: Performed By: #### L IPID, CMP #### [facility] [address] [place] [address] Dr. Jassi Howard Cholesterol in HDL [Mass/Vol] 47 mg/dL Normal 40-60 [facility] Comment on above: Performed By: #### L IPID, CMP #### [facility] [address] [address] [address] Jassi Howard Cholesterol in LDL [Mass/Vol] 45.0 mg/dL Normal [facility] Comment on above: Performed By: #### L IPID, CMP #### [facility] [address] [place] [address] Dr. Jassi Howard Cholesterol.total/Ch olesterol in HDL [Mass ratio] 2.9 {ratio} Normal [facility] Comment on above: Performed By: #### L IPID, CMP #### [facility] [address] [address] [address] Jassi Howard HDL NORMAL > or = 60 mg/dl - LO W CARDIOVASCULAR RISK <40 mg/dl - HIGH CARDIOVASCULAR RISK Normal [facility] Comment on above: Performed By: #### L IPID, CMP #### [facility] [address] [place] [address] Dr. Jassi Howard LDL CALC NORMAL SEE BELOW Normal [facility] Comment on above: Result Comment: <100 mg/dl OPTIMAL 100 - 129 mg/dl NEAR OR ABOVE OPTIMAL 130 - 159 mg/dl BORDERLINE HIGH 160 - 189 mg/dl HIGH >190 mg/dl VERY HIGH Performed By: #### L IPID, CMP #### [facility] [address] [place] [address] Dr. Jassi Howard Triglyceride [Mass/Vol] 220 mg/dL Critically high <=150 [facility] Comment on above: Performed By: #### L IPID, CMP #### [facility] [address] [address] [address] Jassi Howard VLDL CALC 44.0 mg/dL Normal [facility] Comment on above: Performed By: #### L IPID, CMP #### [facility] [address] [address] [address] Jassi Howard MICROALBUMIN, RAND URon 05- mALB 6.5 mg/L Normal <=30.0 [facility] Comment on above: Performed By: #### M ALBR #### [facility] [address] [place] [address] Dr. Jassi Howard PROF 14(COMP METB)on 022 Albumin [Mass/Vol] 3.7 g/dL Normal 3.4-5.0 [facility] Comment on above: Performed By: #### L IPID, CMP #### [facility] [address] [address] [address] Jassi Hoawrd Albumin/Globulin [Mass ratio] 0.9 {ratio} Normal [facility] Comment on above: Performed By: #### L IPID, CMP #### [facility] [address] [address] [address] Jassi Howard ALP [Catalytic activity/Vol] 115 U/L Normal 46-116 [facility] Comment on above: Performed By: #### L IPID, CMP #### [facility] [address] [address] [address] Jassi Howard ALT [Catalytic activity/Vol] 17 U/L Normal 14-59 [facility] Comment on above: Performed By: #### L IPID, CMP #### [facility] [address] [address] [address] Jassi Howard Anion gap [Moles/Vol] 13.2 mmol/L Normal [facility] Comment on above: Performed By: #### L IPID, CMP #### [facility] [address] [address] [address] Jassi Howard AST [Catalytic activity/Vol] 12 U/L Critically low 15-37 [facility] Comment on above: Performed By: #### L IPID, CMP #### [facility] [address] [address] [address] Jassi Howard Bilirubin [Mass/Vol] 0.6 mg/dL Normal 0.2-1.0 [facility] Comment on above: Performed By: #### L IPID, CMP #### [facility] [address] [address] [address] Jassi Howard Calcium [Mass/Vol] 9.4 mg/dL Normal 8.5-10.1 [facility] Comment on above: Performed By: #### L IPID, CMP #### [facility] [address] [address] [address] Jassi Howard Chloride [Moles/Vol] 101 mmol/L Normal 98-107 [facility] Comment on above: Performed By: #### L IPID, CMP #### [facility] [address] [place] [address] Dr. Jassi Howard CO2 [Moles/Vol] 27.2 mmol/L Normal 21.0-32.0 [facility] Comment on above: Performed By: #### L IPID, CMP #### [facility] [address] [place] [address] Dr. Jassi Howard Creatinine [Mass/Vol] 1.47 mg/dL Critically high 0.55-1.02 [facility] Comment on above: Performed By: #### L IPID, CMP #### [facility] [address] [place] [address] Dr. Jassi Howard EGFR-AF SLOVENIAN 43 mL/min/1.73m2 Critically low >=60 [facility] Comment on above: Performed By: #### L IPID, CMP #### [facility] [address] [place] [address] Dr. Jassi Howard EGFR-NON AF SLOVENIAN 35 mL/min/1.73m2 Critically low >=60 [facility] Comment on above: Performed By: #### L IPID, CMP #### [facility] [address] [place] [address] Dr. Jassi Howard Globulin (S) [Mass/Vol] 3.9 g/dL Normal [facility] Comment on above: Performed By: #### L IPID, CMP #### [facility] [address] [place] [address] Dr. Jassi Howard Glucose [Mass/Vol] 178 mg/dL Critically high 74-106 [facility] Comment on above: Performed By: #### L IPID, CMP #### [facility] [address] [place] [address] Dr. Jassi Howard Potassium [Moles/Vol] 4.4 mmol/L Normal 3.5-5.1 [facility] Comment on above: Performed By: #### L IPID, CMP #### [facility] [address] [address] [address] Jassi Howard Protein [Mass/Vol] 7.6 g/dL Normal 6.4-8.2 [facility] Comment on above: Performed By: #### L IPID, CMP #### [facility] [address] [address] [address] Jassi Howard Sodium [Moles/Vol] 137 mmol/L Normal 136-145 [facility] Comment on above: Performed By: #### L IPID, CMP #### [facility] [address] [address] [address] Jassi Howard Urea nitrogen [Mass/Vol] 26.0 mg/dL Critically high 7.0-18.0 [facility] Comment on above: Performed By: #### L IPID, CMP #### [facility] [address] [address] [address] Jassi Howard Urea nitrogen/Creatinine [Mass ratio] 17.7 mg/mg Normal [facility] Comment on above: Performed By: #### L IPID, CMP #### [facility] [address] [address] [address] Jassi Howard Cardiovascular Lab Reporton 02-12-2020 Cardiovascular Lab Report [facility] Patient Name: Gabbi Austin [facility] MR #: [id number] Physician: Ra Tariq Abd Department of MD [facility] Medicine Service Date: 02/12/2020 Division of Birthdate: 1950 Cardiology Room #: Adult Cardiovascular Services [place] [address] Cardiovascular Laboratory Report CYCLE MANAGER: Anthony Chambers MD, mold presser. INDICATION: This is a 69-year-old female with past medical history of diabetes and dyslipidemia, who presented recently to [facility] with complaints of shortness of breath [...] The patient was also notified that a fire boat engineer will be assisting during the course of [...] the 0.035 exchange wire and we put 6-Rwandan x 11 cm Glidesheath into the right [...] was followed by using JL4 and JR4 5-Rwandan catheters and we performed selective bilateral coronary [...] P/Ra Fine MD Date Trans: 02/12/2020 06:06 P/mmo [id number] Normal [facility] Cardiovascular Lab Report [facility] [id number] Physician: Emir Cao, Department of M.D. Medicine Service Date: 02/12/2020 Division of Birthdate: 1950 Cardiology Room #: [facility] Cardiovascular Services [place] [address] Cardiovascular Laboratory Report CLINICAL PRESENTATION: The patient is a 69-year-old female with past medical history significant for type 2 diabetes mellitus and recently diagnosed acute systolic congestive heart failure with EF of 25%. She was recently hospitalized at the [facility]. She now returns for cardiac catheterization. [...] drug-eluting stent, which was post-dilated with an Sonatype Quantum Schlater 3.0 x 8 mm noncompliant balloon. PLAN: [...] maintained greater than 200 seconds. A Cordis 5-Rwandan XB 3.0 LAD was engaged to the [...] Next, the stent was postdilated with an Sonatype Quantum Schlater 3.0 x 8 mm noncompliant balloon at [...] P Emir Cao M.D. Date Dict: 02/12/2020/11:34 Alpa/Emir Cao M.D. Date Trans: 02/12/2020 12:40 P/kelsey [id number] cc: Ra Fine MD [address] 1118 [facility] [address] Lauren Ayoub M.D. [address] [place] [address] Normal [facility] *SARS-CoV-2 COVID-19on 02-06 [id number] Not Detected Normal Not Detected [facility] Comment on above: Order Comment: No: D o not add to previous draw Performed By: #### 5 0608 #### [facility] [address] [place] [address], [place] BASIC METABOLIC PANELon 01-10 Calcium [Mass/Vol] 9.7 mg/dL Normal 8.6-10.3 [facility] Comment on above: Order Comment: No: D o not add to previous draw Performed By: #### 3 1347, 74725 #### [facility] [address] [place] [address], [place] Chloride [Moles/Vol] 95 mmol/L Low 98-107 [facility] Comment on above: Order Comment: No: D o not add to previous draw Performed By: #### 3 664, 09135 #### [facility] [address] [place] [address], [place] CO2 [Moles/Vol] 27 mmol/L Normal 21-31 [facility] Comment on above: Order Comment: No: D o not add to previous draw Performed By: #### 3 775, 50088 #### [facility] [address] [place] [address], [place] Creatinine [Mass/Vol] 0.91 mg/dL Normal 0.60-1.20 [facility] Comment on above: Order Comment: No: D o not add to previous draw Performed By: #### 3 5199, 01813 #### [facility] [address] [place] [address], [place] GFR/1.73 sq M predicted among blacks MDRD (S/P/Bld) [Vol rate/Area] mL/min/{1.73_m2} Normal >60 [facility] Comment on above: Order Comment: No: D o not add to previous draw Performed By: #### 3 5199, 51333 #### [facility] [address] [place] [address], [place] GFR/1.73 sq M predicted among non-blacks MDRD (S/P/Bld) [Vol rate/Area] mL/min/{1.73_m2} Normal >60 [facility] Comment on above: Order Comment: No: D o not add to previous draw Performed By: #### 3 5199, 02998 #### [facility] [address] [place] [address], [place] Glucose [Mass/Vol] 220 mg/dL High 70-100 [facility] Comment on above: Order Comment: No: D o not add to previous draw Performed By: #### 3 5199, 89819 #### [facility] [address] [place] [address], [place] Potassium [Moles/Vol] 3.9 mmol/L Normal 3.5-5.1 [facility] Comment on above: Order Comment: No: D o not add to previous draw Performed By: #### 3 5199, 31897 #### [facility] [address] [place] [address], [place] Sodium [Moles/Vol] 133 mmol/L Low 136-145 [facility] Comment on above: Order Comment: No: D o not add to previous draw Performed By: #### 3 5199, 61309 #### [facility] [address] Urea nitrogen [Mass/Vol] 29 mg/dL High 7-25 [facility] Comment on above: Order Comment: No: D o not add to previous draw Performed By: #### 3 5199, 92236 #### [facility] [address] [facility] CBC COMPLETE BLOOD COUNTon - Erythrocyte distribution width (RBC) [Ratio] 16.5 % High 11.5-15.0 [facility] Comment on above: Order Comment: No: D o not add to previous draw Performed By: #### 3 5199, 39284 #### [facility] [address] Hematocrit (Bld) [Volume fraction] 35.5 % Low 36.0-45.0 [facility] Comment on above: Order Comment: No: D o not add to previous draw Performed By: #### 3 5199, 09469 #### [facility] [address] Hemoglobin (Bld) [Mass/Vol] 10.3 g/dL Low 12.0-15.0 [facility] Comment on above: Order Comment: No: D o not add to previous draw Performed By: #### 3 5199, 37838 #### [facility] [address] [facility] [place] [address], [facility] MCH (RBC) [Entitic mass] 20.5 pg Low 27.0-33.0 [facility] Comment on above: Order Comment: No: D o not add to previous draw Performed By: #### 3 5199, 88427 #### [facility] [address] [facility] [place] [address], [facility] MCHC (RBC) [Mass/Vol] 29.0 g/dL Low 32.0-35.0 [facility] Comment on above: Order Comment: No: D o not add to previous draw Performed By: #### 3 5199, 36671 #### [facility] [address] [place] [id number], [facility] MCV (RBC) [Entitic vol] 70.6 fL Low 82.0-98.0 [facility] Comment on above: Order Comment: No: D o not add to previous draw Performed By: #### 3 5199, 84426 #### [facility] [address] [place] [id number], [facility] Nucleated RBC/100 WBC (Bld) [Ratio] 0 % Normal 0-0 [facility] Comment on above: Order Comment: No: D o not add to previous draw Performed By: #### 3 5199, 16516 #### [facility] [address] [facility] [place] [address], [facility] PLAT CNT 564 10*3/uL High 150-400 [facility] Comment on above: Order Comment: No: D o not add to previous draw Performed By: #### 3 5199, 96789 #### [facility] [address] [facility] [place] [address], [facility] RBC (Bld) [#/Vol] 5.03 10*6/uL High 3.80-5.00 [facility] Comment on above: Order Comment: No: D o not add to previous draw Performed By: #### 3 5199, 76484 #### [facility] [address] [facility] [place] [address], [facility] WBC (Bld) [#/Vol] 16.42 10*3/uL High 4.00-10.60 [facility] Comment on above: Order Comment: No: D o not add to previous draw Performed By: #### 3 5199, 45410 #### [facility] [address] [place] [id number], [facility] MAGNESIUM BLOODon 02-07-2020 Magnesium [Mass/Vol] 1.8 mg/dL Low 1.9-2.7 [facility] Comment on above: Performed By: #### 5 0608 #### [facility] [address] [place] [address], [facility] PROCALCITONINon 02-07-2020 PROCALCITONIN 0.14 ng/mL High 0.00-0.10 [facility] Comment on above: Order [...] PCT<0.5ng/mL Performed By: #### 5 0608 #### [facility] [address] [place] [address], [facility] PROTHROMBIN TIMEon 0 INR Coag (PPP) [Relative time] 1.01 {INR} Normal 0.91-1.16 [facility] Comment on above: Order Comment: No: [...] 1995;108:[id number]-246S. Performed By: #### 5 0608 #### [facility] [address] PT Coag (PPP) [Time] 13.3 s Normal 12.3-14.8 [facility] Comment on above: Order Comment: No: D o not add to previous draw Result Comment: ALL RESULTS MUST BE INTERPRETED WITH RESPECT TO BLOOD DRAWING ARTIFACT OR DILUTION ERROR OF ANTICOAGULANT AT THE TIME OF SAMPLING. Performed By: #### 5 0608 #### [facility] [address] UFH HEPARIN ASSAYon 02-07-20 20 UNFRACTIONATED HEPARIN >1.00 Critically high 0.30-0.70 [facility] Comment on above: Result Comment: [place] roxaban and Apixaban will interfere with the anti Xa assay used to monitor UFH and LMWH. Results called. Accurately read back by Sangeetha Villareal RN at 1026 Performed By: #### 5 0608 #### [facility] [address] APTTon 02-06-2020 aPTT Coag (Bld) [Time] 66.0 s High 25.0-35.0 [facility] Comment on above: Order Comment: No: [...] OF HEPARIN. Performed By: #### 3 5199, 25763 #### [facility] [address] [place] [address], [facility] BASIC METABOLIC PANELon 04- Calcium [Mass/Vol] 9.3 mg/dL Normal 8.6-10.3 [facility] Comment on above: Order Comment: No: D o not add to previous draw Performed By: #### 3 5199, 55826 #### [facility] [address] [place] [address], [facility] Chloride [Moles/Vol] 94 mmol/L Low 98-107 [facility] Comment on above: Order Comment: No: D o not add to previous draw Performed By: #### 3 5199, 42788 #### [facility] [address] [place] [address], [place] CO2 [Moles/Vol] 27 mmol/L Normal 21-31 [facility] Comment on above: Order Comment: No: D o not add to previous draw Performed By: #### 3 5199, 22234 #### [facility] [address] [place] [address], [place] Creatinine [Mass/Vol] 0.89 mg/dL Normal 0.60-1.20 [facility] Comment on above: Order Comment: No: D o not add to previous draw Performed By: #### 3 5199, 87180 #### [facility] [address] [place] [address], [place] GFR/1.73 sq M predicted among blacks MDRD (S/P/Bld) [Vol rate/Area] mL/min/{1.73_m2} Normal >60 [facility] Comment on above: Order Comment: No: D o not add to previous draw Performed By: #### 3 5199, 68353 #### [facility] [address] [place] [address], [place] GFR/1.73 sq M predicted among non-blacks MDRD (S/P/Bld) [Vol rate/Area] mL/min/{1.73_m2} Normal >60 [facility] Comment on above: Order Comment: No: D o not add to previous draw Performed By: #### 3 5199, 12612 #### [facility] [address] [place] [address], [place] Glucose [Mass/Vol] 191 mg/dL High 70-100 [facility] Comment on above: Order Comment: No: D o not add to previous draw Performed By: #### 3 5199, 89130 #### [facility] [address] [place] [address], [place] Potassium [Moles/Vol] 3.6 mmol/L Normal 3.5-5.1 [facility] Comment on above: Order Comment: No: D o not add to previous draw Performed By: #### 3 5199, 08714 #### [facility] [address] [place] [address], [place] Sodium [Moles/Vol] 132 mmol/L Low 136-145 [facility] Comment on above: Order Comment: No: D o not add to previous draw Performed By: #### 3 5199, 31289 #### [facility] [address] [place] [address], [place] Urea nitrogen [Mass/Vol] 25 mg/dL Normal 7-25 [facility] Comment on above: Order Comment: No: D o not add to previous draw Performed By: #### 3 5199, 36125 #### [facility] [address] [facility] [place] [address], [facility] CBC W/DIFFon 02-06-2020 ABS BASOPHILS 0.1 10*3/uL Normal 0.0-0.2 The [facility] Comment on above: Order Comment: No: D o not add to previous draw Performed By: #### 3 5199, 67031 #### [facility] [address] [facility] [place] [address], [facility] ABS IMM GRANS 0.2 10*3/uL Normal 0.0-0.2 [facility] Comment on above: Order Comment: No: D o not add to previous draw Performed By: #### 3 5199, 69327 #### [facility] [address] [facility] [place] [address], [facility] ABS NEUTROPHILS 8.9 10*3/uL High 1.6-7.6 The [facility] Comment on above: Order Comment: No: D o not add to previous draw Performed By: #### 3 5199, 24127 #### [facility] [address] [facility] [place] [address], [facility] [facility] Basophils/100 WBC (Bld) 0.8 % Normal 0.0-1.0 [facility] Comment on above: Order Comment: No: D o not add to previous draw Performed By: #### 3 5199, 73883 #### [facility] [address] [facility] [place] [address], [facility] Eosinophils (Bld) [#/Vol] 0.4 10*3/uL Normal 0.0-0.5 [facility] Comment on above: Order Comment: No: D o not add to previous draw Performed By: #### 3 5199, 74205 #### [facility] [address] [facility] [place] [address], [facility] Eosinophils/100 WBC (Bld) 2.6 % Normal 0.0-6.0 [facility] Comment on above: Order Comment: No: D o not add to previous draw Performed By: #### 3 5199, 62720 #### [facility] [address] [place] [address], [facility] Erythrocyte distribution width (RBC) [Ratio] 16.3 % High 11.5-15.0 [facility] Comment on above: Order Comment: No: D o not add to previous draw Performed By: #### 3 5199, 75297 #### [facility] [address] [place] [address], [facility] Hematocrit (Bld) [Volume fraction] 32.8 % Low 36.0-45.0 [facility] Comment on above: Order Comment: No: D o not add to previous draw Performed By: #### 3 5199, #### [facility] [address] [place] [address], [facility] Hemoglobin (Bld) [Mass/Vol] 9.6 g/dL Low 12.0-15.0 [facility] Comment on above: Order Comment: No: D o not add to previous draw Performed By: #### 3 5199, 83421 #### [facility] [address] [facility] [place] [address], [facility] IMMATURE GRANS 1.1 % High 0.0-1.0 The [facility] Comment on above: Order Comment: No: D o not add to previous draw Performed By: #### 3 5199, 95760 #### [facility] [address] [place] [address], [facility] Lymphocytes (Bld) [#/Vol] 3.3 10*3/uL Normal 1.2-4.0 [facility] Comment on above: Order Comment: No: D o not add to previous draw Performed By: #### 3 5199, 31485 #### [facility] [address] [place] [id number], [facility] Lymphocytes/100 WBC (Bld) 23.2 % Normal 20.0-45.0 [facility] Comment on above: Order Comment: No: D o not add to previous draw Performed By: #### 3 5199, 91642 #### [facility] [address] [place] [address], [facility] MCH (RBC) [Entitic mass] 20.6 pg Low 27.0-33.0 [facility] Comment on above: Order Comment: No: D o not add to previous draw Performed By: #### 3 5199, 11154 #### [facility] [address] [place] [address], [facility] MCHC (RBC) [Mass/Vol] 29.3 g/dL Low 32.0-35.0 [facility] Comment on above: Order Comment: No: D o not add to previous draw Performed By: #### 3 5199, 17022 #### [facility] [address] [facility] [place] [address], [facility] MCV (RBC) [Entitic vol] 70.4 fL Low 82.0-98.0 [facility] Comment on above: Order Comment: No: D o not add to previous draw Performed By: #### 3 5199, 53674 #### [facility] [address] [facility] [place] [address], [facility] Monocytes (Bld) [#/Vol] 1.4 10*3/uL High 0.1-1.0 [facility] Comment on above: Order Comment: No: D o not add to previous draw Performed By: #### 3 5199, 26362 #### [facility] [address] [facility] [place] [id number], [facility] MONOS 9.7 % Normal 5.0-12.0 [facility] Comment on above: Order Comment: No: D o not add to previous draw Performed By: #### 3 5199, 54646 #### [facility] [address] [place] [address], [facility] Neutrophils/100 WBC (Bld) 62.6 % Normal 40.0-72.0 [facility] Comment on above: Order Comment: No: D o not add to previous draw Performed By: #### 3 5199, 25788 #### [facility] [address] [facility] [place] [address], [facility] Nucleated RBC/100 WBC (Bld) [Ratio] 0 % Normal 0-0 [facility] Comment on above: Order Comment: No: D o not add to previous draw Performed By: #### 3 5199, 11559 #### [facility] [address] [facility] [place] [address], [facility] PLAT CNT 486 10*3/uL High 150-400 The [facility] Comment on above: Order Comment: No: D o not add to previous draw Performed By: #### 3 5199, 70808 #### [facility] [address] [place] [address], [facility] RBC (Bld) [#/Vol] 4.66 10*6/uL Normal 3.80-5.00 [facility] Comment on above: Order Comment: No: D o not add to previous draw Performed By: #### 3 5199, 77909 #### [facility] [address] [facility] [place] [address], [facility] WBC (Bld) [#/Vol] 14.19 10*3/uL High 4.00-10.60 [facility] Comment on above: Order Comment: No: D o not add to previous draw Performed By: #### 3 5199, 11454 #### [facility] [address] [place] [address], [facility] PORTABLE CHEST 1 VIEWon 01-10 PORTABLE CHEST 1 VIEW [facility] Department of Radiology [address] [place] [id number] Patient Name: GABBI AUSTIN : 1950 Sex: F Age: Race: White Pt. Location: [id number] Patient Status: I Ordered Date: 02/06/2020 9:55:00 [...] pneumonia. Electronically signed: Alie Soriano. Transcribed by: [email or web address], User Resident: Electronically Signed by: ALIE SORIANO @ 02/06/2020 02:27 PM Normal [facility] Comment on above: Order Comment: No: D o not add to previous draw PROTHROMBIN TIMEon 0 INR Coag (PPP) [Relative time] 0.98 {INR} Normal 0.91-1.16 [facility] Comment on above: Order Comment: No: D o not add to previous draw Result Comment: ACC P RECOMMENDED INR FOR WARFARIN THERAPY ------- [...] RANGE. CHEST 1995;108:[id number]. Performed By: #### 3 1830, 84437 #### [facility] [address] PT Coag (PPP) [Time] 13.0 s Normal 12.3-14.8 [facility] Comment on above: Order Comment: No: D o not add to previous draw Result Comment: ALL RESULTS MUST BE INTERPRETED WITH RESPECT TO BLOOD DRAWING ARTIFACT OR DILUTION ERROR OF ANTICOAGULANT AT THE TIME OF SAMPLING. Performed By: #### 3 5530, 75973 #### [facility] [address] UFH HEPARIN ASSAYon 02-06-20 20 UNFRACTIONATED HEPARIN 0.84 IU/mL High 0.30-0.70 [facility] Comment on above: Order Comment: No: D o not add to previous draw Result Comment: Malena roxaban and Apixaban will interfere with the anti Xa assay used to monitor UFH and LMWH. Performed By: #### 3 3830, 24461 #### [facility] [address] UNFRACTIONATED HEPARIN 0.70 IU/mL Normal 0.30-0.70 [facility] Comment on above: Result Comment: Malena roxaban and Apixaban will interfere with the anti Xa assay used to monitor UFH and LMWH. Performed By: #### 3 5199, 86942 #### [facility] [address] [place] [id number], [facility] UNFRACTIONATED HEPARIN 0.25 IU/mL Low 0.30-0.70 [facility] Comment on above: Order Comment: No: D o not add to previous draw Result Comment: [place] roxaban and Apixaban will interfere with the anti Xa assay used to monitor UFH and LMWH. Performed By: #### 3 5199, 08256 #### [facility] [address] [place] [address], [facility] BASIC METABOLIC PANELon 04-2 Calcium [Mass/Vol] 9.5 mg/dL Normal 8.6-10.3 [facility] Comment on above: Order Comment: No: D o not add to previous draw Performed By: #### 3 5199, 35825 #### [facility] [address] [place] [address], [facility] Chloride [Moles/Vol] 95 mmol/L Low 98-107 [facility] Comment on above: Order Comment: No: D o not add to previous draw Performed By: #### 3 5199, 58244 #### [facility] [address] [place] [address], [place] CO2 [Moles/Vol] 27 mmol/L Normal 21-31 The [facility] Comment on above: Order Comment: No: D o not add to previous draw Performed By: #### 3 5199, 55226 #### [facility] [address] [place] [address], [place] Creatinine [Mass/Vol] 0.96 mg/dL Normal 0.60-1.20 [facility] Comment on above: Order Comment: No: D o not add to previous draw Performed By: #### 3 5199, 68224 #### [facility] [address] [place] [address], [place] GFR/1.73 sq M predicted among blacks MDRD (S/P/Bld) [Vol rate/Area] mL/min/{1.73_m2} Normal >60 [facility] Comment on above: Order Comment: No: D o not add to previous draw Performed By: #### 3 5199, 41382 #### [facility] [address] [place] [address], [place] GFR/1.73 sq M predicted among non-blacks MDRD (S/P/Bld) [Vol rate/Area] 58 ml/min/1.73sq m Abnormal >60 [facility] Comment on above: Order Comment: No: D o not add to previous draw Performed By: #### 3 5199, 77912 #### [facility] [address] [place] [address], [place] Glucose [Mass/Vol] 176 mg/dL High 70-100 [facility] Comment on above: Order Comment: No: D o not add to previous draw Performed By: #### 3 5199, 51632 #### [facility] [address] [place] [address], [place] Potassium [Moles/Vol] 3.8 mmol/L Normal 3.5-5.1 [facility] Comment on above: Order Comment: No: D o not add to previous draw Performed By: #### 3 5199, 96443 #### [facility] [address] [place] [address], [place] Sodium [Moles/Vol] 133 mmol/L Low 136-145 [facility] Comment on above: Order Comment: No: D o not add to previous draw Performed By: #### 3 5199, 56294 #### [facility] [address] [place] [address], [place] Urea nitrogen [Mass/Vol] 26 mg/dL High 7-25 [facility] Comment on above: Order Comment: No: D o not add to previous draw Performed By: #### 3 5199, 68544 #### [facility] [address] [facility] [place] [address], [facility] CBC W/DIFFon 02-05-2020 ABS BASOPHILS 0.1 10*3/uL Normal 0.0-0.2 The [facility] Comment on above: Order Comment: No: D o not add to previous draw Performed By: #### 3 5199, 98315 #### [facility] [address] [facility] [place] [address], [facility] ABS IMM GRANS 0.1 10*3/uL Normal 0.0-0.2 [facility] Comment on above: Order Comment: No: D o not add to previous draw Performed By: #### 3 5199, 33993 #### [facility] [address] [facility] [place] [address], [facility] ABS NEUTROPHILS 9.1 10*3/uL High 1.6-7.6 The [facility] Comment on above: Order Comment: No: D o not add to previous draw Performed By: #### 3 5199, 54550 #### [facility] [address] [facility] [place] [address], [facility] Basophils/100 WBC (Bld) 0.9 % Normal 0.0-1.0 [facility] Comment on above: Order Comment: No: D o not add to previous draw Performed By: #### 3 5199, 19208 #### [facility] [address] [facility] [place] [address], [facility] Eosinophils (Bld) [#/Vol] 0.4 10*3/uL Normal 0.0-0.5 [facility] Comment on above: Order Comment: No: D o not add to previous draw Performed By: #### 3 5199, 69159 #### [facility] [address] [facility] [place] [id number], [facility] Eosinophils/100 WBC (Bld) 2.6 % Normal 0.0-6.0 [facility] Comment on above: Order Comment: No: D o not add to previous draw Performed By: #### 3 5199, 94970 #### [facility] [address] [place] [address], [facility] Erythrocyte distribution width (RBC) [Ratio] 16.1 % High 11.5-15.0 [facility] Comment on above: Order Comment: No: D o not add to previous draw Performed By: #### 3 5199, 79682 #### [facility] [address] [place] [address], [facility] Hematocrit (Bld) [Volume fraction] 31.9 % Low 36.0-45.0 [facility] Comment on above: Order Comment: No: D o not add to previous draw Performed By: #### 3 5199, 12588 #### [facility] [address] [place] [address], [facility] Hemoglobin (Bld) [Mass/Vol] 9.6 g/dL Low 12.0-15.0 [facility] Comment on above: Order Comment: No: D o not add to previous draw Performed By: #### 3 5199, 08319 #### [facility] [address] [place] [address], [facility] IMMATURE GRANS 0.8 % Normal 0.0-1.0 The [facility] Comment on above: Order Comment: No: D o not add to previous draw Performed By: #### 3 5199, 80268 #### [facility] [address] [place] [address], [facility] Lymphocytes (Bld) [#/Vol] 3.8 10*3/uL Normal 1.2-4.0 [facility] Comment on above: Order Comment: No: D o not add to previous draw Performed By: #### 3 5199, 82852 #### [facility] [address] [place] [address], [facility] Lymphocytes/100 WBC (Bld) 25.8 % Normal 20.0-45.0 [facility] Comment on above: Order Comment: No: D o not add to previous draw Performed By: #### 3 5199, 37553 #### [facility] [address] [facility] [place] [address], [facility] MCH (RBC) [Entitic mass] 20.9 pg Low 27.0-33.0 [facility] Comment on above: Order Comment: No: D o not add to previous draw Performed By: #### 3 5199, 99950 #### [facility] [address] [facility] [place] [address], [facility] MCHC (RBC) [Mass/Vol] 30.1 g/dL Low 32.0-35.0 [facility] Comment on above: Order Comment: No: D o not add to previous draw Performed By: #### 3 5199, 95285 #### [facility] [address] [facility] [address] MCV (RBC) [Entitic vol] 69.5 fL Low 82.0-98.0 [facility] Comment on above: Order Comment: No: D o not add to previous draw Performed By: #### 3 5199, 47247 #### [facility] [address] [facility] [place] [address], [facility] Monocytes (Bld) [#/Vol] 1.3 10*3/uL High 0.1-1.0 [facility] Comment on above: Order Comment: No: D o not add to previous draw Performed By: #### 3 5199, 35975 #### [facility] [address] [facility] [place] [address], [facility] MONOS 8.5 % Normal 5.0-12.0 [facility] Comment on above: Order Comment: No: D o not add to previous draw Performed By: #### 3 5199, 05076 #### [facility] [address] [facility] [place] [address], [facility] Neutrophils/100 WBC (Bld) 61.4 % Normal 40.0-72.0 [facility] Comment on above: Order Comment: No: D o not add to previous draw Performed By: #### 3 5199, 06334 #### [facility] [address] [place] [id number], [facility] Nucleated RBC/100 WBC (Bld) [Ratio] 0 % Normal 0-0 [facility] Comment on above: Order Comment: No: D o not add to previous draw Performed By: #### 3 5199, 92952 #### [facility] [address] [place] [id number], [facility] PLAT CNT 528 10*3/uL High 150-400 The [facility] Comment on above: Order Comment: No: D o not add to previous draw Performed By: #### 3 5199, 06404 #### [facility] [address] [place] [address], [facility] RBC (Bld) [#/Vol] 4.59 10*6/uL Normal 3.80-5.00 [facility] Comment on above: Order Comment: No: D o not add to previous draw Performed By: #### 3 5199, 72203 #### [facility] [address] [place] [id number], [place] WBC (Bld) [#/Vol] 14.79 10*3/uL High 4.00-10.60 [facility] Comment on above: Order Comment: No: D o not add to previous draw Performed By: #### 3 5199, 40066 #### [facility] [address] [place] [address], [place] MAGNESIUM BLOODon 02-05-2020 Magnesium [Mass/Vol] 2.0 mg/dL Normal 1.9-2.7 [facility] Comment on above: Order Comment: No: D o not add to previous draw Performed By: #### 3 5199, 39358 #### [facility] [address] UFH HEPARIN ASSAYon 02-05-20 20 UNFRACTIONATED HEPARIN 0.28 IU/mL Low 0.30-0.70 [facility] Comment on above: Order Comment: No: D o not add to previous draw Result Comment: Malena roxaban and Apixaban will interfere with the anti Xa assay used to monitor UFH and LMWH. Performed By: #### 3 0, 50716 #### [facility] [address] UNFRACTIONATED HEPARIN 0.45 IU/mL Normal 0.30-0.70 [facility] Comment on above: Result Comment: Malena roxaban and Apixaban will interfere with the anti Xa assay used to monitor UFH and LMWH. Performed By: #### 3 0, 56757 #### [facility] [address] [facility] [address] *SARS-CoV-2 COVID-19on 02-03 [id number] Not Detected Normal Not Detected [facility] Comment on above: Order Comment: No: D o not add to previous draw Performed By: #### 3 0, 70652 #### [facility] [address] [facility] [address] ANAon 02-04-2020 Nuclear Ab IF (S) [Titer] <1:40 Normal <1:40,1:40 [facility] Comment on above: Order Comment: No: D o not add to previous draw Performed By: #### 3 0, 12080 #### [facility] [address] BASIC METABOLIC PANELon 01-10 Calcium [Mass/Vol] 9.6 mg/dL Normal 8.6-10.3 [facility] Comment on above: Order Comment: No: D o not add to previous draw Performed By: #### 1 0054 #### [facility] [address] [place] [address], [facility] Chloride [Moles/Vol] 93 mmol/L Low 98-107 [facility] Comment on above: Order Comment: No: D o not add to previous draw Performed By: #### 1 0054 #### [facility] [address] [place] [address], [place] CO2 [Moles/Vol] 28 mmol/L Normal 21-31 The [facility] Comment on above: Order Comment: No: D o not add to previous draw Performed By: #### 1 0054 #### [facility] [address] [place] [address], [facility] Creatinine [Mass/Vol] 1.00 mg/dL Normal 0.60-1.20 [facility] Comment on above: Order Comment: No: D o not add to previous draw Performed By: #### 1 0054 #### [facility] [address] [place] [address], [place] GFR/1.73 sq M predicted among blacks MDRD (S/P/Bld) [Vol rate/Area] mL/min/{1.73_m2} Normal >60 [facility] Comment on above: Order Comment: No: D o not add to previous draw Performed By: #### 1 0054 #### [facility] [address] [place] [address], [facility] GFR/1.73 sq M predicted among non-blacks MDRD (S/P/Bld) [Vol rate/Area] 56 ml/min/1.73sq m Abnormal >60 The [facility] Comment on above: Order Comment: No: D o not add to previous draw Performed By: #### 1 0054 #### [facility] [address] [place] [address], [place] Glucose [Mass/Vol] 169 mg/dL High 70-100 [facility] Comment on above: Order Comment: No: D o not add to previous draw Performed By: #### 1 0054 #### [facility] [address] [place] [address], [facility] Potassium [Moles/Vol] 3.6 mmol/L Normal 3.5-5.1 [facility] Comment on above: Order Comment: No: D o not add to previous draw Performed By: #### 1 0054 #### [facility] [address] [place] [id number], [facility] Sodium [Moles/Vol] 133 mmol/L Low 136-145 [facility] Comment on above: Order Comment: No: D o not add to previous draw Performed By: #### 1 0054 #### [facility] [address] [place] [address], [facility] Urea nitrogen [Mass/Vol] 24 mg/dL Normal 7-25 [facility] Comment on above: Order Comment: No: D o not add to previous draw Performed By: #### 1 0054 #### [facility] [address] [facility] [address] C REACTIVE PROTEINon 020 CRP [Mass/Vol] 71.2 mg/L High 0.0-7.0 [facility] Comment on above: Order Comment: No: D o not add to previous draw Performed By: #### 3 5200, 47704 #### [facility] [address] [facility] [address], [facility] CBC W/DIFFon 02-04-2020 ABS BASOPHILS 0.1 10*3/uL Normal 0.0-0.2 [facility] Comment on above: Order Comment: No: D o not add to previous draw Performed By: #### 5 7307, 23074 #### [facility] [address] [place] [address], [facility] ABS IMM GRANS 0.1 10*3/uL Normal 0.0-0.2 [facility] Comment on above: Order Comment: No: D o not add to previous draw Performed By: #### 5 7306, 39992 #### [facility] [address] [place] [id number], [facility] ABS NEUTROPHILS 9.0 10*3/uL High 1.6-7.6 The [facility] Comment on above: Order Comment: No: D o not add to previous draw Performed By: #### 5 7306, 89666 #### [facility] [address] [place] [address], [facility] Basophils/100 WBC (Bld) 0.7 % Normal 0.0-1.0 [facility] Comment on above: Order Comment: No: D o not add to previous draw Performed By: #### 5 7306, 11533 #### [facility] [address] [place] [address], [facility] Eosinophils (Bld) [#/Vol] 0.2 10*3/uL Normal 0.0-0.5 [facility] Comment on above: Order Comment: No: D o not add to previous draw Performed By: #### 5 7306, 99672 #### [facility] [address] [place] [id number], [facility] Eosinophils/100 WBC (Bld) 1.3 % Normal 0.0-6.0 [facility] Comment on above: Order Comment: No: D o not add to previous draw Performed By: #### 5 73, 24090 #### [facility] [address] [place] [id number], [facility] Erythrocyte distribution width (RBC) [Ratio] 16.5 % High 11.5-15.0 [facility] Comment on above: Order Comment: No: D o not add to previous draw Performed By: #### 5 73, 98205 #### [facility] [address] [place] [id number], [facility] Hematocrit (Bld) [Volume fraction] 32.0 % Low 36.0-45.0 [facility] Comment on above: Order Comment: No: D o not add to previous draw Performed By: #### 5 73, 98326 #### [facility] [address] [place] [address], [facility] Hemoglobin (Bld) [Mass/Vol] 9.5 g/dL Low 12.0-15.0 [facility] Comment on above: Order Comment: No: D o not add to previous draw Performed By: #### 5 73, 52018 #### [facility] [address] [place] [id number], [facility] IMMATURE GRANS 0.6 % Normal 0.0-1.0 [facility] Comment on above: Order Comment: No: D o not add to previous draw Performed By: #### 5 73, 94304 #### [facility] [address] [facility] [place] [id number], [facility] Lymphocytes (Bld) [#/Vol] 3.5 10*3/uL Normal 1.2-4.0 [facility] Comment on above: Order Comment: No: D o not add to previous draw Performed By: #### 5 73, 74081 #### [facility] [address] [place] [address], [facility] Lymphocytes/100 WBC (Bld) 24.1 % Normal 20.0-45.0 [facility] Comment on above: Order Comment: No: D o not add to previous draw Performed By: #### 5 73, 87176 #### [facility] [address] [place] [address], [facility] MCH (RBC) [Entitic mass] 20.7 pg Low 27.0-33.0 [facility] Comment on above: Order Comment: No: D o not add to previous draw Performed By: #### 5 73, [id number] #### [facility] [address] [place] [id number], [facility] MCHC (RBC) [Mass/Vol] 29.7 g/dL Low 32.0-35.0 [facility] Comment on above: Order Comment: No: D o not add to previous draw Performed By: #### 5 73, 44622 #### [facility] [address] [place] [address], [facility] MCV (RBC) [Entitic vol] 69.6 fL Low 82.0-98.0 [facility] Comment on above: Order Comment: No: D o not add to previous draw Performed By: #### 5 7306, 12075 #### [facility] [address] [place] [id number], [facility] Monocytes (Bld) [#/Vol] 1.5 10*3/uL High 0.1-1.0 [facility] Comment on above: Order Comment: No: D o not add to previous draw Performed By: #### 5 7306, 89378 #### [facility] [address] [place] [id number], [facility] MONOS 10.3 % Normal 5.0-12.0 [facility] Comment on above: Order Comment: No: D o not add to previous draw Performed By: #### 5 7306, 26507 #### [facility] [address] [place] [id number], [facility] Neutrophils/100 WBC (Bld) 63.0 % Normal 40.0-72.0 [facility] Comment on above: Order Comment: No: D o not add to previous draw Performed By: #### 5 73, 21268 #### [facility] [address] [place] [id number], [facility] Nucleated RBC/100 WBC (Bld) [Ratio] 0 % Normal 0-0 [facility] Comment on above: Order Comment: No: D o not add to previous draw Performed By: #### 5 73, 56512 #### [facility] [address] [place] [id number], [place] PLAT CNT 528 10*3/uL High 150-400 The [facility] Comment on above: Order Comment: No: D o not add to previous draw Performed By: #### 5 7307, 85366 #### [facility] [address] [place] [address], [facility] RBC (Bld) [#/Vol] 4.60 10*6/uL Normal 3.80-5.00 [facility] Comment on above: Order Comment: No: D o not add to previous draw Performed By: #### 5 7307, 04704 #### [facility] [address] [place] [address], [facility] WBC (Bld) [#/Vol] 14.35 10*3/uL High 4.00-10.60 [facility] Comment on above: Order Comment: No: D o not add to previous draw Performed By: #### 5 7307, 51372 #### [facility] [address] CPKon 02-04-2020 CK [Catalytic activity/Vol] 151 U/L Normal 30-223 [facility] Comment on above: Order Comment: No: D o not add to previous draw Performed By: #### 1 0054 #### [facility] [address] [facility] [address] D DIMER TESTon 02-04-2020 D-DIMER TEST 1.08 mcg/mL FEU High 0.01-0.49 [facility] Comment on above: Order Comment: No: D o not add to previous draw Result Comment: D-Di aftab values of less than 0.50 ug/ml (FEU) are considered to be a negative predictor of thrombosis. However, the D-Dimer result should be used in conjunction with pretest probability and should not be used alone to diagnose a thrombotic event. Performed By: #### 1 0054 #### [facility] [address] FERRITINon 02-04-2020 Ferritin [Mass/Vol] 24 ng/mL Normal 11-307 [facility] Comment on above: Performed By: #### 1 0054 #### [facility] [address] [place] [address], [facility] LDH BLOODon 02-04-2020 LDH 183 Units/L Normal 140-271 [facility] Comment on above: Performed By: #### 1 0054 #### [facility] [address] [place] [address], [facility] LIVER BATTERYon 02-04-2020 Albumin [Mass/Vol] 3.9 g/dL Normal 3.5-5.7 [facility] Comment on above: Performed By: #### 1 0054 #### [facility] [address] [place] [address], [facility] ALKALINE PHOSPH 135 IU/L High 34-104 [facility] Comment on above: Performed By: #### 1 0054 #### [facility] [address] [place] [address], [facility] ALT [Catalytic activity/Vol] 34 U/L Normal 7-52 [facility] Comment on above: Performed By: #### 1 0054 #### [facility] [address] [place] [address], [facility] AST [Catalytic activity/Vol] 40 U/L High 13-39 [facility] Comment on above: Performed By: #### 1 0054 #### [facility] [address] [place] [address], [place] Bilirubin [Mass/Vol] 0.7 mg/dL Normal 0.3-1.0 [facility] Comment on above: Performed By: #### 1 0054 #### [facility] [address] [place] [address], [facility] Bilirubin.direct [Mass/Vol] 0.1 mg/dL Normal 0.0-0.2 [facility] Comment on above: Performed By: #### 1 0054 #### [facility] [address] [place] [address], [facility] Protein [Mass/Vol] 7.5 g/dL Normal 6.0-8.3 [facility] Comment on above: Performed By: #### 1 0054 #### [facility] [address] [place] [address], [facility] MAGNESIUM BLOODon 02-04-2020 Magnesium [Mass/Vol] 2.3 mg/dL Normal 1.9-2.7 [facility] Comment on above: Order Comment: No: D o not add to previous draw Performed By: #### 1 0054 #### [facility] [address] [place] [address], [facility] PHOSPHORUS BLOODon 0 Phosphate [Mass/Vol] 4.5 mg/dL Normal 2.5-5.0 [facility] Comment on above: Order Comment: No: D o not add to previous draw Performed By: #### 1 0054 #### [facility] [address] [facility] [place] [address], [facility] TSH3on 02-04-2020 TSH 3RD GENERATION 4.50 uIU/mL Normal 0.34-5.60 [facility] Comment on above: Order Comment: No: D o not add to previous draw Performed By: #### 1 0054 #### [facility] [address] UFH HEPARIN ASSAYon 02-04-20 20 UNFRACTIONATED HEPARIN 0.18 IU/mL Low 0.30-0.70 [facility] Comment on above: Result Comment: Malena roxaban and Apixaban will interfere with the anti Xa assay used to monitor UFH and LMWH. Performed By: #### 3 6180, 50359 #### [facility] [address] UNFRACTIONATED HEPARIN 0.25 IU/mL Low 0.30-0.70 [facility] Comment on above: Result Comment: [place] roxaban and Apixaban will interfere with the anti Xa assay used to monitor UFH and LMWH. Performed By: #### 3 5200, 45714 #### [facility] [address] UNFRACTIONATED HEPARIN 0.25 IU/mL Low 0.30-0.70 [facility] Comment on above: Result Comment: Malena roxaban and Apixaban will interfere with the anti Xa assay used to monitor UFH and LMWH. Performed By: #### 1 0054 #### [facility] [address] UNFRACTIONATED HEPARIN 0.35 IU/mL Normal 0.30-0.70 [facility] Comment on above: Result Comment: [place] roxaban and Apixaban will interfere with the anti Xa assay used to monitor UFH and LMWH. Performed By: #### 5 7307, 18135 #### [facility] [address] [facility] APTTon 02-03-2020 aPTT Coag (Bld) [Time] 33.3 s Normal 25.0-35.0 [facility] Comment on above: Order [...] THIS PURPOSE. Performed By: #### 5 7307, 58068 #### [facility] [address] [facility] BASIC METABOLIC PANELon 04- Calcium [Mass/Vol] 9.7 mg/dL Normal 8.6-10.3 [facility] Comment on above: Order Comment: No: D o not add to previous draw Performed By: #### 0 0071, 52566, 20570, 66926, 47087 #### [facility] [address] [place] [address], [facility] Chloride [Moles/Vol] 93 mmol/L Low 98-107 [facility] Comment on above: Order Comment: No: D o not add to previous draw Performed By: #### 0 0071, 55084, 40288, 25933, 61992 #### [facility] [address] [place] [address], [place] CO2 [Moles/Vol] 26 mmol/L Normal 21-31 The [facility] Comment on above: Order Comment: No: D o not add to previous draw Performed By: #### 0 0071, 18442, 72682, 70932, 38404 #### [facility] [address] [place] [address], [facility] Creatinine [Mass/Vol] 1.19 mg/dL Normal 0.60-1.20 [facility] Comment on above: Order Comment: No: D o not add to previous draw Performed By: #### 0 0071, 54914, 42590, 54629, 69446 #### [facility] [address] [place] [address], [facility] GFR/1.73 sq M predicted among blacks MDRD (S/P/Bld) [Vol rate/Area] 55 ml/min/1.73sq m Abnormal >60 [facility] Comment on above: Order Comment: No: D o not add to previous draw Performed By: #### 0 0071, 97608, 14290, 60140, 65561 #### [facility] [address] [place] [address], [facility] GFR/1.73 sq M predicted among non-blacks MDRD (S/P/Bld) [Vol rate/Area] 45 ml/min/1.73sq m Abnormal >60 [facility] Comment on above: Order Comment: No: D o not add to previous draw Performed By: #### 0 0071, 16951, 32602, 01430, 07998 #### [facility] [address] [place] [address], [place] Glucose [Mass/Vol] 181 mg/dL High 70-100 [facility] Comment on above: Order Comment: No: D o not add to previous draw Performed By: #### 0 0071, 40560, 39153, 95231, 25107 #### [facility] [address] [place] [address], [place] Potassium [Moles/Vol] 3.5 mmol/L Normal 3.5-5.1 [facility] Comment on above: Order Comment: No: D o not add to previous draw Performed By: #### 0 0071, 81160, 42545, 82602, 54077 #### [facility] [address] [place] [address], [place] Sodium [Moles/Vol] 132 mmol/L Low 136-145 [facility] Comment on above: Order Comment: No: D o not add to previous draw Performed By: #### 0 0071, 37009, 24976, 33331, 88496 #### [facility] [address] [place] [address], [place] Urea nitrogen [Mass/Vol] 23 mg/dL Normal 7-25 [facility] Comment on above: Order Comment: No: D o not add to previous draw Performed By: #### 0 0071, 95422, 95992, 36565, 89191 #### [facility] [address] [place] [address], [place] Calcium [Mass/Vol] 9.4 mg/dL Normal 8.6-10.3 [facility] Comment on above: Order Comment: No: D o not add to previous draw Performed By: #### 3 5200, 85735 #### [facility] [address] [place] [address], [place] Chloride [Moles/Vol] 95 mmol/L Low 98-107 [facility] Comment on above: Order Comment: No: D o not add to previous draw Performed By: #### 3 5199, 46210 #### [facility] [address] [place] [address], [place] CO2 [Moles/Vol] 23 mmol/L Normal 21-31 The [facility] Comment on above: Order Comment: No: D o not add to previous draw Performed By: #### 3 5199, 06816 #### [facility] [address] [place] [address], [place] Creatinine [Mass/Vol] 1.18 mg/dL Normal 0.60-1.20 [facility] Comment on above: Order Comment: No: D o not add to previous draw Performed By: #### 3 5199, 81341 #### [facility] [address] [place] [address], [place] GFR/1.73 sq M predicted among blacks MDRD (S/P/Bld) [Vol rate/Area] 56 ml/min/1.73sq m Abnormal >60 [facility] Comment on above: Order Comment: No: D o not add to previous draw Performed By: #### 3 5199, 09498 #### [facility] [address] [place] [address], [place] GFR/1.73 sq M predicted among non-blacks MDRD (S/P/Bld) [Vol rate/Area] 46 ml/min/1.73sq m Abnormal >60 [facility] Comment on above: Order Comment: No: D o not add to previous draw Performed By: #### 3 5199, 41044 #### [facility] [address] [address], [place] Glucose [Mass/Vol] 217 mg/dL High 70-100 [facility] Comment on above: Order Comment: No: D o not add to previous draw Performed By: #### 3 5200, 13953 #### [facility] [address] [address], [place] Potassium [Moles/Vol] 3.5 mmol/L Normal 3.5-5.1 [facility] Comment on above: Order Comment: No: D o not add to previous draw Performed By: #### 3 0, 83562 #### [facility] [address] [place] [address], [place] Sodium [Moles/Vol] 133 mmol/L Low 136-145 [facility] Comment on above: Order Comment: No: D o not add to previous draw Performed By: #### 3 0, 69991 #### [facility] [address] [address], [place] Urea nitrogen [Mass/Vol] 21 mg/dL Normal 7-25 [facility] Comment on above: Order Comment: No: D o not add to previous draw Performed By: #### 3 0, 65409 #### [facility] [address] [place] [address], [place] CBC COMPLETE BLOOD COUNTon 02-03-2020 Erythrocyte distribution width (RBC) [Ratio] 16.6 % High 11.5-15.0 [facility] Comment on above: Order Comment: No: D o not add to previous draw Performed By: #### 5 0608 #### [facility] [address] [place] [address], [place] Hematocrit (Bld) [Volume fraction] 31.2 % Low 36.0-45.0 [facility] Comment on above: Order Comment: No: D o not add to previous draw Performed By: #### 5 0608 #### [facility] [address] [place] [address], [place] Hemoglobin (Bld) [Mass/Vol] 9.6 g/dL Low 12.0-15.0 [facility] Comment on above: Order Comment: No: D o not add to previous draw Performed By: #### 5 0608 #### [facility] 3000 [facility]. [address] MCH (RBC) [Entitic mass] 20.9 pg Low 27.0-33.0 [facility] Comment on above: Order Comment: No: D o not add to previous draw Performed By: #### 5 0608 #### [facility] [address] MCHC (RBC) [Mass/Vol] 30.8 g/dL Low 32.0-35.0 [facility] Comment on above: Order Comment: No: D o not add to previous draw Performed By: #### 5 0608 #### [facility] [address] MCV (RBC) [Entitic vol] 68.0 fL Low 82.0-98.0 [facility] Comment on above: Order Comment: No: D o not add to previous draw Performed By: #### 5 0608 #### [facility] [address] Nucleated RBC/100 WBC (Bld) [Ratio] 0 % Normal 0-0 [facility] Comment on above: Order Comment: No: D o not add to previous draw Performed By: #### 5 0608 #### [facility] [address] [place] [address], [facility] PLAT CNT 580 10*3/uL High 150-400 [facility] Comment on above: Order Comment: No: D o not add to previous draw Performed By: #### 5 0608 #### [facility] [address] [place] [address], [facility] RBC (Bld) [#/Vol] 4.59 10*6/uL Normal 3.80-5.00 [facility] Comment on above: Order Comment: No: D o not add to previous draw Performed By: #### 5 0608 #### [facility] [address] [place] [address], [facility] WBC (Bld) [#/Vol] 20.18 10*3/uL High 4.00-10.60 [facility] Comment on above: Order Comment: No: D o not add to previous draw Performed By: #### 5 0608 #### [facility] [address] [place] [address], [facility] CBC W/DIFFon 02-03-2020 ABS BASOPHILS 0.1 10*3/uL Normal 0.0-0.2 The [facility] Comment on above: Order Comment: No: D o not add to previous draw Performed By: #### 5 0103 #### [facility] [address] [facility] [place] [address], [facility] ABS IMM GRANS 0.1 10*3/uL Normal 0.0-0.2 The [facility] Comment on above: Order Comment: No: D o not add to previous draw Performed By: #### 5 0103 #### [facility] [address] [place] [address], [facility] ABS NEUTROPHILS 13.1 10*3/uL High 1.6-7.6 The [facility] Comment on above: Order Comment: No: D o not add to previous draw Performed By: #### 5 0103 #### [facility] [address] [facility] [place] [address], [facility] ANISO MODERATE Normal [facility] Comment on above: Order Comment: No: D o not add to previous draw Performed By: #### 5 0103 #### [facility] [address] [place] [address], [facility] Basophils/100 WBC (Bld) 0.3 % Normal 0.0-1.0 [facility] Comment on above: Order Comment: No: D o not add to previous draw Performed By: #### 5 0103 #### [facility] [address] [place] [address], [facility] Eosinophils (Bld) [#/Vol] 0.0 10*3/uL Normal 0.0-0.5 [facility] Comment on above: Order Comment: No: D o not add to previous draw Performed By: #### 5 0103 #### [facility] [address] [place] [address], [facility] Eosinophils/100 WBC (Bld) 0.2 % Normal 0.0-6.0 [facility] Comment on above: Order Comment: No: D o not add to previous draw Performed By: #### 5 0103 #### [facility] [address] [place] [address], [facility] Erythrocyte distribution width (RBC) [Ratio] 16.6 % High 11.5-15.0 [facility] Comment on above: Order Comment: No: D o not add to previous draw Performed By: #### 5 0103 #### [facility] [address] [facility] [place] [address], [facility] Hematocrit (Bld) [Volume fraction] 30.7 % Low 36.0-45.0 [facility] Comment on above: Order Comment: No: D o not add to previous draw Performed By: #### 5 0103 #### [facility] [address] [facility] [place] [address], [facility] Hemoglobin (Bld) [Mass/Vol] 9.2 g/dL Low 12.0-15.0 [facility] Comment on above: Order Comment: No: D o not add to previous draw Performed By: #### 5 0103 #### [facility] [address] [place] [id number], [facility] IMMATURE GRANS 0.6 % Normal 0.0-1.0 The [facility] Comment on above: Order Comment: No: D o not add to previous draw Performed By: #### 5 0103 #### [facility] [address] [facility] [place] [address], [facility] Lymphocytes (Bld) [#/Vol] 2.3 10*3/uL Normal 1.2-4.0 [facility] Comment on above: Order Comment: No: D o not add to previous draw Performed By: #### 5 0103 #### [facility] [address] [facility]. [address] Lymphocytes/100 WBC (Bld) 13.5 % Low 20.0-45.0 [facility] Comment on above: Order Comment: No: D o not add to previous draw Performed By: #### 5 0103 #### [facility] [address] [place] [address], [facility] MCH (RBC) [Entitic mass] 20.6 pg Low 27.0-33.0 [facility] Comment on above: Order Comment: No: D o not add to previous draw Performed By: #### 5 0103 #### [facility] [address] [place] [address], [facility] MCHC (RBC) [Mass/Vol] 30.0 g/dL Low 32.0-35.0 [facility] Comment on above: Order Comment: No: D o not add to previous draw Performed By: #### 5 0103 #### [facility] [address] [facility] [place] [place] [address], [facility] MCV (RBC) [Entitic vol] 68.7 fL Low 82.0-98.0 [facility] Comment on above: Order Comment: No: D o not add to previous draw Performed By: #### 5 0103 #### [facility] [address] [facility] [place] [address], [facility] MICRO MARKED Normal [facility] Comment on above: Order Comment: No: D o not add to previous draw Performed By: #### 5 0103 #### [facility] [address] [place] [address], [facility] Monocytes (Bld) [#/Vol] 1.7 10*3/uL High 0.1-1.0 [facility] Comment on above: Order Comment: No: D o not add to previous draw Performed By: #### 5 0103 #### [facility] [address] [place] [address], [place] MONOS 9.7 % Normal 5.0-12.0 [facility] Comment on above: Order Comment: No: D o not add to previous draw Performed By: #### 5 0103 #### [facility] [address] [place] [address], [facility] Neutrophils/100 WBC (Bld) 75.7 % High 40.0-72.0 [facility] Comment on above: Order Comment: No: D o not add to previous draw Performed By: #### 5 0103 #### [facility] [address] [place] [address], [facility] Nucleated RBC/100 WBC (Bld) [Ratio] 0 % Normal 0-0 [facility] Comment on above: Order Comment: No: D o not add to previous draw Performed By: #### 5 0103 #### [facility] [address] [place] [address], [place] PLAT CNT 535 10*3/uL High 150-400 The [facility] Comment on above: Order Comment: No: D o not add to previous draw Performed By: #### 5 0103 #### [facility] [address] [place] [address], [place] RBC (Bld) [#/Vol] 4.47 10*6/uL Normal 3.80-5.00 [facility] Comment on above: Order Comment: No: D o not add to previous draw Performed By: #### 5 0103 #### [facility] [address] WBC (Bld) [#/Vol] 17.37 10*3/uL High 4.00-10.60 [facility] Comment on above: Order Comment: No: D o not add to previous draw Performed By: #### 5 0103 #### [place] [address], [facility] CTA CHESTon 02-03-2020 CTA CHEST [facility] Department of Radiology [address] [place], [place] [id number] Patient Name: GABBI AUSTIN : 1950 Sex: F Age: Race: White Pt. Location: [id number] Patient Status: I Ordered Date: 02/03/2020 12:20:00 [...] pneumonia. Approved by:Tonio Rubalcavaon02/03/2020 2:10 PM. I, Segundo Bonner,have reviewed the images and reports Electronically signed: Segundo Bonner. Transcribed by: [email or web address], User Resident: TONIO RUBALCAVA Electronically Signed by: SEGUNDO BONNER @ 02/03/2020 03:10 PM I personally read this/these film(s) with this resident Normal [facility] Comment on above: Order Comment: No: D o not add to previous draw D DIMER TESTon 02-03-2020 D-DIMER TEST 1.25 mcg/mL FEU High 0.01-0.49 The [facility] Comment on above: Result Comment: D-Di aftba values of less than 0.50 ug/ml (FEU) are considered to be a negative predictor of thrombosis. However, the D-Dimer result should be used in conjunction with pretest probability and should not be used alone to diagnose a thrombotic event. Performed By: #### 5 7307, 64857 #### [facility] [address] HEMOGLOBIN A1Con 02-03-2020 HbA1c (Bld) [Mass fraction] 177 mg/dL High 70-126 [facility] Comment on above: Order Comment: No: D o not add to previous draw Performed By: #### 5 7307, 63281 #### [facility] [address] HbA1c (Bld) [Mass fraction] 7.8 % High 4.0-6.0 [facility] Comment on above: Order Comment: No: D o not add to previous draw Performed By: #### 5 7307, 27475 #### [facility] [address] LACTATE BLOODon 02-03-2020 Lactate [Moles/Vol] 1.6 mmol/L Normal 0.5-2.2 [facility] Comment on above: Order Comment: No: D o not add to previous draw Performed By: #### 1 0054 #### [facility] [address] LIPID PROFILEon 02-03-2020 Cholesterol [Mass/Vol] 206 mg/dL High 120-200 [facility] Comment on above: Result Comment: CHOL ESTEROL REFERENCE RANGE: 20 YEARS AND OLDER CARDIOVASCULAR RISK Less than 200 mg/dl Low Risk 200 to 239 mg/dl Borderline Risk 240 mg/dl and greater High Risk Performed By: #### 5 [id number], [id number] #### [facility] [address] Cholesterol in HDL [Mass/Vol] 55 mg/dL Normal 23-92 [facility] Comment on above: Result Comment: Slig ht variation in normal range could be due to gender and/or age. HDL CHOLESTEROL REFERENCE RANGE: 20 years and older Cardiovascular Risk > or =60 mg/dL Desirable 40 TO 59 mg/dL Low Risk <40 mg/dL High Risk Performed By: #### 5 [id number], [id number] #### [facility] [address] [place] [address], [facility] Cholesterol in LDL [Mass/Vol] 93 mg/dL Normal 0-130 [facility] Comment on above: Result Comment: LDL IS A CALCULATION LDL IS ONLY VALID IF THE TRIG IS LESS THAN 400. Performed By: #### 5 [id number], [id number] #### [facility] [address] [place] [address], [facility] Cholesterol.total/Ch olesterol in HDL [Mass ratio] 3.7 {ratio} Normal 0.0-4.5 [facility] Comment on above: Performed By: #### 5 [id number], [id number] #### [facility] [address] [place] [address], [facility] NON-HDL CHOLESTEROL 151 mg/dL Normal [facility] Comment on above: Performed By: #### 5 [id number], [id number] #### [facility] [address] [place] [address], [facility] Triglyceride [Mass/Vol] 292 mg/dL High 40-149 [facility] Comment on above: Result Comment: TRIG LYCERIDE REFERENCE RANGE: 20 YEARS AND OLDER CARDIOVASCULAR RISK LESS THAN 150 mg/dl LOW RISK 150 TO 199 mg/dl BORDERLINE RISK 200 mg/dl AND GREATER HIGH RISK Performed By: #### 5 [id number], [id number] #### [facility] [address] [place] [address], [facility] VLDL CHOL 58 mg/dL High 0-40 [facility] Comment on above: Performed By: #### 5 [id number], 03512 #### [facility] [address] [place] [address], [facility] MAGNESIUM BLOODon 02-03-2020 Magnesium [Mass/Vol] 1.7 mg/dL Low 1.9-2.7 [facility] Comment on above: Order Comment: No: D o not add to previous draw Performed By: #### 0 0071, 02935, 99865, 05125, 69042 #### [facility] [address] [place] [address], [facility] PHOSPHORUS BLOODon 0 Phosphate [Mass/Vol] 5.4 mg/dL High 2.5-5.0 [facility] Comment on above: Order Comment: No: D o not add to previous draw Performed By: #### 0 0071, 20487, 20446, 68290, 33962 #### [facility] [address] [place], [place] [id number] [place] [address] PORTABLE CHEST 1 VIEWon 01-10 PORTABLE CHEST 1 VIEW [facility] Department of Radiology [address] [id number] Patient Name: GABBI AUSTIN : 1950 Sex: F Age: Race: White Pt. Location: [address] [place] [address] Patient Status: I Ordered Date: 02/03/2020 10:20:00 [...] region. Approved by:Tonio Landaverde02/03/2020 11:27 AM. I, Segundo Bonner,have reviewed the images and reports Electronically signed: Segundo Bonner. Transcribed by: [email or web address], User Resident: TONIO RUBALCAVA Electronically Signed by: SEGUNDO BONNER @ 02/03/2020 11:44 AM I personally read this/these film(s) with this resident Normal [facility] Comment on above: Order Comment: No: D o not add to previous draw PROTHROMBIN TIMEon 0 INR Coag (PPP) [Relative time] 1.06 {INR} Normal 0.91-1.16 [facility] Comment on above: Order Comment: No: [...] CHEST 1995;[id number]. Performed By: #### 5 [id number], [id number] #### [facility] [address] [place] [address], [facility] PT Coag (PPP) [Time] 13.8 s Normal 12.3-14.8 [facility] Comment on above: Order Comment: No: D o not add to previous draw Result Comment: ALL RESULTS MUST BE INTERPRETED WITH RESPECT TO BLOOD DRAWING ARTIFACT OR DILUTION ERROR OF ANTICOAGULANT AT THE TIME OF SAMPLING. Performed By: #### 5 [id number], [id number] #### [facility] [address] [facility] [place] [address], [facility] TROPONIN-Ion 02-03-2020 Troponin I.cardiac [Mass/Vol] 0.05 ng/mL High 0.00-0.04 [facility] Comment on above: Order Comment: No: D o not add to previous draw Result Comment: REFE RENCE RANGES: 0.00 - 0.04 ng/ml NORMAL 0.05 - 0.50 ng/ml INDETERMINATE > 0.50 ng/ml CONSISTENT WITH AN M.I. Performed By: #### 5 [id number], 09784 #### [facility] [address] [facility]. [address] Troponin I.cardiac [Mass/Vol] 0.06 ng/mL High 0.00-0.04 [facility] Comment on above: Order Comment: No: D o not add to previous draw Result Comment: REFE RENCE RANGES: 0.00 - 0.04 ng/ml NORMAL 0.05 - 0.50 ng/ml INDETERMINATE > 0.50 ng/ml CONSISTENT WITH AN M.I. Performed By: #### 5 [id number], 69035 #### [facility] [address] [place] [address], [facility] Troponin I.cardiac [Mass/Vol] 0.08 ng/mL High 0.00-0.04 [facility] Comment on above: Order Comment: No: D o not add to previous draw Result Comment: REFE RENCE RANGES: 0.00 - 0.04 ng/ml NORMAL 0.05 - 0.50 ng/ml INDETERMINATE > 0.50 ng/ml CONSISTENT WITH AN M.I. Performed By: #### 3 5200, 70346 #### [facility] [address] UFH HEPARIN ASSAYon 02-03-20 UNFRACTIONATED HEPARIN 0.47 IU/mL Normal 0.30-0.70 [facility] Comment on above: Result Comment: Malena roxaban and Apixaban will interfere with the anti Xa assay used to monitor UFH and LMWH. Performed By: #### 5 [id number], 95026 #### [facility] [address] Vital Signs Date Time Vital Sign Value Performing Clinician Facility 12-19-2024 13:57-0400 Body height 154.9 cm [email or web address] Work Phone: [facility] 12-19-2024 13:57-0400 Body mass index (BMI) [Ratio] 22.86 kg/m2 [email or web address] Work Phone: [facility] 12-19-2024 13:57-0400 Body temperature 98.29 [degF] [email or web address] Work Phone: [facility] 12-19-2024 13:57-0400 Body weight 54.88 kg [facility] Work Phone: [facility] 12-19-2024 13:57-0400 Diastolic blood pressure 62 mm[Hg] [employer] DO Work Phone: [facility] 12-19-2024 13:57-0400 Heart rate 79 /min [facility] Work Phone: [facility] 12-19-2024 13:57-0400 SaO2% (BldA) [Mass fraction] 97 % [email or web address] Work Phone: [facility] 12-19-2024 13:57-0400 Systolic blood pressure 116 mm[Hg] Adina Petznick DO Work Phone: [facility] 09-21-2024 14:13-0500 Body height 154.9 cm Adina Petznick DO Work Phone: [facility] 09-21-2024 14:13-0500 Body mass index (BMI) [Ratio] 24.94 kg/m2 Adina Petznick DO Work Phone: [facility] 09-21-2024 14:13-0500 Body temperature 98.2 [degF] Adina Petznick DO Work Phone: [facility] 09-21-2024 14:13-0500 Body weight 59.88 kg Adina Petznick DO Work Phone: [facility] 09-21-2024 14:13-0500 Diastolic blood pressure 66 mm[Hg] Adina Petznick DO Work Phone: [facility] 09-21-2024 14:13-0500 Heart rate 72 /min Adina Petznick DO Work Phone: [facility] 09-21-2024 14:13-0500 SaO2% (BldA) [Mass fraction] 96 % Adina Petznick DO Work Phone: [facility] 09-21-2024 14:13-0500 Systolic blood pressure 118 mm[Hg] Adina Petznick DO Work Phone: [facility] 07-18-2024 15:00-0400 Body height 154.9 cm Adina Petznick DO Work Phone: [facility] 07-18-2024 15:00-0400 Body mass index (BMI) [Ratio] 26.94 kg/m2 Adina Petznick DO Work Phone: [facility] 07-18-2024 15:00-0400 Body temperature 96.69 [degF] Adina Petznick DO Work Phone: [facility] 07-18-2024 15:00-0400 Body weight 64.68 kg Adina Petznick DO Work Phone: [facility] 07-18-2024 15:00-0400 Diastolic blood pressure 76 mm[Hg] Adina Petznick DO Work Phone: [facility] 07-18-2024 15:00-0400 Heart rate 77 /min Adina Petznick DO Work Phone: [facility] 07-18-2024 15:00-0400 SaO2% (BldA) [Mass fraction] 98 % Adina Petznick DO Work Phone: [facility] 07-18-2024 15:00-0400 Systolic blood pressure 124 mm[Hg] Adina Petznick DO Work Phone: [facility] 06-15-2024 13:45-0400 Body height 154.94 cm [facility] 06-15-2024 13:45-0400 Body mass index (BMI) [Ratio] 27.3 kg/m2 [facility] 06-15-2024 13:45-0400 Body weight 65.77 kg [facility] 06-15-2024 13:45-0400 Diastolic blood pressure 62 mm[Hg] [facility] 06-15-2024 13:45-0400 Heart rate 84 /min [facility] 06-15-2024 13:45-0400 Respiratory rate 18 /min [facility] 06-15-2024 13:45-0400 Systolic blood pressure 100 mm[Hg] [facility] 05-19-2024 10:55-0400 Body height 149.86 cm [facility] 05-19-2024 10:55-0400 Body mass index (BMI) [Ratio] 29.9 kg/m2 [facility] 05-19-2024 10:55-0400 Body weight 67.13 kg [facility] 05-19-2024 10:55-0400 Diastolic blood pressure 73 mm[Hg] [facility] 05-19-2024 10:55-0400 Heart rate 84 /min [facility] 05-19-2024 10:55-0400 Systolic blood pressure 109 mm[Hg] [facility] 07-01-2023 13:45-0400 Body height 149.86 cm Lauren Ayoub Other [employer] Other 07-01-2023 13:45-0400 Body mass index (BMI) [Ratio] 31.5 kg/m2 Lauren Ayoub Other [employer] Other 07-01-2023 13:45-0400 Body temperature 97.6 [degF] Lauren Ayoub Other [employer] Other 07-01-2023 13:45-0400 Body weight 70.76 kg Lauren Ayoub Other [employer] Other 07-01-2023 13:45-0400 Diastolic blood pressure 64 mm[Hg] Lauren Ayoub Other [employer] Other 07-01-2023 13:45-0400 Systolic blood pressure 112 mm[Hg] Lauren Ayoub Other [employer] Other 10-19-2022 11:45-0500 Body height 149.86 cm Lauren Ayoub Other [employer] Other 10-19-2022 11:45-0500 Body mass index (BMI) [Ratio] 30.9 kg/m2 Lauren Ayoub Other [employer] Other 10-19-2022 11:45-0500 Body weight 69.4 kg Lauren Ayoub Other [employer] Other 10-19-2022 11:45-0500 Diastolic blood pressure 64 mm[Hg] Lauren Ayoub Other [employer] Other 10-19-2022 11:45-0500 Systolic blood pressure 140 mm[Hg] Lauren Ayoub Other [employer] Other Encounters Encounter Date Encounter Type Care Provider Facility Start: 12-19-2024 End: 12-19-2024 Office outpatient visit 25 minutes Adina Hummel DO Work Phone: [facility] 362 Comment on above: Type 2 diabetes ivan itus with stage 4 chronic kidney disease, with long-term current use of insulin (CMS/HCC) Start: 12-19-2024 End: 12-19-2024 ambulatory ADINA HUMMEL Not Available Start: 09-21-2024 End: 09-21-2024 Office outpatient visit 25 minutes Adina Hummel DO Work Phone: [facility] 230 Comment on above: Type 2 diabetes ivan itus with stage 4 chronic kidney disease, with long-term current use of insulin (CMS/HCC) Start: 09-21-2024 End: 09-21-2024 ambulatory ADINA MICHAELSICK Not Available Start: 07-18-2024 End: 07-18-2024 Office outpatient new 45 minutes Adina Hummel DO Work Phone: [facility] 230 Comment on above: Type 2 diabetes ivan itus with stage 4 chronic kidney disease, with long-term current use of insulin (CMS/[facility]) (Primary Dx) Start: 07-18-2024 End: 07-18-2024 ambulatory ADINA HUMMEL Not Available Start: 06-29-2024 End: 06-29-2024 Patient encounter procedure MD Lauren Ayoub Work Phone: [facility] [place] Work Phone: Start: 06-29-2024 End: 06-29-2024 ambulatory MD Lauren Ayoub Work Phone: [facility] Work Phone: Start: 06-19-2024 Non-patient / Non-visit MD Jil Ayoub Work Phone[facility] Work Phone: Start: 06-15-2024 End: 06-15-2024 ambulatory [facility] Work Phone: Start: 06-15-2024 End: 06-15-2024 Patient encounter procedure [facility] [place] Work Phone: Start: 05-22-2024 Non-patient / Non-visit [facility] Work Phone: Start: 05-19-2024 End: 05-19-2024 ambulatory [facility] Work Phone: Start: 05-19-2024 End: 05-19-2024 Patient encounter procedure [facility] Work Phone: Start: 05-15-2024 End: 05-15-2024 ambulatory [facility] Start: 12-01-2023 End: 12-01-2023 ambulatory [facility] Start: 11-10-2023 End: 11-10-2023 ambulatory Lauren Ayoub Other [employer] Other Start: 11-10-2023 Telephone encounter Lauren Ayoub [facility] Start: 07-01-2023 End: 07-01-2023 ambulatory Lauren Ayoub Other [employer] Other Start: 07-01-2023 Office outpatient vi sit 15 minutes Lauren Ayoub [facility] Start: 06-30-2023 End: 06-30-2023 ambulatory [facility] Start: 05-19-2023 End: 05-19-2023 ambulatory Lauren Ayoub Other [employer] Other Start: 05-19-2023 Telephone encounter Lauren Ayoub [facility] Start: 02-19-2023 End: 02-19-2023 ambulatory Lauren Ayoub Other [employer] Other Start: 02-19-2023 Telephone encounter Lauren Ayoub [facility] Start: 02-18-2023 End: 02-18-2023 ambulatory Lauren Ayoub Other [employer] Other Start: 02-18-2023 Telephone encounter Lauren Ayoub [facility] Start: 01-15-2023 Encounter for other preprocedural examination DR DOCTOR BURROUGHS [facility] Start: 01-12-2023 End: 01-13-2023 ambulatory LAUREN AYOUB Facility:[facility] Start: 01-08-2023 End: 01-09-[address] DOCTOR BURROUGHS Facility:[facility] Start: 01-08-2023 End: 01-09-2023 Encounter for other preprocedural examination DR DOCTOR BURROUGHS Facility:[facility] Start: 10-28-2022 End: 10-28-2022 ambulatory Lauren Ayoub Other [employer] Other Start: 10-28-2022 Encounter by estella r link Lauren Ayoub [facility] Start: 10-19-2022 End: 10-19-2022 ambulatory Lauren Ayoub Other [employer] Other Start: 10-19-2022 Office outpatient vi sit 15 minutes Lauren Ayoub [facility] Start: 04-03-2022 ambulatory LAUREN AYOUB Facility :[facility] Start: 02-26-2022 End: 02-27-2022 ambulatory LAUREN AYOUB Facility:[facility] Start: 02-02-2020 End: 02-07-2020 Evaluation and management of inpatient ANA LAURA BROCK Facility:[facility] Start: 11-30-2019 Adult health examination Charlee Ayoub Other [employer] Other Procedures Date Procedure Procedure Detail Performing Clinician Start: 12-19-2024 Hemoglobin glycosylated a1c Adina Hummel DO Work Phone: Start: 09-21-2024 Hemoglobin glycosylated a1c Adina Hummel DO Work Phone: Start: 06-29-2024 Ultrasonography of b ilateral kidneys MD Lauren Ayoub Work Phone: Start: 07-25-2015 Screening for malign ant neoplasm of breast Lauren Ayoub Other Plan of Treatment Date Care Activity Detail Author Start: 04-02-2025 End: 04-02-2025 Patient encounter procedure 04/02/2025 1:15 PM EDT Office Visit [facility] [address] [place] [id number] Adina Hummel, DO [address] [place] [address] [facility] [address] Start: 12-19-2024 End: 12-19-2024 Patient encounter procedure 12/19/2024 2:00 PM EDT Office Visit [facility] [address] [place] [address] Adina Hummel, DO [address] [place] [address] [facility] Start: 09-21-2024 End: 09-21-2024 Patient encounter procedure 09/21/2024 2:15 PM EST Office Visit [facility] [address] [place] [address] Adina Hummel, DO [address] [place] [address] [facility] 230 Start: 06-11-2024 Influenza vaccination Influenza Vaccine (#1) [facility] Start: 08-08-2021 Pneumococcal Vaccine: 65+ Years (2 of 2 - PPSV23 or PCV20) Pneumococcal Vaccine: 65+ Years (2 of 2 - PPSV23 or PCV20) [facility] Start: 1992 Screening for malignant neoplasm of breast Mammogram [facility] Start: 1950 Screening for malignant neoplasm of colon [facility] Comprehensive metabo lic 1999 panel - Serum or Plasma [facility] Microalbumin [Mass/volume] in Urine [facility] Renal function 1999 panel - Serum or Plasma [facility] US Kidney - bilateral [facility] Immunizations Immunization Date Immunization Notes Care Provider Fa cility 08-13-2022 COVID-19 Pfizer (Pediatric) Lauren Ayoub Other [facility] 08-12-2022 influenza virus vaccine, split virus (incl. purified surface antigen) Lauren Ayoub Other [facility] [employer] Other 08-12-2022 influenza virus vaccine, unspecified formulation [facility] 08-12-2022 Seasonal, quadrivale nt, recombinant, injectable influenza vaccine, preservative free Adina Petznick DO Work Phone: [facility] 09-25-2021 COVID-19 Vaccine Pfi zer - Documentation Purposes Only Lauren Ayoub Other [facility] 09-25-2021 influenza virus vaccine, split virus (incl. purified surface antigen) Lauren Ayoub Other [facility] [employer] Other 09-25-2021 influenza virus vaccine, unspecified formulation [facility] 09-25-2021 Influenza, injectabl e, [place] Canine Kidney, preservative free, quadrivalent Adina Petznick DO Work Phone: [facility] 08-08-2020 influenza virus vaccine, split virus (incl. purified surface antigen) Lauren Ayoub Other [facility] [employer] Other 08-08-2020 influenza virus vaccine, unspecified formulation [facility] 08-08-2020 influenza, high dose seasonal, preservative-free Adina Petznick DO Work Phone: [facility] 08-08-2020 pneumococcal conjuga te vaccine, 13 valent Lauren Ayoub Other [facility] 05-12-2020 zoster vaccine recombinant Adina Petznick DO Work Phone: [facility] 05-12-2020 zoster vaccine, live Lauren Ayoub Other [facility] 12-19-2019 zoster vaccine recombinant Adina Petznick DO Work Phone: [facility] 11-11-2016 tetanus toxoid, redu yesi diphtheria toxoid, and acellular pertussis vaccine, adsorbed Adina Petznick DO Work Phone: [facility] 01-18-2014 zoster vaccine, live Adina Petznick DO Work Phone: [facility] 02-04-2011 tetanus toxoid, redu yesi diphtheria toxoid, and acellular pertussis vaccine, adsorbed Adina Petznick DO Work Phone: [facility] Payers Date Payer Category Payer Private Health Insurance [employer] [id number] 2021 Unknown [employer] [id number] 2021-Present [address] [place] [address] [id number] 2017 Medicare [id number] 1959 Medicare [id number] 1959 Self-pay 1959 Unknown [id number] 1950 Unknown [id number]. 647 1950 Unknown [id number] [id number]. 593 1950 Unknown [id number] [id number]. 593 1952 Unknown [id number] [id number]. 593 1952 Unknown [id number] [id number]. 593 1952 Unknown [id number] [id number]. 593 1952 Unknown [id number] [id number]. 593 1952 Unknown [id number] [id number]. 1259 1952 Unknown [id number] [id number]. 1259 1950 Unknown [id number]. 1259 Unknown Regular Insurance [id number] Social History Date Type Detail Facility Unknown if ever smoked [employer] Other Start: 07-18-2024 End: 12-19-2024 Sex Assigned At [facility] Start: 1950 Sex Assigned At Female [facility] Start: 06-15-2024 End: 07-18-2024 Tobacco smoking status RIIS Never smoked tobacco (finding) [facility] Start: 07-18-2024 Tobacco use and exposure Smokeless tobacco non-user [facility] Start: 07-18-2024 End: 12-19-2024 History of Social function [facility] How often do you nee d to have someone help you when you read instructions, pamphlets, or other written material from your doctor or pharmacy [SILS] Sometimes [facility] Do you belong to any clubs or organizations such as restorationist groups, unions, fraternal or athletic groups, or school groups? No [facility] Are you now , , , , never or living with a partner? [facility] How often to you hav e a drink containing alcohol? Monthly or less [facility] How many standard dr inks containing alcohol do you have on a typical day? 1 or 2 [facility] How often do you hav e 6 or more drinks on 1 occasion? Never [facility] How hard is it for y ou to pay for the very basics like food, housing, medical care, and heating Not very hard [facility] (I/We) worried whemireille er (my/our) food would run out before (I/we) got money to buy more. Never true [facility] Start: 1950 Sex assigned at Not on file [facility] Start: 09-21-2024 End: 12-19-2024 Alcoholic beverage intake Current drinker of alcohol (finding) [facility] Medical Equipment Procedure Code Equipment Code Equipment Origin al Text Equipment Identifier Dates Fsbs daily [id number] Start: 09-21-2024 Fsbs daily [id number] Start: 09-21-2024 Testing bg level s once a day [id number] Start: 09-22-2024 Testing bg level s once a day [id number] Start: 09-22-2024 Clinical Notes 10-19-2022 to 12-20-2024 Adina Masterson Tomassho, DO - 12/20/2024 12:20 PM Jono Hummel, DO - 12/19/2024 2:00 PM Jono Hummel, DO - 09/21/2024 8:01 PM Chucho Aleja Hummel, DO - 09/21/2024 2:15 PM EST Note Date & Type Note Facility 12-20-2024 History of Present illness Narrative Associated Problem(s): Type 2 diabetes mellitus with stage 4 chronic kidney disease, with long-term current use of insulin ([facility]) During the appointment today all pertinent labs, imaging, health maintenance, and glucose readings were reviewed. Encouraged to check blood glucose throughout the day with some fasting and some PP readings. They are to bring their glucose meter/cgm in to all appointments. All of the patients questions, treatment options, and current care plan and goals were discussed. A copy of this along with pertinent instructions were given to the patient at the end of the appointment. The patient voices understanding of all of this and is to call in between appointments if they have any problems or questions. Gabbi [place] is doing very well and encouraged on this. , The patient is wearing their cgm on a daily basis and making decisions in regards to adjusting insulin daily as well for at least the last 60 days , Instructions given today include: Dietary education. Will decrease her ozempic dose to 0.25 mg to help with nausea and hopefully keep her weight stable. I don't want her losing more weight. She is to call if still having issues with this. Images from the original note were not included. Gabbi [place] is a 74 y.o. female presents with chief complaint of Diabetes HPI: Diabetes Mellitus Follow-up: Gabbi [place] is here for follow-up evaluation of diabetes mellitus. The initial diagnosis of diabetes was made around 2013 Previously tried medications include: Jardiance- yeast infections Complications include: nephropathy and cardiovascular disease She has been checking her blood glucose with a [employer] Haider 3 plus CGM -LINKED- on a daily basis. Bg running smooth or dipping some overnight, tends to rise with meals a little but then comes back down in between meals. Last A1c: 8.0 (09/21/24) Eye exam: 2023- [facility] Current concerns include: Lost 11 lbs since her last visit. Ozempic is working well she is continuing to lose weight. Has a lot of nausea from this and not able to eat much. Doesn't want to lose anymore weight. BG levels: improving Diet: Limiting carbs and sugar intake, small portions Drinks: water, hint drinks, strawberry drink zero sugar, zero pop, coffee with splash of sweetened creamer, premier protein drinks Exercise: Walking dogs when its nice Hypoglycemia: not often but had lows the past 2 days around 12am and 6am SUBJECTIVE: PROBLEM LIST SOCIAL ALLERGIES: Patient Active Problem List Diagnosis Type 2 diabetes mellitus with stage 4 chronic kidney disease, with long-term current use of insulin (CMS/HCC) Secondary hyperparathyroidism (CMS/HCC) Hyperlipidemia (CMS/HCC) Iron deficiency anemia Social History Tobacco Use Smoking status: Never Smokeless tobacco: Never Substance Use Topics Alcohol use: Yes Drug use: Never Allergies Allergen Reactions Penicillins Hives Synopsis SmartLink 12/19/2024 14:11 Antidiabetic medications Semaglutide 0.5 mg Weekly SC (2 MG/3ML SOPN) Labs [facility] [place] HEMOGLOBIN A1C/HEMOGLOBIN.TOTAL:MFR:PT:BLD:QN: 6.5 Outpatient prescription Medication marked as long-term The ASCVD Risk score (Kathleen MOORE, et al., 2019) failed to calculate for the following reasons: Cannot find a previous HDL lab Cannot find a previous total cholesterol lab REVIEW OF SYMPTOMS: Review of Systems Constitutional: Negative for appetite change, fatigue and unexpected weight change. Eyes: Negative for visual disturbance. Respiratory: Negative for cough, shortness of breath and wheezing. Cardiovascular: Negative for chest pain, palpitations and leg swelling. Gastrointestinal: Positive for nausea. Negative for vomiting. Neurological: Negative for numbness. Endocrine: Negative for polydipsia, polyphagia and polyuria. OBJECTIVE: 12/19/2024 1:57 PM 09/21/2024 2:13 PM 07/18/2024 3:00 PM Vitals BMI 22.86 kg/m2 24.94 kg/m2 26.94 kg/m2 Systolic 116 118 124 Diastolic 62 66 76 Heart Rate 79 72 77 Temp 98.3 F 98.2 F 96.7 F Height (in) 5' 1 5' 1 5' 1 Weight (lb) 121 132 142.6 Visit Report Report Report Report Physical Exam Constitutional: General: She is not in acute distress. Appearance: Normal appearance. Cardiovascular: Rate and Rhythm: Normal rate and regular rhythm. Heart sounds: No murmur heard. No friction rub. No gallop. Pulmonary: Breath sounds: Normal breath sounds. No wheezing, rhonchi or rales. Abdominal: General: Bowel sounds are normal. Palpations: Abdomen is soft. Tenderness: There is no abdominal tenderness. There is no right CVA tenderness, left CVA tenderness, guarding or rebound. Musculoskeletal: General: No swelling. Neurological: Mental Status: She is alert. ASSESSMENT AND PLAN: Problem List Items Addressed This Visit Type 2 diabetes mellitus with stage 4 chronic kidney disease, with long-term current use of insulin ([facility]) During the appointment today all pertinent labs, imaging, health maintenance, and glucose readings were reviewed. Encouraged to check blood glucose throughout the day with some fasting and some PP readings. They are to bring their glucose meter/cgm in to all appointments. All of the patients questions, treatment options, and current care plan and goals were discussed. A copy of this along with pertinent instructions were given to the patient at the end of the appointment. The patient voices understanding of all of this and is to call in between appointments if they have any problems or questions. Gabbi Austin is doing very well and encouraged on this. , The patient is wearing their cgm on a daily basis and making decisions in regards to adjusting insulin daily as well for at least the last 60 days , Instructions given today include: Dietary education. Will decrease her ozempic dose to 0.25 mg to help with nausea and hopefully keep her weight stable. I don't want her losing more weight. She is to call if still having issues with this. Relevant Medications Continuous Glucose Sensor (FreeStyle Haider 3 Plus Sensor) misc Semaglutide,0.25 or 0.5MG/DOS, 2 MG/3ML solution pen-injector Other Relevant Orders POCT glycosylated hemoglobin (Hb A1C) docked device (Completed) Follow up in about 4 months (around 04/20/2025) for Recheck. Patient's Medications New Prescriptions No medications on file Previous Medications ASPIRIN 81 MG EC TABLET Daily ATORVASTATIN (LIPITOR) 40 MG TABLET Take 40 mg by mouth at bedtime BARBERRY-OREG GRAPE-GOLDENSEAL (BERBERINE COMPLEX) 200-200-50 MG CAPSULE 1 (one) time each day at the same time BIOTIN 67395 MCG TABLET Take by mouth BLOOD GLUCOSE MONITORING SUPPL (NumerateUCH VERIO) W/DEVICE KIT Testing bg levels once a day BUMETANIDE (BUMEX) 1 MG TABLET Daily CLOPIDOGREL (PLAVIX) 75 MG TABLET Daily CYANOCOBALAMIN (VITAMIN B-12) 1000 MCG TABLET Take 5,000 mcg by mouth Daily FERROUS SULFATE 325 (65 FE) MG TABLET Daily FLUTICASONE (FLONASE) 50 MCG/ACT NASAL SPRAY Daily GLUCOSE BLOOD (ONETOUCH VERIO) TEST STRIP Testing bg levels once a day IBUPROFEN (ADVIL) 200 MG TABLET every 8 (eight) hours L-LYSINE 500 MG CAPSULE Take by mouth LISINOPRIL 10 MG TABLET Daily MAGNESIUM 250 MG TABLET 1 (one) time each day at the same time MELATONIN 10 MG CAPSULE Take by mouth METOPROLOL SUCCINATE XL (TOPROL-XL) 100 MG 24 HR TABLET MULTIPLE VITAMINS-MINERALS (PRESERVISION AREDS PO) Take by mouth OMEPRAZOLE MAGNESIUM (PRILOSEC) 2.5 MG PACK 1 capsule ONETOUCH DELICA LANCETS 33G MISC Testing bg levels once a day POTASSIUM CHLORIDE ER (MICRO-K) 10 MEQ ER CAPSULE 1 (one) time each day at the same time ROPINIROLE (REQUIP) 2 MG TABLET Take 2 mg by mouth at bedtime Modified Medications Modified Medication Previous Medication CONTINUOUS GLUCOSE SENSOR (FREESTYLE HAIDER 3 PLUS SENSOR) MISC Continuous Glucose Sensor (FreeStyle Haider 3 Plus Sensor) misc 1 each Every 15 Days 1 each See administration instructions SEMAGLUTIDE,0.25 OR 0.5MG/DOS, 2 MG/3ML SOLUTION PEN-INJECTOR Semaglutide,0.25 or 0.5MG/DOS, 2 MG/3ML solution pen-injector Inject 0.5 mg under the skin 1 (one) time per week Inject 0.5 mg under the skin 1 (one) time per week Discontinued Medications No medications on file I have reviewed and reconciled the history and medication list with the patient today. documented in this encounter [facility] 09-21-2024 History of Present illness Narrative Associated Problem(s): Type 2 diabetes mellitus with stage 4 chronic kidney disease, with long-term current use of insulin ([facility]) During the appointment today all pertinent labs, imaging, health maintenance, and glucose readings were reviewed. Encouraged to check blood glucose throughout the day with some fasting and some PP readings. They are to bring their glucose meter/cgm in to all appointments. All of the patients questions, treatment options, and current care plan and goals were discussed. A copy of this along with pertinent instructions were given to the patient at the end of the appointment. The patient voices understanding of all of this and is to call in between appointments if they have any problems or questions. Gabbi Austin is making improvements and encouraged on this. , Will stay on current medications. , The patient is wearing their cgm on a daily basis and making decisions in regards to adjusting insulin daily as well for at least the last 60 days , Instructions given today include: Dietary education. Discussed soft protein foods for her to eat. She is making good progress and will stay with current medication to see if this continues as her teeth improve and she is able to get back into healthier eating habits as well as feeling better. Images from the original note were not included. Gabbi Austin is a 74 y.o. female presents with chief complaint of Diabetes HPI: Diabetes Mellitus Follow-up: Gabbi Austin is here for follow-up evaluation of diabetes mellitus. The initial diagnosis of diabetes was made around 2013 Previously tried medications include: Jardiance- yeast infections Complications include: nephropathy and cardiovascular disease She has been checking her blood glucose with a [employer] Haider CGM -LINKED- on a daily basis. Bg running smooth overnight but then rise in the afternoon/evening. Improving this week compared to last week. Last A1c: 9.3 (05/22/24) Eye exam: 2023- [facility] Current concerns include: Last office visit was on 07/18/2024 Bg have been improving with the use of ozempic Diet: Watching carb and sugar intake, portion control Drinks: water, hint drinks, strawberry drink zero sugar, zero pop, coffee with creamer, premier protein drinks Exercise: Walking dogs on occasion Hypoglycemia: once for a week period overnight and she thinks it was a bad sensor. Lunch: cottage cheese with jelly Dinner: soup (potato, ckn) SUBJECTIVE: PROBLEM LIST SOCIAL ALLERGIES: Patient Active Problem List Diagnosis Type 2 diabetes mellitus with stage 4 chronic kidney disease, with long-term current use of insulin (CMS/HCC) Secondary hyperparathyroidism (CMS/HCC) Hyperlipidemia (CMS/HCC) Iron deficiency anemia Social History Tobacco Use Smoking status: Never Smokeless tobacco: Never Substance Use Topics Alcohol use: Yes Drug use: Never Allergies Allergen Reactions Penicillins Hives Synopsis SmartLink 09/21/2024 14:27 07/28/2024 23:59 07/19/2024 00:00 Antidiabetic medications glipiZIDE Daily (5 MG TB24) -Discontinued (Reorder) glipiZIDE 5 mg Daily Do not crush, chew, or split. PO-Discontinued 5 mg Daily Do not crush, chew, or split. PO Semaglutide 0.5 mg Weekly SC (2 MG/3ML SOPN) 0.5 mg Weekly SC (2 MG/3ML SOPN) 0.5 mg Weekly SC (2 MG/3ML SOPN) Labs [facility] A1C 8.0 Outpatient prescription Medication marked as long-term Patient-reported The ASCVD Risk score (Kathleen MOORE, et al., 2019) failed to calculate for the following reasons: Cannot find a previous HDL lab Cannot find a previous total cholesterol lab REVIEW OF SYMPTOMS: Review of Systems Constitutional: Negative for appetite change, fatigue and unexpected weight change. Eyes: Negative for visual disturbance. Respiratory: Negative for cough, shortness of breath and wheezing. Cardiovascular: Negative for chest pain, palpitations and leg swelling. Neurological: Negative for numbness. Endocrine: Negative for polydipsia, polyphagia and polyuria. OBJECTIVE: 09/21/2024 2:13 PM 07/18/2024 3:00 PM 01/26/2023 12:00 PM Vitals BMI 24.94 kg/m2 26.94 kg/m2 28.34 kg/m2 Systolic 118 124 Diastolic 66 76 Heart Rate 72 77 Temp 98.2 F 96.7 F Height (in) 5' 1 5' 1 5' 1 Weight (lb) 132 142.6 150 Visit Report Report Report Physical Exam Constitutional: General: She is not in acute distress. Appearance: Normal appearance. Cardiovascular: Rate and Rhythm: Normal rate and regular rhythm. Heart sounds: No murmur heard. No friction rub. No gallop. Pulmonary: Breath sounds: Normal breath sounds. No wheezing, rhonchi or rales. Musculoskeletal: General: No swelling. Neurological: Mental Status: She is alert. ASSESSMENT AND PLAN: Problem List Items Addressed This Visit Type 2 diabetes mellitus with stage 4 chronic kidney disease, with long-term current use of insulin ([facility]) During the appointment today all pertinent labs, imaging, health maintenance, and glucose readings were reviewed. Encouraged to check blood glucose throughout the day with some fasting and some PP readings. They are to bring their glucose meter/cgm in to all appointments. All of the patients questions, treatment options, and current care plan and goals were discussed. A copy of this along with pertinent instructions were given to the patient at the end of the appointment. The patient voices understanding of all of this and is to call in between appointments if they have any problems or questions. Gabbi Austin is making improvements and encouraged on this. , Will stay on current medications. , The patient is wearing their cgm on a daily basis and making decisions in regards to adjusting insulin daily as well for at least the last 60 days , Instructions given today include: Dietary education. Discussed soft protein foods for her to eat. She is making good progress and will stay with current medication to see if this continues as her teeth improve and she is able to get back into healthier eating habits as well as feeling better. Relevant Medications Continuous Glucose Sensor (FreeStyle Haider 3 Plus Sensor) [facility] [place] Semaglutide,0.25 or 0.5MG/DOS, 2 MG/3ML solution pen-injector Blood Glucose Monitoring Suppl (UTOPY VerEQUIP Advantage) w/Device kit glucose blood (OneTouch Verio) test strip Lancets (AnipipoTouch Delica Plus [id number]) [facility] [place] Other Relevant Orders POCT glycosylated hemoglobin (Hb A1C) docked device (Completed) Follow up in about 3 months (around 12/20/2024) for Recheck. Patient's Medications New Prescriptions BLOOD GLUCOSE MONITORING SUPPL (NumerateUCH Urlist) W/DEVICE KIT Fsbs daily CONTINUOUS GLUCOSE SENSOR (FREESTYLE HAIDER 3 PLUS SENSOR) [facility] 1 each See administration instructions GLUCOSE BLOOD (ONETOUCH VERIO) TEST STRIP Fsbs daily LANCETS (EnvervTOUCH DELICA PLUS [id number]) [facility] Fsbs daily Previous Medications ASPIRIN 81 MG EC TABLET Daily ATORVASTATIN (LIPITOR) 40 MG TABLET Take 40 mg by mouth at bedtime BARBERRY-OREG GRAPE-GOLDENSEAL (BERBERINE COMPLEX) 200-200-50 MG CAPSULE 1 (one) time each day at the same time BIOTIN 94529 MCG TABLET Take by mouth BUMETANIDE (BUMEX) 1 MG TABLET Daily CLOPIDOGREL (PLAVIX) 75 MG TABLET Daily CYANOCOBALAMIN (VITAMIN B-12) 1000 MCG TABLET Take 5,000 mcg by mouth Daily FERROUS SULFATE 325 (65 FE) MG TABLET Daily FLUTICASONE (FLONASE) 50 MCG/ACT NASAL SPRAY Daily IBUPROFEN (ADVIL) 200 MG TABLET every 8 (eight) hours L-LYSINE 500 MG CAPSULE Take by mouth LISINOPRIL 10 MG TABLET Daily MAGNESIUM 250 MG TABLET 1 (one) time each day at the same time MELATONIN 10 MG CAPSULE Take by mouth METOPROLOL SUCCINATE XL (TOPROL-XL) 100 MG 24 HR TABLET MULTIPLE VITAMINS-MINERALS (PRESERVISION AREDS PO) Take by mouth OMEPRAZOLE MAGNESIUM (PRILOSEC) 2.5 MG PACK 1 capsule POTASSIUM CHLORIDE ER (MICRO-K) 10 MEQ ER CAPSULE 1 (one) time each day at the same time ROPINIROLE (REQUIP) 2 MG TABLET Take 2 mg by mouth at bedtime Modified Medications Modified Medication Previous Medication SEMAGLUTIDE,0.25 OR 0.5MG/DOS, 2 MG/3ML SOLUTION PEN-INJECTOR Semaglutide,0.25 or 0.5MG/DOS, 2 MG/3ML solution pen-injector Inject 0.5 mg under the skin 1 (one) time per week Inject 0.5 mg under the skin 1 (one) time per week Discontinued Medications CONTINUOUS GLUCOSE SENSOR ([employer]24STYLE HAIDER 14 DAY SENSOR) MISC Inject 1 each under the skin every 14 (fourteen) days I have reviewed and reconciled the history and medication list with the patient today. documented in this encounter [facility] 07-19-2024 History of Present illness Narrative Associated Problem(s): Type 2 diabetes mellitus with stage 4 chronic kidney disease, with long-term current use of insulin ([facility]) During the appointment today all pertinent labs, imaging, health maintenance, and glucose readings were reviewed. Encouraged to check blood glucose throughout the day with some fasting and some PP readings. They are to bring their glucose meter/cgm in to all appointments. All of the patients questions, treatment options, and current care plan and goals were discussed. A copy of this along with pertinent instructions were given to the patient at the end of the appointment. The patient voices understanding of all of this and is to call in between appointments if they have any problems or questions. Gabbi Austin is struggling to gain control of their diabetes. I am very concerned for diabetes related complications. , The patient is wearing their cgm on a daily basis and making decisions in regards to adjusting insulin daily as well for at least the last 60 days , Discussed dietary changes at length. Encouraged to limit simple carbs and focus more on healthy protein/fat with all meals and snacks. They should also avoid any sugary drinks. , Instructions given today include: Hypoglycemia management and Dietary education. Will increase her ozempic and stop nesina as this doesn't really add any additional help on top of the ozempic. We are limited with medication use due to stage 4 ckd. May need to consider basal insulin in the future if this is not working. Images from the original note were not included. Gabbi Austin is a 74 y.o. female presents with chief complaint of Diabetes (New Patient) HPI: Diabetes Mellitus Initial: Patient here for initial evaluation of diabetes mellitus. The initial diagnosis of diabetes was made around 2013 Symptoms at diagnosis include Routine labs- was told she was pre-diabetic Previously tried medications include: Jardiance- yeast infections Complications include:nephropathy and cardiovascular disease She has been checking her blood glucose with a continuous glucose monitor on a daily basis. Bg have improved over this past week but sill running high around 180-220's. Tends to come down a little overnight and rise during the day. Last A1c: 9.3 (05/22/24) Current concerns include: Bg have been high, recently started to come back down. Has noticed when he sugar her sugar is low in the night her dog will wake her up. Has been told she was pre-diabetic, recently saw eye doctor and he told her that she was diabetic. Pt recently started Ozempic 3 weeks ago Diet: Watching carb and sugar intake, portion control Breakfast: Ayesha crunch Lunch: Skips Dinner: Varies: eats out more than she should, chicken/meat, pasta on occasion, salads, potatoes, veggies Snacks: nuts on occasion, low fat cheese, gold fish Drinks: water, hint drinks, strawberry drink zero sugar, zero pop, coffee with creamer Exercise: Walking dogs on occasion Hypoglycemia: none recently Diabetes Associated symptoms include fatigue. Pertinent negatives for diabetes include no chest pain, no polydipsia, no polyphagia and no polyuria. SUBJECTIVE: PROBLEM LIST SOCIAL ALLERGIES: Patient Active Problem List Diagnosis Type 2 diabetes mellitus with stage 4 chronic kidney disease, with long-term current use of insulin (CMS/HCC) Secondary hyperparathyroidism (CMS/HCC) Hyperlipidemia (CMS/HCC) Iron deficiency anemia Social History Tobacco Use Smoking status: Never Smokeless tobacco: Never Allergies Allergen Reactions Penicillins Hives Synopsis SmartLink 07/18/2024 06/19/2024 00:00 05/12/2024 00:00 Antidiabetic medications glipiZIDE Daily (5 MG TB24) Daily (5 MG TB24) Daily (5 MG TB24) linaGLIPtin 1 tablet Daily PO (5 MG TABS) -Discontinued metFORMIN HCl 1 tablet Daily PO (850 MG TABS) -Discontinued Semaglutide 0.25 mg (2 MG/3ML SOPN)-Discontinued (Reorder) No sig Semaglutide 0.5 mg Weekly SC (2 MG/3ML SOPN) Outpatient prescription Medication marked as long-term Patient-reported medication REVIEW OF SYMPTOMS: Review of Systems Constitutional: Positive for fatigue. Negative for appetite change and unexpected weight change. Eyes: Negative for visual disturbance. Respiratory: Negative for cough, shortness of breath and wheezing. Cardiovascular: Negative for chest pain, palpitations and leg swelling. Neurological: Negative for numbness. Endocrine: Negative for polydipsia, polyphagia and polyuria. OBJECTIVE: 07/18/2024 3:00 PM 01/26/2023 12:00 PM 12/09/2022 12:00 PM Vitals BMI 26.94 kg/m2 28.34 kg/m2 28.34 kg/m2 Systolic 124 Diastolic 76 Heart Rate 77 Temp 96.7 F Height (in) 5' 1 5' 1 5' 1 Weight (lb) 142.6 150 150 Visit Report Report Physical Exam Constitutional: General: She is not in acute distress. Appearance: Normal appearance. Cardiovascular: Rate and Rhythm: Normal rate and regular rhythm. Heart sounds: No murmur heard. No friction rub. No gallop. Pulmonary: Breath sounds: Normal breath sounds. No wheezing, rhonchi or rales. Musculoskeletal: General: No swelling. Neurological: Mental Status: She is alert. ASSESSMENT AND PLAN: Problem List Items Addressed This Visit Type 2 diabetes mellitus with stage 4 chronic kidney disease, with long-term current use of insulin ([facility]) - Primary During the appointment today all pertinent labs, imaging, health maintenance, and glucose readings were reviewed. Encouraged to check blood glucose throughout the day with some fasting and some PP readings. They are to bring their glucose meter/cgm in to all appointments. All of the patients questions, treatment options, and current care plan and goals were discussed. A copy of this along with pertinent instructions were given to the patient at the end of the appointment. The patient voices understanding of all of this and is to call in between appointments if they have any problems or questions. Gabbi Austin is struggling to gain control of their diabetes. I am very concerned for diabetes related complications. , The patient is wearing their cgm on a daily basis and making decisions in regards to adjusting insulin daily as well for at least the last 60 days , Discussed dietary changes at length. Encouraged to limit simple carbs and focus more on healthy protein/fat with all meals and snacks. They should also avoid any sugary drinks. , Instructions given today include: Hypoglycemia management and Dietary education. Will increase her ozempic and stop nesina as this doesn't really add any additional help on top of the ozempic. We are limited with medication use due to stage 4 ckd. May need to consider basal insulin in the future if this is not working. Relevant Medications Semaglutide,0.25 or 0.5MG/DOS, 2 MG/3ML solution pen-injector Follow up in about 2 months (around 09/17/2024) for Recheck. Patient's Medications New Prescriptions No medications on file Previous Medications ASPIRIN 81 MG EC TABLET Daily ATORVASTATIN (LIPITOR) 40 MG TABLET Take 40 mg by mouth at bedtime BARBERRY-OREG GRAPE-GOLDENSEAL (BERBERINE COMPLEX) 200-200-50 MG CAPSULE 1 (one) time each day at the same time BIOTIN 72637 MCG TABLET Take by mouth BUMETANIDE (BUMEX) 1 MG TABLET Daily CLOPIDOGREL (PLAVIX) 75 MG TABLET Daily CONTINUOUS GLUCOSE SENSOR (FREESTYLE HAIDER 14 DAY SENSOR) [facility] USE DIRECTED to test BLOOD SUGAR EVERY 14 days CYANOCOBALAMIN (VITAMIN B-12) 1000 MCG TABLET Take 5,000 mcg by mouth Daily FERROUS SULFATE 325 (65 FE) MG TABLET Daily FLUTICASONE (FLONASE) 50 MCG/ACT NASAL SPRAY Daily GLIPIZIDE XL (GLUCOTROL XL) 5 MG 24 HR TABLET Daily IBUPROFEN (ADVIL) 200 MG TABLET every 8 (eight) hours L-LYSINE 500 MG CAPSULE Take by mouth LISINOPRIL 10 MG TABLET Daily MAGNESIUM 250 MG TABLET 1 (one) time each day at the same time MELATONIN 10 MG CAPSULE Take by mouth METOPROLOL SUCCINATE XL (TOPROL-XL) 100 MG 24 HR TABLET MULTIPLE VITAMINS-MINERALS (PRESERVISION AREDS PO) Take by mouth OMEPRAZOLE MAGNESIUM (PRILOSEC) 2.5 MG PACK 1 capsule POTASSIUM CHLORIDE ER (MICRO-K) 10 MEQ ER CAPSULE 1 (one) time each day at the same time ROPINIROLE (REQUIP) 2 MG TABLET Take 2 mg by mouth at bedtime Modified Medications Modified Medication Previous Medication SEMAGLUTIDE,0.25 OR 0.5MG/DOS, 2 MG/3ML SOLUTION PEN-INJECTOR Semaglutide,0.25 or 0.5MG/DOS, 2 MG/3ML solution pen-injector Inject 0.5 mg under the skin 1 (one) time per week 0.25 mg Discontinued Medications LATANOPROST (XALATAN) 0.005 % OPHTHALMIC SOLUTION instill 1 (ONE) DROP IN BOTH EYES EVERY NIGHT METFORMIN (GLUCOPHAGE) 850 MG TABLET Take 1 tablet by mouth Daily TRADJENTA 5 MG TABLET Take 1 tablet by mouth Daily I have reviewed and reconciled the history and medication list with the patient today. documented in this encounter [facility] 05-15-2024 Note [facility] Note Chief Complaint: Patient here [...] concerns of NSVT; at that time her beta-obinna was increased and then monitor was placed, [...] drug-eluting stent, which was post-dilated with an [employer] Quantum Schlater 3.0 x 8 mm noncompliant balloon. Diagnostic Imagin01/04/23 Holter santiago (more content not included)... [facility] 12-01-2023 Note [facility] Consult Note Reason [...] concerns of NSVT; at that time her beta-obinna was increased and then monitor was placed, and no more recurring NSVT. patient no longer has any palpitations. she denies any recent chest pain, shortness of breath, palpitations, lightness, dizziness PMH: Past Medical History: Diagnosis Date CHF (congestive heart failure) ([facility]) Coronary artery disease Diabetes mellitus ([facility]) RLS (restless legs syndrome) PSH: Past Surgical [...] Veins: normal j (more content not included)... [facility] 12-01-2023 Note Patient here for 6 [...] All other systems reviewed and are negative. [facility] 11-10-2023 Evaluation note Encounter Date Diagnosis Assessment Notes Oct, Controlled type 2 diabetes mellitus with hyperglycemia, without long-term current use of insulin (ICD-10 - E11.65) [employer] Other 09-21-2023 Evaluation note* Encounter Date Diagnosis [...] will continue to monitor every 3 months. [employer] Other 09-20-2023 NoteIncreased toprol to 100 mg daily for noted NSVT on holter. 30 day event monitor to assess for PVC burden and reoccurance of VT Holter reviewed with Dr Hills and no futher testing or invasive testing required being that pt without any concerning symptomsUn[facility]09-20-2023 NoteContinue lipitorUnUniversity [facility]als [facility] 06-30-2023 NoteHTN currently well controlled 128/66 Continue all medsUnivers[facility]09-[facility]-2023 NoteNYHC II Continue GDMT- ASA, lipitor, toprol, lisinopril and Bumex-Diuretic therapy Monitor daily weights, I&O, fluid restriction 1.5-2L/day, renal function and electrolyteUnUniversity Hospitals [facility] Medical Center09-20-2023 NoteCoronary artery disease is stable Continue GDMT- ASA, lipitor, plavix, toprol continue risk factor modifications- heart healthy diet, regular exercise as tolerated and continue all medications.[facility] 06-30-2023 NoteUTP CARDIOLOGY PROGRESS NOTE HPI: [...] drug-eluting stent, which was post-dilated with an [employer] Quantum Schlater 3.0 x 8 mm noncompliant balloon. No echocardiogram results found for the past 12 months Assessment/Plan: Coronary atherosclerosis Coronary artery disease is stable Continue GDMT- ASA, lipitor, plavix, toprol continue risk factor modifications- heart healthy diet, regular exercise as tolerated and continue all medications. Chr (more content not included)...[facility]01-09-2023 Evaluation note* Encounter Date Diagnosis Assessment Notes Treatment Notes Treatment Clinical Notes Oct, Posterior right knee pain (ICD-10 - M25.561) [facility] Other Evaluation noteNo InformationNort [facility] Other Evaluation note* Diagnosis Onset Date Resolution Status CAD (coronary artery disease) acute Chronic cough acute Iron deficiency anemia acute Type II diabetes mellitus ac native [facility] Work Phone: Evaluation note* Diagnosis Onset Date Resolution Status CAD (coronary artery disease) acute Chronic cough acute Iron deficiency anemia acute Medicare annual wellness visit, subsequent acute RLS (restless legs syndrome) acute Type II diabetes mellitus ac native CAD (coronary artery disease) acute CKD (chronic kidney disease) acute [id number] acute Secondary hyperparathyroidism acute Type 2 diabetes mellitus wit h diabetic chronic kidney disease acute [facility] Work Phone: Evaluation note* Diagnosis Onset Date Resolution Status CAD (coronary artery disease) acute Chronic cough acute Iron deficiency anemia acute Medicare annual wellness visit, subsequent acute RLS (restless legs syndrome) acute Type II diabetes mellitus ac native CAD (coronary artery disease) acute CKD (chronic kidney disease) acute Hyperlipidemia acute [id number] acute Secondary hyperparathyroidism acute Type 2 diabetes mellitus wit h diabetic chronic kidney disease acute [facility] Work Phone: Evaluation note* Diagnosis Type 2 diabetes mellitus with stage 4 chronic kidney disease, with long-term current use of insulin (CMS/HCC)- Primary [facility] Diagnosis Type 2 diabetes mellitus with stage 4 chronic kidney disease, with long-term current use of insulin (CMS/HCC)- Primary Type 2 diabetes mellitus with stage 4 chronic kidney disease, with long-term current use of insulin (CMS/HCC) [facility] Diagnosis Type 2 diabetes mellitus with stage 4 chronic kidney disease, with long-term current use of insulin (CMS/HCC)- Primary Type 2 diabetes mellitus with stage 4 chronic kidney disease, with long-term current use of insulin (CMS/HCC) Type 2 diabetes mellitus with stage 4 chronic kidney disease, with long-term current use of insulin (CMS/HCC) documented in this encounter [facility] HealthcareHistory general Narrative - Reported* Type Description Date Medical History stenosis of left anterior descen ding artery Medical History type 2 diabetes Medical History CHF Medical History iron deficiency anemia Medical History secondary restless leg syndrome Medical History right carpal tunnel syndrome Surgical History PCI of mid LAD- drug eluting st ent [facility] Dr. Cao Surgical History left rotator cuff repair 2010 Surgical History left carpal tunnel release 2004 Surgical History tonsillectomy Surgical History section [employer] Other History general Narrative - Reported* Type [...] History PCI of mid LAD- drug eluting [facility] Dr. Cao Surgical History left rotator cuff repair 2010 Surgical History left carpal tunnel release 2004 Surgical History tonsillectomy Surgical History section Hospitalization History SEE SURGICAL HX [employer] Other History general Narrative - Reported* Type [...] History PCI of mid LAD- drug eluting [facility] Dr. Cao Surgical History left rotator cuff repair 2010 Surgical History left carpal tunnel release 2004 Surgical History tonsillectomy Surgical History section Surgical History Right knee surgery 02/2023 Surgical History Right CTR 02/2022 Hospitalization History SEE SURGICAL HX [employer] Other Summary Purpose Family History No Family History Records Found Relationship Condition Age at Onset Recorded Date/T marya father Heart disease Unknown Unknown mother Unknown Relationship Condition Age at Onset Recorded Date/T marya father Unknown Heart disease Unknown Status post three ve ssel coronary artery bypass Unknown mother Unknown Advance Directives No Advanced Directives Records Found Advance Directive Response Recorded Date/ Time Advance Directives No May 19 024 10:49am Hospital Course Note MR#: [id number] I [facility] Pt. Name: Gabbi Austin Admitted: 02/02/2020 [...] Referral Reason 11/02/22 Dr. Nuvia hanna at [place] office ([facility]) Diagnosis 1 Posterior right knee pain (M25.561) Referral Organization [facility] yovana Referring Provider First Name Lauren Referring Provider Last Name Natalya Referring Provider Specialty [facility] Referred Organization [facility] Referred Provider Dav García Jr Referred Address ,[place], [place],[address] Referred Provider Specialty Orthopedic S urgery Referral [...] Knapp 11/16/2022 12:37:24 PM >received notes from [employer]S CLE[employer]ER Christiano Luevano Clinical Notes Bryan: P: [phone] F: [phone] Chief Complaint and Reason for Visit Chief [...] (coronary artery disease) CKD (chronic kidney disease) [id number] Secondary hyperparathyroidism Type 2 diabetes mellitus with diabetic chronic kidney disease Chief Complaint Wellness RENAL CKD 4 N18.9 E1.22 I12.9 I25.10 N25.81 Reason for Visit CAD (coronary artery disease) Chronic cough Iron deficiency anemia Medicare annual wellness visit, subsequent RLS (restless legs syndrome) Type II diabetes mellitus CAD (coronary artery disease) CKD (chronic kidney disease) Hyperlipidemia [id number] Secondary hyperparathyroidism Type 2 diabetes mellitus with diabetic chronic kidney disease Additional Source Comments INFORMATION SOURCE (unrecogn ized section and content) DATE CREATED AUTHOR 05/02/2020 [facility] DATE CREATED AUTHOR AUTHOR'S ORGANIZ ATION 12/06/2022 [facility] dical Specialist DATE CREATED AUTHOR AUTHOR'S ORGANIZ ATION 01/16/2023 [facility] DATE CREATED AUTHOR AUTHOR'S ORGANIZ ATION 06/02/2024 [facility] DATE CREATED AUTHOR AUTHOR'S ORGANIZ ATION 07/02/[address] [facility] DATE CREATED AUTHOR AUTHOR'S ORGANIZ ATION 12/22/2024 [facility] d[facility] Specialists EPIC REASON FOR VISIT (unrecogniz ed section and content) Reason Comments Diabetes New Patient Reason Comments Diabetes Care Teams (unrecognized sec tion and content) Team Status: Active Member Role Status Dates Lauren Ayoub MD Primary Care Provider Active Team Status: Inactive Member Role Status Dates Lauren Ayoub MD Primary Care Provide r, Attending Provider Active Start: May 19, 2024 End: May 19, 2024 Team Status: Active Member Role Status Dates Lauren Ayoub MD Primary Care Provide r, Attending Provider Active Start: May 22, 2024 Team Status: Inactive Member Role Status Dates Lauren Ayoub MD Primary Care Provider Active Start: June 15, 2024 End: June 15, 2024 Tricia White MD Attending Provider Active Start : June 15, 2024 End: June 15, 2024 Team Status: Active Member Role Status Dates Lauren Ayoub MD Primary Care Provider Active Start: June 19, 2024 Tricia White MD Attending Provider Active Start : June 19, 2024 Team Status: Inactive Member Role Status Dates Lauren Ayoub MD Primary Care Provider Active Start: June 29, 2024 End: June 29, 2024 Tricia White MD Attending Provider Active Start : June 29, 2024 End: June 29, 2024 Culinary Manager Relationship Specialty Start Date End Date Lauren Ayoub MD [address] [place] [address] PCP - General Family Medicine 07/18/24 Adina Hummel DO [address] [place] [address] Referring Physician Family Medicine 07/18/24 Culinary Manager Relationship Specialty Start Date End Date Lauren Ayoub MD [address] [place] [address] PCP - General Family Medicine 07/18/24 Adina Hummel DO [address] [place] [address] Referring Physician Family Medicine 07/18/24 Culinary Manager Relationship Specialty Start Date End Date Lauren Ayoub MD [address] [place] [address] PCP - General Family Medicine 07/18/24 Adina Hummel, [address] [place] [address] Referring Physician Family Medicine 07/18/24 Goals (unrecognized section and content) Goals may [...] BE BASED ON THE PRIMARY CLINICAL RECORDS. [employer] [facility]. provides no warranty or guarantee of the accuracy or completeness of information in this document.
[2024-12-26 09:06] LABS: Hematocrit 38.3 % (36.0-48.0); Hemoglobin 12.8 g/dL (12.0-16.0); Mean Corpuscular HGB Conc 33.4 g/dL (29.9-35.2); Mean Corpuscular Volume 92.7 fL (81.0-99.0); Mean Platelet Volume 10.4 fL (9.5-13.5); Platelet Count 421 10^3/uL (150-450); Red Blood Count 4.13 10^6/uL (4.20-5.40); Red Cell Distribution Width 12.6 % (11.0-15.0); White Blood Count 9.2 10^3/uL (4.0-11.0)
[2024-12-26 09:41] LABS: Albumin Level 3.9 g/dL (3.4-5.0); Anion Gap 14.2; BUN Creatinine Ratio 22.5; Calcium 9.6 mg/dL (8.5-10.1); Carbon Dioxide 27.8 mmol/L (21.0-32.0); Chloride 100 mmol/L (98-107); Estimated GFR (African America 38 (>=60 mL/min/1.73m^2); Estimated GFR (Non-African Ame 32 (>=60 mL/min/1.73m^2); Glucose 127 mg/dL (74-106); Phosphorus 4.5 mg/dL (2.6-4.7); Sodium 138 mmol/L (136-145)
[2024-12-26 10:01] LABS: Bilirubin Urine NEGATIVE (NEGATIVE); Blood Urine NEGATIVE (NEGATIVE); Clarity Urine CLEAR (CLEAR); Color Urine YELLOW (YELLOW); Glucose Urine UA NEGATIVE (NEGATIVE); Ketones Urine NEGATIVE (NEGATIVE); Leukocyte Esterase Urine SMALL (NEGATIVE); Nitrite Urine NEGATIVE (NEGATIVE); Protein Urine NEGATIVE (NEG/TRACE); Urobilinogen Urine 0.2 EU/dL (0.2-1.0); pH Urine 5.5 (5.0-9.0)
[2024-12-26 10:18] LABS: Bacteria Urine TRACE #/HPF (NONE SEEN); Cast Seen? SEEN #/LPF (NONE SEEN); Crystals Seen? None Seen #/HPF (None Seen); Hyaline Casts Urine RARE; Mucus Urine TRACE (NONE SEEN); RBC Urine 0-2 #/HPF (0-2); Squamous Epithelial Cell Urine FEW #/LPF (NONE/RARE); Urine Culture Indicated NO
[2024-12-26 11:00] LABS: Creatinine Urine Random 118.13 mg/dL (20.00-300.00); Total Protein Urine Random 23.4 mg/dL (<=11.9)
[2024-12-27 14:09] LABS: PTH, Intact 91 pg/mL (15-65)
== END 2024-12-26 08:43 | disposition home or self-care (01) ==
LOC: LAB 08:44
PROVIDERS: PCP Family Medicine; Visit Provider Internal Medicine
DX: E78.5 Hyperlipidemia, unspecified (principal); N25.81 Secondary hyperparathyroidism of renal origin; I12.9 Hypertensive chronic kidney disease with stage 1 through stage 4 chronic kidney disease, or unspecified chronic kidney disease; E11.22 Type 2 diabetes mellitus with diabetic chronic kidney disease; N18.9 Chronic kidney disease, unspecified; I25.10 Atherosclerotic heart disease of native coronary artery without angina pectoris
CPT/HCPCS: 36415; 80069; 81001; 82306; 82570; 83735; 83970; 84156; 85027

== ENCOUNTER 2025-06-26 08:10 | Outpatient (OUT) | payer MEDICARE, OTHER, SELFPAY ==
--- OUTSIDE RECORDS SUMMARY | 2025-06-26 08:13 | XMS_ITS | CCD ---
Author Organization [facility] Care Team Providers Care Jewel Inserter Name Role Phone ANA LAURA BROCK Referring Unavailable LAUREN AYOUB Primary Care Unavailable LONNY FELTON Attending Unavailable NARENDRA SANCHEZ Admitting Unavailable Lauren Ayoub Unavailable LAUREN AYOUB Primary Care Unavailable DELFINO CARVAJAL Attending Unavailable DELFINO CARVAJAL Consulting Unavailable DELFINO CARVAJAL Admitting Unavailable LAUREN AYOUB Primary Care Unavailable STEPANIC, DR MILLAN Admitting [...] Unavailable LAUREN AYOUB Consulting Unavailable LAUREN AYOUB Primary Care Unavailable LAUREN AYOUB Admitting Unavailable MD Lauren Ayoub Primary Care Provider MD Tricia White Attending Provider [phone] Lauren Ayoub Primary Care Unavailable Tricia White Attending Unavailable Tricia White Admitting Unavailable Lauren Ayoub MD Primary Care Provider Adina Hummel DO Unavailable [phone] Lauren Ayoub MD Primary Care Provider ADINA HUMMEL Attending Unavailable ADINA HUMMEL Attending Unavailable ADINA HUMMEL Attending Unavailable ADINA HUMMEL Attending Unavailable NELLY GARG Attending Unavailable MASHA BALDERAS Attending Unavailable Allergies Allergy Classification Reported Allergen(s) Allergy Type Date of Onset Reaction(s) Facility (8 sources) Penicillin Drug Allergy 02-01-20 20 Unknown [facility] Repository (11 sources) Ciprofloxacin Drug Allergy 05-19-20 24 Unknown, [facility] (5 sources) Eggs/Apples/Oats Drug allergy Unknown [facility] Other (3 sources) atorvastatin Drug Allergy Unknown [facility] Other (3 sources) Substance with penicillin structure and antibacterial mechanism of action (substance) Drug allergy Unknown [facility] Other (1 source) patient allergy list reviewed by nurse or physicia Propensity to adverse reactions 01-11-20 Comment:Done [facility] Other (3 sources) Eggs/Apples/Oats *DIETARY PRODUCTS/DIETARY MANAGEM Propensity to adverse reactions Unknown [facility] Other (1 source) Allergies Reconciled Propensity to adverse reactions Unknown [facility] Other (13 sources) Penicillins; Translations: [PENICILLINS] Allergy to substance 01-05-20 [facility] (3 sources) Eggs/Apples/Oats *DIETARY PROD Allergy to substance 05-12-20 [facility] (1 source) cauliflower allergenic extract Drug Allergy 01-24-20 [facility] (2 sources) egg extract; Translations: [EGG] Drug Allergy 06-30-20 [facility] (1 source) Lemon extract Drug Allergy 01-24-20 25 Sneezing [facility] Medications Current Medications Medication Drug Class(es) Dates Sig (Normalized) Sig (Original) aspirin 81 mg delayed release oral tablet (18 sources) Platelet Aggregation Inhibitor, Nonsteroidal Anti-inflammatory Drug Start: 06-15-2024 aspirin 81 MG EC tablet Daily 06/15/2024 Active take 1 tablet by elyssa th every twenty-four hours Aspirin 81 81 MG 1 tablet Orally Once a day Active atorvastatin 40 mg oral tablet (12 sources) HMG-CoA Reductase Inhibitor Start: 01-23-2025 Atorvastatin 40 mg tablet Active 20 MG PO Daily January 23, 2025 1:16pm Start: 06-15-2024 take 1 mg by mouth once daily Atorvastatin Active MG PO Daily June 15, 2024 12:00am Start: 02-11-2024 End: 02-10-2025 take 1 tablet by mouth at bedtime atorvastatin (Lipitor) 40 MG tablet Take 40 mg by mouth at bedtime 02/11/2024 Active azithromycin 250 mg oral tablet (4 sources) Macrolide Antimicrobial Start: 07-01-2023 Azithromycin 250 MG as directed Orally 2 tabs po today, then 1 tab daily x 4 more days for 5 Jun, Active Start: 01-04-2023 Azithromycin 2 50 MG as directed Orally daily for 5 days Dec, Active Barberry-Oreg Grape-Goldenseal (Berberine Complex) 200-200-50 MG capsule (8 sources) Barberry-Oreg Grape-Goldenseal (Berberine Complex) 200-200-50 MG capsule 1 (one) time each day at the same time Active Berberine Chloride (2 sources) Start: 06-15-2024 take 1000 mg by mouth once daily Berberine Chloride Active 1000 MG PO Daily June 15, 2024 12:00am Berberine Chloride 500 mg capsule (1 source) Start: 06-15-2024 take 2 capsules by mouth once daily Berberine Chloride 500 mg capsule Active 1000 MG PO Daily June 15, 2024 12:00am biotin 10 mg oral tablet (8 sources) biotin 63070 MCG tablet Take by mouth Active Blood Glucose Monitoring Suppl ([employer]) w/Device kit (6 sources) Start: 09-22-2024 Blood Glucose Monitoring Suppl ([employer] [place]) w/Device kit Indications: Type 2 diabetes mellitus with stage 4 chronic kidney disease, with long-term current use of insulin ([facility]) Testing bg levels once a day 1 kit 09/22/2024 Active Start: 09-22-2024 Blood Glucose Monitoring Suppl ([employer]) w/Device kit Indications: Type 2 diabetes mellitus with stage 4 chronic kidney disease, with long-term current use of insulin ([facility]) Testing bg levels once a day 1 kit 09/22/2024 Active Start: 09-21-2024 Blood Glucose Monitoring Suppl ([employer]) w/Device kit Indications: Type 2 diabetes mellitus with stage 4 chronic kidney disease, with long-term current use of insulin ([facility]) Fsbs daily 1 kit 09/21/2024 Active bumetanide 1 mg oral tablet (18 sources) Loop Diuretic Start: 02-11-2024 bumetanide (Bu hans) 1 MG tablet Daily 02/11/2024 Active take 1 tablet by elyssa th every twenty-four hours Bumetanide 1 MG 1 tablet Orally Once a day Active clopidogrel 75 mg oral tablet (18 sources) [id number] Platelet Inhibitor Start: 02-11-2024 clopidogrel (Plavix) 75 MG tablet Daily 02/11/2024 Active take 1 tablet by elyssa th every twenty-four hours Plavix 75 MG 1 tablet Orally Once a day Active Continuous Glucose Sensor (FreeStyle Haider 3 Plus Sensor) misc (8 sources) Start: 12-19-2024 End: 12-19-2025 Continuous Glucose Sensor (FreeStyle Haider 3 Plus Sensor) misc Indications: Type 2 diabetes mellitus with stage 4 chronic kidney disease, with long-term current use of insulin ([facility]) 1 each Every 15 Days 6 each 3 12/19/2024 12/19/2025 Active Start: 12-19-2024 End: 12-19-2025 Continuous Glucose Sensor (F reeStyle Haider 3 Plus Sensor) misc Indications: Type 2 diabetes mellitus with stage 4 chronic kidney disease, with long-term current use of insulin ([facility]) 1 each Every 15 Days 6 each 3 12/19/2024 12/19/2025 Active Start: 11-17-2024 End: 12-19-2024 Continuous Glucose Sensor (F reeStyle Haider 3 Plus Sensor) misc Indications: Type 2 diabetes mellitus with stage 4 chronic kidney disease, with long-term current use of insulin ([facility]) 1 each See administration instructions 6 each 3 11/17/2024 12/19/2024 Discontinued (Reorder) Start: 09-21-2024 Continuous Glu cose Sensor (FreeStyle Haider 3 Plus Sensor) misc Indications: Type 2 diabetes mellitus with stage 4 chronic kidney disease, with long-term current use of insulin ([facility]) 1 each See administration instructions 6 each 3 09/21/2024 Active famotidine 20 mg oral tablet (7 sources) Histamine-2 Receptor Antagonist take 1 tablet by mouth once daily at bedtime as needed Famotidine 20 mg TAKE 1 TABLET BY MOUTH ONCE DAILY AT BEDTIME NEEDED for 30 Active ferrous sulfate 325 mg oral tablet (8 sources) ferrous sulfate 325 (65 Fe) MG tablet Daily Active fluticasone propionate 0.05 mg/actuat metered dose nasal spray (11 sources) Corticosteroid Start: 06-15-20 fluticasone (Flonase) 50 MCG/ACT nasal spray Daily 06/15/2024 Active Start: 06-15-2024 take 1 spray(s) nasa l route once daily Fluticasone Propionate 50 mcg/actuation spray,suspension Active 1 SPRAY INTRANASAL Daily June 15, 2024 12:00am administer into each nostril FreeStyle Haider 14 Day Reade r - (7 sources) FreeStyle Haider 14 Day [place] - as directed for 30 days Active FreeStyle Haider 14 Day [place] - as directed Active FreeStyle Haider 14 Day Senso r - (7 sources) FreeStyle Haider 14 Day Sensor - USE DIRECTED EVERY 14 DAYS for 308 Active FreeStyle Haider 14 Day Sensor - as directed for 14 days Active FreeStyle Haider 14 Day Sensor - as directed Active ibuprofen 200 mg oral tablet (8 sources) Nonsteroidal Anti-inflammatory Drug ibuprofen (Advil) 200 MG tablet every 8 (eight) hours Active lisinopril 10 mg oral tablet (18 sources) Angiotensin Converting Enzyme Inhibitor Start: 02-11-2024 lisinopril 10 MG tablet Daily 02/11/2024 Active take 1 tablet by elyssa th every twenty-four hours Lisinopril 10 MG 1 tablet Orally Once a day Active lysine 500 mg oral capsule (8 sources) L-Lysine 500 MG capsule Take by mouth Active Magnesium (8 sources) magnesium 250 MG tablet 1 (one) time each day at the same time Active magnesium citrate 100 mg oral tablet (8 sources) Start: 07-27-2024 take 1 tablet by mouth once daily Magnesium Citrate 100 mg tablet Active 100 MG PO Daily July 27, 2024 12:00am Magnesium Citrat e 100 MG as directed Orally Active melatonin 10 mg oral capsule (8 sources) Melatonin 10 MG capsule Take by mouth Active 24 hr metoprolol succinate 100 mg extended release oral tablet (20 sources) beta-Adrenergic [place] Start: 07-27-2024 take 1 tablet by mouth once daily Metoprolol Succinate 100 mg tablet extended release 24 hr Active 100 MG PO Daily July 27, 2024 2:13pm Start: 06-15-2024 End: 07-27-2024 take 1 tablet by mouth every twenty-four hours Metoprolol Succinate 100 mg tablet extended release 24 hr Discontinued MG PO June 15, 2024 12:00am July 27, 2024 2:16pm Start: 06-15-2024 Metoprolol Suc cinate Active MG PO June 15, 2024 12:00am take 1 tablet by elyssa th every twenty-four hours Toprol XL 50 MG 1 tablet Orally Once a day Active take 1 tablet by elyssa th every twenty-four hours Metoprolol Tartrate 100 MG 1 tablet once a day Active Multiple Vitamins-Minerals (PRESERVISION AREDS PO) (8 sources) Multiple Vitamins-Minerals (PRESERVISION AREDS PO) Take by mouth Active Ekhklbvx-Mgc-Bgorckj-K-He [id number] (Alive Women's 50 Plus Ultra) 800 mcg DFE- 150 mcg tablet (3 sources) Start: take 1 tablet by mouth once Rdwycbyv-Vgp-Hdbrven-K-H [id number] (Alive Women's 50 Plus Ultra) 800 mcg DFE- 150 mcg tablet Active TAB PO June 15, 2024 12:00am omeprazole 2.5 mg granules for oral suspension (8 sources) Proton Pump Inhibitor Omeprazole Magnesium (PriLOSEC) 2.5 MG pack 1 capsule Active Omeprazole Magnesium (Prilosec Otc) 20 mg tablet,delayed release (DR/EC) (3 sources) Start: take 1 tablet by mouth once daily Omeprazole Magnesium (Prilosec Otc) 20 mg tablet,delayed release (DR/EC) Active 20 MG PO Daily June 15, 2024 12:00am potassium chloride 10 meq extended release oral tablet (19 sources) Start: take 1 tablet by mouth once daily Potassium Chloride 10 mEq tablet extended release Active 10 MEQ PO Daily July 27, 2024 2:14pm Start: 06-15-2024 End: 07-27-2024 Potassium Chloride 10 mEq ta blet extended release Discontinued MEQ PO June 15, 2024 12:00am July 27, 2024 2:16pm Start: 06-15-2024 Potassium Chlo ride Active MEQ PO June 15, 2024 12:00am potassium chlori de ER (Micro-K) 10 MEQ ER capsule 1 (one) time each day at the same time Active take 1 tablet by elysas th every twelve hours Potassium Chloride ER 10 MEQ 1 tablet with food Orally Twice a day Active rOPINIRole 2 mg oral tablet (20 sources) Nonergot Dopamine Agonist Start: 08-10-2024 End: 11-08-2024 take 1 tablet by mouth at bedtime Ropinirole 2 mg tablet Active 0 .ROUTE .COMPLEX 90 November 08, 2024 9:08am TAKE 1 TABLET BY MOUTH AT BEDTIME Start: 06-15-2024 End: 07-27-2024 take 1 tablet by mouth once daily Ropinirole 1 mg tablet Discontinued 1 MG PO Daily June 15, 2024 12:00am July 27, 2024 2:14pm Start: 05-19-2024 End: 08-10-2024 take 1 tablet by mouth at bedtime rOPINIRole (Requip) 2 MG tablet Take 2 mg by mouth at bedtime 05/19/2024 Active Start: 05-11-2024 End: 05-12-2024 take 1 tablet by mouth at bedtime Ropinirole 1 mg tablet Discontinued 0 .ROUTE .COMPLEX May 11, 2024 8:28am May 12, 2024 11:14am TAKE 1 TABLET BY MOUTH AT BEDTIME Start: 05-11-2024 End: 05-12-2024 take 1 tablet by mouth at bedtime Ropinirole Discontinued 0 .ROUTE .COMPLEX May 11, 2024 8:28am May 12, 2024 11:14am TAKE 1 TABLET BY MOUTH AT BEDTIME Start: 05-11-2024 End: 05-19-2024 take 1 tablet by mouth once daily at bedtime Ropinirole 1 mg tablet Discontinued 1 MG PO Daily at bedtime May 11, 2024 12:00am May 19, 2024 11:37am take 1 tablet by elyssa th at bedtime rOPINIRole HCl 1 mg TAKE 1 TABLET BY MOUTH AT BEDTIME for 90 Active Semaglutide (4 sources) Start: 06-19-2024 Semaglutide (O zempic) 0.25 mg or 0.5 mg (2 mg/3 mL) pen injector Active 0.25 MG SUBCUT every week 3 June 19, 2024 3:05pm for 4 weeks Start: 06-15-2024 End: 06-19-2024 Semaglutide (Ozempic) 0.25 m g or 0.5 mg (2 mg/3 mL) pen injector Discontinued 0.25 MG SUBCUT every week June 15, 2024 12:00am June 19, 2024 3:05pm for 4 weeks Semaglutide,0.25 or 0.5MG/DO S, 2 MG/3ML solution pen-injector (16 sources) Start: 04-02-2025 End: 04-02-2026 Semaglutide,0.25 or 0.5MG/DO S, 2 MG/3ML solution pen-injector Indications: Type 2 diabetes mellitus with stage 4 chronic kidney disease, with long-term current use of insulin (HCC) Inject 0.5 mg under the skin 1 (one) time per week 9 mL 3 04/02/2025 04/02/2026 Active Start: 12-19-2024 End: 04-02-2025 Semaglutide,0.25 or 0.5MG/DO S, 2 MG/3ML solution pen-injector Indications: Type 2 diabetes mellitus with stage 4 chronic kidney disease, with long-term current use of insulin (HCC) Inject 0.5 mg under the skin 1 (one) time per week 9 mL 3 12/19/2024 04/02/2025 Discontinued (Reorder) Start: 12-19-2024 End: 12-19-2025 Semaglutide,0.25 or 0.5MG/DO [...] pen-injector 0.25 mg 06/19/2024 07/18/2024 Discontinued (Reorder) Tafluprost (Pf) 0.0015 % dropperette (1 source) Start: 07-27-2024 Tafluprost (Pf ) 0.0015 % dropperette Active DROPS OPHTHALMIC July 27, 2024 12:00am vitamin b12 1 mg oral tablet (8 sources) Vitamin B12 take 5 tablets by mouth once daily cyanocobalamin (Vitamin B-12) 1000 MCG tablet Take 5,000 mcg by mouth Daily Active Vitamins A,C,L-Ehpo-Efxkry (Preservision Areds) 4,296 mcg-226 mg-90 mg capsule (3 sources) Start: 06-15-2024 take 1 capsule by mouth twice daily Vitamins A,C,D-Srwf-Snqrul (Preservision Areds) 4,296 mcg-226 mg-90 mg capsule Active 1 CAP PO Twice daily June 15, 2024 12:00am Completed/Discontinued Medications Medication Drug Class(es) Dates Sig (Normalized) Sig (Original) Continuous Glucose Sensor (FreeStyle Haider 14 Day Sensor) misc (4 sources) Start: 07-19-2024 End: 09-21-2024 inject 1 dose by subcutaneous injection once Continuous Glucose Sensor (FreeStyle Haider 14 Day Sensor) [facility] [place]ications: Type 2 diabetes mellitus with stage 4 chronic kidney disease, with long-term current use of insulin ([facility]) Inject 1 each under the skin every 14 (fourteen) days 6 each 1 07/19/2024 09/21/2024 Discontinued Start: 06-30-2024 Continuous Glu cose Sensor (FreeStyle Haider 14 Day Sensor) [facility] [place] to test BLOOD SUGAR EVERY 14 days 06/30/2024 Active glipiZIDE er 5 mg 24 hr extended release oral tablet (17 sources) Sulfonylurea Start: 05-12-2024 End: 01-23-2025 take 1 tablet by mouth once daily Glipizide 5 mg tablet extended release 24hr Discontinued 5 MG PO Daily May 12, 2024 12:48pm January 23, 2025 1:14pm take 1 tablet by mouth once starla y glipiZIDE ER 5 mg TAKE 1 TABLET BY MOUTH DAILY Active take 1 tablet by elyssa th every twenty-four hours glipiZIDE 5 MG 1 tablet Orally daily for 90 days Active latanoprost 0.05 mg/ml ophthalmic solution (5 sources) Prostaglandin Analog Start: 06-15-2024 End: 07-27-2024 take 1 drop(s) into the eye(s) once daily Latanoprost 0.005 % drops Discontinued 1 DROPS EYE-BOTH Daily June 15, 2024 12:00am July 27, 2024 2:13pm Start: 06-15-2024 take 1 drop(s) into the eye(s) once daily Latanoprost Active 1 DROPS EYE-BOTH Daily June 15, 2024 12:00am Start: 02-09-2024 End: 07-18-2024 take 1 drop(s) into the eye(s) once daily latanoprost (Xalatan) 0.005 % ophthalmic solution instill 1 (ONE) DROP IN BOTH EYES EVERY NIGHT 02/09/2024 07/18/2024 Discontinued linagliptin 5 mg oral tablet (20 sources) Dipeptidyl Peptidase 4 Inhibitor Start: 02-10-2024 End: 05-11-2024 take 1 tablet by mouth once daily Linagliptin (Tradjenta) 5 mg tablet Discontinued 0 .ROUTE .COMPLEX 90 February 10, 2024 12:59pm May 11, 2024 8:28am TAKE 1 TABLET BY MOUTH DAILY Start: 02-09-2024 End: 07-27-2024 take 1 tablet by mouth once daily Linagliptin (Tradjenta) 5 mg tablet Discontinued 5 MG PO Daily May 12, 2024 12:00am July 27, 2024 2:12pm metFORMIN hydrochloride 850 mg oral tablet (20 sources) Biguanide Start: 02-10-2024 End: 06-15-2024 take 1 tablet by mouth once daily Metformin 850 mg tablet Discontinued 0 .ROUTE .COMPLEX May 11, 2024 8:28am June 15, 2024 10:13pm TAKE 1 TABLET BY MOUTH DAILY Start: 02-09-2024 End: 07-18-2024 take 1 tablet by mouth once daily Metformin 850 mg tablet Discontinued 850 MG PO Daily February 09, 2024 12:00am February 10, 2024 12:59pm Problems Active Problems Problem Classification Problem Date Documented Date Episodic/Chronic Chronic kidney disease (7 sources) Chronic kidney disease; Translations: [Chronic kidney disease, unspecified] Onset: 4 06-15-2024 Chronic Congestive heart failure; nonhypertensive (8 sources) Chronic systolic (congestive) heart failure; Translations: [Heart failure] Onset: 3 Chronic Coronary atherosclerosis and other heart disease (15 sources) Atherosclerotic heart disease of [place] coronary artery without angina pectoris; Translations: [Atherosclerosis of coronary artery without angina pectoris] Onset: 0 05-19-2024 Chronic Deficiency and other anemia (3 sources) Iron deficiency anemia, unspecified; Translations: [Iron deficiency anemia, unspecified] 05-19-2024 Episodic Diabetes mellitus with complications (20 sources) Type 2 diabetes mellitus with hyperglycemia; Translations: [Hyperglycemia due to type 2 diabetes mellitus] Onset: 4 Chronic Diabetes mellitus without complication (14 sources) Type 2 diabetes mellitus without complication; Translations: [Type 2 diabetes mellitus without complications] Onset: 4 05-19-2024 Chronic Disorders of lipid metabolism (14 sources) Hyperlipidemia; Translations: [Hyperlipidemia, unspecified] Onset: 3 06-18-2024 Chronic Heart valve disorders (1 source) Nonrheumatic mitral (valve) insufficiency; Translations: [NONRHEUMATIC MITRAL INSUFFICIENCY] Onset: 3 Chronic Hypertension with complications and secondary hypertension (7 sources) Chronic kidney disease due to hypertension; Translations: [Hypertensive chronic kidney disease with stage 1 through stage 4 chronic kidney disease, or unspecified chronic kidney disease] Onset: 4 06-15-2024 Chronic Other diseases of kidney and ureters (11 sources) Secondary hyperparathyroidism; Translations: [Secondary hyperparathyroidism of renal origin] Onset: 4 06-15-2024 Chronic Other diseases of kidney and ureters (4 sources) Secondary hyperparathyroidism of renal origin; Translations: [Secondary hyperparathyroidism (of renal origin)] Onset: 4 06-15-2024 Chronic Other ear and sense organ disorders (2 sources) Hearing loss of right ear; Translations: [Unspecified hearing loss, right ear] Chronic Other ear and sense organ disorders (1 source) Unspecified hearing loss, right ear Chronic Other hereditary and degenerative nervous system conditions (4 sources) Restless legs; Translations: [Restless legs syndrome] 05-19-2024 Chronic Other hereditary and degenerative nervous system conditions (2 sources) Restless legs syndrome; Translations: [Restless legs syndrome (RLS)] 05-19-2024 Chronic Other lower respiratory disease (7 sources) Chronic cough; Translations: [Chronic cough] 05-19-2024 Episodic Other lower respiratory disease (2 sources) Other forms of dyspnea; Translations: [Other forms of dyspnea] Onset: 5 Episodic Other nervous system disorders (1 source) [...] [Acute maxillary sinusitis, unspecified] Onset: 5 Episodic Past or Other Problems Problem Classification Problem Date Documented Da te Episodic/Chronic Bacterial infection; unspecified site (1 source) Bacterial infectious disease; Translations: [Bacterial infection, unspecified, in conditions classified elsewhere and of unspecified site] Onset: 12-30-2016 Episodic Deficiency and other anemia (13 sources) Iron deficiency anemia; Translations: [Iron deficiency anemia, unspecified] Onset: 07-18-2024 05-19-2024 Episodic Residual codes; unclassified (1 source) Family history of breast cancer; Translations: [Family history of malignant neoplasm of breast] Onset: 01-10-2014 Episodic Results Test Name Value Interpretation Reference Range Facility Office Visiton 04-27-2025 Follow-up visit [id number] Gabbi Austin 1950 F Date Provider Department Center 04/27/2025 [id number] ANDRADE Family History Problem Relation Age of Onset Mitral valve prolapse Mother Family Status - Relation Status Age at Mother Level of Service:22068 [place] OFFICE/OUTPATIENT ESTABLISHED MOD MDM 30 MIN Normal [facility] HbA1c (Bld) [Mass fraction]o n 04-02-2025 Interpretation and review of laboratory results Normal [facility] - Hematology and Cell countson 04-02-2025 HbA1c (Bld) [Mass fraction] 7 % [facility] Erythrocyte distribution wid th Auto (RBC) [Ratio]on 12-26-2024 Erythrocyte distribution width (RBC) [Ratio] Erythrocyte distribution width [Ratio] by Automated count 11.0-15.0 [facility] Estimated glomerular filtrat ion rate (GFR) non- Americanon 12-26-2024 GFR/1.73 sq M.predicted among non-blacks MDRD (S/P/Bld) [Vol rate/Area] Estimated glomerular filtration rate (GFR) non- Low >=60 mL/min/1.73m 2 [facility] Hematocrit Auto (Bld) [Volum e fraction]on 12-26-2024 Hematocrit (Bld) [Volume fraction] Hematocrit [Volume Fraction] of Blood by Automated count 36.0-48.0 [facility] Hemoglobin [Mass/volume] in Bloodon 12-26-2024 Hemoglobin (Bld) [Mass/Vol] Hemoglobin [Mass/volume] in Blood 12.0-16.0 [facility] Laboratory - Chemistry and C hemistry - challengeon 12-26-2024 Albumin [Mass/Vol] 3.9 g/dL 3.4-5.[address] [facility] Calcium [Mass/Vol] 9.6 mg/dL 8.5-10.[address] [facility] Chloride [Moles/Vol] 100 mmol/L 98-107 [facility] CO2 [Moles/Vol] 27.8 mmol/L 21.0-32.0 [facility] Creatinine [Mass/Vol] 1.60 mg/dL High 0.55-1.02 [facility] GFR/1.73 sq M.predicted MDRD (S/P/Bld) [Vol rate/Area] 38 mL/min/{1.73_m2} Low >=60 mL/min/1.73m 2 [facility] Glucose [Mass/Vol] 127 mg/dL High 74-[address] [facility] Magnesium [Mass/Vol] 2.0 mg/dL 1.8-2.4 [facility] Potassium [Moles/Vol] 4.0 mmol/L 3.5-5.1 [facility] Sodium [Moles/Vol] 138 mmol/L 136-[address] [facility] Urea nitrogen [Mass/Vol] 36.0 mg/dL High 7.0-18.0 [facility] Urea nitrogen/Creatinine [Mass ratio] 22.5 mg/mg [facility] Laboratory - Urinalysison Protein (U) [Mass/Vol] 23.4 mg/dL High <=11.9 [facility] Leukocytes [#/volume] correc bebe for nucleated erythrocytes in Blood by Automated counon 12-26-2024 WBC corrected for nucl RBC Auto (Bld) [#/Vol] Leukocytes [#/volume] corrected for nucleated erythrocytes in Blood by Automated coun 4.0-11.0 [facility] MCH Auto (RBC) [Entitic mass ]on 12-26-2024 MCH (RBC) [Entitic mass] MCH [Entitic mass] by Automated count 26.7-34.0 [facility] MCHC Auto (RBC) [Mass/Vol]on 12-26-2024 MCHC (RBC) [Mass/Vol] MCHC [Mass/volume] by Automated count 29.9-35.2 [facility] MCV Auto (RBC) [Entitic vol] on 12-26-2024 MCV (RBC) [Entitic vol] MCV [Entitic volume] by Automated count 81.0-99.0 [facility] No Panel Informationon 12-26 25-Hydroxy Vitamin D Total 28.2 ng/mL [facility] Comment on above: <20 ng/mL Vit D defi cient20-<30 ng/mL Vit D [id number] ng/mL Vit D sufficient>100 ng/mL Potential Toxicity Parathyroid Hormone (Intact) 91 pg/mL Abnormal 15-65 [facility] Comment on above: Performed at: - [address] [id number] Director: Ruben Matute PhD, Phone: [phone] Phosphorus Level 4.5 mg/dL 2.6-4.7 [facility] Urine Random Creatinine 118.13 mg/dL 20.00-300.00 [facility] Platelet mean volume Auto (B ld) [Entitic vol]on 12-26-2024 Platelet mean volume (Bld) [Entitic vol] Platelet mean volume [Entitic volume] in Blood by Automated count 9.5-13.5 [facility] Platelets Auto (Bld) [#/Vol] on 12-26-2024 Platelets (Bld) [#/Vol] Platelets [#/volume] in Blood by Automated count 150-450 [facility] RBC Auto (Bld) [#/Vol]on RBC (Bld) [#/Vol] Erythrocytes [#/volume] in Blood by Automated count Low 4.20-5.40 [facility] Serum or plasma anion gap de terminationon 12-26-2024 Anion gap [Moles/Vol] Serum or plasma anion gap determination [facility] Urine protein/creatinine rat ioon 12-26-2024 Protein/Creatinine (U) [Ratio] Urine protein/creatinine ratio [facility] HbA1c (Bld) [Mass fraction]o n 12-19-2024 Interpretation and review of laboratory results Normal [facility] - Hematology and Cell countson 12-19-2024 HbA1c (Bld) [Mass fraction] 6.5 % [facility] HbA1c (Bld) [Mass fraction]o n 09-21-2024 Interpretation and review of laboratory results Abnormal [facility] Hematology [facility] Cell countson 09-21-2024 HbA1c (Bld) [Mass fraction] 8 % [facility] US renal BIon 06-29-2024 US renal BI [facility] [place] [address] Ultrasound Report Signed Patient: Gabbi Austin MR#: [id number] 4 : 1950 Acct:[id number] Age/Sex: 73 / F ADM Date: 06/29/24 Loc: Room: Type: [facility] Attending Dr: Tricia White MD Ordering Provider: [...] Jose Nguyen M.D.06/29/2024 3:46 PM Dictation Location: [place] [address] Tech: Rosario Vance Transcribed By: NICOLE 06/29/24 1546 Dictated By: Jose Nguyen DO 06/29/24 1545 Signed By: 06/29/24 1546 Normal [facility] Erythrocyte distribution wid th Auto (RBC) [Ratio]on 06-19-2024 Erythrocyte distribution width (RBC) [Ratio] 13.2 % 11.0-15.0 [facility] Estimated glomerular filtrat ion rate (GFR) non- Americanon 06-19-2024 GFR/1.73 sq M.predicted among non-blacks MDRD (S/P/Bld) [Vol rate/Area] 29 mL/min/{1.73_m2} Low >=60 [facility] Hematocrit Auto (Bld) [Volum e fraction]on 06-19-2024 Hematocrit (Bld) [Volume fraction] 36.7 % 36.0-48.0 [facility] Hemoglobin [Mass/volume] in Bloodon 06-19-2024 Hemoglobin (Bld) [Mass/Vol] 12.2 g/dL 12.0-16.0 [facility] Laboratory - Chemistry and C hemistry - challengeon 06-19-2024 Bilirubin Ql (U) Negative NEGATIVE [facility] Glucose (U) [Mass/Vol] 250 mg/dL Abnormal NEGATIVE [facility] Ketones Ql (U) Negative NEGATIVE [facility] pH (U) 6.0 [pH] 5.0-9.0 [facility] Specific gravity (U) [Rel density] 1.020 1.005-1.025 [facility] Urobilinogen Qn (U) 0.2 {David'U}/dL 0.2-1.0 [facility] Albumin [Mass/Vol] 3.6 g/dL 3.4-5.[address] [facility] Calcium [Mass/Vol] 9.3 mg/dL 8.5-10.[address] [facility] Chloride [Moles/Vol] 99 mmol/L 98-107 [facility] CO2 [Moles/Vol] 27.7 mmol/L 21.0-32.0 [facility] Creatinine [Mass/Vol] 1.75 mg/dL High 0.55-1.02 [facility] GFR/1.73 sq M.predicted MDRD (S/P/Bld) [Vol rate/Area] 35 mL/min/{1.73_m2} Low >=60 [facility] Glucose [Mass/Vol] 207 mg/dL High 74-[address] [facility] Magnesium [Mass/Vol] 2.0 mg/dL 1.8-2.4 [facility] Potassium [Moles/Vol] 4.3 mmol/L 3.5-5.1 [facility] Sodium [Moles/Vol] 135 mmol/L Low 136-[address] [facility] Urate [Mass/Vol] 6.6 mg/dL High 2.6-6.0 [facility] Urea nitrogen [Mass/Vol] 39.0 mg/dL High 7.0-18.0 [facility] Urea nitrogen/Creatinine [Mass ratio] 22.3 mg/mg [facility] Laboratory - Specimen inform ationon 06-19-2024 Appearance (U) CLEAR CLEAR [facility] Color (U) LT. YELLOW YELLOW [facility] Laboratory - Urinalysison Leukocyte esterase Test strip Ql (U) SMALL Abnormal NEGATIVE [facility] Mucus Ql (Urine sed) TRACE Abnormal NONE SEEN [facility] Nitrite Ql (U) Negative NEGATIVE [facility] Protein (U) [Mass/Vol] 26.7 mg/dL High <=11.9 [facility] Protein Ql (U) Negative NEG/TRACE [facility] Leukocytes [#/volume] correc bebe for nucleated erythrocytes in Blood by Automated counon 06-19-2024 WBC corrected for nucl RBC Auto (Bld) [#/Vol] 8.9 10 3/uL 4.0-11.0 [facility] MCH Auto (RBC) [Entitic mass ]on 06-19-2024 MCH (RBC) [Entitic mass] 30.8 pg 26.7-34.0 [facility] MCHC Auto (RBC) [Mass/Vol]on 06-19-2024 MCHC (RBC) [Mass/Vol] 33.2 g/dL 29.9-35.2 [facility] MCV Auto (RBC) [Entitic vol] on 06-19-2024 MCV (RBC) [Entitic vol] 92.7 fL 81.0-99.0 [facility] No Panel Informationon 06-19 Urine Bacteria SMALL #/HPF Abnormal NONE SEEN [facility] Urine Occult Blood Negative NEGATIVE [facility] Urine Random Creatinine 76.20 mg/dL 20.00-300.00 [facility] Urine RBC NONE SEEN #/HPF 0-2 [facility] Urine Squamous Epithelial Cells FEW #/LPF Abnormal NONE/RARE [facility] Urine WBC 5-10 #/HPF Abnormal NONE SEEN [facility] 25-Hydroxy Vitamin D Total 29.8 ng/mL [facility] Comment on above: <20 ng/mL Vit D defi cient20-<30 ng/mL Vit D [id number] ng/mL Vit D sufficient>100 ng/mL Potential Toxicity Parathyroid Hormone (Intact) 43 pg/mL 15-65 [facility] Comment on above: Performed at: [employer] [facility] [place] [id number] Director: Ruben Matute PhD, Phone: [phone] Phosphorus Level 4.0 mg/dL 2.6-4.7 [facility] Platelet mean volume Auto (B ld) [Entitic vol]on 06-19-2024 Platelet mean volume (Bld) [Entitic vol] 10.2 fL 9.5-13.5 [facility] Platelets Auto (Bld) [#/Vol] on 06-19-2024 Platelets (Bld) [#/Vol] 356 10 3/uL 150-450 [facility] RBC Auto (Bld) [#/Vol]on RBC (Bld) [#/Vol] 3.96 10 6/uL Low 4.20-5.40 [facility] Serum or plasma anion gap de terminationon 06-19-2024 Anion gap [Moles/Vol] 12.6 mmol/L [facility] Urine protein/creatinine rat ioon 06-19-2024 Protein/Creatinine (U) [Ratio] 0.35 [facility] 36on 05-31-2024 36 I just scanned in patient's recent stress test. She had echo and labs last week too. Thanks. Normal [facility] Basophils Auto (Bld) [#/Vol] on 05-22-2024 Basophils (Bld) [#/Vol] 0.1 10 3/uL 0.0-0.1 [facility] Basophils/100 WBC Auto (Bld) on 05-22-2024 Basophils/100 WBC (Bld) 1.2 % 0.2-2.0 [facility] Cholesterol in LDL Calc [Mas s/Vol]on 05-22-2024 Cholesterol in LDL [Mass/Vol] 57.0 mg/dL [facility] Comment on above: <100 mg/dl [id number] 0-129 mg/dl NEAR OR ABOVE [id number] mg/dl BORDERLINE [id number] mg/dl HIGH>190 mg/dl VERY HIGH Cholesterol in VLDL Calc [Ma ss/Vol]on 05-22-2024 Cholesterol in VLDL [Mass/Vol] 73.2 mg/dL [facility] Eosinophils/100 WBC Auto (Bl d)on 05-22-2024 Eosinophils/100 WBC (Bld) 3.5 % 0.9-7.0 [facility] Erythrocyte distribution wid th Auto (RBC) [Ratio]on 05-22-2024 Erythrocyte distribution width (RBC) [Ratio] 12.8 % 11.0-15.0 [facility] Estimated glomerular filtrat ion rate (GFR) non- Americanon 05-22-2024 GFR/1.73 sq M.predicted among non-blacks MDRD (S/P/Bld) [Vol rate/Area] 23 mL/min/{1.73_m2} Low >=60 [facility] Globulin Calc (S) [Mass/Vol] on 05-22-2024 Globulin (S) [Mass/Vol] 3.7 g/dL [facility] Glucose mean value [Mass/vol ume] in Blood Estimated from glycated hemoglobinon 05-22-2024 Average glucose Estimated from glycated hemoglobin (Bld) [Mass/Vol] 220 mg/dL [facility] Hematocrit Auto (Bld) [Volum e fraction]on 05-22-2024 Hematocrit (Bld) [Volume fraction] 37.9 % 36.0-48.0 [facility] Hemoglobin [Mass/volume] in Bloodon 05-22-2024 Hemoglobin (Bld) [Mass/Vol] 12.6 g/dL 12.0-16.0 [facility] Laboratory - Chemistry and C hemistry - challengeon 05-22-2024 Albumin [Mass/Vol] 3.8 g/dL 3.4-5.[address] [facility] ALP [Catalytic activity/Vol] 109 U/L 46-116 [facility] ALT [Catalytic activity/Vol] 20 U/L 14-59 [facility] AST [Catalytic activity/Vol] 15 U/L 15-37 [facility] Bilirubin [Mass/Vol] 0.7 mg/dL 0.2-1.0 [facility] Calcium [Mass/Vol] 9.3 mg/dL 8.5-10.[address] [facility] Chloride [Moles/Vol] 101 mmol/L 98-107 [facility] Cholesterol [Mass/Vol] 187 mg/dL <=200 [facility] Cholesterol in HDL [Mass/Vol] 57 mg/dL 40-60 [facility] Comment on above: > or =60 mg/dl - LOW CARDIOVASCULAR RISK<40 mg/dl - HIGH CARDIOVASCULAR RISK CO2 [Moles/Vol] 25.1 mmol/L 21.0-32.0 [facility] Creatinine [Mass/Vol] 2.11 mg/dL High 0.55-1.02 [facility] GFR/1.73 sq M.predicted MDRD (S/P/Bld) [Vol rate/Area] 28 mL/min/{1.73_m2} Low >=60 [facility] Glucose [Mass/Vol] 198 mg/dL High 74-[address] [facility] Potassium [Moles/Vol] 4.6 mmol/L 3.5-5.1 [facility] Protein [Mass/Vol] 7.5 g/dL 6.4-8.[address] [facility] Sodium [Moles/Vol] 138 mmol/L 136-[address] [facility] Triglyceride [Mass/Vol] 366 mg/dL High <=150 [facility] TSH Qn 6.652 m[IU]/L High 0.358-3.740 [facility] Urea nitrogen [Mass/Vol] 49.0 mg/dL High 7.0-18.0 [facility] Urea nitrogen/Creatinine [Mass ratio] 23.2 mg/mg [facility] Laboratory - Hematology and Cell countson 05-22-2024 HbA1c (Bld) [Mass fraction] 9.3 % High 4.5-6.2 [facility] Comment on above: ADA RECOMMENDED LIMI T 4.0 - 6.0ADA THERAPEUTIC TARGET < 7.0ACTION SUGGESTED> 7.0 Immature granulocytes/100 WBC (Bld) 0.3 % 0.0-0.5 [facility] Leukocytes [#/volume] correc bebe for nucleated erythrocytes in Blood by Automated counon 05-22-2024 WBC corrected for nucl RBC Auto (Bld) [#/Vol] 8.6 10 3/uL 4.0-11.0 [facility] Lymphocytes Auto (Bld) [#/Vo l]on 05-22-2024 Lymphocytes (Bld) [#/Vol] 2.6 10 3/uL 1.2-3.8 [facility] Lymphocytes/100 WBC Auto (Bl d)on 05-22-2024 Lymphocytes/100 WBC (Bld) 30.2 % 20.5-60.0 [facility] MCH Auto (RBC) [Entitic mass ]on 05-22-2024 MCH (RBC) [Entitic mass] 30.5 pg 26.7-34.0 [facility] MCHC Auto (RBC) [Mass/Vol]on 05-22-2024 MCHC (RBC) [Mass/Vol] 33.2 g/dL 29.9-35.2 [facility] MCV Auto (RBC) [Entitic vol] on 05-22-2024 MCV (RBC) [Entitic vol] 91.8 fL 81.0-99.0 [facility] Microalbumin [Mass/volume] i n Urineon 05-22-2024 Albumin DL <= 20 mg/L (U) [Mass/Vol] 3.2 mg/dL <=30.0 [facility] Monocytes Auto (Bld) [#/Vol] on 05-22-2024 Monocytes (Bld) [#/Vol] 0.7 10 3/uL 0.3-0.8 [facility] Monocytes/100 WBC Auto (Bld) on 05-22-2024 Monocytes/100 WBC (Bld) 8.5 % 1.7-12.0 [facility] Neutrophils Auto (Bld) [#/Vo l]on 05-22-2024 Neutrophils (Bld) [#/Vol] 4.8 10 3/uL 1.4-6.5 [facility] Neutrophils/100 WBC Auto (Bl d)on 05-22-2024 Neutrophils/100 WBC (Bld) 56.3 % 43.0-75.0 [facility] No Panel Informationon 05-22 Eosinophils # (Auto) 0.3 10 3/uL 0.0-0.7 [facility] Immature Granulocyte # (Auto) 0.03 10 3/uL 0.00-0.03 [facility] Platelet mean volume Auto (B ld) [Entitic vol]on 05-22-2024 Platelet mean volume (Bld) [Entitic vol] 9.9 fL 9.5-13.5 [facility] Platelets Auto (Bld) [#/Vol] on 05-22-2024 Platelets (Bld) [#/Vol] 380 10 3/uL 150-450 [facility] RBC Auto (Bld) [#/Vol]on RBC (Bld) [#/Vol] 4.13 10 6/uL Low 4.20-5.40 [facility] Serum or plasma albumin/glob ulin mass ratioon 05-22-2024 Albumin/Globulin [Mass ratio] 1.0 {ratio} [facility] Serum or plasma anion gap de terminationon 05-22-2024 Anion gap [Moles/Vol] 16.5 mmol/L [facility] Serum or plasma total choles terol/high density lipoprotein (HDL) cholesterol mass cristhian 05-22-2024 Cholesterol.total/Ch olesterol in HDL [Mass ratio] 3.3 {ratio} [facility] Comment on above: 3.3 - 4.4 LOW RISK4. 4 - 7.1 AVERAGE RISK7.1 - 11.0 MODERATE RISK>11.0 HIGH RISK Office Visiton 05-15-2024 Follow-up visit [id number] Gabbi Austin 1950 F Date Provider Department Center 05/15/2024 Jhonatan-MASHA BALDERAS ROLLY [place] Family History Problem Relation Age of Onset Mitral valve prolapse Mother Family Status - Relation Status Age at Mother Level of Service:82114 AR OFFICE/OUTPATIENT ESTABLISHED MOD MDM 30 MIN Normal [facility] ECHOCARDIO M/2D COMPLETEon 0 01-12-2023 ECHOCARDIO M/2D COMPLETE Patient: GABBI AUSTIN Exam Date: 01/12/2023 : 1950 Gender:F Ordering : MRS. MAICOL LOMAX MARI Admission #: [id number] Family : Order #: [id number] CLICK HERE TO VIEW EXAM ECHOCARDIOGRAM REPORT [...] M.D. on 01/14/2023 at 18:11 Normal [facility] CBC AUTO DIFFon 01-08-2023 BASO # 0.1 103/ul Normal 0.0-0.1 [facility] Comment on above: Performed By: #### C BC #### [facility] [address] [place] [address] [address] Jassi Howard Basophils/100 WBC (Bld) 1.2 % Normal 0.2-2.0 [facility] Comment on above: Performed By: #### C BC #### [facility] [address] [place] [address] Dr. Jassi Howard EO # 0.5 103/ul Normal 0.0-0.7 [facility] Comment on above: Performed By: #### C BC #### [facility] [address] [place] [address] [address] Jassi Howard Eosinophils/100 WBC (Bld) 5.7 % Normal 0.9-7.0 [facility] Comment on above: Performed By: #### C BC #### [facility] [address] [place] [address] Dr. Jassi Howard Erythrocyte distribution width (RBC) [Ratio] 12.7 % Normal 11.0-15.0 [facility] Comment on above: Performed By: #### C BC #### [facility] [address] [place] [address] [address] Jassi Howard Hematocrit (Bld) [Volume fraction] 34.8 % Critically low 36.0-48.0 [facility] Comment on above: Performed By: #### C BC #### [facility] [address] [place] [address] Dr. Jassi Howard Hemoglobin (Bld) [Mass/Vol] 11.4 g/dL Critically low 12.0-16.0 [facility] Comment on above: Performed By: #### C BC #### [facility] [address] [place] [address] Dr. Jassi Howard IG # 0.05 10e3/ul Critically high 0.00-0.03 [facility] Comment on above: Performed By: #### C BC #### [facility] [address] [place] [address] Dr. Jassi Howard IG % 0.6 % Critically high 0.0-0.5 [facility] Comment on above: Performed By: #### C BC #### [facility] [address] [place] [address] Dr. Jassi Howard LYMPH # 2.7 103/ul Normal 1.2-3.8 [facility] Comment on above: Performed By: #### C BC #### [facility] [address] [place] [address] Dr. Jassi Howard Lymphocytes/100 WBC (Bld) 29.5 % Normal 20.5-60.0 [facility] Comment on above: Performed By: #### C BC #### [facility] [address] [place] [address] Dr. Jassi Howard MANUAL DIFF REQ NO Normal [facility] Comment on above: Performed By: #### C BC #### [facility] [address] [place] [address] Dr. Jassi Howard MCH (RBC) [Entitic mass] 29.1 pg Normal 26.7-34.0 [facility] Comment on above: Performed By: #### C BC #### [facility] [address] [place] [address] Dr. Jassi Howard MCHC (RBC) [Mass/Vol] 32.8 g/dL Normal 29.9-35.2 [facility] Comment on above: Performed By: #### C BC #### [facility] [address] [place] [address] Dr. Jassi Howard MCV (RBC) [Entitic vol] 88.8 fL Normal 81.0-99.0 [facility] Comment on above: Performed By: #### C BC #### [facility] [address] [place] [address] Dr. Jassi Howard MONO # 0.7 103/ul Normal 0.3-0.8 [facility] Comment on above: Performed By: #### C BC #### [facility] [address] [place] [address] Dr. Jassi Howard Monocytes/100 WBC (Bld) 7.2 % Normal 1.7-12.0 [facility] Comment on above: Performed By: #### C BC #### [facility] [address] [place] [address] Dr. Jassi Howard NEUT # 5.0 103/ul Normal 1.4-6.5 [facility] Comment on above: Performed By: #### C BC #### [facility] [address] [place] [address] Dr. Jassi Howard Neutrophils/100 WBC (Bld) 55.8 % Normal 43.0-75.0 [facility] Comment on above: Performed By: #### C BC #### [facility] [address] [place] [address] Dr. Jassi Howard Platelet mean volume (Bld) [Entitic vol] 10.0 fL Normal 9.5-13.5 [facility] Comment on above: Performed By: #### C BC #### [facility] [address] [place] [address] Dr. Jassi Howard PLT 410 103/ul Normal 150-450 [facility] Comment on above: Performed By: #### C BC #### [facility] [address] [place] [address] Dr. Jassi Howard RBC 3.92 106/ul Critically low 4.20-5.40 [facility] Comment on above: Performed By: #### C BC #### [facility] [address] [place] [address] Dr. Jassi Howard WBC 9.0 103/ul Normal 4.0-11.0 [facility] Comment on above: Performed By: #### C BC #### [facility] [address] [place] [address] Dr. Jassi Howard LIPID PROFILEon 01-08-2023 CHOL-HDL RATIO NORM SEE BELOW Normal [facility] Comment on above: Result Comment: 3.3 - 4.4 LOW RISK 4.4 - 7.1 AVERAGE RISK 7.1 - 11.0 MODERATE RISK >11.0 HIGH RISK Performed By: #### C MP, LIPID #### [facility] [address] [place] [address] [address] Jassi Howard Cholesterol [Mass/Vol] 162 mg/dL Normal <=200 [facility] Comment on above: Performed By: #### C MP, LIPID #### [facility] [address] [place] [address] [address] Jassi Howard Cholesterol in HDL [Mass/Vol] 49 mg/dL Normal 40-60 [facility] Comment on above: Performed By: #### C MP, LIPID #### [facility] [address] [place] [address] [address] Jassi Howard Cholesterol in LDL [Mass/Vol] 61.6 mg/dL Normal [facility] Comment on above: Performed By: #### C MP, LIPID #### [facility] [address] [place] [address] [address] Jassi Howard Cholesterol.total/Ch olesterol in HDL [Mass ratio] 3.3 {ratio} Normal [facility] Comment on above: Performed By: #### C MP, LIPID #### [facility] [address] [place] [address] [address] Jassi Howard HDL NORMAL > or = 60 mg/dl - LO W CARDIOVASCULAR RISK <40 mg/dl - HIGH CARDIOVASCULAR RISK Normal [facility] Comment on above: Performed By: #### C MP, LIPID #### [facility] [address] [place] [address] [address] Jassi Howard LDL CALC NORMAL SEE BELOW Normal [facility] Comment on above: Result Comment: <100 mg/dl OPTIMAL 100 - 129 mg/dl NEAR OR ABOVE OPTIMAL 130 - 159 mg/dl BORDERLINE HIGH 160 - 189 mg/dl HIGH >190 mg/dl VERY HIGH Performed By: #### C MP, LIPID #### [facility] [address] [address] [address] Jassi Howard Triglyceride [Mass/Vol] 257 mg/dL Critically high <=150 [facility] Comment on above: Performed By: #### C MP, LIPID #### [facility] [address] [place] [address] [address] Jassi Howard VLDL CALC 51.4 mg/dL Normal [facility] Comment on above: Performed By: #### C MP, LIPID #### [facility] [address] [address] [address] Jassi Howard PROF 14(COMP METB)on 023 Albumin [Mass/Vol] 3.6 g/dL Normal 3.4-5.0 [facility] Comment on above: Performed By: #### C MP, LIPID #### [facility] [address] [place] [address] Dr. Jassi Howard Albumin/Globulin [Mass ratio] 1.1 {ratio} Normal [facility] Comment on above: Performed By: #### C MP, LIPID #### [facility] [address] [place] [address] Dr. Jassi Howard ALP [Catalytic activity/Vol] 93 U/L Normal 46-116 [facility] Comment on above: Performed By: #### C MP, LIPID #### [facility] [address] [place] [address] Dr. Jassi Howard ALT [Catalytic activity/Vol] 14 U/L Normal 14-59 [facility] Comment on above: Performed By: #### C MP, LIPID #### [facility] [address] [place] [address] Dr. Jassi Howard Anion gap [Moles/Vol] 15.2 mmol/L Normal [facility] Comment on above: Performed By: #### C MP, LIPID #### [facility] [address] [place] [address] Dr. Jassi Howard AST [Catalytic activity/Vol] 10 U/L Critically low 15-37 [facility] Comment on above: Performed By: #### C MP, LIPID #### [facility] [address] [place] [address] Dr. Jassi Howard Bilirubin [Mass/Vol] 0.5 mg/dL Normal 0.2-1.0 [facility] Comment on above: Performed By: #### C MP, LIPID #### [facility] [address] [address] [address] Jassi Howard Calcium [Mass/Vol] 9.2 mg/dL Normal 8.5-10.1 [facility] Comment on above: Performed By: #### C MP, LIPID #### [facility] [address] [address] [address] Jassi Howard Chloride [Moles/Vol] 106 mmol/L Normal 98-107 [facility] Comment on above: Performed By: #### C MP, LIPID #### [facility] [facility] [address] [place] [address] Dr. Jassi Howard CO2 [Moles/Vol] 25.2 mmol/L Normal 21.0-32.0 [facility] Comment on above: Performed By: #### C MP, LIPID #### [facility] [address] [place] [address] Dr. Jassi Howard Creatinine [Mass/Vol] 1.36 mg/dL Critically high 0.55-1.02 [facility] Comment on above: Performed By: #### C MP, LIPID #### [facility] [address] [place] [address] Dr. Jassi Howard EGFR-AF MONGOLIAN 47 mL/min/1.73m2 Critically low >=60 [facility] Comment on above: Performed By: #### C MP, LIPID #### [facility] [address] [place] [address] Dr. Jassi Howard EGFR-NON AF MONGOLIAN 38 mL/min/1.73m2 Critically low >=60 [facility] Comment on above: Performed By: #### C MP, LIPID #### [facility] [address] [place] [address] Dr. Jassi Howard Globulin (S) [Mass/Vol] 3.3 g/dL Normal [facility] Comment on above: Performed By: #### C MP, LIPID #### [facility] [address] [place] [address] Dr. Jassi Howard Glucose [Mass/Vol] 162 mg/dL Critically high 74-106 [facility] Comment on above: Performed By: #### C MP, LIPID #### [facility] [address] [place] [address] Dr. Jassi Hwoard Potassium [Moles/Vol] 4.4 mmol/L Normal 3.5-5.1 [facility] Comment on above: Performed By: #### C MP, LIPID #### [facility] [address] [place] [address] Dr. Jassi Howard Protein [Mass/Vol] 6.9 g/dL Normal 6.4-8.2 [facility] Comment on above: Performed By: #### C MP, LIPID #### [facility] [address] [place] [address] Dr. Jassi Howard Sodium [Moles/Vol] 142 mmol/L Normal 136-145 [facility] Comment on above: Performed By: #### C MP, LIPID #### [facility] [address] [place] [address] Dr. Jassi Howard Urea nitrogen [Mass/Vol] 27.0 mg/dL Critically high 7.0-18.0 [facility] Comment on above: Performed By: #### C MP, LIPID #### [facility] [address] [place] [address] Dr. Jassi Howard Urea nitrogen/Creatinine [Mass ratio] 19.9 mg/mg Normal [facility] Comment on above: Performed By: #### C MP, LIPID #### [facility] [address] [place] [address] Dr. Jassi Howard MRI Knee w/o Righton [...] by Terry Sims on 12/05/2022 1151 Normal [facility] [employer] CBC AUTO DIFFon 02-26-2022 BASO # 0.1 103/ul Normal 0.0-0.1 [facility] Comment on above: Performed By: #### C BC #### [facility] [address] [address] [address] Jassi Howard Basophils/100 WBC (Bld) 0.9 % Normal 0.2-2.0 [facility] Comment on above: Performed By: #### C BC #### [facility] [address] [address] [address] Jassi Howard EO # 0.4 103/ul Normal 0.0-0.7 [facility] Comment on above: Performed By: #### C BC #### [facility] [address] [address] [address] Jassi Howard Eosinophils/100 WBC (Bld) 6.4 % Normal 0.9-7.0 [facility] Comment on above: Performed By: #### C BC #### [facility] [address] [address] [address] Jassi Howard Erythrocyte distribution width (RBC) [Ratio] 12.8 % Normal 11.0-15.0 [facility] Comment on above: Performed By: #### C BC #### [facility] [address] [place] [address] Dr. Jassi Howard Hematocrit (Bld) [Volume fraction] 38.8 % Normal 36.0-48.0 [facility] Comment on above: Performed By: #### C BC #### [facility] [address] [place] [address] Dr. Jassi Howard Hemoglobin (Bld) [Mass/Vol] 12.3 g/dL Normal 12.0-16.0 [facility] Comment on above: Performed By: #### C BC #### [facility] [address] [place] [address] Dr. Jassi Howard IG # 0.03 10e3/ul Normal 0.00-0.03 [facility] Comment on above: Performed By: #### C BC #### [facility] [address] [place] [address] Dr. Jassi Howard IG % 0.4 % Normal 0.0-0.5 [facility] Comment on above: Performed By: #### C BC #### [facility] [address] [place] [address] Dr. Jassi Howard LYMPH # 1.8 103/ul Normal 1.2-3.8 [facility] Comment on above: Performed By: #### C BC #### [facility] [address] [place] [address] Dr. Jassi Howard Lymphocytes/100 WBC (Bld) 26.2 % Normal 20.5-60.0 [facility] Comment on above: Performed By: #### C BC #### [facility] [address] [place] [address] Dr. Jassi Howard MANUAL DIFF REQ NO Normal [facility] Comment on above: Performed By: #### C BC #### [facility] [address] [place] [address] Dr. Jassi Howard MCH (RBC) [Entitic mass] 28.6 pg Normal 26.7-34.0 [facility] Comment on above: Performed By: #### C BC #### [facility] [address] [address] [address] Jassi Howard MCHC (RBC) [Mass/Vol] 31.7 g/dL Normal 29.9-35.2 [facility] Comment on above: Performed By: #### C BC #### [facility] [address] [address] [address] Jassi Howard MCV (RBC) [Entitic vol] 90.2 fL Normal 81.0-99.0 [facility] Comment on above: Performed By: #### C BC #### [facility] [address] [address] [address] Jassi Howard MONO # 0.6 103/ul Normal 0.3-0.8 [facility] Comment on above: Performed By: #### C BC #### [facility] [address] [place] [address] Dr. Jassi Howard Monocytes/100 WBC (Bld) 9.0 % Normal 1.7-12.0 [facility] Comment on above: Performed By: #### C BC #### [facility] [address] [place] [address] Dr. Jassi Howard NEUT # 4.0 103/ul Normal 1.4-6.5 [facility] Comment on above: Performed By: #### C BC #### [facility] [address] [place] [address] Dr. Jassi Howard Neutrophils/100 WBC (Bld) 57.1 % Normal 43.0-75.0 [facility] Comment on above: Performed By: #### C BC #### [facility] [address] [place] [address] Dr. Jassi Howard Platelet mean volume (Bld) [Entitic vol] 10.3 fL Normal 9.5-13.5 [facility] Comment on above: Performed By: #### C BC #### [facility] [address] [place] [address] Dr. Jassi Howard PLT 372 103/ul Normal 150-450 [facility] Comment on above: Performed By: #### C BC #### [facility] [address] [address] [address] Jassi Howard RBC 4.30 106/ul Normal 4.20-5.40 [facility] Comment on above: Performed By: #### C BC #### [facility] [address] [place] [address] Dr. Jassi Howard WBC 6.9 103/ul Normal 4.0-11.0 [facility] Comment on above: Performed By: #### C BC #### [facility] [address] [place] [address] Dr. Jassi Howard GLYCOHEMOGLOBIN A1Con 2021 ADA RECOMMENDATION SEE BELOW Normal [facility] Comment on above: Result Comment: ADA RECOMMENDED LIMIT 4.0 - 6.0 ADA THERAPEUTIC TARGET < 7.0 ACTION SUGGESTED > 7.0 Performed By: #### A 1C #### [facility] [address] [place] [address] Dr. Jassi Howard Glucose [Mass/Vol] 186 mg/dL Normal [facility] Comment on above: Performed By: #### A 1C #### [facility] [address] [place] [address] Dr. Jassi Howard HbA1c (Bld) [Mass fraction] 8.1 % Critically high 4.5-6.2 [facility] Comment on above: Performed By: #### A 1C #### [facility] [address] [place] [address] Dr. Jassi Howard LIPID PROFILEon 02-26-2022 CHOL-HDL RATIO NORM SEE BELOW Normal [facility] Comment on above: Result Comment: 3.3 - 4.4 LOW RISK 4.4 - 7.1 AVERAGE RISK 7.1 - 11.0 MODERATE RISK >11.0 HIGH RISK Performed By: #### L IPID, CMP #### [facility] [address] [place] [address] Dr. Jassi Howard Cholesterol [Mass/Vol] 136 mg/dL Normal <=200 [facility] Comment on above: Performed By: #### L IPID, CMP #### [facility] [address] [place] [address] Dr. Jassi Howard Cholesterol in HDL [Mass/Vol] 47 mg/dL Normal 40-60 [facility] Comment on above: Performed By: #### L IPID, CMP #### [facility] [address] [address] [address] Jassi Howard Cholesterol in LDL [Mass/Vol] 45.0 mg/dL Normal [facility] Comment on above: Performed By: #### L IPID, CMP #### [facility] [address] [address] [address] Jassi Howard Cholesterol.total/Ch olesterol in HDL [Mass ratio] 2.9 {ratio} Normal [facility] Comment on above: Performed By: #### L IPID, CMP #### [facility] [address] [address] [address] Jassi Howard HDL NORMAL > or = 60 mg/dl - LO W CARDIOVASCULAR RISK <40 mg/dl - HIGH CARDIOVASCULAR RISK Normal [facility] Comment on above: Performed By: #### L IPID, CMP #### [facility] [address] [address] [address] Jassi Howard LDL CALC NORMAL SEE BELOW Normal [facility] Comment on above: Result Comment: <100 mg/dl OPTIMAL 100 - 129 mg/dl NEAR OR ABOVE OPTIMAL 130 - 159 mg/dl BORDERLINE HIGH 160 - 189 mg/dl HIGH >190 mg/dl VERY HIGH Performed By: #### L IPID, CMP #### [facility] [address] [address] [address] Jsasi Howard Triglyceride [Mass/Vol] 220 mg/dL Critically high <=150 [facility] Comment on above: Performed By: #### L IPID, CMP #### [facility] [address] [address] [address] Jassi Howard VLDL CALC 44.0 mg/dL Normal [facility] Comment on above: Performed By: #### L IPID, CMP #### [facility] [address] [address] [address] Jassi Howard MICROALBUMIN, RAND URon 05-1 mALB 6.5 mg/L Normal <=30.0 [facility] Comment on above: Performed By: #### M ALBR #### [facility] [address] [address] [address] Jassi Howard PROF 14(COMP METB)on 022 Albumin [Mass/Vol] 3.7 g/dL Normal 3.4-5.0 [facility] Comment on above: Performed By: #### L IPID, CMP #### [facility] [address] [address] [address] Jassi Howard Albumin/Globulin [Mass ratio] 0.9 {ratio} Normal [facility] Comment on above: Performed By: #### L IPID, CMP #### [facility] [address] [place] [address] Dr. Jassi Howard ALP [Catalytic activity/Vol] 115 U/L Normal 46-116 [facility] Comment on above: Performed By: #### L IPID, CMP #### [facility] [address] [place] [address] Dr. Jassi Howard ALT [Catalytic activity/Vol] 17 U/L Normal 14-59 [facility] Comment on above: Performed By: #### L IPID, CMP #### [facility] [address] [place] [address] Dr. Jassi Howard Anion gap [Moles/Vol] 13.2 mmol/L Normal [facility] Comment on above: Performed By: #### L IPID, CMP #### [facility] [address] [address] [address] Jassi Howard AST [Catalytic activity/Vol] 12 U/L Critically low 15-37 [facility] Comment on above: Performed By: #### L IPID, CMP #### [facility] [address] [address] [address] Jassi Howard Bilirubin [Mass/Vol] 0.6 mg/dL Normal 0.2-1.0 [facility] Comment on above: Performed By: #### L IPID, CMP #### [facility] [address] [address] [address] Jassi Howard Calcium [Mass/Vol] 9.4 mg/dL Normal 8.5-10.1 [facility] Comment on above: Performed By: #### L IPID, CMP #### [facility] [address] [place] [address] Dr. Jassi Howard Chloride [Moles/Vol] 101 mmol/L Normal 98-107 [facility] Comment on above: Performed By: #### L IPID, CMP #### [facility] [address] [place] [address] Dr. Jassi Howard CO2 [Moles/Vol] 27.2 mmol/L Normal 21.0-32.0 [facility] Comment on above: Performed By: #### L IPID, CMP #### [facility] [address] [place] [address] Dr. Jassi Howard Creatinine [Mass/Vol] 1.47 mg/dL Critically high 0.55-1.02 [facility] Comment on above: Performed By: #### L IPID, CMP #### [facility] [address] [place] [address] Dr. Jassi Howard EGFR-AF MONGOLIAN 43 mL/min/1.73m2 Critically low >=60 [facility] Comment on above: Performed By: #### L IPID, CMP #### [facility] [address] [place] [address] Dr. Jassi Howard EGFR-NON AF MONGOLIAN 35 mL/min/1.73m2 Critically low >=60 [facility] Comment on above: Performed By: #### L IPID, CMP #### [facility] [address] [place] [address] Dr. Jassi Howard Globulin (S) [Mass/Vol] 3.9 g/dL Normal [facility] Comment on above: Performed By: #### L IPID, CMP #### [facility] [address] [place] [address] Dr. Jassi Howard Glucose [Mass/Vol] 178 mg/dL Critically high 74-106 [facility] Comment on above: Performed By: #### L IPID, CMP #### [facility] [address] [place] [address] Dr. Jassi Howard Potassium [Moles/Vol] 4.4 mmol/L Normal 3.5-5.1 [facility] Comment on above: Performed By: #### L IPID, CMP #### [facility] [address] [address] [address] Jassi Howard Protein [Mass/Vol] 7.6 g/dL Normal 6.4-8.2 [facility] Comment on above: Performed By: #### L IPID, CMP #### [facility] [address] [address] [address] Jassi Howard Sodium [Moles/Vol] 137 mmol/L Normal 136-145 [facility] Comment on above: Performed By: #### L IPID, CMP #### [facility] [address] [address] [address] Jassi Howard Urea nitrogen [Mass/Vol] 26.0 mg/dL Critically high 7.0-18.0 [facility] Comment on above: Performed By: #### L IPID, CMP #### [facility] [address] [address] [address] Jassi Howard Urea nitrogen/Creatinine [Mass ratio] 17.7 mg/mg Normal [facility] Comment on above: Performed By: #### L IPID, CMP #### [facility] [address] [address] [address] Jassi Howard Cardiovascular Lab Reporton 02-12-2020 Cardiovascular Lab Report [facility] Patient Name: [facility] MR #: [id number] Physician: Ra Tariq Abd Department of MD [place] Medicine Service Date: 02/12/2020 Division of Birthdate: 1950 Cardiology Room #: Adult Cardiovascular Services [address] [address] Cardiovascular Laboratory Report CERAMIC CAPACITOR PROCESSOR: Anthony Chambers MD, boot repairer. INDICATION: This is a 69-year-old female with past medical history of diabetes and dyslipidemia, who presented recently to [facility] with complaints of shortness of breath for [...] The patient was also notified that a larry operator will be assisting during the course of [...] the 0.035 exchange wire and we put 6-Moldovan x 11 cm Glidesheath into the right [...] was followed by using JL4 and JR4 5-Moldovan catheters and we performed selective bilateral coronary [...] P/Ra Fine MD Date Trans: 02/12/2020 06:06 P/ankitao [id number] Normal [facility] Cardiovascular Lab Report [facility] MR #: [id number] Physician: Emir Cao, Department of M.D. Medicine Service Date: 02/12/2020 Division of Birthdate: 1950 Cardiology Room #: Adult Cardiovascular Services [address] [place] [address] Cardiovascular Laboratory Report CLINICAL PRESENTATION: The patient is a 69-year-old female with past medical history significant for type 2 diabetes mellitus and recently diagnosed acute systolic congestive heart failure with EF of 25%. She was recently hospitalized at the [facility]. She now returns for cardiac catheterization. [...] drug-eluting stent, which was post-dilated with an [employer] [place] 3.0 x 8 mm noncompliant balloon. PLAN: [...] maintained greater than 200 seconds. A Cordis 5-Moldovan XB 3.0 LAD was engaged to the [...] Next, the stent was postdilated with an [employer] [place] 3.0 x 8 mm noncompliant balloon at [...] Cao M.D. Date Trans: 02/12/2020 12:40 P/mmo [id number] cc: Ra Fine MD [address] [facility] [address] Lauren Ayoub M.D. [address] [place] [id number] Normal [facility] *SARS-CoV-2 COVID-19on 02-06 [id number] Not Detected Normal Not Detected [facility] Comment on above: Order Comment: No: D o not add to previous draw Performed By: #### 5 0608 #### [facility] [address] [place] [address], [facility] BASIC METABOLIC PANELon 01-10 Calcium [Mass/Vol] 9.7 mg/dL Normal 8.6-10.3 [facility] Comment on above: Order Comment: No: D o not add to previous draw Performed By: #### 3 804, [id number] #### [facility] [address] [place] [address], [place] Chloride [Moles/Vol] 95 mmol/L Low 98-107 [facility] Comment on above: Order Comment: No: D o not add to previous draw Performed By: #### 3 038, 00384 #### [facility] [address] [place] [address], [place] CO2 [Moles/Vol] 27 mmol/L Normal 21-31 [facility] Comment on above: Order Comment: No: D o not add to previous draw Performed By: #### 3 646, 25910 #### [facility] [address] [place] [address], [place] Creatinine [Mass/Vol] 0.91 mg/dL Normal 0.60-1.20 [facility] Comment on above: Order Comment: No: D o not add to previous draw Performed By: #### 3 5199, 28708 #### [facility] [address] [place] [address], [place] GFR/1.73 sq M predicted among blacks MDRD (S/P/Bld) [Vol rate/Area] mL/min/{1.73_m2} Normal >60 [facility] Comment on above: Order Comment: No: D o not add to previous draw Performed By: #### 3 5199, 17625 #### [facility] [address] [place] [address], [place] GFR/1.73 sq M predicted among non-blacks MDRD (S/P/Bld) [Vol rate/Area] mL/min/{1.73_m2} Normal >60 [facility] Comment on above: Order Comment: No: D o not add to previous draw Performed By: #### 3 5199, 67802 #### [facility] [address] [place] [address], [place] Glucose [Mass/Vol] 220 mg/dL High 70-100 [facility] Comment on above: Order Comment: No: D o not add to previous draw Performed By: #### 3 5199, 94935 #### [facility] [address] [place] [address], [place] Potassium [Moles/Vol] 3.9 mmol/L Normal 3.5-5.1 [facility] Comment on above: Order Comment: No: D o not add to previous draw Performed By: #### 3 5199, 54771 #### [facility] [address] [place] [address], [place] Sodium [Moles/Vol] 133 mmol/L Low 136-145 [facility] Comment on above: Order Comment: No: D o not add to previous draw Performed By: #### 3 5199, 38464 #### [facility] [address] [place] [address], [facility] Urea nitrogen [Mass/Vol] 29 mg/dL High 7-25 [facility] Comment on above: Order Comment: No: D o not add to previous draw Performed By: #### 3 5199, 80521 #### [facility] [address] [place] [address], [facility] CBC COMPLETE BLOOD COUNTon 0 - Erythrocyte distribution width (RBC) [Ratio] 16.5 % High 11.5-15.0 [facility] Comment on above: Order Comment: No: D o not add to previous draw Performed By: #### 3 5199, 56478 #### [facility] [address] [place] [address], [facility] Hematocrit (Bld) [Volume fraction] 35.5 % Low 36.0-45.0 [facility] Comment on above: Order Comment: No: D o not add to previous draw Performed By: #### 3 5199, 07362 #### [facility] [address] [address], [facility] Hemoglobin (Bld) [Mass/Vol] 10.3 g/dL Low 12.0-15.0 [facility] Comment on above: Order Comment: No: D o not add to previous draw Performed By: #### 3 5199, 20373 #### [facility] [address] [place] [address], [facility] MCH (RBC) [Entitic mass] 20.5 pg Low 27.0-33.0 [facility] Comment on above: Order Comment: No: D o not add to previous draw Performed By: #### 3 5199, 29583 #### [facility] [address] [place] [id number], [facility] MCHC (RBC) [Mass/Vol] 29.0 g/dL Low 32.0-35.0 [facility] Comment on above: Order Comment: No: D o not add to previous draw Performed By: #### 3 5199, 47467 #### [facility] [address] [place] [id number], [place] MCV (RBC) [Entitic vol] 70.6 fL Low 82.0-98.0 [facility] Comment on above: Order Comment: No: D o not add to previous draw Performed By: #### 3 5199, 11391 #### [facility] [address] [place] [id number], [place] Nucleated RBC/100 WBC (Bld) [Ratio] 0 % Normal 0-0 [facility] Comment on above: Order Comment: No: D o not add to previous draw Performed By: #### 3 5199, 04735 #### [facility] [address] [place] [address], [place] PLAT CNT 564 10*3/uL High 150-400 [facility] Comment on above: Order Comment: No: D o not add to previous draw Performed By: #### 3 5199, 44870 #### [facility] [address] [place] [address], [place] RBC (Bld) [#/Vol] 5.03 10*6/uL High 3.80-5.00 [facility] Comment on above: Order Comment: No: D o not add to previous draw Performed By: #### 3 5199, 43014 #### [facility] [address] [place] [address], [place] WBC (Bld) [#/Vol] 16.42 10*3/uL High 4.00-10.60 [facility] Comment on above: Order Comment: No: D o not add to previous draw Performed By: #### 3 5199, 20924 #### [facility] [address] MAGNESIUM BLOODon 02-07-2020 Magnesium [Mass/Vol] 1.8 mg/dL Low 1.9-2.7 [facility] Comment on above: Performed By: #### 5 0608 #### [facility] [address] PROCALCITONINon 02-07-2020 PROCALCITONIN 0.14 ng/mL High 0.00-0.10 [facility] Comment on above: Order Comment: No: [...] PCT<0.5ng/mL Performed By: #### 5 0608 #### [facility] [address] PROTHROMBIN TIMEon 0 INR Coag (PPP) [Relative time] 1.01 {INR} Normal 0.91-1.16 [facility] Comment on above: Order Comment: No: [...] 1995;108:231S-246S. Performed By: #### 5 0608 #### [facility] [address] [facility]. [address] PT Coag (PPP) [Time] 13.3 s Normal 12.3-14.8 [facility] Comment on above: Order Comment: No: D o not add to previous draw Result Comment: ALL RESULTS MUST BE INTERPRETED WITH RESPECT TO BLOOD DRAWING ARTIFACT OR DILUTION ERROR OF ANTICOAGULANT AT THE TIME OF SAMPLING. Performed By: #### 5 0608 #### [facility] [address] UFH HEPARIN ASSAYon 02-07-20 20 UNFRACTIONATED HEPARIN >1.00 Critically high 0.30-0.70 [facility] Comment on above: Result Comment: [place] roxaban and Apixaban will interfere with the anti Xa assay used to monitor UFH and LMWH. Results called. Accurately read back by Sanegetha Villareal RN at 1026 Performed By: #### 5 0608 #### [facility] [address] APTTon 02-06-2020 aPTT Coag (Bld) [Time] 66.0 s High 25.0-35.0 [facility] Comment on above: Order Comment: No: [...] PRESENCE OF HEPARIN. Performed By: #### 3 0, 26421 #### [facility] [address] BASIC METABOLIC PANELon 01-10 Calcium [Mass/Vol] 9.3 mg/dL Normal 8.6-10.3 [facility] Comment on above: Order Comment: No: D o not add to previous draw Performed By: #### 3 5199, 28631 #### [facility] [address] [place] [address], [facility] Chloride [Moles/Vol] 94 mmol/L Low 98-107 [facility] Comment on above: Order Comment: No: D o not add to previous draw Performed By: #### 3 5199, 25248 #### [facility] [address] [facility] [place] [place] [address], [facility] CO2 [Moles/Vol] 27 mmol/L Normal 21-31 [facility] Comment on above: Order Comment: No: D o not add to previous draw Performed By: #### 3 5199, 98451 #### [facility] [address] [place] [address], [facility] Creatinine [Mass/Vol] 0.89 mg/dL Normal 0.60-1.20 [facility] Comment on above: Order Comment: No: D o not add to previous draw Performed By: #### 3 5199, 08816 #### [facility] [address] [place] [address], [place] GFR/1.73 sq M predicted among blacks MDRD (S/P/Bld) [Vol rate/Area] mL/min/{1.73_m2} Normal >60 [facility] Comment on above: Order Comment: No: D o not add to previous draw Performed By: #### 3 5199, 29984 #### [facility] [address] [place] [address], [place] GFR/1.73 sq M predicted among non-blacks MDRD (S/P/Bld) [Vol rate/Area] mL/min/{1.73_m2} Normal >60 [facility] Comment on above: Order Comment: No: D o not add to previous draw Performed By: #### 3 5199, 17081 #### [facility] [address] [place] [address], [place] Glucose [Mass/Vol] 191 mg/dL High 70-100 [facility] Comment on above: Order Comment: No: D o not add to previous draw Performed By: #### 3 5199, 03307 #### [facility] [address] [place] [address], [place] Potassium [Moles/Vol] 3.6 mmol/L Normal 3.5-5.1 [facility] Comment on above: Order Comment: No: D o not add to previous draw Performed By: #### 3 5199, 14524 #### [facility] [address] [place] [address], [place] Sodium [Moles/Vol] 132 mmol/L Low 136-145 [facility] Comment on above: Order Comment: No: D o not add to previous draw Performed By: #### 3 5199, 77338 #### [facility] [address] [place] [address], [place] Urea nitrogen [Mass/Vol] 25 mg/dL Normal 7-25 [facility] Comment on above: Order Comment: No: D o not add to previous draw Performed By: #### 3 5199, 80719 #### [facility] [address] [facility]. [address] CBC W/DIFFon 02-06-2020 ABS BASOPHILS 0.1 10*3/uL Normal 0.0-0.2 [facility] Comment on above: Order Comment: No: D o not add to previous draw Performed By: #### 3 5199, 52092 #### [facility] [address] [facility]. [address] ABS IMM GRANS 0.2 10*3/uL Normal 0.0-0.2 [facility] Comment on above: Order Comment: No: D o not add to previous draw Performed By: #### 3 5199, 21264 #### [facility] [address] [facility]. [address] ABS NEUTROPHILS 8.9 10*3/uL High 1.6-7.6 [facility] Comment on above: Order Comment: No: D o not add to previous draw Performed By: #### 3 5199, 83789 #### [facility] [address] [facility]. [address] Basophils/100 WBC (Bld) 0.8 % Normal 0.0-1.0 [facility] Comment on above: Order Comment: No: D o not add to previous draw Performed By: #### 3 5199, 36251 #### [facility] [address] [facility] [address], [facility] Eosinophils (Bld) [#/Vol] 0.4 10*3/uL Normal 0.0-0.5 [facility] Comment on above: Order Comment: No: D o not add to previous draw Performed By: #### 3 5199, 33114 #### [facility] [address] Eosinophils/100 WBC (Bld) 2.6 % Normal 0.0-6.0 [facility] Comment on above: Order Comment: No: D o not add to previous draw Performed By: #### 3 5199, 54584 #### [facility] [address] [facility] Erythrocyte distribution width (RBC) [Ratio] 16.3 % High 11.5-15.0 [facility] Comment on above: Order Comment: No: D o not add to previous draw Performed By: #### 3 5199, 87935 #### [facility] [address] [place] [address], [facility] Hematocrit (Bld) [Volume fraction] 32.8 % Low 36.0-45.0 [facility] Comment on above: Order Comment: No: D o not add to previous draw Performed By: #### 3 5199, 26939 #### [facility] [address] Hemoglobin (Bld) [Mass/Vol] 9.6 g/dL Low 12.0-15.0 [facility] Comment on above: Order Comment: No: D o not add to previous draw Performed By: #### 3 5199, 06777 #### [facility] [address] [place] [address], [facility] IMMATURE GRANS 1.1 % High 0.0-1.0 [facility] Comment on above: Order Comment: No: D o not add to previous draw Performed By: #### 3 5199, 73909 #### [facility] [address] [place] [address], [facility] Lymphocytes (Bld) [#/Vol] 3.3 10*3/uL Normal 1.2-4.0 [facility] Comment on above: Order Comment: No: D o not add to previous draw Performed By: #### 3 5199, 28730 #### [facility] [address] [facility] [address], [facility] Lymphocytes/100 WBC (Bld) 23.2 % Normal 20.0-45.0 [facility] Comment on above: Order Comment: No: D o not add to previous draw Performed By: #### 3 5199, 08852 #### [facility] [address] [facility] [place] [place] [address], [facility] MCH (RBC) [Entitic mass] 20.6 pg Low 27.0-33.0 [facility] Comment on above: Order Comment: No: D o not add to previous draw Performed By: #### 3 5199, 13331 #### [facility] [address] [facility] [place] [place] [address], [facility] MCHC (RBC) [Mass/Vol] 29.3 g/dL Low 32.0-35.0 [facility] Comment on above: Order Comment: No: D o not add to previous draw Performed By: #### 3 5199, 77347 #### [facility] [address] [facility] [place] [place] [address], [facility] MCV (RBC) [Entitic vol] 70.4 fL Low 82.0-98.0 [facility] Comment on above: Order Comment: No: D o not add to previous draw Performed By: #### 3 5199, 34763 #### [facility] [address] [facility] [address], [facility] Monocytes (Bld) [#/Vol] 1.4 10*3/uL High 0.1-1.0 [facility] Comment on above: Order Comment: No: D o not add to previous draw Performed By: #### 3 5199, 10452 #### [facility] [address] [place] [address], [facility] MONOS 9.7 % Normal 5.0-12.0 [facility] Comment on above: Order Comment: No: D o not add to previous draw Performed By: #### 3 5199, 74797 #### [facility] [address] [place] [address], [facility] Neutrophils/100 WBC (Bld) 62.6 % Normal 40.0-72.0 [facility] Comment on above: Order Comment: No: D o not add to previous draw Performed By: #### 3 5199, 99936 #### [facility] [address] [place] [address], [place] Nucleated RBC/100 WBC (Bld) [Ratio] 0 % Normal 0-0 [facility] Comment on above: Order Comment: No: D o not add to previous draw Performed By: #### 3 5199, 68898 #### [facility] [address] [place] [address], [place] PLAT CNT 486 10*3/uL High 150-400 [facility] Comment on above: Order Comment: No: D o not add to previous draw Performed By: #### 3 5199, 85640 #### [facility] [address] [facility] [place] [place] [address], [place] RBC (Bld) [#/Vol] 4.66 10*6/uL Normal 3.80-5.00 [facility] Comment on above: Order Comment: No: D o not add to previous draw Performed By: #### 3 5199, 51069 #### [facility] [address] [facility] [address], [place] WBC (Bld) [#/Vol] 14.19 10*3/uL High 4.00-10.60 [facility] Comment on above: Order Comment: No: D o not add to previous draw Performed By: #### 3 5199, 92435 #### [facility] [address] [place] [address], [place] PORTABLE CHEST 1 VIEWon 01-10 PORTABLE CHEST 1 VIEW [facility] Department of Radiology [address] [place] [id number] Patient Name: GABBI AUSTIN : 1950 Sex: F Age: Race: White Pt. Location: [id number] Patient Status: I Ordered Date: 02/06/2020 9:55:00 [...] pneumonia. Electronically signed: Alie Soriano. Transcribed by: [id number], User Resident: Electronically Signed by: ALIE SORIANO @ 02/06/2020 02:27 PM Normal [facility] Comment on above: Order Comment: No: D o not add to previous draw PROTHROMBIN TIMEon 0 INR Coag (PPP) [Relative time] 0.98 {INR} Normal 0.91-1.16 [facility] Comment on above: Order Comment: No: [...] RANGE. CHEST 1995;108:231S-246S. Performed By: #### 3 236, 42884 #### [facility] [address] PT Coag (PPP) [Time] 13.0 s Normal 12.3-14.8 [facility] Comment on above: Order Comment: No: D o not add to previous draw Result Comment: ALL RESULTS MUST BE INTERPRETED WITH RESPECT TO BLOOD DRAWING ARTIFACT OR DILUTION ERROR OF ANTICOAGULANT AT THE TIME OF SAMPLING. Performed By: #### 3 082, 53117 #### [facility] [address] [facility]. [address] UFH HEPARIN ASSAYon 02-06-20 20 UNFRACTIONATED HEPARIN 0.84 IU/mL High 0.30-0.70 [facility] Comment on above: Order Comment: No: D o not add to previous draw Result Comment: [place] roxaban and Apixaban will interfere with the anti Xa assay used to monitor UFH and LMWH. Performed By: #### 3 676, 75312 #### [facility] [address] UNFRACTIONATED HEPARIN 0.70 IU/mL Normal 0.30-0.70 [facility] Comment on above: Result Comment: [place] roxaban and Apixaban will interfere with the anti Xa assay used to monitor UFH and LMWH. Performed By: #### 3 5199, 12531 #### [facility] [address] [place] [address], [facility] UNFRACTIONATED HEPARIN 0.25 IU/mL Low 0.30-0.70 [facility] Comment on above: Order Comment: No: D o not add to previous draw Result Comment: [place] roxaban and Apixaban will interfere with the anti Xa assay used to monitor UFH and LMWH. Performed By: #### 3 5199, 93787 #### [facility] [address] [place] [address], [facility] BASIC METABOLIC PANELon 04-2 -2019 Calcium [Mass/Vol] 9.5 mg/dL Normal 8.6-10.3 [facility] Comment on above: Order Comment: No: D o not add to previous draw Performed By: #### 3 5199, 70992 #### [facility] [address] [place] [address], [facility] Chloride [Moles/Vol] 95 mmol/L Low 98-107 [facility] Comment on above: Order Comment: No: D o not add to previous draw Performed By: #### 3 5199, 38490 #### [facility] [address] [place] [address], [facility] CO2 [Moles/Vol] 27 mmol/L Normal 21-31 [facility] Comment on above: Order Comment: No: D o not add to previous draw Performed By: #### 3 5199, 38000 #### [facility] [address] [place] [address], [facility] Creatinine [Mass/Vol] 0.96 mg/dL Normal 0.60-1.20 [facility] Comment on above: Order Comment: No: D o not add to previous draw Performed By: #### 3 5199, 59048 #### [facility] [address] [place] [address], [place] GFR/1.73 sq M predicted among blacks MDRD (S/P/Bld) [Vol rate/Area] mL/min/{1.73_m2} Normal >60 [facility] Comment on above: Order Comment: No: D o not add to previous draw Performed By: #### 3 5199, 42691 #### [facility] [address] [place] [address], [place] GFR/1.73 sq M predicted among non-blacks MDRD (S/P/Bld) [Vol rate/Area] 58 ml/min/1.73sq m Abnormal >60 [facility] Comment on above: Order Comment: No: D o not add to previous draw Performed By: #### 3 5199, 96424 #### [facility] [address] [place] [address], [place] Glucose [Mass/Vol] 176 mg/dL High 70-100 [facility] Comment on above: Order Comment: No: D o not add to previous draw Performed By: #### 3 5199, 29153 #### [facility] [address] [place] [address], [place] Potassium [Moles/Vol] 3.8 mmol/L Normal 3.5-5.1 [facility] Comment on above: Order Comment: No: D o not add to previous draw Performed By: #### 3 5199, 11206 #### [facility] [address] [place] [address], [place] Sodium [Moles/Vol] 133 mmol/L Low 136-145 [facility] Comment on above: Order Comment: No: D o not add to previous draw Performed By: #### 3 5199, 96513 #### [facility] [address] Urea nitrogen [Mass/Vol] 26 mg/dL High 7-25 [facility] Comment on above: Order Comment: No: D o not add to previous draw Performed By: #### 3 5199, 03217 #### [facility] [address] [place] [address], [facility] CBC W/DIFFon 02-05-2020 ABS BASOPHILS 0.1 10*3/uL Normal 0.0-0.2 [facility] Comment on above: Order Comment: No: D o not add to previous draw Performed By: #### 3 5199, 47192 #### [facility] [address] [place] [address], [facility] ABS IMM GRANS 0.1 10*3/uL Normal 0.0-0.2 [facility] Comment on above: Order Comment: No: D o not add to previous draw Performed By: #### 3 5199, 56885 #### [facility] [address] [facility] [place] [place] [address], [facility] ABS NEUTROPHILS 9.1 10*3/uL High 1.6-7.6 [facility] Comment on above: Order Comment: No: D o not add to previous draw Performed By: #### 3 5199, 65906 #### [facility] [address] [facility] [place] [place] [address], [facility] Basophils/100 WBC (Bld) 0.9 % Normal 0.0-1.0 [facility] Comment on above: Order Comment: No: D o not add to previous draw Performed By: #### 3 5199, 49981 #### [facility] [address] [facility] [place] [place] [address], [facility] Eosinophils (Bld) [#/Vol] 0.4 10*3/uL Normal 0.0-0.5 [facility] Comment on above: Order Comment: No: D o not add to previous draw Performed By: #### 3 5199, 97536 #### [facility] [address] [place] [address], [facility] Eosinophils/100 WBC (Bld) 2.6 % Normal 0.0-6.0 [facility] Comment on above: Order Comment: No: D o not add to previous draw Performed By: #### 3 5199, 41536 #### [facility] [address] Erythrocyte distribution width (RBC) [Ratio] 16.1 % High 11.5-15.0 [facility] Comment on above: Order Comment: No: D o not add to previous draw Performed By: #### 3 5199, 05787 #### [facility] [address] [facility]. [address] Hematocrit (Bld) [Volume fraction] 31.9 % Low 36.0-45.0 [facility] Comment on above: Order Comment: No: D o not add to previous draw Performed By: #### 3 5199, 46395 #### [facility] [address] [facility] [address] Hemoglobin (Bld) [Mass/Vol] 9.6 g/dL Low 12.0-15.0 [facility] Comment on above: Order Comment: No: D o not add to previous draw Performed By: #### 3 5199, 18873 #### [facility] [address] [facility] [place] [place] [address], [facility] IMMATURE GRANS 0.8 % Normal 0.0-1.0 [facility] Comment on above: Order Comment: No: D o not add to previous draw Performed By: #### 3 5199, 91453 #### [facility] [address] [place] [address], [facility] Lymphocytes (Bld) [#/Vol] 3.8 10*3/uL Normal 1.2-4.0 [facility] Comment on above: Order Comment: No: D o not add to previous draw Performed By: #### 3 5199, 32842 #### [facility] [address] [place] [address], [facility] Lymphocytes/100 WBC (Bld) 25.8 % Normal 20.0-45.0 [facility] Comment on above: Order Comment: No: D o not add to previous draw Performed By: #### 3 5199, 80954 #### [facility] [address] [place] [address], [facility] MCH (RBC) [Entitic mass] 20.9 pg Low 27.0-33.0 [facility] Comment on above: Order Comment: No: D o not add to previous draw Performed By: #### 3 5199, 48543 #### [facility] [address] [place] [address], [facility] MCHC (RBC) [Mass/Vol] 30.1 g/dL Low 32.0-35.0 [facility] Comment on above: Order Comment: No: D o not add to previous draw Performed By: #### 3 5199, 77257 #### [facility] [address] [facility] [place] [place] [address], [facility] MCV (RBC) [Entitic vol] 69.5 fL Low 82.0-98.0 [facility] Comment on above: Order Comment: No: D o not add to previous draw Performed By: #### 3 5199, 06387 #### [facility] [address] [facility] [place] [place] [address], [facility] Monocytes (Bld) [#/Vol] 1.3 10*3/uL High 0.1-1.0 [facility] Comment on above: Order Comment: No: D o not add to previous draw Performed By: #### 3 5199, 78353 #### [facility] [address] [place] [address], [facility] MONOS 8.5 % Normal 5.0-12.0 [facility] Comment on above: Order Comment: No: D o not add to previous draw Performed By: #### 3 5199, 63332 #### [facility] [address] [place] [id number], [facility] Neutrophils/100 WBC (Bld) 61.4 % Normal 40.0-72.0 [facility] Comment on above: Order Comment: No: D o not add to previous draw Performed By: #### 3 5199, 05132 #### [facility] [address] [place] [id number], [facility] Nucleated RBC/100 WBC (Bld) [Ratio] 0 % Normal 0-0 [facility] Comment on above: Order Comment: No: D o not add to previous draw Performed By: #### 3 5199, 36146 #### [facility] [address] [place] [id number], [facility] PLAT CNT 528 10*3/uL High 150-400 [facility] Comment on above: Order Comment: No: D o not add to previous draw Performed By: #### 3 5199, 23426 #### [facility] [address] [place] [id number], [facility] RBC (Bld) [#/Vol] 4.59 10*6/uL Normal 3.80-5.00 [facility] Comment on above: Order Comment: No: D o not add to previous draw Performed By: #### 3 5199, 64167 #### [facility] [address] [place] [address], [place] WBC (Bld) [#/Vol] 14.79 10*3/uL High 4.00-10.60 [facility] Comment on above: Order Comment: No: D o not add to previous draw Performed By: #### 3 5199, 37251 #### [facility] [address] [place] [address], [facility] MAGNESIUM BLOODon 02-05-2020 Magnesium [Mass/Vol] 2.0 mg/dL Normal 1.9-2.7 The [facility] Comment on above: Order Comment: No: D o not add to previous draw Performed By: #### 3 5199, 56289 #### [facility] [address] UFH HEPARIN ASSAYon 02-05-20 20 UNFRACTIONATED HEPARIN 0.28 IU/mL Low 0.30-0.70 [facility] Comment on above: Order Comment: No: D o not add to previous draw Result Comment: [place] roxaban and Apixaban will interfere with the anti Xa assay used to monitor UFH and LMWH. Performed By: #### 3 5199, 45394 #### [facility] [address] [facility] [address] UNFRACTIONATED HEPARIN 0.45 IU/mL Normal 0.30-0.70 [facility] Comment on above: Result Comment: [place] roxaban and Apixaban will interfere with the anti Xa assay used to monitor UFH and LMWH. Performed By: #### 3 5199, 43300 #### [facility] [address] [facility] [address] *SARS-CoV-2 COVID-19on 02-03 [id number] Not Detected Normal Not Detected [facility] Comment on above: Order Comment: No: D o not add to previous draw Performed By: #### 3 5199, 33860 #### [facility] [address] [facility] [address] ANAon 02-04-2020 Nuclear Ab IF (S) [Titer] <1:40 Normal <1:40,1:40 [facility] Comment on above: Order Comment: No: D o not add to previous draw Performed By: #### 3 5199, 86076 #### [facility] [address] BASIC METABOLIC PANELon 01-10 Calcium [Mass/Vol] 9.6 mg/dL Normal 8.6-10.3 [facility] Comment on above: Order Comment: No: D o not add to previous draw Performed By: #### 1 0054 #### [facility] [address] [place] [address], [place] Chloride [Moles/Vol] 93 mmol/L Low 98-107 [facility] Comment on above: Order Comment: No: D o not add to previous draw Performed By: #### 1 0054 #### [facility] [address] [place] [address], [place] CO2 [Moles/Vol] 28 mmol/L Normal 21-31 [facility] Comment on above: Order Comment: No: D o not add to previous draw Performed By: #### 1 0054 #### [facility] [address] [place] [address], [place] Creatinine [Mass/Vol] 1.00 mg/dL Normal 0.60-1.20 [facility] Comment on above: Order Comment: No: D o not add to previous draw Performed By: #### 1 0054 #### [facility] [address] [place] [address], [place] GFR/1.73 sq M predicted among blacks MDRD (S/P/Bld) [Vol rate/Area] mL/min/{1.73_m2} Normal >60 [facility] Comment on above: Order Comment: No: D o not add to previous draw Performed By: #### 1 0054 #### [facility] [address] [place] [address], [place] GFR/1.73 sq M predicted among non-blacks MDRD (S/P/Bld) [Vol rate/Area] 56 ml/min/1.73sq m Abnormal >60 [facility] Comment on above: Order Comment: No: D o not add to previous draw Performed By: #### 1 0054 #### [facility] [address] [place] [address], [place] Glucose [Mass/Vol] 169 mg/dL High 70-100 [facility] Comment on above: Order Comment: No: D o not add to previous draw Performed By: #### 1 0054 #### [facility] [address] [place] [id number], [facility] Potassium [Moles/Vol] 3.6 mmol/L Normal 3.5-5.1 [facility] Comment on above: Order Comment: No: D o not add to previous draw Performed By: #### 1 0054 #### [facility] [address] [address], [facility] Sodium [Moles/Vol] 133 mmol/L Low 136-145 [facility] Comment on above: Order Comment: No: D o not add to previous draw Performed By: #### 1 0054 #### [facility] [address] [address], [facility] Urea nitrogen [Mass/Vol] 24 mg/dL Normal 7-25 [facility] Comment on above: Order Comment: No: D o not add to previous draw Performed By: #### 1 0054 #### [facility] [address] [place] [address], [facility] C REACTIVE PROTEINon 020 CRP [Mass/Vol] 71.2 mg/L High 0.0-7.0 The [facility] Comment on above: Order Comment: No: D o not add to previous draw Performed By: #### 3 5200, 79278 #### [facility] [address] [place] [address], [facility] CBC W/DIFFon 02-04-2020 ABS BASOPHILS 0.1 10*3/uL Normal 0.0-0.2 The [facility] Comment on above: Order Comment: No: D o not add to previous draw Performed By: #### 5 7307, 28684 #### [facility] [address] ABS IMM GRANS 0.1 10*3/uL Normal 0.0-0.2 [facility] Comment on above: Order Comment: No: D o not add to previous draw Performed By: #### 5 7307, 96173 #### [facility] [address] [facility] [place] [address], [facility] ABS NEUTROPHILS 9.0 10*3/uL High 1.6-7.6 [facility] Comment on above: Order Comment: No: D o not add to previous draw Performed By: #### 5 7307, 10586 #### [facility] [address] [place] [address], [facility] Basophils/100 WBC (Bld) 0.7 % Normal 0.0-1.0 [facility] Comment on above: Order Comment: No: D o not add to previous draw Performed By: #### 5 7306, 97242 #### [facility] [address] [place] [address], [facility] Eosinophils (Bld) [#/Vol] 0.2 10*3/uL Normal 0.0-0.5 [facility] Comment on above: Order Comment: No: D o not add to previous draw Performed By: #### 5 7306, 67041 #### [facility] [address] [place] [address], [facility] Eosinophils/100 WBC (Bld) 1.3 % Normal 0.0-6.0 [facility] Comment on above: Order Comment: No: D o not add to previous draw Performed By: #### 5 7307, 49878 #### [facility] [address] [place] [address], [facility] Erythrocyte distribution width (RBC) [Ratio] 16.5 % High 11.5-15.0 [facility] Comment on above: Order Comment: No: D o not add to previous draw Performed By: #### 5 7306, 92475 #### [facility] [address] [place] [address], [facility] Hematocrit (Bld) [Volume fraction] 32.0 % Low 36.0-45.0 [facility] Comment on above: Order Comment: No: D o not add to previous draw Performed By: #### 5 73, 28098 #### [facility] [address] [place] [address], [facility] Hemoglobin (Bld) [Mass/Vol] 9.5 g/dL Low 12.0-15.0 [facility] Comment on above: Order Comment: No: D o not add to previous draw Performed By: #### 5 73, 97569 #### [facility] [address] [address], [facility] IMMATURE GRANS 0.6 % Normal 0.0-1.0 The [facility] Comment on above: Order Comment: No: D o not add to previous draw Performed By: #### 5 73, 33803 #### [facility] [address] [facility] [place] [place] [address], [facility] Lymphocytes (Bld) [#/Vol] 3.5 10*3/uL Normal 1.2-4.0 [facility] Comment on above: Order Comment: No: D o not add to previous draw Performed By: #### 5 7307, 12104 #### [facility] [address] [facility] [place] [place] [address], [facility] Lymphocytes/100 WBC (Bld) 24.1 % Normal 20.0-45.0 [facility] Comment on above: Order Comment: No: D o not add to previous draw Performed By: #### 5 73, 36468 #### [facility] [address] [place] [address], [facility] MCH (RBC) [Entitic mass] 20.7 pg Low 27.0-33.0 [facility] Comment on above: Order Comment: No: D o not add to previous draw Performed By: #### 5 73, 52827 #### [facility] [address] [place] [address], [facility] MCHC (RBC) [Mass/Vol] 29.7 g/dL Low 32.0-35.0 [facility] Comment on above: Order Comment: No: D o not add to previous draw Performed By: #### 5 07, 30769 #### [facility] [address] [place] [address], [facility] MCV (RBC) [Entitic vol] 69.6 fL Low 82.0-98.0 [facility] Comment on above: Order Comment: No: D o not add to previous draw Performed By: #### 5 73, 38058 #### [facility] [address] [place] [address], [facility] Monocytes (Bld) [#/Vol] 1.5 10*3/uL High 0.1-1.0 [facility] Comment on above: Order Comment: No: D o not add to previous draw Performed By: #### 5 73, 59553 #### [facility] [address] [facility] [place] [place] [address], [facility] MONOS 10.3 % Normal 5.0-12.0 [facility] Comment on above: Order Comment: No: D o not add to previous draw Performed By: #### 5 7307, 04191 #### [facility] [address] [facility] [place] [place] [address], [facility] Neutrophils/100 WBC (Bld) 63.0 % Normal 40.0-72.0 [facility] Comment on above: Order Comment: No: D o not add to previous draw Performed By: #### 5 7307, 34103 #### [facility] [address] [place] [address], [facility] Nucleated RBC/100 WBC (Bld) [Ratio] 0 % Normal 0-0 [facility] Comment on above: Order Comment: No: D o not add to previous draw Performed By: #### 5 7307, 81758 #### [facility] [address] [place] [address], [facility] PLAT CNT 528 10*3/uL High 150-400 [facility] Comment on above: Order Comment: No: D o not add to previous draw Performed By: #### 5 7307, 44492 #### [facility] [address] [place] [address], [facility] RBC (Bld) [#/Vol] 4.60 10*6/uL Normal 3.80-5.00 [facility] Comment on above: Order Comment: No: D o not add to previous draw Performed By: #### 5 7307, 85497 #### [facility] [address] [place] [address], [facility] WBC (Bld) [#/Vol] 14.35 10*3/uL High 4.00-10.60 [facility] Comment on above: Order Comment: No: D o not add to previous draw Performed By: #### 5 7307, 32974 #### [facility] [address] [facility] [address] CPKon 02-04-2020 CK [Catalytic activity/Vol] 151 U/L Normal 30-223 [facility] Comment on above: Order Comment: No: D o not add to previous draw Performed By: #### 1 0054 #### [facility] [address] D DIMER TESTon 02-04-2020 D-DIMER TEST 1.08 mcg/mL FEU High 0.01-0.49 [facility] Comment on above: Order Comment: [...] event. Performed By: #### 1 0054 #### [facility] [address] [place] [address], [facility] FERRITINon 02-04-2020 Ferritin [Mass/Vol] 24 ng/mL Normal 11-307 [facility] Comment on above: Performed By: #### 1 0054 #### [facility] [address] [place] [id number], [facility] LDH BLOODon 02-04-2020 LDH 183 Units/L Normal 140-271 [facility] Comment on above: Performed By: #### 1 0054 #### [facility] [address] [address], [facility] LIVER BATTERYon 02-04-2020 Albumin [Mass/Vol] 3.9 g/dL Normal 3.5-5.7 [facility] Comment on above: Performed By: #### 1 0054 #### [facility] [address] [facility] [place] [place] [address], [facility] ALKALINE PHOSPH 135 IU/L High 34-104 [facility] Comment on above: Performed By: #### 1 0054 #### [facility] [address] [address], [facility] ALT [Catalytic activity/Vol] 34 U/L Normal 7-52 [facility] Comment on above: Performed By: #### 1 0054 #### [facility] [address] [address], [facility] AST [Catalytic activity/Vol] 40 U/L High 13-39 [facility] Comment on above: Performed By: #### 1 0054 #### [facility] [address] [address], [facility] Bilirubin [Mass/Vol] 0.7 mg/dL Normal 0.3-1.0 [facility] Comment on above: Performed By: #### 1 0054 #### [facility] [address] [place] [address], [facility] Bilirubin.direct [Mass/Vol] 0.1 mg/dL Normal 0.0-0.2 [facility] Comment on above: Performed By: #### 1 0054 #### [facility] [address] [place] [address], [facility] Protein [Mass/Vol] 7.5 g/dL Normal 6.0-8.3 [facility] Comment on above: Performed By: #### 1 0054 #### [facility] [address] [facility] [address] MAGNESIUM BLOODon 02-04-2020 Magnesium [Mass/Vol] 2.3 mg/dL Normal 1.9-2.7 [facility] Comment on above: Order Comment: No: D o not add to previous draw Performed By: #### 1 0054 #### [facility] [address] [place] [address], [facility] PHOSPHORUS BLOODon 0 Phosphate [Mass/Vol] 4.5 mg/dL Normal 2.5-5.0 [facility] Comment on above: Order Comment: No: D o not add to previous draw Performed By: #### 1 0054 #### [facility] [address] [facility]. [address] TSH3on 02-04-2020 TSH 3RD GENERATION 4.50 uIU/mL Normal 0.34-5.60 [facility] Comment on above: Order Comment: No: D o not add to previous draw Performed By: #### 1 0054 #### [facility] [address] UFH HEPARIN ASSAYon 02-04-20 20 UNFRACTIONATED HEPARIN 0.18 IU/mL Low 0.30-0.70 [facility] Comment on above: Result Comment: [place] roxaban and Apixaban will interfere with the anti Xa assay used to monitor UFH and LMWH. Performed By: #### 3 0, 25149 #### [facility] [address] [place] [address], [facility] UNFRACTIONATED HEPARIN 0.25 IU/mL Low 0.30-0.70 [facility] Comment on above: Result Comment: [place] roxaban and Apixaban will interfere with the anti Xa assay used to monitor UFH and LMWH. Performed By: #### 3 0, 94407 #### [facility] [address] [facility] [address] UNFRACTIONATED HEPARIN 0.25 IU/mL Low 0.30-0.70 [facility] Comment on above: Result Comment: [place] roxaban and Apixaban will interfere with the anti Xa assay used to monitor UFH and LMWH. Performed By: #### 1 0054 #### [facility] [address] [facility] UNFRACTIONATED HEPARIN 0.35 IU/mL Normal 0.30-0.70 [facility] Comment on above: Result Comment: [place] roxaban and Apixaban will interfere with the anti Xa assay used to monitor UFH and LMWH. Performed By: #### 5 7307, 88009 #### [facility] [address] [facility] APTTon 02-03-2020 aPTT Coag (Bld) [Time] 33.3 s Normal 25.0-35.0 [facility] Comment on above: Order Comment: No: [...] THIS PURPOSE. Performed By: #### 5 7307, 69351 #### [facility] [address] BASIC METABOLIC PANELon 04-2 5-2020 Calcium [Mass/Vol] 9.7 mg/dL Normal 8.6-10.3 [facility] Comment on above: Order Comment: No: D o not add to previous draw Performed By: #### 0 0071, 61646, 59823, 99748, 18389 #### [facility] [address] [place] [address], [place] Chloride [Moles/Vol] 93 mmol/L Low 98-107 [facility] Comment on above: Order Comment: No: D o not add to previous draw Performed By: #### 0 0071, 91078, 27140, 10891, 03056 #### [facility] [address] [place] [address], [place] CO2 [Moles/Vol] 26 mmol/L Normal 21-31 [facility] Comment on above: Order Comment: No: D o not add to previous draw Performed By: #### 0 0071, 73107, 65422, 85968, 23746 #### [facility] [address] [place] [address], [place] Creatinine [Mass/Vol] 1.19 mg/dL Normal 0.60-1.20 [facility] Comment on above: Order Comment: No: D o not add to previous draw Performed By: #### 0 0071, 69696, 12840, 44878, 67779 #### [facility] [address] [place] [address], [place] GFR/1.73 sq M predicted among blacks MDRD (S/P/Bld) [Vol rate/Area] 55 ml/min/1.73sq m Abnormal >60 [facility] Comment on above: Order Comment: No: D o not add to previous draw Performed By: #### 0 0071, 59104, 33733, 43378, 91416 #### [facility] [address] [place] [address], [place] GFR/1.73 sq M predicted among non-blacks MDRD (S/P/Bld) [Vol rate/Area] 45 ml/min/1.73sq m Abnormal >60 [facility] Comment on above: Order Comment: No: D o not add to previous draw Performed By: #### 0 0071, 39898, 35274, 75218, 95991 #### [facility] [address] [place] [address], [place] Glucose [Mass/Vol] 181 mg/dL High 70-100 [facility] Comment on above: Order Comment: No: D o not add to previous draw Performed By: #### 0 0071, 03525, 26065, 68099, 56796 #### [facility] [address] [place] [address], [place] Potassium [Moles/Vol] 3.5 mmol/L Normal 3.5-5.1 [facility] Comment on above: Order Comment: No: D o not add to previous draw Performed By: #### 0 0071, 32428, 84248, 95186, 30340 #### [facility] [address] [place] [address], [place] Sodium [Moles/Vol] 132 mmol/L Low 136-145 [facility] Comment on above: Order Comment: No: D o not add to previous draw Performed By: #### 0 0071, 11712, 94320, 87557, 86463 #### [facility] [address] [place] [address], [place] Urea nitrogen [Mass/Vol] 23 mg/dL Normal 7-25 [facility] Comment on above: Order Comment: No: D o not add to previous draw Performed By: #### 0 0071, 46016, 79017, 13254, 12650 #### [facility] [address] [place] [address], [place] Calcium [Mass/Vol] 9.4 mg/dL Normal 8.6-10.3 [facility] Comment on above: Order Comment: No: D o not add to previous draw Performed By: #### 3 5199, 90631 #### [facility] [address] [place] [address], [place] Chloride [Moles/Vol] 95 mmol/L Low 98-107 [facility] Comment on above: Order Comment: No: D o not add to previous draw Performed By: #### 3 5199, 97759 #### [facility] [address] [place] [address], [place] CO2 [Moles/Vol] 23 mmol/L Normal 21-31 [facility] Comment on above: Order Comment: No: D o not add to previous draw Performed By: #### 3 5199, 15615 #### [facility] [address] [place] [address], [place] Creatinine [Mass/Vol] 1.18 mg/dL Normal 0.60-1.20 [facility] Comment on above: Order Comment: No: D o not add to previous draw Performed By: #### 3 5199, 28806 #### [facility] [address] [place] [address], [place] GFR/1.73 sq M predicted among blacks MDRD (S/P/Bld) [Vol rate/Area] 56 ml/min/1.73sq m Abnormal >60 [facility] Comment on above: Order Comment: No: D o not add to previous draw Performed By: #### 3 5199, 86738 #### [facility] [address] [place] [address], [place] GFR/1.73 sq M predicted among non-blacks MDRD (S/P/Bld) [Vol rate/Area] 46 ml/min/1.73sq m Abnormal >60 [facility] Comment on above: Order Comment: No: D o not add to previous draw Performed By: #### 3 5199, 73266 #### [facility] [address] [place] [address], [place] Glucose [Mass/Vol] 217 mg/dL High 70-100 [facility] Comment on above: Order Comment: No: D o not add to previous draw Performed By: #### 3 5199, 21156 #### [facility] [address] [place] [address], [place] Potassium [Moles/Vol] 3.5 mmol/L Normal 3.5-5.1 [facility] Comment on above: Order Comment: No: D o not add to previous draw Performed By: #### 3 5199, 59187 #### [facility] [address] [place] [address], [place] Sodium [Moles/Vol] 133 mmol/L Low 136-145 [facility] Comment on above: Order Comment: No: D o not add to previous draw Performed By: #### 3 5199, 30210 #### [facility] [address] [place] [address], [place] Urea nitrogen [Mass/Vol] 21 mg/dL Normal 7-25 [facility] Comment on above: Order Comment: No: D o not add to previous draw Performed By: #### 3 5199, 24477 #### [facility] [address] [place] [address], [facility] CBC COMPLETE BLOOD COUNTon 02-03-2020 Erythrocyte distribution width (RBC) [Ratio] 16.6 % High 11.5-15.0 [facility] Comment on above: Order Comment: No: D o not add to previous draw Performed By: #### 5 08 #### [facility] [address] [place] [address], [place] Hematocrit (Bld) [Volume fraction] 31.2 % Low 36.0-45.0 [facility] Comment on above: Order Comment: No: D o not add to previous draw Performed By: #### 5 0608 #### [facility] [address] Hemoglobin (Bld) [Mass/Vol] 9.6 g/dL Low 12.0-15.0 [facility] Comment on above: Order Comment: No: D o not add to previous draw Performed By: #### 5 0608 #### [facility] [address] [facility] [place] [address], [facility] MCH (RBC) [Entitic mass] 20.9 pg Low 27.0-33.0 [facility] Comment on above: Order Comment: No: D o not add to previous draw Performed By: #### 5 0608 #### [facility] [address] [facility]. [address] MCHC (RBC) [Mass/Vol] 30.8 g/dL Low 32.0-35.0 [facility] Comment on above: Order Comment: No: D o not add to previous draw Performed By: #### 5 0608 #### [facility] [address] [facility]. [address] MCV (RBC) [Entitic vol] 68.0 fL Low 82.0-98.0 [facility] Comment on above: Order Comment: No: D o not add to previous draw Performed By: #### 5 0608 #### [facility] [address] Nucleated RBC/100 WBC (Bld) [Ratio] 0 % Normal 0-0 [facility] Comment on above: Order Comment: No: D o not add to previous draw Performed By: #### 5 0608 #### [facility] [address] [place] [address], [facility] PLAT CNT 580 10*3/uL High 150-400 [facility] Comment on above: Order Comment: No: D o not add to previous draw Performed By: #### 5 0608 #### [facility] [address] [place] [address], [facility] RBC (Bld) [#/Vol] 4.59 10*6/uL Normal 3.80-5.00 [facility] Comment on above: Order Comment: No: D o not add to previous draw Performed By: #### 5 0608 #### [facility] [address] [place] [address], [facility] WBC (Bld) [#/Vol] 20.18 10*3/uL High 4.00-10.60 [facility] Comment on above: Order Comment: No: D o not add to previous draw Performed By: #### 5 0608 #### [facility] [address] [facility] CBC W/DIFFon 02-03-2020 ABS BASOPHILS 0.1 10*3/uL Normal 0.0-0.2 [facility] Comment on above: Order Comment: No: D o not add to previous draw Performed By: #### 5 0103 #### [facility] [address] ABS IMM GRANS 0.1 10*3/uL Normal 0.0-0.2 [facility] Comment on above: Order Comment: No: D o not add to previous draw Performed By: #### 5 0103 #### [facility] [address] ABS NEUTROPHILS 13.1 10*3/uL High 1.6-7.6 [facility] Comment on above: Order Comment: No: D o not add to previous draw Performed By: #### 5 0103 #### [facility] [address] [place] [address], [facility] ANISO MODERATE Normal [facility] Comment on above: Order Comment: No: D o not add to previous draw Performed By: #### 5 0103 #### [facility] [address] [place] [id number], [facility] Basophils/100 WBC (Bld) 0.3 % Normal 0.0-1.0 [facility] Comment on above: Order Comment: No: D o not add to previous draw Performed By: #### 5 0103 #### [facility] [address] [place] [address], [facility] Eosinophils (Bld) [#/Vol] 0.0 10*3/uL Normal 0.0-0.5 [facility] Comment on above: Order Comment: No: D o not add to previous draw Performed By: #### 5 0103 #### [facility] [address] [place] [id number], [facility] Eosinophils/100 WBC (Bld) 0.2 % Normal 0.0-6.0 [facility] Comment on above: Order Comment: No: D o not add to previous draw Performed By: #### 5 0103 #### [facility] [address] [place] [address], [facility] Erythrocyte distribution width (RBC) [Ratio] 16.6 % High 11.5-15.0 [facility] Comment on above: Order Comment: No: D o not add to previous draw Performed By: #### 5 3 #### [facility] [address] [place] [address], [facility] Hematocrit (Bld) [Volume fraction] 30.7 % Low 36.0-45.0 [facility] Comment on above: Order Comment: No: D o not add to previous draw Performed By: #### 5 0103 #### [facility] [address] [place] [id number], [facility] Hemoglobin (Bld) [Mass/Vol] 9.2 g/dL Low 12.0-15.0 [facility] Comment on above: Order Comment: No: D o not add to previous draw Performed By: #### 5 0103 #### [facility] [address] IMMATURE GRANS 0.6 % Normal 0.0-1.0 [facility] Comment on above: Order Comment: No: D o not add to previous draw Performed By: #### 5 0103 #### [facility] [address] [place] [address], [facility] Lymphocytes (Bld) [#/Vol] 2.3 10*3/uL Normal 1.2-4.0 [facility] Comment on above: Order Comment: No: D o not add to previous draw Performed By: #### 5 0103 #### [facility] [address] [place] [address], [facility] Lymphocytes/100 WBC (Bld) 13.5 % Low 20.0-45.0 [facility] Comment on above: Order Comment: No: D o not add to previous draw Performed By: #### 5 0103 #### [facility] [address] [place] [address], [facility] MCH (RBC) [Entitic mass] 20.6 pg Low 27.0-33.0 [facility] Comment on above: Order Comment: No: D o not add to previous draw Performed By: #### 5 0103 #### [facility] [address] [place] [address], [facility] MCHC (RBC) [Mass/Vol] 30.0 g/dL Low 32.0-35.0 [facility] Comment on above: Order Comment: No: D o not add to previous draw Performed By: #### 5 0103 #### [facility] [address] [place] [address], [facility] MCV (RBC) [Entitic vol] 68.7 fL Low 82.0-98.0 [facility] Comment on above: Order Comment: No: D o not add to previous draw Performed By: #### 5 0103 #### [facility] [address] [place] [id number], [facility] MICRO MARKED Normal [facility] Comment on above: Order Comment: No: D o not add to previous draw Performed By: #### 5 0103 #### [facility] [address] [place] [id number], [facility] Monocytes (Bld) [#/Vol] 1.7 10*3/uL High 0.1-1.0 [facility] Comment on above: Order Comment: No: D o not add to previous draw Performed By: #### 5 0103 #### [facility] [address] [place] [address], [facility] MONOS 9.7 % Normal 5.0-12.0 [facility] Comment on above: Order Comment: No: D o not add to previous draw Performed By: #### 5 0103 #### [facility] [address] [facility] [place] [address], [facility] Neutrophils/100 WBC (Bld) 75.7 % High 40.0-72.0 [facility] Comment on above: Order Comment: No: D o not add to previous draw Performed By: #### 5 0103 #### [facility] [address] [facility] [address], [facility] Nucleated RBC/100 WBC (Bld) [Ratio] 0 % Normal 0-0 [facility] Comment on above: Order Comment: No: D o not add to previous draw Performed By: #### 5 0103 #### [facility] [address] [place] [address], [facility] PLAT CNT 535 10*3/uL High 150-400 [facility] Comment on above: Order Comment: No: D o not add to previous draw Performed By: #### 5 0103 #### [facility] [address] [place] [address], [facility] RBC (Bld) [#/Vol] 4.47 10*6/uL Normal 3.80-5.00 [facility] Comment on above: Order Comment: No: D o not add to previous draw Performed By: #### 5 0103 #### [address] WBC (Bld) [#/Vol] 17.37 10*3/uL High 4.00-10.60 [facility] Comment on above: Order Comment: No: D o not add to previous draw Performed By: #### 5 0103 #### [facility] 3000 [place], [place] [id number] [place] [address] CTA CHESTon 02-03-2020 CTA CHEST [facility] Department of Radiology [address] [place], [place] [id number] Patient Name: GABBI AUSTIN : 1950 Sex: F Age: Race: White Pt. Location: [address] [place] [address] Patient Status: I Ordered Date: 02/03/2020 12:20:00 [...] pneumonia. Approved by:Tonio Landaverde02/03/2020 2:10 PM. I, Segundo Bonner,have reviewed the images and reports Electronically signed: Segundo Bonner. Transcribed by: [email or web address], User Resident: TONIO HIGH Electronically Signed by: SEGUNDO BONNER @ 02/03/2020 03:10 PM I personally read this/these film(s) with this resident Normal [facility] Comment on above: Order Comment: No: D o not add to previous draw D DIMER TESTon 02-03-2020 D-DIMER TEST 1.25 mcg/mL FEU High 0.01-0.49 [facility] Comment on above: Result Comment: D-Di aftab values of less than 0.50 ug/ml (FEU) are considered to be a negative predictor of thrombosis. However, the D-Dimer result should be used in conjunction with pretest probability and should not be used alone to diagnose a thrombotic event. Performed By: #### 5 7307, 81980 #### [facility] [address] HEMOGLOBIN A1Con 02-03-2020 HbA1c (Bld) [Mass fraction] 177 mg/dL High 70-126 [facility] Comment on above: Order Comment: No: D o not add to previous draw Performed By: #### 5 7307, 58529 #### [facility] [address] HbA1c (Bld) [Mass fraction] 7.8 % High 4.0-6.0 [facility] Comment on above: Order Comment: No: D o not add to previous draw Performed By: #### 5 7307, 26653 #### [facility] [address] [facility] [address] LACTATE BLOODon 02-03-2020 Lactate [Moles/Vol] 1.6 mmol/L Normal 0.5-2.2 [facility] Comment on above: Order Comment: No: D o not add to previous draw Performed By: #### 1 0054 #### [facility] [address] LIPID PROFILEon 02-03-2020 Cholesterol [Mass/Vol] 206 mg/dL High 120-200 [facility] Comment on above: Result Comment: CHOL ESTEROL REFERENCE RANGE: 20 YEARS AND OLDER CARDIOVASCULAR RISK Less than 200 mg/dl Low Risk 200 to 239 mg/dl Borderline Risk 240 mg/dl and greater High Risk Performed By: #### 5 7307, 36153 #### [facility] [address] [place] [address], [facility] Cholesterol in HDL [Mass/Vol] 55 mg/dL Normal 23-92 [facility] Comment on above: Result Comment: Slig ht variation in normal range could be due to gender and/or age. HDL CHOLESTEROL REFERENCE RANGE: 20 years and older Cardiovascular Risk > or =60 mg/dL Desirable 40 TO 59 mg/dL Low Risk <40 mg/dL High Risk Performed By: #### 5 7307, 65783 #### [facility] [address] [place] [address], [facility] Cholesterol in LDL [Mass/Vol] 93 mg/dL Normal 0-130 [facility] Comment on above: Result Comment: LDL IS A CALCULATION LDL IS ONLY VALID IF THE TRIG IS LESS THAN 400. Performed By: #### 5 7307, 52927 #### [facility] [address] [place] [address], [facility] Cholesterol.total/Ch olesterol in HDL [Mass ratio] 3.7 {ratio} Normal 0.0-4.5 [facility] Comment on above: Performed By: #### 5 7307, 95267 #### [facility] [address] [place] [address], [facility] NON-HDL CHOLESTEROL 151 mg/dL Normal [facility] Comment on above: Performed By: #### 5 7307, 24357 #### [facility] [address] [place] [address], [facility] Triglyceride [Mass/Vol] 292 mg/dL High 40-149 [facility] Comment on above: Result Comment: TRIG LYCERIDE REFERENCE RANGE: 20 YEARS AND OLDER CARDIOVASCULAR RISK LESS THAN 150 mg/dl LOW RISK 150 TO 199 mg/dl BORDERLINE RISK 200 mg/dl AND GREATER HIGH RISK Performed By: #### 5 7307, 11779 #### [facility] [address] [place] [address], [facility] VLDL CHOL 58 mg/dL High 0-40 [facility] Comment on above: Performed By: #### 5 7307, 02580 #### [facility] [address] [place] [address], [facility] MAGNESIUM BLOODon 02-03-2020 Magnesium [Mass/Vol] 1.7 mg/dL Low 1.9-2.7 [facility] Comment on above: Order Comment: No: D o not add to previous draw Performed By: #### 0 0071, 98812, 59037, 78279, 20833 #### [facility] [address] [place] [address], [facility] PHOSPHORUS BLOODon 0 Phosphate [Mass/Vol] 5.4 mg/dL High 2.5-5.0 [facility] Comment on above: Order Comment: No: D o not add to previous draw Performed By: #### 0 0071, 17691, 90399, 82185, 31648 #### [facility] [address] [place], [place] [id number] [place] [address] PORTABLE CHEST 1 VIEWon 01-10 PORTABLE CHEST 1 VIEW [facility] Department of Radiology [address] [place] [id number] Patient Name: GABBI AUSTIN : 1950 Sex: F Age: Race: White Pt. Location: [id number] Patient Status: I Ordered Date: 02/03/2020 10:20:00 [...] reports Electronically signed: Segundo Bonner. Transcribed by: [email or web address], User Resident: TONIO HIGH Electronically Signed by: SEGUNDO BONNER @ 02/03/2020 11:44 AM I personally read this/these film(s) with this resident Normal [facility] Comment on above: Order Comment: No: D o not add to previous draw PROTHROMBIN TIMEon 0 INR Coag (PPP) [Relative time] 1.06 {INR} Normal 0.91-1.16 [facility] Comment on above: Order Comment: No: [...] CHEST 1995;[id number]. Performed By: #### 5 7307, 58050 #### [facility] [address] PT Coag (PPP) [Time] 13.8 s Normal 12.3-14.8 [facility] Comment on above: Order Comment: No: D o not add to previous draw Result Comment: ALL RESULTS MUST BE INTERPRETED WITH RESPECT TO BLOOD DRAWING ARTIFACT OR DILUTION ERROR OF ANTICOAGULANT AT THE TIME OF SAMPLING. Performed By: #### 5 7307, 65371 #### [facility] [address] [place] [address], [facility] TROPONIN-Ion 02-03-2020 Troponin I.cardiac [Mass/Vol] 0.05 ng/mL High 0.00-0.04 [facility] Comment on above: Order Comment: No: D o not add to previous draw Result Comment: REFE RENCE RANGES: 0.00 - 0.04 ng/ml NORMAL 0.05 - 0.50 ng/ml INDETERMINATE > 0.50 ng/ml CONSISTENT WITH AN M.I. Performed By: #### 5 7307, 68205 #### [facility] [address] [place] [address], [facility] Troponin I.cardiac [Mass/Vol] 0.06 ng/mL High 0.00-0.04 [facility] Comment on above: Order Comment: No: D o not add to previous draw Result Comment: REFE RENCE RANGES: 0.00 - 0.04 ng/ml NORMAL 0.05 - 0.50 ng/ml INDETERMINATE > 0.50 ng/ml CONSISTENT WITH AN M.I. Performed By: #### 5 7307, 06376 #### [facility] [address] [place] [address], [facility] Troponin I.cardiac [Mass/Vol] 0.08 ng/mL High 0.00-0.04 [facility] Comment on above: Order Comment: No: D o not add to previous draw Result Comment: REFE RENCE RANGES: 0.00 - 0.04 ng/ml NORMAL 0.05 - 0.50 ng/ml INDETERMINATE > 0.50 ng/ml CONSISTENT WITH AN M.I. Performed By: #### 3 5200, 87582 #### [facility] 3000 [facility]. [address] UFH HEPARIN ASSAYon 02-03-20 20 UNFRACTIONATED HEPARIN 0.47 IU/mL Normal 0.30-0.70 [facility] Comment on above: Result Comment: [place] roxaban and Apixaban will interfere with the anti Xa assay used to monitor UFH and LMWH. Performed By: #### 5 7307, 65243 #### [facility] [address] Vital Signs Date Time Vital Sign Value Performing Clinician Facility 04-02-2025 13:20-0400 Body height 154.9 cm [facility] Work Phone: [facility] [employer] 04-02-2025 13:20-0400 Body mass index (BMI) [Ratio] 22.3 kg/m2 [facility] Work Phone: [facility] 04-02-2025 13:20-0400 Body temperature 98.2 [degF] [facility] Work Phone: [facility] 04-02-2025 13:20-0400 Body weight 53.52 kg [facility] Work Phone: [facility] [employer] 04-02-2025 13:20-0400 Diastolic blood pressure 64 mm[Hg] [facility] Work Phone: [facility] 04-02-2025 13:20-0400 Heart rate 79 /min [facility] Work Phone: [facility] 04-02-2025 13:20-0400 SaO2% (BldA) [Mass fraction] 92 % Adina Petznick DO Work Phone: [facility] 04-02-2025 13:20-0400 Systolic blood pressure 110 mm[Hg] Adina Petznick DO Work Phone: [facility] 01-23-2025 13:12-0400 Body height 154.[address] [facility] 01-23-2025 13:12-0400 Body mass index (BMI) [Ratio] 22.5 kg/m2 [facility] 01-23-2025 13:12-0400 Body weight 54.[address] [facility] 01-23-2025 13:12-0400 Diastolic blood pressure 59 mm[Hg] [facility] 01-23-2025 13:12-0400 Heart rate 76 /min [facility] 01-23-2025 13:12-0400 Respiratory rate 16 /min [facility] 01-23-2025 13:12-0400 Systolic blood pressure 92 mm[Hg] [facility] 12-19-2024 13:57-0400 Body height 154.9 cm Adina Petznick DO Work Phone: [facility] 12-19-2024 13:57-0400 Body mass index (BMI) [Ratio] 22.86 kg/m2 Adina Petznick DO Work Phone: [facility] 12-19-2024 13:57-0400 Body temperature 98.29 [degF] Adina Petznick DO Work Phone: [facility] 12-19-2024 13:57-0400 Body weight 54.88 kg Adina Petznick DO Work Phone: [facility] 12-19-2024 13:57-0400 Diastolic blood pressure 62 mm[Hg] Adina Petznick DO Work Phone: [facility] 12-19-2024 13:57-0400 Heart rate 79 /min Adina Petznick DO Work Phone: [facility] 12-19-2024 13:57-0400 SaO2% (BldA) [Mass fraction] 97 % Adina Petznick DO Work Phone: [facility] 12-19-2024 13:57-0400 Systolic blood pressure 116 mm[Hg] Adina Petznick DO Work Phone: [facility] 09-21-2024 14:13-0500 Body height 154.9 cm Adina Petznick DO Work Phone: [facility] 09-21-2024 14:13-0500 Body mass index (BMI) [Ratio] 24.94 kg/m2 Adina Petznick DO Work Phone: [facility] 09-21-2024 14:13-0500 Body temperature 98.2 [degF] Adina Petznick DO Work Phone: [facility] 09-21-2024 14:13-0500 Body weight 59.88 kg Adina Petznick DO Work Phone: [facility] 09-21-2024 14:13-0500 Diastolic blood pressure 66 mm[Hg] Adina Petznick DO Work Phone: [facility] 09-21-2024 14:13-0500 Heart rate 72 /min Adina Petznick DO Work Phone: [facility] 09-21-2024 14:13-0500 SaO2% (BldA) [Mass fraction] 96 % Adina Petznick DO Work Phone: [facility] 09-21-2024 14:13-0500 Systolic blood pressure 118 mm[Hg] Adina Petznick DO Work Phone: [facility] 07-18-2024 15:00-0400 Body height 154.9 cm Adina Petznick DO Work Phone: [facility] 07-18-2024 15:00-0400 Body mass index (BMI) [Ratio] 26.94 kg/m2 Adina Petznick DO Work Phone: [facility] 07-18-2024 15:00-0400 Body temperature 96.69 [degF] Adina Petznick DO Work Phone: [facility] 07-18-2024 15:00-0400 Body weight 64.68 kg Adina Petznick DO Work Phone: [facility] 07-18-2024 15:00-0400 Diastolic blood pressure 76 mm[Hg] Adina Petznick DO Work Phone: [facility] 07-18-2024 15:00-0400 Heart rate 77 /min Adina Petznick DO Work Phone: [facility] 07-18-2024 15:00-0400 SaO2% (BldA) [Mass fraction] 98 % Adina Petznick DO Work Phone: [facility] 07-18-2024 15:00-0400 Systolic blood pressure 124 mm[Hg] Adina Petznick DO Work Phone: [facility] 06-15-2024 13:45-0400 Body height 154.[address] [facility] 06-15-2024 13:45-0400 Body mass index (BMI) [Ratio] 27.3 kg/m2 [facility] 06-15-2024 13:45-0400 Body weight 65.[address] [facility] 06-15-2024 13:45-0400 Diastolic blood pressure 62 mm[Hg] [facility] 06-15-2024 13:45-0400 Heart rate 84 /min [facility] 06-15-2024 13:45-0400 Respiratory rate 18 /min [facility] 06-15-2024 13:45-0400 Systolic blood pressure 100 mm[Hg] [facility] 05-19-2024 10:55-0400 Body height 149.[address] [facility] 05-19-2024 10:55-0400 Body mass index (BMI) [Ratio] 29.9 kg/m2 [facility] 05-19-2024 10:55-0400 Body weight 67.[address] [facility] 05-19-2024 10:55-0400 Diastolic blood pressure 73 mm[Hg] [facility] 05-19-2024 10:55-0400 Heart rate 84 /min [facility] 05-19-2024 10:55-0400 Systolic blood pressure 109 mm[Hg] [facility] 07-01-2023 13:45-0400 Body height 149.86 cm Lauren Ayoub Other [facility] Other 07-01-2023 13:45-0400 Body mass index (BMI) [Ratio] 31.5 kg/m2 Lauren Ayoub Other [facility] Other 07-01-2023 13:45-0400 Body temperature 97.6 [degF] Lauren Ayoub Other [facility] Other 07-01-2023 13:45-0400 Body weight 70.76 kg Lauren Ayoub Other [facility] Other 07-01-2023 13:45-0400 Diastolic blood pressure 64 mm[Hg] Lauren Ayoub Other [facility] Other 07-01-2023 13:45-0400 Systolic blood pressure 112 mm[Hg] Lauren Ayoub Other [facility] Other 10-19-2022 11:45-0500 Body height 149.86 cm Lauren Ayoub Other [facility] Other 10-19-2022 11:45-0500 Body mass index (BMI) [Ratio] 30.9 kg/m2 Lauren Ayoub Other [facility] Other 10-19-2022 11:45-0500 Body weight 69.4 kg Lauren Ayoub Other [facility] Other 10-19-2022 11:45-0500 Diastolic blood pressure 64 mm[Hg] Lauren Ayoub Other [facility] Other 10-19-2022 11:45-0500 Systolic blood pressure 140 mm[Hg] Lauren Natalya Other [facility] [employer] Other Encounters Encounter Date Encounter Type Care Provider Facility Start: 04-27-2025 End: 04-27-2025 ambulatory NELLY GARG [facility] Start: 04-02-2025 End: 04-02-2025 Office outpatient visit 25 minutes Adina Marinznick DO Work Phone: [facility] [phone] Comment on above: Type 2 diabetes ivan itus with stage 4 chronic kidney disease, with long-term current use of insulin ([facility]) Start: 04-02-2025 End: 04-02-2025 ambulatory ADINA Masterson PETZNICK Not Available Start: 01-23-2025 End: 01-23-2025 ambulatory [facility] Work Phone: Start: 01-23-2025 End: 01-23-2025 Patient encounter procedure [facility] Work Phone: Start: 12-26-2024 Non-patient / Non-visit [facility] Work Phone: Start: 12-19-2024 End: 12-19-2024 Office outpatient visit 25 minutes Adina Masterson Petznick DO Work Phone: [facility] [phone] Comment on above: Type 2 diabetes ivan itus with stage 4 chronic kidney disease, with long-term current use of insulin ([facility]) Start: 12-19-2024 End: 12-19-2024 ambulatory ADINA Masterson PETZNICK Not Available Start: 09-21-2024 End: 09-21-2024 Office outpatient visit 25 minutes Adina Masterson Petznick DO Work Phone: [facility] [phone] Comment on above: Type 2 diabetes ivan itus with stage 4 chronic kidney disease, with long-term current use of insulin ([facility]) Start: 09-21-2024 End: 09-21-2024 ambulatory ADINA Masterson PETZNICK Not Available Start: 07-18-2024 End: 07-18-2024 Office outpatient new 45 minutes Adina M Petznick DO Work Phone: [facility] [phone] Comment on above: Type 2 diabetes ivan itus with stage 4 chronic kidney disease, with long-term current use of insulin ([facility]) (Primary Dx) Start: 07-18-2024 End: 07-18-2024 ambulatory ADINA HUMMEL Not Available Start: 06-29-2024 End: 06-29-2024 Patient encounter procedure MD Lauren Ayoub Work Phone: [facility] [place] Work Phone: Start: 06-29-2024 End: 06-29-2024 ambulatory MD Lauren Ayoub Work Phone: [facility] Work Phone: Start: 06-19-2024 Non-patient / Non-visit MD Jil Ayoub Work Phone: [facility] Work Phone: Start: 06-15-2024 End: 06-15-2024 ambulatory [facility] Work Phone: Start: 06-15-2024 End: 06-15-2024 Patient encounter procedure [facility] [place] Work Phone: Start: 05-22-2024 Non-patient / Non-visit [facility] Work Phone: Start: 05-19-2024 End: 05-19-2024 ambulatory [facility] Work Phone: Start: 05-19-2024 End: 05-19-2024 Patient encounter procedure [facility] Work Phone: Start: 05-15-2024 End: 05-15-2024 ambulatory [facility] Start: 11-10-2023 End: 11-10-2023 ambulatory Lauren Ayoub Other [facility] [employer] Other Start: 11-10-2023 Telephone encounter Lauren Ayoub [facility] Start: 07-01-2023 End: 07-01-2023 ambulatory Lauren Ayoub Other [employer] Other Start: 07-01-2023 Office outpatient vi sit 15 minutes Lauren Ayoub [facility] Start: 05-19-2023 End: 05-19-2023 ambulatory Lauren Ayoub Other [facility] Other Start: 05-19-2023 Telephone encounter Lauren Ayoub [facility] Start: 02-19-2023 End: 02-19-2023 ambulatory Lauren Ayoub Other [facility] Other Start: 02-19-2023 Telephone encounter Lauren Ayoub [facility] Start: 02-18-2023 End: 02-18-2023 ambulatory Lauren Ayoub Other [employer] Other Start: 02-18-2023 Telephone encounter Lauren Ayoub [facility] Start: 01-15-2023 Encounter for other preprocedural examination DR DOCTOR BURROUGHS [facility] Start: 01-12-2023 End: 01-13-2023 ambulatory LAUREN AYOUB Facility:[facility] Start: 01-08-2023 End: 01-09-[address] DOCTOR BURROUGHS Facility:[facility] Start: 01-08-2023 End: 01-09-2023 Encounter for other preprocedural examination DR DOCTOR BURROUGHS Facility:[facility] Start: 10-28-2022 End: 10-28-2022 ambulatory Lauren Ayoub Other [facility] Other Start: 10-28-2022 Encounter by estella Ayoub [facility] Start: 10-19-2022 End: 10-19-2022 ambulatory Lauren Ayoub Other [facility] [employer] Other Start: 10-19-2022 Office outpatient vi sit 15 minutes Lauren Ayoub [facility] Start: 04-03-2022 ambulatory LAUREN Cristina AYOUB Facility :[facility] Start: 02-26-2022 End: 02-27-2022 ambulatory LAUREN AYOUB Facility:[facility] Start: 02-02-2020 End: 02-07-2020 Evaluation and management of inpatient ANA LAURA BROCK Facility:[facility] Start: 11-30-2019 Adult health examination Charlee Ayoub Other [facility] Other Procedures Date Procedure Procedure Detail Performing Clinician Start: 04-02-2025 Hemoglobin glycosylated a1c Adina Masterson Petznick DO Work Phone: Start: 12-19-2024 Hemoglobin glycosylated a1c Adina Masterson Petznick DO Work Phone: Start: 09-21-2024 Hemoglobin glycosylated a1c Adina Masterson Petznick DO Work Phone: Start: 06-29-2024 Ultrasonography of b ilateral kidneys MD Lauren Ayoub Work Phone: Start: 07-25-2015 Screening for malign ant neoplasm of breast Lauren Ayoub Other Plan of Treatment Date Care Activity Detail Author Start: 07-31-2025 End: 07-31-2025 Patient encounter procedure 07/31/2025 1:00 PM EDT Office Visit [facility] [address] [place] [phone] Adina Hummel, DO [address] [place], [place] [id number] [facility] 230 Start: 06-11-2025 Influenza vaccination Influenza Vaccine (Season Ended) [facility] Start: 04-02-2025 End: 04-02-2025 Patient encounter procedure 04/02/2025 1:15 PM EDT [facility] [address] [place] [phone] Adina Hummel, DO [address] [place] [address] [facility] 230 Start: 12-19-2024 End: 12-19-2024 Patient encounter procedure 12/19/2024 2:00 PM EDT Office Visit [facility] [address] [place] [phone] Adina Hummel, DO [address] [place] [address] [facility] 230 Start: 09-21-2024 End: 09-21-2024 Patient encounter procedure 09/21/2024 2:15 PM EST Office Visit [facility] [address] [place] [phone] Melanie Adina M, DO [address] [place] [address] [facility] Start: 06-11-2024 Influenza vaccination Influenza Vaccine (#1) [facility] Start: 08-08-2021 Pneumococcal Vaccine: 65+ Years (2 of 2 - PPSV23 or PCV20) Pneumococcal Vaccine: 65+ Years (2 of 2 - PPSV23 or PCV20) [facility] Start: 08-08-2021 Pneumococcal Vaccine: 65+ Years (2 of 2 - PPSV23) Pneumococcal Vaccine: 65+ Years (2 of 2 - PPSV23) [facility] Start: 1992 Screening for malignant neoplasm of breast Mammogram [facility] Start: 1952 Screening for malignant neoplasm of colon [facility] metabo lic 1999 panel - Serum or Plasma [facility] Microalbumin [Mass/volume] in Urine [facility] Renal function 1999 panel - Serum or Plasma [facility] Renal function 1999 panel - Serum or Plasma [facility] US Kidney - bilateral [facility] XR Chest 2 Views [facility] Immunizations Immunization Date Immunization Notes Care Provider Fa cility 08-13-2022 COVID-19 Pfizer (Pediatric) Lauren Ayoub Other [facility] 08-12-2022 influenza virus vaccine, split virus (incl. purified surface antigen) Lauren Ayobu Other [facility] [employer] Other 08-12-2022 influenza virus vaccine, unspecified formulation [facility] 08-12-2022 Seasonal, quadrivale nt, recombinant, injectable influenza vaccine, preservative free Adina Petznick DO Work Phone: [facility] 09-25-2021 COVID-19 Vaccine Pfi zer - Documentation Purposes Only Lauren Ayoub Other [facility] 09-25-2021 influenza virus vaccine, split virus (incl. purified surface antigen) Lauren Ayoub Other [facility] [employer] Other 09-25-2021 influenza virus vaccine, unspecified formulation [facility] 09-25-2021 Influenza, injectabl e, [facility] [place] Canine Kidney, preservative free, quadrivalent Adina Petznick DO Work Phone: [facility] 08-08-2020 influenza virus vaccine, split virus (incl. purified surface antigen) Lauren Ayoub Other [facility] [employer] Other 08-08-2020 influenza virus vaccine, unspecified formulation [facility] 08-08-2020 influenza, high dose seasonal, preservative-free Adina Petznick DO Work Phone: [facility] 08-08-2020 pneumococcal conjuga te vaccine, 13 valent Lauren Ayoub Other [facility] 05-12-2020 zoster vaccine recombinant Adina Petznick DO Work Phone: [facility] 05-12-2020 zoster vaccine, live Lauren Ayoub Other [facility] 12-19-2019 zoster vaccine recombinant Adina Petznick DO Work Phone: [facility] 11-11-2016 tetanus toxoid, redu yesi diphtheria toxoid, and acellular pertussis vaccine, adsorbed Adina Petznick DO Work Phone: [facility] 01-18-2014 zoster vaccine, live Adina Petznick DO Work Phone: [facility] 02-04-2011 tetanus toxoid, redu yesi diphtheria toxoid, and acellular pertussis vaccine, adsorbed Adinaroman Hummel DO Work Phone: [facility] Healthcare Payers Date Payer Category Payer Private Health Insurance [employer] [id number] 2021 Unknown [employer] [id number] 2021-Present [address] [place] [address] [id number] 2017 Medicare [id number] 1959 Medicare [id number] 1959 Self-pay 1959 Unknown [id number] 1952 Unknown [id number]. 647 1952 Unknown [id number] [id number]. 593 1952 Unknown [id number] [id number]. 593 1952 Unknown [id number] [id number]. 593 1952 Unknown [id number] [id number]. 593 1952 Unknown [id number] [id number]. 593 1952 Unknown [id number] [id number]. 593 1952 Unknown [id number] 2.16.840.1.272928.3.579.2. 1259 1952 Unknown [id number] [id number]. 1259 1952 Unknown [id number] [id number]. 1259 1952 Unknown [id number] [id number]. 1259 Unknown Regular Insurance [id number] Social History Date Type Detail Facility Unknown if ever smoked [facility] Other Start: 07-18-2024 End: 04-02-2025 Sex Assigned At [facility] Start: 1950 Sex Assigned At Female [facility] Start: 06-15-2024 End: 07-18-2024 Tobacco smoking status NHIS Never smoked tobacco (finding) [facility] Start: 07-18-2024 Tobacco use and exposure Smokeless tobacco non-user [facility] Start: 07-18-2024 End: 04-02-2025 History of Social function [facility] How [...] Not very hard [facility] (I/We) worried wheth er (my/our) food would run out before (I/we) got money to buy more. Never true [facility] Start: 1950 Sex assigned at Not on file [facility] Start: 09-21-2024 End: 04-02-2025 Alcoholic beverage intake Current drinker of alcohol (finding) [facility] Start: 01-23-2025 Sex Female (finding) [facility] How often do you nee d to have someone help you when you read instructions, pamphlets, or other written material from your doctor or pharmacy [SILS] Sometimes [facility] Medical Equipment Procedure Code Equipment Code Equipment Origin al Text Equipment Identifier Dates Fsbs daily [id number] Start: 09-21-2024 Fsbs daily [id number] Start: 09-21-2024 Testing bg level s once a day [id number] Start: 09-22-2024 Testing bg level s once a day [id number] Start: 09-22-2024 Functional Status Date Assessment Result Facility 04-02-2025 Patient Health [facility] ionnaire 2 item (PHQ-2) [Reported] [facility] Clinical Notes 10-19-2022 to 04-27-2025 Adina Hummel, DO - 04/02/2025 1:52 PM Jono Hummel, DO - 04/02/2025 1:15 PM Jono Hummel, DO - 12/20/2024 12:20 PM Jono Hummel, DO - 12/19/2024 2:00 PM EDT Note Date & Type Note Facility 04-27-2025 Note SUBJECTIVE Reason for Visit: Gabbi Austin is a 74 y.o. year old female patient being seen for 1 year follow-up visit. HPI: Gabbi Austin is a 74 y.o. year old female with significant medical history of CAD s/p PCI to [...] was placed, and no more recurring NSVT. 04/27/2025 office visit: Patient seen evaluated in the office today, she is accompanied by her and son. She reports doing very well overall and is lost over 40 pounds on Ozempic; she is down to 118 pounds. She has no complaints or concerns for the visit. Otherwise, she denies chest pain, palpitations, lightheadedness or dizziness, or lower extremity edema. She reports her PARSONS is stable to slightly improved. She states that she saw a manager requirements back in January and is due to see them in July of this year. 05/15/2024 office visit (Dr. Balderas): Chief Complaint: Patient here for 6 mo follow up CAD, chronic systolic heart failure, and hypertension. C/o worsening PARSONS. Denies chest pain and palpitations. Wonders if she has pneumonia, and sees Dr. Ayoub this Wednesday for wellness visit. No recent labs/imaging Doing okay overall; she is however concerned about worsening shortness of breath. This has been worsening over the past several months. She denies chest pain. She states that her symptoms prior to stent placement was leg swelling . She denies orthopnea or paroxysmal internal dyspnea. She denies lower extremity edema. Medical History[1] Surgical History[2] Problem List[3] family history includes Mitral valve prolapse in her mother. Social History[4] OBJECTIVE Visit Vitals Smoking Status Never Physical Exam Constitutional: General Appearance: well-developed, appears stated age. Level of Distress: no acute distress. Neck: Jugular Veins: normal jugular venous pressure. Lungs: Auscultation: no rales or rhonchi and normal breath sounds. Cardiovascular: Rate And Rhythm: regular Heart Sounds: normal S1 and s2; Systolic Murmur: not heard. Diastolic Murmur: not heard. Extremities: no edema Peripheral Pulses: Pulses: full and equal in all extremities except if noted. Abdomen: Inspection and Palpation: non distended or tender and soft. Musculoskeletal: Inspection: no joint tenderness or swelling. Neurologic: Gait: normal gait. Psychiatric: Mental Status: alert and normal affect. Skin: Inspection and Palpation: warm and dry. Allergies: Allergies[5] Outpatient Medications: Current Outpatient Medications Medication Instructions atorvastatin (LIPITOR) 40 mg, oral, Nightly bumetanide (BUMEX) 1 mg, oral, Once Daily clopidogrel (PLAVIX) 75 mg, oral, Once Daily ferrous sulfate 325 (65 Fe) MG tablet Daily RT glipiZIDE XL (GLUCOTROL XL) 5 mg, oral, Daily linaGLIPtin (Tradjenta) 5 mg tablet Tradjenta 5 mg tablet TAKE 1 TABLET BY MOUTH ONCE DAILY lisinopril 10 mg, oral, Once Daily metFORMIN (Glucophage) 850 mg tablet metformin 850 mg tablet TAKE 1 TABLET BY MOUTH DAILY metoprolol succinate XL (TOPROL-XL) 100 mg, oral, Once Daily, Do not crush or chew. potassium chloride CR (Klor-Con) 10 mEq ER tablet potassium chloride ER 10 mEq tablet,extended release TAKE 1 TABLET BY MOUTH EVERY DAY rOPINIRole (Requip) 1 mg tablet ropinirole 1 mg tablet TAKE 1 TABLET BY MOUTH AT BEDTIME Recent Labs: No visits with results within 2 Month(s) from this visit. Latest known visit with results is: Legacy Encounter on 02/12/2020 Component Date Value Ventricular Rate 02/12/2020 94 Atrial Rate 02/12/2020 94 AR Interval 02/12/2020 142 QRS DURATION 02/12/2020 96 QT Interval 02/12/2020 418 QTC CALCULATION(BEZET) 02/12/2020 522 P [place] 02/12/2020 51 R-[place] 02/12/2020 20 T Wave [place] 02/12/2020 89 Diagnosis 02/12/2020 Value:Sinus rhythm with frequent Premature ventricular complexes non-specific T wave abnormalities present in jose alberto-lateral leads Prolonged QTc 522 ms Abnormal ECG When compared with ECG of 03-FEB-2020 01:24, Premature ventricular complexes are now Present Confirmed by Ra Fine ([id number]) on 02/12/2020 5:06:15 PM I have personally reviewed and anaylzed the following laboratory results above. These findings have been analyzed in the context of the patient's clinical presentation. Cardiovascular Diagnostic Studies: Stress test 05/29/2024: Coronary angiogram Cath 02/2020: FINAL IMPRESSION: Successful PCI of the mid LAD with a Synergy 2.75 x 16 mm drug-eluting stent, which was post-dilated with an [place] Quantum Gansevoort 3.0 x 8 mm noncompliant balloon. TTE 02/06/2020: Left Ventricle: The left ventricle is normal size. Global left ventricular systolic function is severely reduced. The EF is 25 % visually. Muna (more content not included)... [facility] 04-02-2025 History of Present illness Narrative Associated Problem(s): Type 2 diabetes mellitus with stage 4 chronic kidney disease, with long-term current use of insulin (HCC) During the appointment today all pertinent labs, [...] have any problems or questions. Gabbi Austin control is stable overall. , Will stay on current medications. , [...] sugary drinks. , Instructions given today include: Dietary education. She needs to get protein with all her snacks to prevent rebound hypoglycemia. Images from the original note were not included. Gabbi Austin is a 74 y.o. female presents with chief complaint of Diabetes HPI: Diabetes Mellitus Follow-up: Gabbi Austin is here for follow-up evaluation of diabetes mellitus. The initial diagnosis of diabetes was made around 2013 Complications include: nephropathy and cardiovascular disease Previously tried medications include: Jardiance- yeast infections She has been checking her blood glucose with a Freestyle Haider 3 plus CGM -LINKED- on a daily basis. She is having some spikes then reactive hyopglycemia during the day and occasionally at night. She doesn't like a lot of protein foods and will snack on carbs some during the day and night to settle her stomach. Last A1c: 6.5 (12/19/24) Eye exam: 20[facility]- [facility] Current concerns include: BG levels: similar to last visit Diet: Limiting carbs and sugar intake, small portions Drinks: water, hint drinks, strawberry drink zero sugar, zero pop, coffee with splash of sweetened creamer, premier protein drinks Exercise: Walking dogs when its nice Hypoglycemia: couple times a week- overnight around 4 am Diabetes Pertinent negatives for diabetes include no chest pain, no fatigue, no polydipsia, no polyphagia and no polyuria. SUBJECTIVE: PROBLEM LIST SOCIAL ALLERGIES: Patient Active Problem List Diagnosis Type 2 diabetes mellitus with stage 4 chronic kidney disease, with long-term current use of insulin (HCC) Secondary hyperparathyroidism (HCC) Hyperlipidemia Iron deficiency anemia Social History Tobacco Use Smoking status: Never Smokeless tobacco: Never Substance Use Topics Alcohol use: Yes Drug use: Never Allergies Allergen Reactions Penicillins Hives Synopsis SmartLink 04/02/2025 13:31 Antidiabetic medications Semaglutide 0.5 mg Weekly SC (2 MG/3ML SOPN) Labs [facility] HEMOGLOBIN A1C/HEMOGLOBIN.TOTAL:MFR:PT:BLD:QN: 7.0 Outpatient prescription Medication marked as long-term The ASCVD Risk score (Kathleen DK, et al., 2019) failed to calculate for [...] Negative for polydipsia, polyphagia and polyuria. OBJECTIVE: 04/02/2025 1:20 PM 12/19/2024 1:57 PM 09/21/2024 2:13 PM Vitals BMI 22.3 kg/m2 22.86 kg/m2 24.94 kg/m2 Systolic 110 116 118 Diastolic 64 62 66 Heart Rate 79 79 72 Temp 98.2 F 98.3 F 98.2 F Height (in) 5' 1 5' 1 5' 1 Weight (lb) 118 121 132 Visit Report Report Report Report Physical Exam [...] disease, with long-term current use of insulin (HCC) During the appointment today all pertinent labs, [...] have any problems or questions. Gabbi Austin control is stable overall. , Will stay on current medications. , [...] sugary drinks. , Instructions given today include: Dietary education. She needs to get protein with all her snacks to prevent rebound hypoglycemia. Relevant Orders POCT glycosylated hemoglobin (Hb A1C) docked device (Completed) Follow up in about 4 months (around 08/02/2025) for Recheck. Patient's Medications New Prescriptions No medications on file Previous Medications ASPIRIN 81 MG EC TABLET Daily ATORVASTATIN (LIPITOR) 40 MG TABLET Take 40 mg by mouth at bedtime BARBERRY-OREG GRAPE-GOLDENSEAL (BERBERINE COMPLEX) 200-200-50 MG CAPSULE 1 (one) time each day at the same time BIOTIN 39251 MCG TABLET Take by mouth BLOOD GLUCOSE MONITORING SUPPL (Global Locate) W/DEVICE KIT Testing bg levels once a day BUMETANIDE (BUMEX) 1 MG TABLET Daily CLOPIDOGREL (PLAVIX) 75 MG TABLET Daily CONTINUOUS GLUCOSE SENSOR (FREESTYLE HAIDER 3 PLUS SENSOR) MISC 1 each Every 15 Days CYANOCOBALAMIN (VITAMIN B-12) 1000 MCG TABLET Take [...] Take 2 mg by mouth at bedtime SEMAGLUTIDE,0.25 OR 0.5MG/DOS, 2 MG/3ML SOLUTION PEN-INJECTOR Inject 0.5 mg under the skin 1 (one) time per week Modified Medications No medications on file Discontinued Medications No medications on file I have reviewed and reconciled the history and medication list with the patient today. documented in this encounter [facility] 12-20-2024 History of Present illness Narrative Associated Problem(s): Type 2 diabetes mellitus with stage 4 chronic kidney disease, with long-term current use of insulin ([facility]) During the appointment today all pertinent labs, [...] been checking her blood glucose with a [employer] Haider 3 plus CGM -LINKED- on a daily basis. Bg running smooth or dipping some overnight, tends to rise with meals a little but then comes back down in between meals. Last A1c: 8.0 (09/21/24) Eye exam: [facility]- [facility] Current concerns include: Lost 11 lbs since [...] mg Weekly SC (2 MG/3ML SOPN) Labs [facility] HEMOGLOBIN A1C/HEMOGLOBIN.TOTAL:MFR:PT:BLD:QN: 6.5 Outpatient prescription Medication marked [...] disease, with long-term current use of insulin ([facility]) During the appointment today all pertinent labs, [...] each day at the same time BIOTIN 33318 MCG TABLET Take by mouth BLOOD GLUCOSE MONITORING SUPPL (Global Locate) W/DEVICE KIT Testing bg levels once a day BUMETANIDE (BUMEX) 1 MG TABLET Daily CLOPIDOGREL (PLAVIX) 75 MG TABLET Daily CYANOCOBALAMIN (VITAMIN B-12) 1000 MCG TABLET Take 5,000 mcg by mouth Daily FERROUS SULFATE 325 (65 FE) MG TABLET Daily FLUTICASONE (FLONASE) 50 MCG/ACT NASAL SPRAY Daily GLUCOSE BLOOD ([employer] TechnologiesUCH VER9GAG) TEST STRIP Testing bg levels once a [...] the patient today. documented in this encounter [facility] 09-21-2024 History of Present illness Narrative Associated Problem(s): Type 2 diabetes mellitus with stage 4 chronic kidney disease, with long-term current use of insulin ([facility]) During the appointment today all pertinent labs, [...] they have any problems or questions. Gabbi Tariq Norman is making improvements and encouraged on this. [...] been checking her blood glucose with a H[employer] Haider CGM -LINKED- on a daily basis. Bg running smooth overnight but then rise in the afternoon/evening. Improving this week compared to last week. Last A1c: 9.3 (05/22/24) Eye exam: [facility]- [facility] Current concerns include: Last office visit was [...] disease, with long-term current use of insulin ([facility]) During the appointment today all pertinent labs, [...] Glucose Sensor (FreeStyle Haider 3 Plus Sensor) mis Semaglutide,0.25 or 0.5MG/DOS, 2 MG/3ML solution pen-injector Blood Glucose Monitoring Suppl ([employer]) w/Device kit glucose blood (OneTouch Verio) test strip Lancets (Apolo EnergiaTouch Delica Plus [id number]) mis Other Relevant Orders POCT glycosylated hemoglobin (Hb A1C) docked device (Completed) Follow up in about 3 months (around 12/20/2024) for Recheck. Patient's Medications New Prescriptions BLOOD GLUCOSE MONITORING SUPPL (Global Locate) W/DEVICE KIT Fsbs daily CONTINUOUS GLUCOSE SENSOR (FREESTYLE HAIDER 3 PLUS SENSOR) [facility] 1 each See administration instructions GLUCOSE BLOOD (ONETOUCH VERIO) TEST STRIP Fsbs daily LANCETS (O[employer]reSoft TechnologiesUCH DELICA PLUS [id number]) MISC Fsbs daily Previous Medications ASPIRIN 81 MG EC TABLET Daily ATORVASTATIN (LIPITOR) 40 MG TABLET Take 40 mg by mouth at bedtime BARBERRY-OREG GRAPE-GOLDENSEAL (BERBERINE COMPLEX) 200-200-50 MG CAPSULE 1 (one) time each day at the same time BIOTIN 18085 MCG TABLET Take by mouth BUMETANIDE (BUMEX) [...] per week Discontinued Medications CONTINUOUS GLUCOSE SENSOR (FREESTYLE HAIDER 14 DAY SENSOR) MISC Inject 1 each under the skin every 14 (fourteen) days I have reviewed and reconciled the history and medication list with the patient today. documented in this encounter [facility] 07-19-2024 History of Present illness Narrative Associated Problem(s): Type 2 diabetes mellitus with stage 4 chronic kidney disease, with long-term current use of insulin ([facility]) During the appointment today all pertinent labs, [...] disease, with long-term current use of insulin ([facility]) - Primary During the appointment today all [...] each day at the same time BIOTIN 13520 MCG TABLET Take by mouth BUMETANIDE (BUMEX) 1 MG TABLET Daily CLOPIDOGREL (PLAVIX) 75 MG TABLET Daily CONTINUOUS GLUCOSE SENSOR (FREESTYLE HAIDER 14 DAY SENSOR) MISC USE DIRECTED to test BLOOD SUGAR EVERY [...] the patient today. documented in this encounter [facility] 05-15-2024 Note [facility] Cardiology Clinic Note Chief Complaint: Patient [...] drug-eluting stent, which was post-dilated with an Med[employer] Quantum Gansevoort 3.0 x 8 mm noncompliant balloon. Diagnostic Imagin01/04/23 Holter santiago (more content not included)... [facility] 11-10-2023 Evaluation note Encounter Date Diagnosis Assessment Notes Oct, Controlled type 2 diabetes mellitus with hyperglycemia, without long-term current use of insulin (ICD-10 - E11.65) [facility] Other 09-21-2023 Evaluation note* Encounter Date Diagnosis [...] will continue to monitor every 3 months. [facility] Other 01-09-2023 Evaluation note* Encounter Date Diagnosis Assessment Notes Treatment Notes Treatment Clinical Notes Oct, Posterior right knee pain (ICD-10 - M25.561) [facility] Other Evaluation noteNo InformationNort PK Clean Other evaluation note* Diagnosis Onset Date Resolution Status CAD (coronary artery disease) acute Chronic cough acute Iron deficiency anemia acute Type II diabetes mellitus [facility] Work Phone: Evaluation note* Diagnosis Onset Date Resolution Status CAD (coronary artery disease) acute Chronic cough acute Iron deficiency anemia acute Medicare annual wellness visit, subsequent acute RLS (restless legs syndrome) acute Type II diabetes mellitus [facility] CAD (coronary artery disease) acute CKD (chronic kidney disease) acute [id number] acute Secondary hyperparathyroidism acute Type 2 diabetes mellitus wit h diabetic chronic kidney disease acute [facility] [facility] Work Phone: Evaluation note* Diagnosis Onset Date Resolution Status CAD (coronary artery disease) acute Chronic cough acute Iron deficiency anemia acute Medicare annual wellness visit, subsequent acute RLS (restless legs syndrome) acute Type II diabetes mellitus [place] CAD (coronary artery disease) acute CKD (chronic kidney disease) acute Hyperlipidemia acute [id number] acute Secondary hyperparathyroidism acute Type 2 diabetes mellitus wit h diabetic chronic kidney disease acute [facility] Work Phone: Evaluation note* Diagnosis Type 2 diabetes mellitus with stage 4 chronic kidney disease, with long-term current use of insulin (CMS/HCC)- Primary documented in this encounter [facility] HealthcareEvaluation note* Diagnosis Type 2 diabetes mellitus with stage 4 chronic kidney disease, with long-term current use of insulin (CMS/HCC)- Primary Type 2 diabetes mellitus with stage 4 chronic kidney disease, with long-term current use of insulin (CMS/HCC) documented in this encounter [facility] HealthcareEvaluation note* Diagnosis Type 2 diabetes mellitus with stage 4 chronic kidney disease, with long-term current use of insulin (CMS/HCC)- Primary Type 2 diabetes mellitus with stage 4 chronic kidney disease, with long-term current use of insulin (CMS/HCC) Type 2 diabetes mellitus with stage 4 chronic kidney disease, with long-term current use of insulin (CMS/HCC) documented in this encounter [facility] HealthcareEvaluation note* Diagnosis Onset Date Resolution Status Admit Date CAD (coronary artery disease) acute January 23, 2025 1:09pm CKD (chronic kidney disease) acute January 23, 2025 1:09pm Hyperlipidemia acute January 1:09pm Hypertensive chronic kidney disease with stage 1 through stage 4 chronic ki acute January 23, 2025 1:09pm Secondary hyperparathyroidism acute January 23, 2025 1:09pm Type 2 diabetes mellitus wit h diabetic chronic kidney disease acute January 23, 2025 1:09pm [facility] Work Phone: Evaluation note* Diagnosis Type 2 diabetes mellitus with stage 4 chronic kidney disease, with long-term current use of insulin (HCC)- Primary Type 2 diabetes mellitus with stage 4 chronic kidney disease, with long-term current use of insulin (HCC) Type 2 diabetes mellitus with stage 4 chronic kidney disease, with long-term current use of insulin (HCC) Type 2 diabetes mellitus with stage 4 chronic kidney disease, with long-term current use of insulin (HCC) documented in this encounter [facility] general Narrative - Reported* Type Description Date Medical History stenosis of left anterior descen ding artery Medical History type 2 diabetes Medical History CHF Medical History iron deficiency anemia Medical History secondary restless leg syndrome Medical History right carpal tunnel syndrome Surgical History PCI of mid LAD- drug eluting [facility] Cao Surgical History left rotator cuff repair 2010 Surgical History left carpal tunnel release 2004 Surgical History tonsillectomy Surgical History section [facility] [employer] Other History general Narrative - Reported* [...] History PCI of mid LAD- drug eluting [facility] Cao Surgical History left rotator cuff repair 2010 Surgical History left carpal tunnel release 2004 Surgical History tonsillectomy Surgical History section Hospitalization History SEE SURGICAL HX [facility] [employer] Other History general Narrative - Reported* [...] History PCI of mid LAD- drug eluting [facility] Cao Surgical History left rotator cuff repair 2010 Surgical History left carpal tunnel release 2004 Surgical History tonsillectomy Surgical History section Surgical History Right knee surgery 02/2023 Surgical History Right CTR 02/2022 Hospitalization History SEE SURGICAL HX [facility] Other Summary Purpose Family History No Family [...] 10:49am Hospital Course Note MR#: [id number] I [facility] Pt. Name: Gabbi Austin Admitted: 02/02/2020 [...] Referral Reason 11/02/22 Dr. Nuvia hanna at [facility] ([facility]) Diagnosis 1 Posterior right knee pain (M25.561) Referral Organization [facility] Britney yen Referring Provider First Name Lauren Referring Provider Last Name Natalya Referring Provider Specialty [facility] Referred Organization [facility] Referred Provider Dav García Jr Referred Address ,[place], [place],[address] Referred Provider Specialty Orthopedic S urgery Referral [...] Knapp 11/16/2022 12:37:24 PM >received notes from MARI Luevano Clinical Notes Bryan: P: [id number] F: [id number] Chief Complaint and Reason for Visit Chief [...] (coronary artery disease) CKD (chronic kidney disease) [id number] Secondary hyperparathyroidism Type 2 diabetes mellitus with diabetic chronic kidney disease Chief Complaint Wellness RENAL CKD 4 N18.9 E1.22 I12.9 I25.10 N25.81 Reason for Visit CAD (coronary artery disease) Chronic cough Iron deficiency anemia Medicare annual wellness visit, subsequent RLS (restless legs syndrome) Type II diabetes mellitus CAD (coronary artery disease) CKD (chronic kidney disease) Hyperlipidemia [id number] Secondary hyperparathyroidism Type 2 diabetes mellitus with diabetic chronic kidney disease Chief Complaint Admit Date RENAL 6 MONTH F/U January 23, 2025 1:0 9pm Reason for Visit Admit Date CAD (coronary artery disease) January 1:09pm CKD (chronic kidney disease) January 23, 2025 1:09pm Hyperlipidemia January 23, 2025 1:0 9pm Hypertensive chronic kidney disease with stage 1 through stage 4 chronic ki January 23, 2025 1:09pm Secondary hyperparathyroidism January 1:09pm Type 2 diabetes mellitus with diabetic c hronic kidney disease January 23, 2025 1:09pm Additional Source Comments INFORMATION SOURCE (unrecogn ized section and content) DATE CREATED AUTHOR 05/02/2020 [facility] DATE CREATED AUTHOR AUTHOR'S ORGANIZ ATION 12/06/2022 [facility] Special[facility] DATE CREATED AUTHOR AUTHOR'S ORGANIZ ATION 01/16/2023 [facility] DATE CREATED AUTHOR AUTHOR'S ORGANIZ ATION 07/02/2024 [facility] y[facility] DATE CREATED AUTHOR AUTHOR'S ORGANIZ ATION 04/03/2025 [facility] Specialists EPIC DATE CREATED AUTHOR AUTHOR'S ORGANIZ ATION 04/30/2025 [facility] REASON FOR VISIT (unrecogniz ed section and content) Reason Comments Diabetes New Patient Reason Comments Diabetes Reason Comments Diabetes Care Teams (unrecognized sec tion and content) Team Status: Active Member Role Status Dates Lauren Ayoub MD Primary Care Provider Active Team Status: Active Member Role Status Dates Lauren Ayoub MD Primary Care Provider Active Start: December 26, 2024 Tricia White MD Attending Provider Active Start : December 26, 2024 Team Status: Inactive Member Role Status Dates Lauren Ayoub MD Primary Care Provider Active Start: January 23, 2025 End: January 23, 2025 Tricia White MD Attending Provider Active Start : January 23, 2025 End: January 23, 2025 Team Status: Inactive Member Role Status Dates [...] June 29, 2024 End: June 29, 2024 Jewel Inserter Relationship Specialty Start Date End Date Lauren Ayoub MD [address] [place] [phone] PCP - General Family Medicine 07/18/24 Adina Hummel DO [address] [address] Referring Physician Family Medicine 07/18/24 Jewel Inserter Relationship Specialty Start Date End Date Lauren Ayoub MD [address] [place] [phone] PCP - General Family Medicine 07/18/24 Adina Hummel DO [address] [place] [address] Referring Physician Family Medicine 07/18/24 Jewel Inserter Relationship Specialty Start Date End Date Lauren Ayoub MD [address] [phone] PCP - General Family Medicine 07/18/24 Adina Hummel, DO [address] [place] [address] Referring Physician Family Medicine 07/18/24 Jewel Inserter Relationship Specialty Start Date End Date Lauren Ayoub MD [address] [facility] [phone] PCP - General Family Medicine 04/02/25 Adina Hummel DO [address] [place] [address] Referring Physician Family Medicine 07/18/24 Goals (unrecognized [...] BE BASED ON THE PRIMARY CLINICAL RECORDS. [email or web address] provides no warranty or guarantee of the accuracy or completeness of information in this document.
[2025-06-26 08:42] LABS: Hematocrit 40.4 % (36.0-48.0); Hemoglobin 13.3 g/dL (12.0-16.0); Mean Corpuscular HGB Conc 32.9 g/dL (29.9-35.2); Mean Corpuscular Hemoglobin 30.2 pg (26.7-34.0); Mean Corpuscular Volume 91.8 fL (81.0-99.0); Platelet Count 405 10^3/uL (150-450); Red Blood Count 4.40 10^6/uL (4.20-5.40); White Blood Count 7.4 10^3/uL (4.0-11.0)
[2025-06-26 08:43] LABS: Glucose Urine UA NEGATIVE (NEGATIVE)
[2025-06-26 08:56] LABS: Cast Seen? SEEN #/LPF (NONE SEEN); Crystals Seen? None Seen #/HPF (None Seen)
[2025-06-26 09:03] LABS: Protein Creatinine Ratio Urine 0.12; Total Protein Urine Random 14.1 mg/dL (<=11.9)
[2025-06-26 09:24] LABS: Albumin Level 3.7 g/dL (3.4-5.0); Anion Gap 12.6; Blood Urea Nitrogen 48.0 mg/dL (7.0-18.0); Calcium 9.5 mg/dL (8.5-10.1); Carbon Dioxide 26.8 mmol/L (21.0-32.0); Chloride 103 mmol/L (98-107); Estimated GFR (African America 30 (>=60 mL/min/1.73m^2); Estimated GFR (Non-African Ame 24 (>=60 mL/min/1.73m^2); Glucose 155 mg/dL (74-106); Magnesium 2.2 mg/dL (1.8-2.4); Potassium 4.4 mmol/L (3.5-5.1); Sodium 138 mmol/L (136-145); Uric Acid 7.6 mg/dL (2.6-6.0)
== END 2025-06-26 08:11 | disposition home or self-care (01) ==
LOC: LAB 08:11
PROVIDERS: PCP Family Medicine; Visit Provider Internal Medicine
DX: E78.5 Hyperlipidemia, unspecified (principal); N25.81 Secondary hyperparathyroidism of renal origin; I12.9 Hypertensive chronic kidney disease with stage 1 through stage 4 chronic kidney disease, or unspecified chronic kidney disease; E11.22 Type 2 diabetes mellitus with diabetic chronic kidney disease; N18.9 Chronic kidney disease, unspecified; I25.10 Atherosclerotic heart disease of native coronary artery without angina pectoris
CPT/HCPCS: 36415; 80069; 81001; 82306; 82570; 83735; 83970; 84156; 84550; 85027